=== PATIENT | male | born 1945 | race Caucasian/White ===

== ENCOUNTER → 2016-05-22 | Outpatient (CLI) | payer BC ==
[~2016-05-22] MED LIST: ACET-1256 PO; ALFU10TA30 PO; ASCA500 PO; ASPEC325 PO; AVASTIN IV; CHOL100010 PO; CHOL20009 PO; COEN10CA4 PO; GLUCTAB7 PO; JOINT CARE PO; MELO15TA4 PO; MORP15TA19 PO; MULT-506 PO; OMEG10007 PO; OXYC-57 PO; PREG150C PO; TAMS0.4C38 PO; XLD/500 PO; probiotic PO
== END | disposition home or self-care (01) ==
LOC: C.LAB 17:39
PROVIDERS: ATTEND Urology
DX: N40.1 Benign prostatic hyperplasia with lower urinary tract symptoms (principal); C20 Malignant neoplasm of rectum; C18.9 Malignant neoplasm of colon, unspecified

== ENCOUNTER → 2016-06-11 | Day surgery (SDC) | payer BC ==
[2016-06-07 10:38] VITALS: BMI 32.0
[~2016-06-11] VITALS: Ht 180.3 cm; Wt 104.5 kg
[~2016-06-11] MED LIST changes: +ATROPINE SULFATE 0.1 MG/ML 5ML SYR IV PRN; -AVASTIN IV; -CHOL20009 PO; +EpHEDrine SULFATE INJ 50 MG/ML AMP IV PRN; +FENTANYL CITRATE INJ 50 MCG/1 ML 2 ML VIAL ONE; -JOINT CARE PO; +LIDOCAINE HCL 2% 2 ML VIAL (20MG/ML) ONE; +PROPOFOL IV EMULSION 10 MG/ML 20 ML VIAL IV ONE; +SODIUM CHLORIDE 0.9% 500ML 500 ML IV ONE; -XLD/500 PO; -probiotic PO
[2016-06-11 08:43] VITALS: Ht 180.3 cm; Wt 104.5 kg
--- NOTE | 2016-06-11 09:15 | Endo History and Physical ---
History & Physical Date of Service: Jun 11, 2016. Chief Complaint: COLON CANCER Referring Physician: DR QUAN COMBS History of Present Illness 70 yo CM who presents for colonoscopy via colostomy secondary to history of rectal cancer. Past Medical History Arthritis, Cancer, Liver Disease Past Surgical History Hx Cardiac Surgery: No Hx Internal Defibrillator: No Hx Pacemaker: No Hx Abdominal Surgery: No Hx of Implantable Prosthesis: No Hx Post-Op Nausea and Vomiting: No Hx Cancer Surgery: Yes (COLON RESECTION WITH COLOSTOMY) Hx Thoracic Surgery: No Hx Orthopedic: Yes (LT KNEE SURGERY WITH HARDWARE) Hx Urinary Tract Surgery: No Family History None Social History Smoking Status: Former Smoker Hx Substance Use: No Hx Alcohol Use: Yes (OCCASIONAL) Allergies Coded Allergies: No Known Allergies (Verified , 06/11/16) Current Medications Reported Home Medications Medications Dose Route/Sig Max Daily Dose Days Date Category Vitamin D (Cholecalciferol) 1,000 Unit Tab 1 Tab PO QAM 06/07/16 Reported Flomax (Tamsulosin Hcl) 0.4 Mg Cap 0.4 Mg PO HS 06/07/16 Reported Mobic (Meloxicam) 15 Mg Tab 15 Mg PO Q2D 06/07/16 Reported Glucosamine Chondroitin (Grcdsjzwngo-Pfjxkswbmpv-Zxg C-) 1 Tab Tab 1 Oz PO HS 06/07/16 Reported [place]-3 (Fish Oil) 1 Ea Cap 2,000 Mg PO HS 12/27/14 Reported Coq-10 (Coenzyme Q10 (Ubidecarenone)) 10 Mg Cap 20 Mg PO HS 07/21/14 Reported Multivitamin (Multivitamins) Tab 1 Tab PO HS 07/05/14 Reported Vitamin C (Ascorbic Acid) 500 Mg Tab 1,000 Mg PO HS 07/05/14 Reported Vital Signs Weight (Kilograms): 104.55 Height (Feet): 5 Height (Inches): 11 Date Time Temp Pulse Resp B/P Pulse Ox O2 Delivery O2 Flow Rate FiO2 06/11/16 08:46 36.4 68 18 139/84 95 Room Air Physical Exam General Appearance: WD/WN, no apparent distress Respiratory/Chest: Auscultation: breath sounds normal Cardiovascular: Heart Auscultation: RRR Abdomen: Bowel Sounds: normal Inspection & Palpation: soft, non-distended, no tenderness, guarding & rebound Assessment and Plan Assessment: 70 yo CM who presents for colonoscopy via colostomy secondary to history of rectal cancer. Plan: Proceed with colonoscopy via colostomy.
--- NOTE | 2016-06-11 09:44 | Anesthesiology Progress Note ---
Anesthesia Post Op Note Date & Time Jun 11, 2016 at 09:43 Vital Signs Pain Intensity: 0 Vital Signs Past 12 Hours Date Time Temp Pulse Resp B/P Pulse Ox O2 Delivery O2 Flow Rate FiO2 06/11/16 08:46 36.4 68 18 139/84 95 Room Air Notes Mental Status: alert / awake / arousable, participated in evaluation Pt Amnestic to Procedure: Yes Nausea / Vomiting: adequately controlled Pain: adequately controlled Airway Patency, RR, SpO2: stable & adequate BP & HR: stable & adequate Hydration State: stable & adequate Anesthetic Complications: no major complications apparent
--- NOTE | 2016-06-11 09:46 | Discharge Instructions ---
Endoscopy Patient Instructions Date / Procedure(s) Performed Jun 11, 2016. Colonoscopy Allergy Information Coded Allergies: No Known Allergies (Verified , 06/11/16) Discharge Date / Findings Jun 11, 2016. Diverticulosis Medication Instructions OK to resume all medications today as prescribed. Reported Home Medications Medications Dose Route/Sig Max Daily Dose Days Date Category Vitamin D (Cholecalciferol) 1,000 Unit Tab 1 Tab PO QAM 06/07/16 Reported Flomax (Tamsulosin Hcl) 0.4 Mg Cap 0.4 Mg PO HS 06/07/16 Reported Mobic (Meloxicam) 15 Mg Tab 15 Mg PO Q2D 06/07/16 Reported Glucosamine Chondroitin (Waaxxvisrhd-Ejejlsrehsz-Pxr C-) 1 Tab Tab 1 Oz PO HS 06/07/16 Reported [place]-3 (Fish Oil) 1 Ea Cap 2,000 Mg PO HS 12/27/14 Reported Coq-10 (Coenzyme Q10 (Ubidecarenone)) 10 Mg Cap 20 Mg PO HS 07/21/14 Reported Multivitamin (Multivitamins) Tab 1 Tab PO HS 07/05/14 Reported Vitamin C (Ascorbic Acid) 500 Mg Tab 1,000 Mg PO HS 07/05/14 Reported Provider Instructions Activity Restrictions - No exercising or heavy lifting for 24 hours. - Do not drink alcohol the day of the procedure. - Do not drive a car or operate machinery until the day after the procedure. - Do not make any important decisions or sign important papers in 24 hours after the procedure. Following Day: - Return to full activity which may include returning to work/school. Diet Start your diet with liquids and light foods (jello, soup, juice, toast). Then eat your usual diet if not nauseated. Treatment For Common After Affects For mild abdominal pain, bloating, or excessive gas: - Rest - Eat lightly - Lie on right side Follow-Up Information Follow-up with DR QUAN COMBS as scheduled Anesthesia Information What You Should Know You have had a procedure that required some medicine to reduce anxiety and discomfort. This treatment is called moderate sedation. After receiving the treatment, you may be sleepy, but you will be able to breathe on your own. The effects of the treatment may last for several hours. Follow these instructions along with Activity/Diet recommendations noted above: * Do NOT do anything where dizziness or clumsiness would be dangerous. * Rest quietly at home today, then you can be up and about tomorrow. * Have a responsible person stay with you the rest of today. * You may have had an I.V. today. If so, you may take the dressing off later today. Recommendations Call your doctor if: * Trouble breathing * Continuous vomiting for more than 24 hours * Temperature above 101 degrees * Severe abdominal pain or bloating * Pain not relieved by pain medicine ordered * There is increased drainage or redness from any incision * A large amount of rectal bleeding greater than 2-3 tablespoons. (If you had a polyp/s removed or have hemorrhoids, a small amount of blood - from the rectum is to be expected.) * You have any unanswered questions or concerns. IN THE EVENT OF A SERIOUS EMERGENCY, GO TO THE NEAREST EMERGENCY ROOM Your discharge instructions were prepared by provider Nathan Lin. Patient Instructions Signature Page Kristofer Ash Patient (or Guardian) Signature/Date: I have read and understand the instructions given to me by my caregivers. Caregiver/RN/Doctor Signature/Date: The above-named patient and/or guardian has received patient instructions on this date. + Original Patient Signature Page (only) stays with chart. Please make copy for patient.
--- NOTE | 2016-06-11 09:54 | GI REPORT ---
Procedure Date: 06/11/2016 9:17 AM Procedure: Colonoscopy Indications: High risk colon cancer surveillance: Personal history of colon cancer Medicines: Monitored Anesthesia Care Complications: No immediate complications. Estimated Blood Loss: Estimated blood loss: none. Procedure: Pre-Anesthesia Assessment: - Prior to the procedure, a History and Physical was performed, and patient medications and allergies were reviewed. The patient's tolerance of previous anesthesia was also reviewed. The risks and benefits of the procedure and the sedation options and risks were discussed with the patient. All questions were answered, and informed consent was obtained. Prior Anticoagulants: The patient has taken no previous anticoagulant or antiplatelet agents. ASA Grade Assessment: III - A patient with severe systemic disease. After reviewing the risks and benefits, the patient was deemed in satisfactory condition to undergo the procedure. After I obtained informed consent, the scope was passed under direct vision. Throughout the procedure, the patient's blood pressure, pulse, and oxygen saturations were monitored continuously. The Scope was introduced through the sigmoid colostomy and advanced to the cecum, identified by appendiceal orifice and ileocecal valve. The colonoscopy was performed without difficulty. The patient tolerated the procedure well. The quality of the bowel preparation was good. The ileocecal valve, appendiceal orifice, and rectum were photographed. Findings: Multiple small-mouthed diverticula were found in the sigmoid colon. Impression: - Diverticulosis in the sigmoid colon. - No specimens collected. Recommendation: - Resume previous diet. - Continue present medications. - Repeat colonoscopy in 3 years for surveillance. - Return to primary care physician as previously scheduled. Nathan Lin DO 06/11/2016 9:53:04 AM This report has been signed electronically. Note Initiated On: 06/11/2016 9:17 AM
[2016-06-11 10:04] VITALS: BP 141/86; PULSE 71; O2SAT 96
== END | disposition home or self-care (01) ==
LOC: C.GI 08:30
PROVIDERS: ATTEND Internal Medicine
DX: Z12.11 Encounter for screening for malignant neoplasm of colon (principal); Z85.038 Personal history of other malignant neoplasm of large intestine; K57.30 Diverticulosis of large intestine without perforation or abscess without bleeding; Z85.048 Personal history of other malignant neoplasm of rectum, rectosigmoid junction, and anus; Z98.890 Other specified postprocedural states; Z87.891 Personal history of nicotine dependence; E66.9 Obesity, unspecified

== ENCOUNTER 2016-07-31 10:31 | Inpatient (IN) | payer BC, OTHER ==
[2016-07-10 08:46] VITALS: BMI 34.0
--- NOTE | 2016-07-10 09:17 | PAT Medication Instructions ---
Service Date Jul 10, 2016. Current Home Medication List Acetaminophen (Tylenol), 1,500 MG PO BID Alfuzosin Hcl (Uroxatral), 10 MG PO QPM Ascorbic Acid (Vitamin C), 1,500 MG PO QPM Cholecalciferol (Vitamin D), 3,000 UNITS PO QAM Coenzyme Q10 (Ubidecarenone) (Coq-10), 20 MG PO QPM Fish Oil ([place]-3), 2,000 MG PO HS Jbtttgmecdv-Nagehybmnzq-Rcq C- (Glucosamine Chondroitin), 1 OZ PO HS Meloxicam (Mobic), 15 MG PO Q2D PRN for Pain Multivitamin (Multivitamin), 1 TAB PO HS Medication Instructions For Your Scheduled Surgery Meloxicam (Mobic), 15 MG PO Q2D PRN for Pain (per surgeon instructions) - Hold the following medications 2 weeks prior to surgery: Wtawmufbjev-Gwcyfxxdxqf-Quu C- (Glucosamine Chondroitin), 1 OZ PO HS Coenzyme Q10 (Ubidecarenone) (Coq-10), 20 MG PO QPM Fish Oil ([place]-3), 2,000 MG PO HS - Hold the following medications the morning of surgery: Ascorbic Acid (Vitamin C), 1,500 MG PO QPM Cholecalciferol (Vitamin D), 3,000 UNITS PO QAM - Take the following medications the morning of surgery with a sip of water: Acetaminophen (Tylenol), 1,500 MG PO BID - Take the following medications as scheduled the night before surgery: Multivitamin (Multivitamin), 1 TAB PO HS Acetaminophen (Tylenol), 1,500 MG PO BID Alfuzosin Hcl (Uroxatral), 10 MG PO QPM If you have any questions please call us at [phone] or [phone] or [phone]
--- NOTE | 2016-07-10 10:00 | DIAGNOSTIC IMAGING REPORT ---
CHEST PREADMISSION(PA/LAT) CLINICAL HISTORY: PAT COMPARISON STUDY: No previous studies for comparison. FINDINGS: The bones soft tissues and hemidiaphragms are normal. The cardiomediastinal silhouette is normal. The lungs are clear. The pulmonary vasculature is normal. IMPRESSION: Negative chest. Electronically signed by: Javan Lozada M.D. 07/10/2016 9:59 AM Dictated Date/Time: 07/10/2016 9:59 AM
[2016-07-10 10:32] LABS: BASO % 0.8 %; BASO ABS # 0.03 K/uL (0-0.2); COMPLETE YES; EOS % 5.2 %; HEMATOCRIT 42.7 % (42-52); IG% 0.3 %; LYMPH ABS # 0.88 K/uL (1.2-3.4); MEAN CELL VOLUME 94.7 fL (80-100); MEAN CORPUSCULAR HEMOGLOBIN 32.6 pg (25-34); MEAN CORPUSCULAR HGB CONC 34.4 g/dl (32-36); MONO % 18.9 %; NEUT % 50.8 %; PLATELET COUNT 153 K/uL (130-400); RED BLOOD COUNT 4.51 M/uL (4.7-6.1); WHITE BLOOD COUNT 3.66 K/uL (4.8-10.8)
[2016-07-10 10:59] LABS: BUN/CREATININE RATIO 21.4 (10-20); CALCIUM 9.2 mg/dl (8.5-10.1); CREATININE 0.82 mg/dl (0.60-1.40); POTASSIUM 4.7 mmol/L (3.5-5.1)
[2016-07-10 11:00] LABS: C-REACTIVE PROTEIN 0.54 mg/dl (0-0.29)
[2016-07-17 14:19] LABS: PROTHROMBIN TIME (PATIENT) 10.4 SECONDS (9.0-12.0)
--- NOTE | 2016-07-28 21:17 | HISTORY & PHYSICAL EXAMINATION ---
DATE OF ADMISSION: 07/31/2016 CHIEF COMPLAINT: Left knee pain. HISTORY OF PRESENT ILLNESS: The patient is a 70-year-old gentleman, who presents for surgical treatment of his left knee pain. He has got a long history of left knee pain and discomfort. He does have history of a fracture treated by Dr. Cabral in the 70s. He has been treated extensively for his arthritis by Dr. Vora in the past. Injections have helped him for about a month. He has become more debilitated by his pain and would like to have his knee replaced. PAST MEDICAL HISTORY: 1. Colon cancer, status post resection without recurrence. 2. Hiatal hernia. 3. Obesity with a BMI of 34. 4. Osteoarthritis. PAST SURGICAL HISTORY: Include: 1. Resection/rectal resection. 2. Left knee surgery in the 70s for a fracture. ALLERGIES: None. CURRENT MEDICATIONS: None. SOCIAL HISTORY: A 70-year-old male. He is . He is from [place]. He is retired. FAMILY HISTORY: Significant for colon cancer. REVIEW OF SYSTEMS: Significant for colon cancer. He has got a colostomy. He denies any chest pain or shortness of breath. No history of DVT or PE. PHYSICAL EXAMINATION: GENERAL: Reveals a healthy pleasant elderly male. He looks in pretty good health. HEENT: Benign. NECK: Supple. No lymphadenopathy. LUNGS: Clear to auscultation. HEART: Regular rate and rhythm. ABDOMEN: Soft, nontender and nondistended. EXTREMITIES: Grossly neurovascularly intact except as follows: Examination of the left knee and leg reveals the patient walks with a slight bit of a limp. He has got valgus alignment to his knee. His valgus alignment is made worse with weightbearing. He has got a well-healed lateral incision which was done in the 70s. Range of motion is 5-120. No instability. X-rays of the left knee were reviewed. It shows advanced left knee lateral compartment DJD. He has got complete loss of his lateral joint space. He has got some type of transverse wire devised to the proximal tibia. He has got osteophytes in all 3 compartments. 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 He failed conservative treatment and would like to have his knee replaced. PLAN: We are going to take him to the operating room and do a left total knee replacement and will, also, likely have to remove some of his hardware. The risks and benefits of this procedure were explained to the patient including but not limited to DVT, PE, , infection, neurological injury, vascular injury, bleeding problem, pain, limited range of motion, stiffness, failure to relieve his symptoms, incomplete relief of symptoms, need for further surgery in the future, fracture, leg length inequality, nerve palsy, persistent pain, etc. The patient understands and desires to proceed. Informed consent was obtained. The patient had a preoperative workup. Chest x-ray was normal. EKG showed some sinus bradycardia and incomplete right bundle branch block. Labs are all pretty normal. He is planning to be discharged to home with some home health for 2 weeks followed by outpatient therapy. I will see him back 2 weeks postop. LUZMARIA
[~2016-07-31] VITALS: Ht 177.8 cm; Wt 107.3 kg
[2016-07-31] VITALS (7 sets, daily range): BP systolic 127–145; BP diastolic 59–79; PULSE 56–63; TEMP 36.2–36.8; O2SAT 97–99; Ht 177.8 cm; Wt 107.3 kg
[~2016-07-31 10:31] MED LIST changes: +ACETAMINOPHEN 500 MG TAB PO SCH; -ASPEC325 PO; -ATROPINE SULFATE 0.1 MG/ML 5ML SYR IV PRN; +BUPIVACAINE 0.5 % 5 MG/1 ML PF 10ML VIAL ONE; +BUPIVACAINE LIPOSOME 266 MG, BUPIVACAINE/EPINEPHRINE INJ 50 ML, SODIUM CHLORIDE 0.9% PF... INFIL SCH; +CEFAZOLIN 2000 MG/60 ML D5W 60 ML IV SCH; -EpHEDrine SULFATE INJ 50 MG/ML AMP IV PRN; +FAMOTIDINE 20 MG TAB PO SCH; -FENTANYL CITRATE INJ 50 MCG/1 ML 2 ML VIAL ONE; +GABAPENTIN 300 MG CAP PO SCH; +LACTATED RINGER'S 1000ML 1,000 ML IV SCH; +LACTATED RINGER'S 1000ML 500 ML IV ONE; +LACTATED RINGER'S 1000ML IV SCH; -LIDOCAINE HCL 2% 2 ML VIAL (20MG/ML) ONE; +METOCLOPRAMIDE HCL 10 MG TAB PO SCH; -MORP15TA19 PO; -OXYC-57 PO; -PROPOFOL IV EMULSION 10 MG/ML 20 ML VIAL IV ONE; +SCOPOLAMINE 1.5 MG TDSY TD SCH; -SODIUM CHLORIDE 0.9% 500ML 500 ML IV ONE; -TAMS0.4C38 PO; +TRANEXAMIC ACID INJ 1,000 MG in SODIUM CHLORIDE 0.9% 100ML 100 ML IV SCH
--- NOTE | 2016-07-31 11:16 | History & Physical Bridge Note ---
H&P Re-Evaluation Bridge Note: I have examined the patient, reviewed the History & Physical and in the interval since the performance of the History & Physical I have noted the following changes of clinical significance: No changes noted
[2016-07-31] MEDS ORDERED: EpHEDrine SULFATE INJ 50 MG/ML AMP IV PRN (12:00)
[2016-07-31] MEDS ORDERED: ATROPINE SULFATE 0.1 MG/ML 5ML SYR IV PRN (12:00)
[2016-07-31] MEDS ORDERED: FENTANYL CITRATE INJ 50 MCG/1 ML 2 ML VIAL IV PRN (12:00)
[2016-07-31] MEDS ORDERED: ONDANSETRON INJ 2 MG/ML 2 ML VIAL IV PRN ×2 (12:00→16:15)
[2016-07-31] MEDS ORDERED: MIDAZOLAM HCL 1 MG/ML 2ML VIAL ONE (12:09)
[2016-07-31] MEDS ORDERED: BUPIVACAINE LIPOSOME 1/3% 266 MG/20 ML VIAL INFIL ONE (13:00)
[2016-07-31] MEDS ORDERED: SODIUM CHLORIDE 0.9% PF 50 ML VIAL ONE (13:00)
[2016-07-31] MEDS ORDERED: BUPIVACAINE/EPINEPHRINE 0.25% 1:200,000 30 ML VIAL ONE (13:00)
[2016-07-31] MEDS ORDERED: BACITRACIN 50000 UNIT VIAL ONE (13:00)
[2016-07-31] MEDS ORDERED: VANCOMYCIN HCL 1000MG/20ML VIAL ONE (14:27)
[2016-07-31] MEDS ORDERED: LIDOCAINE HCL 2% 2 ML VIAL (20MG/ML) ONE (14:42)
[2016-07-31] MEDS ORDERED: PROPOFOL IV EMULSION 10 MG/ML 20 ML VIAL IV ONE ×3 (14:42→15:28)
[2016-07-31] MEDS ORDERED: CEFAZOLIN SOD 1 GM VIAL ONE (15:51)
[2016-07-31] MEDS: CHECK SCOPOLAMINE PATCH PLACEMENT SCH ×2 (16:00→23:32)
--- NOTE | 2016-07-31 16:14 | [facility] Post Operative Brief Note ---
Immediate Operative Summary Operative Date Jul 31, 2016. 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
[2016-07-31] MEDS ORDERED: METOCLOPRAMIDE HCL INJ 5 MG/ML 2 ML VIAL IV PRN (16:15)
[2016-07-31] MEDS ORDERED: BISACODYL 10 MG SUPP PR PRN (16:15)
[2016-07-31] MEDS ORDERED: TAMSULOSIN HCL 0.4 MG CAP PO PRN (16:15)
[2016-07-31] MEDS ORDERED: SILVER SULFADIAZINE 1% CR 50 GM JAR EXT PRN (16:15)
[2016-07-31] MEDS ORDERED: ZOLPIDEM TARTRATE 5 MG TAB PO PRN (16:15)
[2016-07-31] MEDS ORDERED: DiphenhydrAMINE HCL 50 MG/ML VIAL IV PRN (16:15)
[2016-07-31] MEDS ORDERED: OXYCODONE HCL IR 5 MG TAB (IMMEDIATE RELEASE) PO PRN (16:15)
[2016-07-31] MEDS ORDERED: MAGNESIUM HYDROXIDE SUSP 30 ML UDC PO PRN (16:15)
[2016-07-31] MEDS ORDERED: ALUMINUM/MAGNESIUM/SIMETH (MAALOX MAX) 30 ML UDC PO PRN (16:15)
--- NOTE | 2016-07-31 16:59 | Anesthesiology Progress Note ---
Anesthesia Post Op Note Date & Time Jul 31, 2016 at 16:59 Vital Signs Pain Intensity: 0 Vital Signs Past 12 Hours Date Time Temp Pulse Resp B/P Pulse Ox O2 Delivery O2 Flow Rate FiO2 07/31/16 16:50 62 20 127/74 99 Nasal Cannula 2 07/31/16 16:40 58 20 122/73 98 Nasal Cannula 2 07/31/16 16:30 61 18 115/76 96 Nasal Cannula 2 07/31/16 16:22 36.6 73 18 126/64 94 Room Air 07/31/16 11:00 36.8 62 18 137/59 97 Room Air Notes Mental Status: alert / awake / arousable, participated in evaluation Pt Amnestic to Procedure: Yes Nausea / Vomiting: adequately controlled Pain: adequately controlled Airway Patency, RR, SpO2: stable & adequate BP & HR: stable & adequate Hydration State: stable & adequate Neuraxial Anesthesia: was administered, sensory block is resolving Anesthetic Complications: no major complications apparent
--- NOTE | 2016-07-31 17:32 | DIAGNOSTIC IMAGING REPORT ---
LEFT KNEE 2 VIEWS History: Left total knee arthroplasty. Degenerative arthritis. Postop. FINDINGS: The patient is status post a left total knee arthroplasty. The hardware is intact. No fracture or dislocation. Skin shelli and surgical drains are in place. IMPRESSION: Left total knee arthroplasty. No evidence for hardware complication. Electronically signed by: Alexander Radford M.D. 07/31/2016 5:31 PM Dictated Date/Time: 07/31/2016 5:30 PM
[2016-07-31] MEDS: D5W AND 1/2NSS + 20MEQ KCL 1,000 ML IV SCH (19:21)
[2016-07-31] MEDS: KETOROLAC TROMETHAMINE 15 MG/ML VIAL IV. SCH (19:21)
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
[2016-07-31] MEDS: PREGABALIN 150 MG CAP PO SCH (20:41)
[2016-07-31] MEDS: TAPENTADOL ER 50 MG TABCR PO SCH (20:41)
[2016-07-31] MEDS: MoRPHine SULFATE 2 MG/ML CARP IV PRN (20:41)
[2016-07-31] MEDS: ALFUZosin TAB 10 MG TAB PO SCH (20:42)
[2016-07-31] MEDS: ASCORBIC ACID 500 MG TAB PO SCH (20:43)
[2016-07-31] MEDS: ASPIRIN 325 MG ECTAB PO SCH (20:43)
[2016-07-31] MEDS: DOCUSATE SODIUM 100 MG CAP PO SCH (20:44)
[2016-07-31] MEDS: MULTIVITAMIN TAB PO SCH (20:44)
[2016-07-31] MEDS ORDERED: TRANEXAMIC ACID INJ 1,000 MG in SODIUM CHLORIDE 0.9% 100ML 100 ML IV SCH (21:00)
[2016-07-31] MEDS: ACETAMINOPHEN 500 MG TAB PO SCH (21:53)
[2016-07-31] MEDS: CEFAZOLIN IV 2,000 MG in DEXTROSE 5% 50ML 50 ML IV SCH (23:32)
[2016-07-31] MEDS: OXYCODONE HCL IR 5 MG TAB (IMMEDIATE RELEASE) PO PRN (23:40)
[2016-08-01] VITALS (7 sets, daily range): BP systolic 107–124; BP diastolic 61–80; PULSE 60–75; TEMP 36.9–37.3; O2SAT 93–96
[2016-08-01] MEDS: MoRPHine SULFATE 2 MG/ML CARP IV PRN ×3 (00:19→15:21)
[2016-08-01] MEDS: KETOROLAC TROMETHAMINE 15 MG/ML VIAL IV. SCH ×4 (02:21→20:23)
[2016-08-01] MEDS: D5W AND 1/2NSS + 20MEQ KCL 1,000 ML IV SCH ×2 (02:22→10:44)
[2016-08-01] MEDS: ACETAMINOPHEN 500 MG TAB PO SCH ×3 (05:40→21:32)
[2016-08-01 06:38] LABS: MEAN CELL VOLUME 94.4 fL (80-100); MEAN CORPUSCULAR HEMOGLOBIN 32.5 pg (25-34); MEAN CORPUSCULAR HGB CONC 34.4 g/dl (32-36); MEAN PLATELET VOLUME 8.4 fL (7.4-10.4); PLATELET COUNT 143 K/uL (130-400); WHITE BLOOD COUNT 5.37 K/uL (4.8-10.8)
[2016-08-01 07:11] LABS: BUN/CREATININE RATIO 21.6 (10-20); CALCIUM 7.8 mg/dl (8.5-10.1); CREATININE 0.86 mg/dl (0.60-1.40); POTASSIUM 4.4 mmol/L (3.5-5.1)
[2016-08-01] MEDS: CHECK SCOPOLAMINE PATCH PLACEMENT SCH ×2 (07:23→15:22)
[2016-08-01] MEDS: CEFAZOLIN IV 2,000 MG in DEXTROSE 5% 50ML 50 ML IV SCH (07:24)
[2016-08-01] MEDS: OXYCODONE HCL IR 5 MG TAB (IMMEDIATE RELEASE) PO PRN ×3 (07:35→21:33)
[2016-08-01] MEDS: DOCUSATE SODIUM 100 MG CAP PO SCH ×2 (08:48→21:31)
[2016-08-01] MEDS: FERROUS GLUCONATE 324 MG TAB PO SCH ×3 (08:48→18:03)
[2016-08-01] MEDS: CHOLECALCIFEROL 400 INTER.UNIT TAB PO SCH (08:49)
[2016-08-01] MEDS: ASPIRIN 325 MG ECTAB PO SCH ×2 (08:49→21:32)
[2016-08-01] MEDS: PANTOprazole SOD 40 MG TAB PO SCH (08:49)
[2016-08-01] MEDS: TAPENTADOL ER 50 MG TABCR PO SCH ×2 (08:49→21:32)
[2016-08-01] MEDS: PREGABALIN 150 MG CAP PO SCH ×3 (08:52→21:32)
[2016-08-01] MEDS ORDERED: MULTIVITAMIN TAB PO SCH (09:00)
--- NOTE | 2016-08-01 13:46 | Anesthesiology Progress Note ---
Anesthesia Post Op Note Date & Time Aug 01, 2016 at 13:46 Vital Signs Vital Signs Past 12 Hours Date Time Temp Pulse Resp B/P Pulse Ox O2 Delivery O2 Flow Rate FiO2 08/01/16 11:51 37.0 60 20 124/80 95 Room Air 08/01/16 11:22 66 94 08/01/16 08:45 94 Room Air 08/01/16 08:32 Room Air 08/01/16 07:56 37.2 64 16 120/78 94 Room Air 08/01/16 03:16 36.9 61 16 113/65 95 Room Air Notes Mental Status: alert / awake / arousable, participated in evaluation Pt Amnestic to Procedure: Yes Nausea / Vomiting: adequately controlled Pain: adequately controlled Airway Patency, RR, SpO2: stable & adequate BP & HR: stable & adequate Hydration State: stable & adequate Neuraxial Anesthesia: sensory block resolved Anesthetic Complications: no major complications apparent
[2016-08-01] MEDS ORDERED: OXYC-57 PO (16:13)
[2016-08-01] MEDS ORDERED: ASPEC325 PO (16:13)
[2016-08-01] MEDS ORDERED: MORP15TA19 PO (16:13)
--- NOTE | 2016-08-01 16:15 | Discharge Instructions ---
Discharge Instructions Date of Service Aug 01, 2016. Admission Reason for Admission: Left Knee Degenerative Joint Disease, Knee Effusio Discharge Discharge Diagnosis / Problem: Left Knee Replacement Discharge Goals Goal(s): Decrease discomfort, Improve function, Increase independence, Improve disease control, Therapeutic intervention Activity Recommendations Activity Limitations: per Instructions/Follow-up section Weightbearing Status: Left weightbearing . Instructions / Follow-Up Instructions / Follow-Up ACTIVITY RECOMMENDATIONS: Physical Therapy: * You will go to physical therapy three times each week for four to six weeks after your surgery in order to regain your knee range of motion and to retrain your knee to work properly. * It is just as important to make sure you are getting your knee perfectly straight as it is to regain your knee bend. * Taking a pain pill an hour before therapy can help you have a more productive and comfortable therapy session. Home Exercise: * You were shown a series of exercises (heel props, heel slides, etc.) in the hospital. Do these exercises three to four times each day including the exercises you were shown in physical therapy. Walking: * Get up and walk several times each day. For the first four weeks, try not to stand or walk for more than one hour at a time. If you do stand or walk for more than one hour, you will not hurt anything, but your knee and leg will likely swell. * As you feel comfortable, you may change from the walker or crutches to a cane and then to independent walking. MEDICATIONS: New Medicine: * You will likely be taking one or more of these medications: 1. MS Contin - A long-acting pain medication. Take 1 tablet twice a day for the first ten days to decrease your baseline level of pain. 2. Percocet - A quick and shorter-acting pain medication. Take one to two tablets every four to six hours to lessen your pain. 3. Aspirin - Thins your blood to lessen the chance of forming a blood clot. * The most common side effects of pain medicine and iron are nausea and constipation. If nausea or constipation is too much of a problem or if you have any questions about your new medicines or doses, call [facility] at [phone]. We will try to help you manage these issues. VERY IMPORTANT TO READ AND REVIEW" Pain: * The immediate post-operative period after knee replacement surgery is often quite painful. * You are given a prescription for pain medicine. You should take it, as directed, when you need it, especially before physical therapy and before going to bed. Pain that interferes with sleep is very common and can last several months. * You will likely need pain medicine for the first four to six weeks. It will not stop all of the pain. The pain will lessen and as you feel better, you may change to milder pain medicine such as Tylenol. * The most common side effects of pain medicine are nausea and constipation, so don't take more than you need. SPECIAL CARE INSTRUCTIONS: TEDs/Elastic Stockings: * The white elastic stockings help limit swelling and prevent blood clots from forming in your legs. The more you wear them, the more they work. * Wear them for six weeks after knee replacement surgery and four weeks after partial knee replacement. Prevention of Infection: * Take antibiotics one hour before any dental cleaning, dental work, urological procedure, gastrointestinal procedure or any invasive surgery in order to prevent your new joint from getting infected. * You may get the antibiotics from the doctor performing the procedure or you may call our office at before and we will call in a prescription to the pharmacy of your choice. Things to Watch For: * Drainage from the incision site that occurs more than one week after your surgery. * Severely increased knee/leg pain or swelling. * Increased redness at the incision site. * Fever above 102 degrees Fahrenheit. * Unusual chest pain or shortness of breath. * Unusual pain or burning with urination. Call [facility] at with any of the above problems or if you have any questions about your medicines or recovery. FOLLOW UP VISIT: Make an appointment to see your doctor for approximately two weeks after surgery for a progress check and staple removal by calling the office at . Current Hospital Diet Patient's current hospital diet: Regular Diet Discharge Diet Recommended Diet: Regular Diet Procedures Procedures Performed: left total knee arthroplasty with hardware removal Pending Studies Studies pending at discharge: no Medical Emergencies . Who to Call and When: Medical Emergencies: If at any time you feel your situation is an emergency, please call 911 immediately. . Non-Emergent Contact Non-Emergency issues call your: Surgeon . "Provider Documentation" section prepared by Clyde Sheridan. VTE Core Measure Inpt VTE Proph given/why not?: Other Anticoagulation, T.E.D. Stockings, SCD's
--- NOTE | 2016-08-01 18:40 | PROGRESS NOTE ---
DATE: 08/01/2016 SUBJECTIVE: 70-year-old gentleman postop day 1 from a left total knee replacement, hardware removal. He is doing pretty well. Pretty painful last night, but doing better today. Very extensive surgery due to the scarring. Denies any chest pain or shortness of breath. OBJECTIVE: VITAL SIGNS: Temperature 37.3. Vital signs stable. PHYSICAL EXAMINATION: GENERAL: Reveals a healthy pleasant elderly male. He is sitting up in bed and talking his . He looks comfortable. LUNGS: Clear to auscultation. HEART: Regular rate and rhythm. ABDOMEN: Soft, nontender, nondistended. EXTREMITIES: Grossly neurovascularly intact except as follows: Examination of the left lower extremity reveals the leg to be well aligned. Dressing is intact. It has been reenforced. He can do a straight leg raise. He can dorsiflex and plantarflex his foot appropriately. He is neurologically intact. LABORATORY DATA: Hemoglobin 11.7, hematocrit 34.0. Electrolytes are stable. ASSESSMENT: 70-year-old gentleman postop day #1 from left knee hardware removal and complex total knee arthroplasty, doing well. His pain is controlled. He is neurologically intact. PLAN: 1. DVT prophylaxis including thigh-high TEDs, SCDs, and aspirin twice a day. 2. PT/OT. Weightbearing as tolerated. Left total knee protocol. 3. Pain control, doing pretty well with current pain regimen. 4. Disposition: He is planning discharge to home with some home health once adequately recovered.
[2016-08-01] MEDS: ALFUZosin TAB 10 MG TAB PO SCH (21:31)
[2016-08-01] MEDS: MULTIVITAMIN TAB PO SCH (21:31)
[2016-08-01] MEDS: ASCORBIC ACID 500 MG TAB PO SCH (21:32)
[2016-08-02] MEDS: CHECK SCOPOLAMINE PATCH PLACEMENT SCH (00:07)
[2016-08-02] MEDS: KETOROLAC TROMETHAMINE 15 MG/ML VIAL IV. SCH ×2 (01:57→08:10)
[2016-08-02] MEDS: ACETAMINOPHEN 500 MG TAB PO SCH (05:37)
[2016-08-02 07:12] VITALS: BP 125/77; PULSE 68; TEMP 37; O2SAT 95
[2016-08-02] MEDS: OXYCODONE HCL IR 5 MG TAB (IMMEDIATE RELEASE) PO PRN (08:13)
[2016-08-02] MEDS: CHOLECALCIFEROL 400 INTER.UNIT TAB PO SCH (08:33)
[2016-08-02] MEDS: PANTOprazole SOD 40 MG TAB PO SCH (08:34)
[2016-08-02] MEDS: DOCUSATE SODIUM 100 MG CAP PO SCH (08:34)
[2016-08-02] MEDS: FERROUS GLUCONATE 324 MG TAB PO SCH (08:34)
[2016-08-02] MEDS: ASPIRIN 325 MG ECTAB PO SCH (08:34)
[2016-08-02] MEDS: PREGABALIN 150 MG CAP PO SCH (08:37)
[2016-08-02] MEDS: TAPENTADOL ER 50 MG TABCR PO SCH (08:37)
[2016-08-02 10:42] VITALS: BP 125/77; PULSE 68; TEMP 37; O2SAT 95
--- NOTE | 2016-08-02 11:21 | PROGRESS NOTE ---
DATE: 08/02/2016 SUBJECTIVE: A 70-year-old gentleman postop day #2 from a left knee hardware removal and total knee arthroplasty. He is doing quite well. Pain is getting better daily. Denies any chest pain or shortness of breath. Mostly just quad discomfort. OBJECTIVE: VITAL SIGNS: Temperature 37.0. Vital signs stable. GENERAL: Healthy, pleasant, middle-aged male. He is sitting up in bed, looks pretty comfortable this morning. LUNGS: Clear to auscultation. HEART: Has a regular rate and rhythm. ABDOMEN: Soft, nontender, nondistended. EXTREMITIES: Grossly neurovascularly intact except as follows: Examination of the left lower extremity reveals the incision to be clean, dry and intact. There is no significant drainage. I carefully inspected his wound and the edges are well approximated. There is good blood supply and is well approximated. He can do a straight leg raise. His calf is soft and supple. He is neurologically intact. ASSESSMENT: A 70-year-old gentleman postop day #2 from a left knee replacement, doing well. Very extensive surgery for knee replacement and his knee looks excellent. PLAN: 1. DVT prophylaxis including thigh-high TEDs, SCDs, and aspirin twice a day. 2. PT/OT. Weightbearing as tolerated. Left total knee protocol. 3. Pain control. Doing well with current pain regimen. 4. Disposition: Plan to discharge to home with some home health later today.
--- NOTE | 2016-08-13 18:09 | DISCHARGE SUMMARY ---
ADMITTING PHYSICIAN AND SURGEON: Dr. Sheridan. ADMITTING DIAGNOSIS: Left knee post-traumatic degenerative joint disease after the proximal tibia open reduction internal fixation. PROCEDURE PERFORMED: Hardware removal from the left tibia and total knee arthroplasty. SECONDARY DIAGNOSES: Includes colon cancer, hiatal hernia, obesity, and osteoarthritis. CONSULTS: None obtained. HOSPITAL COURSE: The patient was admitted on 07/31/2016 underwent hardware removal and total knee arthroplasty, tolerated the procedure well. There were no complications. He was transferred to PACU postoperatively and later to the orthopedic floor for further care. He was given Ancef for antibiotic prophylaxis, KRISHNA stockings, SCDs and aspirin for DVT prophylaxis. Hemoglobin, hematocrit and vital signs were monitored during his hospital stay and remained stable. He developed some mild postoperative anemia, did not require any blood transfusions. There were no complications. By postoperative day #2, he was tolerating a general diet, pain was controlled with oral pain medicine. He was participating in physical therapy and had no signs or symptoms of deep vein thrombosis. On postop day #2, he was discharged home in good condition, set up with home health services. He was given printed discharge instructions including prescriptions for aspirin 325 mg b.i.d. and Percocet. Continue his home medications, continue physical therapy, weightbearing as tolerated, KRISHNA stockings. Follow up in 10-12 days or sooner if there are problems or concerns.
== END 2016-08-02 11:15 | disposition home health service (06) | DRG 470 ==
LOC: ENRESERVDT → ENRESERVTM → C.ACU 10:31 → C.3E 11:00
PROVIDERS: ADMIT Orthopaedic Surgery Sports Medicine; ATTEND Orthopaedic Surgery Sports Medicine
PROC: 0QPH04Z Removal of Internal Fixation Device from Left Tibia, Open Approach (ICD-10-PCS; principal; 2016-07-31 12:40)
PROC: 0SRD0J9 Replacement of Left Knee Joint with Synthetic Substitute, Cemented, Open Approach (ICD-10-PCS; principal; 2016-07-31 12:40)
DX: M12.562 Traumatic arthropathy, left knee (principal); Z85.038 Personal history of other malignant neoplasm of large intestine; E66.9 Obesity, unspecified; Z68.34 Body mass index [BMI] 34.0-34.9, adult

== ENCOUNTER → 2016-08-20 | Outpatient (CLI) | payer BC ==
[~2016-08-20] MED LIST changes: -ACET-1256 PO; -ACETAMINOPHEN 500 MG TAB PO SCH; +ALFU10TA2 PO; -ALFU10TA30 PO; +ASPEC325 PO; -BUPIVACAINE 0.5 % 5 MG/1 ML PF 10ML VIAL ONE; -BUPIVACAINE LIPOSOME 266 MG, BUPIVACAINE/EPINEPHRINE INJ 50 ML, SODIUM CHLORIDE 0.9% PF... INFIL SCH; -CEFAZOLIN 2000 MG/60 ML D5W 60 ML IV SCH; -FAMOTIDINE 20 MG TAB PO SCH; -GABAPENTIN 300 MG CAP PO SCH; -LACTATED RINGER'S 1000ML 1,000 ML IV SCH; -LACTATED RINGER'S 1000ML 500 ML IV ONE; -LACTATED RINGER'S 1000ML IV SCH; -METOCLOPRAMIDE HCL 10 MG TAB PO SCH; +OPTIRAY 320 IV PRN; +OXYC-57 PO; -SCOPOLAMINE 1.5 MG TDSY TD SCH; -TRANEXAMIC ACID INJ 1,000 MG in SODIUM CHLORIDE 0.9% 100ML 100 ML IV SCH
--- NOTE | 2016-08-20 16:33 | DIAGNOSTIC IMAGING REPORT ---
CT SCAN OF THE CHEST WITH IV CONTRAST CLINICAL HISTORY: Rectal carcinoma. COMPARISON STUDY: Chest CT scans dated 02/24/2016 and 07/16/2014. TECHNIQUE: Following the IV administration of 118 cc of Optiray 320, CT scan of the thorax was performed from the thoracic inlet to the upper abdomen. Images are reviewed in the axial, sagittal, and coronal planes. IV contrast was administered without complication. CT DOSE: 1430.63 mGy.cm FINDINGS: Thyroid: Imaged portions of the thyroid gland are normal in size and attenuation. Thoracic aorta: There is atherosclerotic calcification of the thoracic aorta, with is normal in caliber and demonstrates 4-vessel variant arch anatomy. No dissection is seen. A right internal jugular central venous infusion port is again noted. Pulmonary vasculature: The pulmonary trunk is normal in caliber. There are no filling defects identified in the central pulmonary vessels to indicate pulmonary embolus. Note that this examination was not protocoled for evaluation of the pulmonary arteries. Heart: The heart is enlarged and without pericardial effusion. Lungs and pleural spaces: There is a 3 mm focus of nodular pleural thickening in the left upper lobe along the major fissure seen on image #96. This is unchanged from 2015 and of doubtful significance. There is no airspace consolidation or pleural effusion. No concerning pulmonary lesion is identified. Foci of centrilobular groundglass opacities seen on 02/24/2016 have resolved and were likely on an inflammatory basis. The trachea and central airways are clear. Mediastinum: There is no mediastinal lymphadenopathy. Rosalia: Clear. Axillae: There is no axillary lymphadenopathy. Upper abdomen: The liver is enlarged and steatotic. A small hiatal hernia is identified. Partially visualized upper abdominal viscera is otherwise normal as imaged. See report of abdominal CT performed concurrently for detailed intra-abdominal findings. Skeletal structures: The skeletal structures are osteopenic. Arthritic change is noted in the thoracic spine and shoulders. No lytic or blastic bony lesions are seen. IMPRESSION: 1. There is no evidence of intrathoracic metastatic disease. 2. The lungs are clear. 3. Foci of centrilobular groundglass opacity seen on 02/24/2016 have resolved and were likely on an inflammatory basis. 4. Cardiomegaly. 5. Severe hepatic steatosis. 6. Additional changes as above. Electronically signed by: Rafael Almeida M.D. 08/20/2016 4:31 PM Dictated Date/Time: 08/20/2016 4:26 PM
--- NOTE | 2016-08-20 16:40 | DIAGNOSTIC IMAGING REPORT ---
ABDOMEN AND PELVIS CT WITH IV AND ORAL CONTRAST CT DOSE: HISTORY: Rectal cancer. Follow-up. TECHNIQUE: Multiaxial CT images of the abdomen and pelvis were performed following the use of intravenous and oral contrast. COMPARISON STUDY: Abdomen and pelvis CT 02/24/2016. FINDINGS: Stable 8 mm wedge shape nodular density within the base of the left lower lobe on image 10. This likely represents an area of scarring. No suspicious lytic or blastic osseous lesions. Hepatic steatosis with scattered areas of focal fatty sparing. No suspicious hepatic lesions. The gallbladder, spleen, adrenal glands, and pancreas are unremarkable. Stable 7 mm hypodense lesion within the left kidney. This is too small to characterize. No hydronephrosis. Normal right kidney. No retroperitoneal lymphadenopathy. The bladder is unremarkable. Stable fat-containing lesions within the upper thigh musculature consistent with lipomas. Partial fusion of the sacroiliac joints. No pelvic lymphadenopathy. Left lower quadrant colostomy with distal sigmoid/rectal resection is again noted. No recurrent mass is identified within the resection bed. Colonic diverticulosis. No bowel wall thickening or obstruction. Moderate stool within the colon. Normal appendix. IMPRESSION: No change from the prior study. No evidence for metastatic disease within the abdomen or pelvis. Electronically signed by: Alexander Radford M.D. 08/20/2016 4:38 PM Dictated Date/Time: 08/20/2016 4:27 PM
== END | disposition home or self-care (01) ==
LOC: C.CTS 14:40
PROVIDERS: ATTEND Nurse Practitioner
DX: C20 Malignant neoplasm of rectum (principal); I51.7 Cardiomegaly; K76.0 Fatty (change of) liver, not elsewhere classified; C18.9 Malignant neoplasm of colon, unspecified

== ENCOUNTER → 2016-12-05 | Outpatient (CLI) | payer BC ==
[~2016-12-05] MED LIST changes: -ALFU10TA2 PO; +ALFU10TA30 PO; -OPTIRAY 320 IV PRN; -OXYC-57 PO
--- NOTE | 2016-12-05 13:42 | DIAGNOSTIC IMAGING REPORT ---
PET/CT CLINICAL HISTORY: Rectal cancer. COMPARISON STUDY: PET/CT dated 07/25/2015. Abdominal CT dated 08/20/2016. TECHNIQUE: One hour following the IV administration of 11.32 mCi of F-18 FDG, PET/CT examination was performed from the orbital meatal line through the bony pelvis. Noncontrast CT is performed for the purposes of anatomic correlation and attenuation correction. Note that this does not reflect a diagnostic CT examination. Images were reviewed on a separate TV [employer] independent workstation. Fused images were obtained. Standard uptake values reported are maximum values within the region of interest expressed in gm/mL. FINDINGS: PET FINDINGS: Head and neck: There is expected physiologic activity within the visualized brain parenchyma at the skull base and the salivary glands. Thorax: Evaluation of the thorax demonstrates expected physiologic myocardial activity. Abdomen and pelvis: There is expected activity within the liver, spleen, kidneys, renal collecting system, and bladder. Low-level bowel activity is likely within physical limits. There is a 2.9 cm focus within the medial right lobe of the liver adjacent to the caudate on image #116. This shows focal and asymmetric FDG activity to the remainder of the liver. The stomach is a maximum SUV of 7.0. No additional hepatic lesions are suggested. Unenhanced CT images: There is moderate mucosal thickening in the right maxillary antrum. Mild mucosal thickening is seen in the left maxillary antrum. The mastoid air cells are clear as imaged. The salivary and thyroid glands are normal in appearance. A right internal jugular central venous infusion port is in place. No cervical lymphadenopathy is seen. There is atherosclerotic calcification of the thoracic aorta which is normal in caliber. The heart is enlarged and without pericardial effusion. The coronary arteries are densely calcified. A small hiatal hernia is identified. Emphysema is noted. There is no airspace consolidation or pleural effusion. No concerning pulmonary lesion is seen on these low-dose images. There is no mediastinal, hilar, or axillary lymphadenopathy. Gynecomastia is noted. The liver is enlarged and steatotic. Foci of geographic fatty sparing are noted. The unenhanced gallbladder, spleen, adrenal glands, kidneys, and pancreas are grossly unremarkable. The abdominal aorta is normal in caliber noting moderate atherosclerotic calcification. There are postoperative changes from rectosigmoid resection with left lower quadrant colostomy. Scattered colonic diverticula are are noted. There is no CT evidence of acute diverticulitis. Mild to moderate colonic fecal retention is observed. There is no bowel obstruction. A normal appendix is identified. There is no intraperitoneal free air or abdominal ascites. There is no abdominal, pelvic, or inguinal lymphadenopathy. A large lipoma is insensitive noted in the left 5 musculature. The bladder is normal as visualized. The prostate gland is diminutive. The skeletal structures are osteopenic. No lytic or blastic lesions are seen. Degenerative changes noted in the shoulders and throughout the spine. IMPRESSION: 1. There are postoperative changes from rectosigmoid resection with left lower quadrant colostomy. No bowel obstruction is seen. 2. Hepatomegaly and hepatic steatosis. 3. There is an indeterminant 2.9 cm lesion in the right lobe of the liver which is FDG avid and slightly hyperdense to the surrounding steatotic hepatic parenchyma. This is of indeterminate etiology, but represents a change from 07/25/2015. Although the appearance is somewhat atypical for a rectal carcinoma metastasis, this is to be excluded and follow-up with a contrast-enhanced MRI of the liver is recommended for further assessment. 4. No additional concerning/FDG avid lesions are identified. 5. Cardiomegaly and emphysema. 6. Additional changes as above. Electronically signed by: Rafael Almeida M.D. 12/05/2016 1:41 PM Dictated Date/Time: 12/05/2016 1:26 PM
== END | disposition home or self-care (01) ==
LOC: C.PET 10:36
PROVIDERS: ATTEND Internal Medicine Hematology & Oncology
DX: C20 Malignant neoplasm of rectum (principal); I51.7 Cardiomegaly

== ENCOUNTER → 2016-12-21 | Outpatient (CLI) | payer BC ==
[~2016-12-21] MED LIST changes: +GADOXETATE DISODIUM (NON-WT BASED PROCEDURE) IV PRN
--- NOTE | 2016-12-21 08:28 | DIAGNOSTIC IMAGING REPORT ---
MRI LIVER COMBO CLINICAL HISTORY: Hepatic mass TECHNIQUE: Imaging was performed prior to and following IV contrast injection. ((10 cc intravenous Eovist)) COMPARISON STUDY: CT scan dated 08/20/2016, PET/CT scan dated 12/05/2016, MRI dated 01/28/2015 FINDINGS: Imaging was performed in the axial and coronal planes. There is no evidence of pathologic adenopathy. No adrenal masses are visualized. No splenic masses are visualized. No solid renal masses are visualized. There is no ductal dilatation. No gallbladder lesions are visualized. There is no abdominal aortic dilatation. There is hepatic steatosis. There is a 32 mm mass within the central liver, abutting the IVC. This mass demonstrates increased signal on T2-weighted imaging. The mass is hypointense to liver on in phase imaging, and hyperintense to liver on out of phase imaging. The lesion is of increased signal on diffusion-weighted imaging. The lesion is difficult to visualize on dynamic contrast-enhanced sequences. On 20 minute delayed images, the lesion is of decreased signal compared to normal liver. Given the patient's clinical history, the findings are viewed as suspicious for a metastatic deposit IMPRESSION: 32 mm mass within the central liver abutting the IVC. The signal characteristics are indicative of a hepatic neoplasm. Given the clinical history, this is likely metastatic. Electronically signed by: Tate Tang M.D. 12/21/2016 8:27 AM Dictated Date/Time: 12/21/2016 8:03 AM
== END | disposition home or self-care (01) ==
LOC: C.MRI 06:29
PROVIDERS: ATTEND Internal Medicine Hematology & Oncology
DX: C20 Malignant neoplasm of rectum (principal); R16.0 Hepatomegaly, not elsewhere classified

== ENCOUNTER → 2017-06-03 | Outpatient (CLI) | payer BC ==
[~2017-06-03] MED LIST changes: +ALFU10TA2 PO; -ALFU10TA30 PO; -GADOXETATE DISODIUM (NON-WT BASED PROCEDURE) IV PRN
[2017-06-03 09:37] LABS: BASO % 0.9 %; BASO ABS # 0.03 K/uL (0-0.2); EOS ABS # 0.14 K/uL (0-0.5); HEMATOCRIT 42.8 % (42-52); HEMOGLOBIN 14.8 g/dL (14.0-18.0); IG# 0.01 K/uL (0.00-0.02); LYMPH % 15.6 %; LYMPH ABS # 0.54 K/uL (1.2-3.4); MEAN CELL VOLUME 96.4 fL (80-100); MEAN CORPUSCULAR HEMOGLOBIN 33.3 pg (25-34); MEAN CORPUSCULAR HGB CONC 34.6 g/dl (32-36); MEAN PLATELET VOLUME 8.9 fL (7.4-10.4); MONO % 12.7 %; MONO ABS # 0.44 K/uL (0.11-0.59); NEUT % 66.5 %; NEUT ABS # 2.31 K/uL (1.4-6.5); PLATELET COUNT 136 K/uL (130-400); RED CELL DISTRIBUTION WIDTH CV 12.7 % (11.5-14.5); RED CELL DISTRIBUTION WIDTH SD 44.2 fL (36.4-46.3); WHITE BLOOD COUNT 3.47 K/uL (4.8-10.8)
[2017-06-03 09:49] LABS: INR 0.9 (0.9-1.1)
[2017-06-03 09:58] LABS: ALBUMIN 3.8 gm/dl (3.4-5.0); ALT/SGPT 48 U/L (12-78); BLOOD UREA NITROGEN 14 mg/dl (7-18); CALCIUM 9.3 mg/dl (8.5-10.1); CARBON DIOXIDE 26 mmol/L (21-32); CREATININE 0.73 mg/dl (0.60-1.40); GLUCOSE 121 mg/dl (70-99); SODIUM 139 mmol/L (136-145)
[2017-06-03 10:00] LABS: ALKALINE PHOSPHATASE 93 U/L (45-117); AST/SGOT 30 U/L (15-37); TOTAL PROTEIN 7.4 gm/dl (6.4-8.2)
== END | disposition home or self-care (01) ==
LOC: C.LAB 15:31
PROVIDERS: ATTEND Surgery
DX: C78.7 Secondary malignant neoplasm of liver and intrahepatic bile duct (principal)

== ENCOUNTER → 2017-07-03 | Outpatient (CLI) | payer BC ==
[~2017-07-03] MED LIST changes: +MELO-84 PO; -MELO15TA4 PO
[2017-07-03 11:45] LABS: ALBUMIN 3.8 gm/dl (3.4-5.0); ALT/SGPT 55 U/L (12-78); BLOOD UREA NITROGEN 17 mg/dl (7-18); CALCIUM 9.1 mg/dl (8.5-10.1); CARBON DIOXIDE 29 mmol/L (21-32); CHOLESTEROL 196 mg/dl (0-200); CREATININE 0.94 mg/dl (0.60-1.40); GLUCOSE 103 mg/dl (70-99); POTASSIUM 4.1 mmol/L (3.5-5.1); SODIUM 137 mmol/L (136-145)
[2017-07-03 11:49] LABS: ALKALINE PHOSPHATASE 96 U/L (45-117); AST/SGOT 33 U/L (15-37); HEMOGLOBIN A1C 5.6 % (4.5-5.6); LDL CHOLESTEROL CALCULATED 137 mg/dl; TOTAL PROTEIN 7.6 gm/dl (6.4-8.2)
== END | disposition home or self-care (01) ==
LOC: C.LABBC 08:14
PROVIDERS: ATTEND Nurse Practitioner Adult Health
DX: Z12.5 Encounter for screening for malignant neoplasm of prostate (principal); E78.1 Pure hyperglyceridemia; E55.9 Vitamin D deficiency, unspecified; R73.01 Impaired fasting glucose

== ENCOUNTER → 2017-08-05 | Outpatient (CLI) | payer BC ==
[~2017-08-05] MED LIST changes: +OPTIRAY 320 IV PRN
--- NOTE | 2017-08-05 14:09 | DIAGNOSTIC IMAGING REPORT ---
CT SCAN OF THE CHEST WITH IV CONTRAST CLINICAL HISTORY: Rectal carcinoma. COMPARISON STUDY: Chest CT scans dated 08/20/2016 and 07/16/2014. TECHNIQUE: Following the IV administration of 115 cc of Optiray 320, CT scan of the thorax was performed from the thoracic inlet to the upper abdomen. Images are reviewed in the axial, sagittal, and coronal planes. IV contrast was administered without complication. CT DOSE: 568.21 mGy.cm FINDINGS: Thyroid: Imaged portions of the thyroid gland are normal in size and attenuation. Thoracic aorta: There is atherosclerotic calcification of the thoracic aorta, with is normal in caliber and demonstrates 4-vessel variant arch anatomy. No dissection is seen. A right internal jugular central venous infusion port is again noted. Pulmonary vasculature: The pulmonary trunk is normal in caliber. There are no filling defects identified in the central pulmonary vessels to indicate pulmonary embolus. Note that this examination was not protocoled for evaluation of the pulmonary arteries. Heart: The heart is enlarged and without pericardial effusion. The coronary arteries are densely calcified. Lungs and pleural spaces: There is a 4 mm focus of nodular pleural thickening in the left upper lobe along the major fissure seen on image #108. A 3 mm nodule in the left lower lobe as seen on image #208. These are unchanged from 2015 and of doubtful significance. A 3 mm left lower lobe nodule on image #160 is new from previous. No additional new nodule is identified. There is no airspace consolidation or pleural effusion. The trachea and central airways are clear. Mediastinum: There is no mediastinal lymphadenopathy. Rosalia: Clear. Axillae: There is no axillary lymphadenopathy. Upper abdomen: The liver is enlarged and steatotic. Fatty sparing is seen adjacent to gallbladder fossa. A surgical clip or coil is seen in the liver, new from previous. A small hiatal hernia is identified. See report of abdominal CT performed concurrently for detailed intra-abdominal findings. Skeletal structures: The skeletal structures are osteopenic. Arthritic change is noted in the thoracic spine and shoulders. No lytic or blastic bony lesions are seen. There are healed right-sided rib fractures. IMPRESSION: 1. There is no evidence of intrathoracic metastatic disease. 2. No airspace consolidation or pleural effusion is identified. 3. A 3 mm left lower lobe nodule is new from previous and likely on an inflammatory basis. Attention at follow-up is recommended. 4. Cardiomegaly. 5. Severe hepatic steatosis. 6. Additional changes as above. Electronically signed by: Rafael Almeida M.D. 08/05/2017 2:07 PM Dictated Date/Time: 08/05/2017 2:00 PM
== END | disposition home or self-care (01) ==
LOC: C.CTS 13:35
PROVIDERS: ATTEND Nurse Practitioner Family
DX: C20 Malignant neoplasm of rectum (principal); R91.1 Solitary pulmonary nodule; I51.7 Cardiomegaly; K76.0 Fatty (change of) liver, not elsewhere classified

== ENCOUNTER 2021-01-12 11:29 | Observation (INO) ==
[2021-01-12] MEDS ORDERED: SODIUM CHLORIDE 0.9% 500 ML IV SCH (12:15)
[2021-01-12] MEDS ORDERED: SODIUM CHLORIDE 0.9% 250 ML IV PRN (12:27)
--- NOTE | 2021-01-12 12:32 | Emergency Department Note ---
History of Present Illness General Chief complaint: GI Bleed Stated complaint: blood in colostomy bag Time Seen by Provider: 01/12/21 12:08 History of Present Illness Maximum Pain Intensity: 6 This is a 75-year-old male who presents to the ED with a chief complaint of a bleed from his colostomy. The patient states that he noticed it last night around midnight. He states that there was a moderate amount of blood in the stool. He was supposed to have a paracentesis today for his ascites related to his metastatic colon cancer, partial hepatectomy and increased abdominal size today. Blood work revealed that he was anemic. He was sent here for further evaluation after discussion with Dr. Lin. Patient has no additional complaints at this time. He states the bleeding seems to have decreased somewhat. Home Medications Medication Instructions Recorded Confirmed Type ascorbic acid (vitamin C) 1,000 mg 1,500 mg PO 1200 01/31/18 01/12/21 History tablet (Vitamin C) aspirin 81 mg tablet,delayed 81 mg PO QAM 01/31/18 01/12/21 History release cholecalciferol (vitamin D3) 50 3,000 unit PO 1200 01/31/18 01/12/21 History mcg (2,000 unit) tablet (Vitamin D3) coenzyme Q10 30 mg capsule (CoQ-10) 30 mg PO QPM 01/31/18 01/12/21 History omega 4-ehn-oxb-fish oil 1,000 mg 2,000 mg PO PM 01/31/18 01/12/21 History (120 mg-180 mg) capsule (Fish Oil) multivitamin (Daily Multi-Vitamin) 1 tab PO PM 10/17/18 01/12/21 History escitalopram oxalate 10 mg tablet 10 mg PO QAM 10/26/19 01/12/21 History (Lexapro) lactobacillus combination no.4 3 3,000 mmu cells PO QAM 10/26/19 01/12/21 History billion cell capsule (Probiotic) mupirocin 2 % topical ointment 1 appln TOP BID PRN gm 01/13/20 01/12/21 History ketoconazole 2 % topical cream 1 applic TOPICAL BID PRN g 04/14/20 01/12/21 History amlodipine 5 mg tablet 5 mg PO DAILY #90 tab 06/22/20 01/12/21 Rx oxycodone 5 mg tablet 5 mg PO Q6H PRN 12/21/20 01/04/21 History polyethylene glycol 3350 17 17 g PO DAILY PRN 12/21/20 01/12/21 History gram/dose oral powder (Miralax) Allergies Allergy/AdvReac Type Severity Reaction Status Date / Time No Known Drug Allergies Allergy Verified 01/12/21 10:14 Past Med/Surg History Medical History Chronic prostatitis Colostomy in place Depression Diverticulosis Enlarged prostate with lower urinary tract symptoms (LUTS) Essential hypertriglyceridemia Gallstone Inhibited sexual excitement Nasal septal deviation Osteoarthritis Rectal adenocarcinoma (07/05/14) "Rectal pain and bleeding Status post colonoscopy and biopsy 07/05/2014 revealing adenocarcinoma the rectum moderately differentiated Staging workup revealed liver and lung metastasis Systemic chemotherapy 3 cycles of FOLFOX with addition of Avastin on the third cycle Resolution of lung metastasis and excellent response of liver lesions Plan for neoadjuvant radiation and chemotherapy Radiation therapy was completed 03/28/2015 received 5180 cGy. Chemotherapy comprised of Xeloda Status post AP resection as well as resection of liver metastasis wedge resection segment 3 06/02/2015 Final stage ypT3 ypN0 ypM1a Will complete 6 months of adjuvant chemotherapy with Xeloda and Avastin" On 04/22/15 10:54 Kerline Schultz wrote "Rectal pain and bleeding Status post colonoscopy and biopsy 07/05/2014 revealing adenocarcinoma the rectum moderately differentiated Staging workup revealed liver and lung metastasis Systemic chemotherapy 3 cycles of FOLFOX with addition of Avastin on the third cycle Resolution of lung metastasis and excellent response of liver lesions Plan for neoadjuvant radiation and chemotherapy Radiation therapy was completed 03/28/2015 received 5180 cGy. Chemotherapy comprised of Xeloda Will undergo bowel resection as well as liver resection" On 04/04/15 12:41 Kerline Schultz wrote "Rectal pain and bleeding Status post colonoscopy and biopsy 07/05/2014 revealing adenocarcinoma the rectum moderately differentiated Staging workup revealed liver and lung metastasis Systemic chemotherapy Resolution of lung metastasis and excellent response of liver lesions Plan for neoadjuvant radiation and chemotherapy Radiation therapy was completed 03/28/2015 received 5180 cGy. Chemotherapy comprised of Xeloda Will undergo bowel resection as well as liver resection" Recurrent epistaxis Seborrheic dermatitis Vitamin D deficiency Surgical History H/O colonoscopy History of bowel resection History of colostomy History of surgery closed treatment of fracture of tibial shaft 1975- bolt/natalie placement History of total knee replacement LEFT History of vascular access device present to right chest Hx of cataract surgery RIGHT/ LEFT Family History Mother Hypertension Coronary heart disease Myocardial infarction Ischemic stroke Uncle Cancer Father Myocardial infarction Other No family history of adverse response to anesthesia No family history of bleeding disorder Denies family history of Ovarian cancer Prostate cancer Breast cancer Colorectal cancer Social History Smoking Status: Former smoker Second Hand Exposure: Yes ( KID); Hx Alcohol Use: Yes Alcohol type: beer Hx Substance Use: No Preferred Language: Welsh Communication Ability: Effective Visual Impairment: No Limitations Hearing Ability: Normal [employer] 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 Operator Required: No Beliefs That Will Affect Care: None marital status: Current Living Situation: Spouse current occupational status: retired Feels Safe at Home: Yes Seatbelt Use: always Sunscreen Use: Yes Assistive Devices: None Review of Systems A total of 10 systems reviewed and were otherwise negative Physical Exam Vital Signs Vital Signs - 24 hr 01/12/21 11:40 01/12/21 12:00 01/12/21 12:42 Temperature 36.5 C Temperature Source Oral Pulse Rate 65 60 Pulse Rhythm Regular Pulse Strength Normal Respiratory Rate 18 15 Respiratory Effort / Characteristics Non-Labored Spontaneous Respiratory Depth Normal Respiratory Pattern Regular Blood Pressure 122/87 127/73 Blood Pressure Mean 98 91 Blood Pressure Position Sitting Pulse Oximetry 100 100 97 Oxygen Delivery Method Room Air Room Air Sepsis Recent Fever Within 48 Hours No Sepsis New/Unexplained Change in Mental Status No Sepsis Action Taken by Nursing No Action Required 01/12/21 13:00 Temperature Temperature Source Pulse Rate 73 Pulse Rhythm Pulse Strength Respiratory Rate 21 Respiratory Effort / Characteristics Respiratory Depth Respiratory Pattern Blood Pressure 129/73 Blood Pressure Mean 91 Blood Pressure Position Pulse Oximetry 100 Oxygen Delivery Method Sepsis Recent Fever Within 48 Hours Sepsis New/Unexplained Change in Mental Status Sepsis Action Taken by Nursing CONSTITUTIONAL/VITAL SIGNS: Reviewed / noted above. GENERAL: Non-toxic in appearance. INTEGUMENTARY: Warm, dry, and [place]. HEAD: Normocephalic. EYES: without scleral icterus or trauma. ENT/OROPHARYNX: clear and moist. LYMPHADENOPATHY/NECK: Is supple without lymphadenopathy or meningismus. RESPIRATORY: Clear to auscultation bilaterally. No increased work of breathing. CARDIOVASCULAR: Regular rate and rhythm. GI/ABDOMEN: Soft and nontender. No organomegaly or pulsatile mass. Blood noted in the colostomy bag. EXTREMITIES: Warm and well perfused. BACK: No CVA tenderness. NEUROLOGICAL: Intact without focal deficits. PSYCHIATRIC: normal affect. MUSCULOSKELETAL: Normally developed with good muscle tone. TRIAGE NURSING DOCUMENTATION REVIEWED. Course Administered Medications Discontinued Medications Sodium Chloride (Nss) 500 mls @ 999 mls/hr IV .Q31M BECKIE Stop: 01/12/21 12:45 Last Infusion: 01/12/21 12:56 Dose: 0 mls/hr Documented by: [id number] Admin: 01/12/21 12:26 Dose: 999 mls/hr Documented by: [id number] Critical Care Time Critical Care Time: Yes I have personally spent 30 minutes of critical care time in the direct management of this patient. This includes bedside care, interpretation of diagnostic studies, and testing, discussion with consultants, patient, and family members, and other required patient management activities. This 30 minutes is in excess of all separately billable procedures. Medical Decision Making Differential Diagnosis Differential includes acute coronary syndrome, myocardial infarction, CVA, TIA, anemia, infection, pneumonia, UTI, pyelonephritis, poor nutrition, dehydration, electrolyte disturbance,hypoglycemia. Medical Records Attestation: I reviewed the patient's medical records. Home Medications Current Medication List: was personally reviewed by me Laboratory Data Attestation: I reviewed the patient's lab results. Result diagrams: 01/12/21 12:22 01/12/21 12:22 Lab Results 01/12/21 01/12/21 01/12/21 Range/Units 12:22 12:22 12:22 WBC 4.99 (4.8-10.8) K/uL RBC 2.55 L (4.7-6.1) M/uL Hgb 7.0 L (14.0-18.0) g/dL Hct 21.9 L (42-52) % MCV 85.9 (80-100) fL MCH 27.5 (25-34) pg MCHC 32.0 (32-36) g/dL RDW Std Deviation 46.3 (36.4-46.3) fL RDW Coeff of Sarah 14.9 H (11.5-14.5) % Plt Count 193 (130-400) K/uL MPV 8.4 (7.4-10.4) fL Immature Gran % (Auto) 0.2 % Neut % (Auto) 72.4 % Lymph % (Auto) 15.2 % Henry % (Auto) 10.2 % Eos % (Auto) 1.4 % Baso % (Auto) 0.6 % Neut # (Auto) 3.61 (1.4-6.5) K/uL Lymph # (Auto) 0.76 L (1.2-3.4) K/uL Henry # (Auto) 0.51 (0.11-0.59) K/uL Eos # (Auto) 0.07 (0-0.5) K/uL Baso # (Auto) 0.03 (0-0.2) K/uL Immature Gran # (Auto) 0.01 (0.00-0.02) K/uL Hypochromasia Present PT 12.6 H (9.0-12.0) Seconds INR 1.3 H (0.9-1.1) APTT 23.6 (21.0-31.0) Seconds PTT Ratio 0.9 Sodium (136-145) mmol/L Potassium (3.5-5.1) mmol/L Chloride (98-107) mmol/L Carbon Dioxide (21-32) mmol/L Anion Gap (3-11) BUN (7-18) mg/dl Creatinine (0.6-1.4) mg/dl Est Cr Clr Drug Dosing ml/min Est GFR ( Amer) ml/min Est GFR (Non-Af Amer) ml/min BUN/Creatinine Ratio (10-20) Glucose (70-99) mg/dl Calcium (8.5-10.1) mg/dl Total Bilirubin (0.2-1) mg/dl AST (15-37) U/L ALT (12-78) U/L Alkaline Phosphatase (45-117) U/L Total Protein (6.4-8.2) gm/dl Albumin (3.4-5.0) gm/dl Globulin (2.5-4.0) gm/dl Albumin/Globulin Ratio (0.9-2) Crossmatch See Detail 09/02/21 Range/Units 12:22 WBC (4.8-10.8) K/uL RBC (4.7-6.1) M/uL Hgb (14.0-18.0) g/dL Hct (42-52) % MCV (80-100) fL MCH (25-34) pg MCHC (32-36) g/dL RDW Std Deviation (36.4-46.3) fL RDW Coeff of Sarah (11.5-14.5) % Plt Count (130-400) K/uL MPV (7.4-10.4) fL Immature Gran % (Auto) % Neut % (Auto) % Lymph % (Auto) % Henry % (Auto) % Eos % (Auto) % Baso % (Auto) % Neut # (Auto) (1.4-6.5) K/uL Lymph # (Auto) (1.2-3.4) K/uL Henry # (Auto) (0.11-0.59) K/uL Eos # (Auto) (0-0.5) K/uL Baso # (Auto) (0-0.2) K/uL Immature Gran # (Auto) (0.00-0.02) K/uL Hypochromasia PT (9.0-12.0) Seconds INR (0.9-1.1) APTT (21.0-31.0) Seconds PTT Ratio Sodium 139 (136-145) mmol/L Potassium 3.9 (3.5-5.1) mmol/L Chloride 108 H (98-107) mmol/L Carbon Dioxide 28 (21-32) mmol/L Anion Gap 3.0 (3-11) BUN 18 (7-18) mg/dl Creatinine 0.73 (0.6-1.4) mg/dl Est Cr Clr Drug Dosing 99.1 ml/min Est GFR ( Amer) 105.9 ml/min Est GFR (Non-Af Amer) 91.4 ml/min BUN/Creatinine Ratio 25.4 H (10-20) Glucose 108 H (70-99) mg/dl Calcium 8.3 L (8.5-10.1) mg/dl Total Bilirubin 0.6 (0.2-1) mg/dl AST 30 (15-37) U/L ALT 16 (12-78) U/L Alkaline Phosphatase 108 (45-117) U/L Total Protein 6.3 L (6.4-8.2) gm/dl Albumin 2.4 L (3.4-5.0) gm/dl Globulin 3.9 (2.5-4.0) gm/dl Albumin/Globulin Ratio 0.6 L (0.9-2) Crossmatch Imaging Data Radiologist's Impression: Chest X-Ray 01/12/21 12:09 SINGLE VIEW CHEST CLINICAL HISTORY: Generalized weakness. FINDINGS: An AP, portable, upright chest radiograph is compared to study dated 01/14/2018 and correlated with chest CT dated 04/25/2020. The examination is degraded by portable technique and apical lordotic positioning. A right internal jugular central venous infusion port is in place. The heart is enlarged noting atherosclerotic calcification of the thoracic aorta. The pulmonary vasculature is noncongested. Emphysema and chronic interstitial thickening is similar to previous. Scarring/atelectasis is noted at the lung bases. No airspace consolidation or large pleural effusion is identified No pneumothorax is seen. The skeletal structures are osteopenic. The bony thorax is grossly intact. IMPRESSION: Cardiomegaly and emphysema with no acute cardiopulmonary abnormality. ACT 112: Negative or not required by law. Electronically signed by: Rafael Almeida M.D. 01/12/2021 12:55 PM ECG Data Attestation: I personally reviewed and interpreted this ECG as follows: MDM Narrative 75-year-old male presenting with GI bleeding from his colostomy. Details listed above. Hemoglobin this morning was 7.5. His vital signs are normal. The patient hemoglobin earlier today was 7.5. Is currently 7.0. Metabolic panel was unremarkable. Chest x-ray did not show acute process. EKG shows a normal sinus rhythm. The patient was told the results of the test. He will be admitted to the hospital for further evaluation and care. The patient was consented for blood. A unit of blood was administered in the ED. Impression & Plan GI bleed, Anemia Discharge Plan Visit Data Chief Complaint: GI Bleed Stated Complaint: blood in colostomy bag ED Provider: Gregg Bliss Discharge Problem: GI bleed, Anemia Patient Disposition: Being Evaluated by Hospitalist Forms Stand Alone Forms: [facility], Virtual Emergency Department, Important Visit Information Prescriptions Prescriptions: No Action amlodipine 5 mg tablet 5 mg PO DAILY Qty: 90 RF: 3 mupirocin 2 % ointment 1 appln TOP BID PRN (Reason: Dry Skin) RF: 0 multivitamin [Daily Multi-Vitamin] tablet 1 tab PO PM RF: 0 ketoconazole 2 % cream 1 applic topical BID PRN (Reason: Rash) RF: 0 aspirin 81 mg Tablet,Delayed Release (Dr/Ec) 81 mg PO QAM RF: 0 ascorbic acid (vitamin C) [Vitamin C] 1,000 mg Tablet 1,500 mg PO 1200 RF: 0 coenzyme Q10 [CoQ-10] 30 mg Capsule 30 mg PO QPM RF: 0 cholecalciferol (vitamin D3) [Vitamin D3] 2,000 unit Tablet 3,000 unit PO 1200 RF: 0 omega 3-efe-coj-fish oil [Fish Oil] 1,000 mg (120 mg-180 mg) Capsule 2,000 mg PO PM RF: 0 escitalopram oxalate [Lexapro] 10 mg tablet 10 mg PO QAM RF: 0 Probiotic 3 billion cell Capsule 3,000 mmu cells PO QAM RF: 0 polyethylene glycol 3350 [Miralax] 17 gram/dose Powder 17 g PO DAILY PRN (Reason: Constipation) RF: 0 oxycodone 5 mg Tablet 5 mg PO Q6H PRN (Reason: Pain) RF: 0 Referrals Referrals: Ian Mccartney DO [Primary Care Provider] -
[2021-01-12 12:34] LABS: Basophils # (auto) 0.03 K/uL (0-0.2); Basophils % (auto) 0.6 %; Eosinophils # (auto) 0.07 K/uL (0-0.5); Eosinophils % (auto) 1.4 %; Hematocrit (blood only) 21.9 % (42-52); Immature Granulocytes # (auto) 0.01 K/uL (0.00-0.02); Immature Granulocytes % (auto) 0.2 %; Lymphocytes # (auto) 0.76 K/uL (1.2-3.4); Lymphocytes % (auto) 15.2 %; Mean Corpuscular Hemoglobin 27.5 pg (25-34); Mean Corpuscular Volume 85.9 fL (80-100); Mean Platelet Volume 8.4 fL (7.4-10.4); Monocytes # (auto) 0.51 K/uL (0.11-0.59); Monocytes % (auto) 10.2 %; Neutrophils # (auto) 3.61 K/uL (1.4-6.5); Neutrophils % (auto) 72.4 %; Platelet Count 193 K/uL (130-400); RDW Coefficient of Variation 14.9 % (11.5-14.5); RDW Standard Deviation 46.3 fL (36.4-46.3); Red Blood Count 2.55 M/uL (4.7-6.1); White Blood Count 4.99 K/uL (4.8-10.8)
[2021-01-12 12:51] LABS: Hypochromasia Present; INR 1.3 (0.9-1.1); Partial Thromboplastin Ratio 0.9; Partial Thromboplastin Time 23.6 Seconds (21.0-31.0); Prothrombin Time 12.6 Seconds (9.0-12.0)
[2021-01-12 12:54] LABS: Albumin Level 2.4 gm/dl (3.4-5.0); BUN Creatinine Ratio 25.4 (10-20); Calcium 8.3 mg/dl (8.5-10.1); Creatinine Clr Calc Pharmacy 99.1 ml/min; Est GFR (African American) 105.9 ml/min; Est GFR (Non-African American) 91.4 ml/min; Potassium 3.9 mmol/L (3.5-5.1)
[2021-01-12 12:57] LABS: Albumin Globulin Ratio 0.6 (0.9-2); Bilirubin,Total 0.6 mg/dl (0.2-1); Globulin 3.9 gm/dl (2.5-4.0); Total Protein 6.3 gm/dl (6.4-8.2)
--- NOTE | 2021-01-12 12:57 | XRay Report ---
SINGLE VIEW CHEST CLINICAL HISTORY: Generalized weakness. FINDINGS: An AP, portable, upright chest radiograph is compared to study dated 01/14/2018 and correlate d with chest CT dated 04/25/2020. The examination is degraded by portable technique and apical lordot ic positioning. A right internal jugular central venous infusion port is in place. The heart is enlar ged noting atherosclerotic calcification of the thoracic aorta. The pulmonary vasculature is nonconge sted. Emphysema and chronic interstitial thickening is similar to previous. Scarring/atelectasis is n oted at the lung bases. No airspace consolidation or large pleural effusion is identified No pneumoth orax is seen. The skeletal structures are osteopenic. The bony thorax is grossly intact. IMPRESSION: Cardiomegaly and emphysema with no acute cardiopulmonary abnormality. ACT 112: Negative or not required by law. Electronically signed by: Rafael Almeida M.D. 01/12/2021 12:55 PM
--- NOTE | 2021-01-12 14:03 | History & Physical Report ---
Date of Service January 12, 2021 Assessment & Plan (1) GI bleed: Plan: Hemoglobin 7.0 from 11.0 December 08. Acute blood loss noticed in colostomy improving H&H Q6H s/p 1 unit packed RBCs in ER, repeat H&H following this. Transfuse Hgb <8 given ongoing active bleed. Vitamin K 5mg to reverse any vitamin deficient part of his elevated INR. IV pantoprazole bolus and drip NPO Consult GI (2) Anemia: Plan: As above (3) Rectal adenocarcinoma: Plan: Metastatic adenocarcinoma, progressing based on last GI note Follow up with oncology as outpatient (4) Ascites: Plan: ?secondary t tabitha cirrhosis vs. peritoneal metastatic disease. Will need US guided paracentesis once stable from GI bleed point of view (5) Liver cirrhosis: Plan: On not routine medication for this Will defer treatment to gastroenterology, no acute treatment required (6) Colostomy in place: Plan: Noted (7) Hypertension: Plan: Hold amlodipine due to current GI bleed (8) Depression: Plan: Continue Lexapro 10mg PO daily Plan: VTE Prophylaxis - SCDs Disposition - admit to med/tele for close monitoring Admission and Anticipated Discharge Date Admission Date: January 12, 2021 History of Present Illness Chief Complaint: GI bleed Primary Care Provider: DO Kristofer Sheth is a 75 year old male with metastatic colon cancer and liver cirrhosis who presents to the ER after labs prior to paracentesis today showed he was significantly anemic. He notes having dark red blood seen in his colostomy bag starting last night which is slowly improving today. He denies any chest pain, shortness of breath or dizziness. Of note he is not currently on chemotherapy for his metastatic cancer. Last treatment was liver resection on October 28 due to metastatic disease to the liver. He has had right upper quadrant pain since this procedure but no significant worsening recently. No heartburn or epigastric pain. He did require 2 units packed RBCs during the procedure but his hemoglobin was stable following this. Last hemoglobin 11.0 on December 08. He has required recurrent paracentesis since this procedure presumably due to liver cirrhosis +/- possible spread to peritoneum. He follows with [facility] oncology. Local car pilot is Dr Lin. In the ER his hemoglobin was noted to be to be 7.0. He is currently receiving 1 unit packed RBCs. INR 1.3. Plt 194. He was referred to medicine for admission and ongoing management of GI bleed. Allergies Allergy/AdvReac Type Severity Reaction Status Date / Time No Known Drug Allergies Allergy Verified 01/12/21 13:33 Home Medications Medication Instructions Recorded Confirmed Type ascorbic acid (vitamin C) 1,000 mg 1,500 mg PO 1200 01/31/18 01/12/21 History tablet (Vitamin C) aspirin 81 mg tablet,delayed 81 mg PO QAM 01/31/18 01/12/21 History release cholecalciferol (vitamin D3) 50 3,000 unit PO 1200 01/31/18 01/12/21 History mcg (2,000 unit) tablet (Vitamin D3) coenzyme Q10 30 mg capsule (CoQ-10) 30 mg PO QPM 01/31/18 01/12/21 History omega 8-vwq-obd-fish oil 1,000 mg 2,000 mg PO PM 01/31/18 01/12/21 History (120 mg-180 mg) capsule (Fish Oil) multivitamin (Daily Multi-Vitamin) 1 tab PO PM 10/17/18 01/12/21 History escitalopram oxalate 10 mg tablet 10 mg PO QAM 10/26/19 01/12/21 History (Lexapro) lactobacillus combination no.4 3 3,000 mmu cells PO QAM 10/26/19 01/12/21 Histor y billion cell capsule (Probiotic) mupirocin 2 % topical ointment 1 appln TOP BID PRN gm 01/13/20 01/12/21 History ketoconazole 2 % topical cream 1 applic TOPICAL BID PRN g 04/14/20 01/12/21 History oxycodone 5 mg tablet 5 mg PO Q6H PRN 12/21/20 01/12/21 History polyethylene glycol 3350 17 17 g PO DAILY PRN 12/21/20 01/12/21 History gram/dose oral powder (Miralax) acetaminophen 500 mg tablet 1,000 mg PO Q6H PRN 01/12/21 01/12/21 History (Tylenol Extra Strength) amlodipine 5 mg tablet 5 mg PO PM 01/12/21 01/12/21 History Past Med/Surg History Medical History (Updated 01/13/21 @ 06:25 by Lee Obrien MD) Chronic prostatitis Colostomy in place Depression Diverticulosis Enlarged prostate with lower urinary tract symptoms (LUTS) Essential hypertriglyceridemia Gallstone Inhibited sexual excitement Liver cirrhosis Nasal septal deviation Osteoarthritis Rectal adenocarcinoma (07/05/14) "Rectal pain and bleeding Status post colonoscopy and biopsy 07/05/2014 revealing adenocarcinoma the rectum moderately differentiated Staging workup revealed liver and lung metastasis Systemic chemotherapy 3 cycles of FOLFOX with addition of Avastin on the third cycle Resolution of lung metastasis and excellent response of liver lesions Plan for neoadjuvant radiation and chemotherapy Radiation therapy was completed 03/28/2015 received 5180 cGy. Chemotherapy comprised of Xeloda Status post AP resection as well as resection of liver metastasis wedge resection segment 3 06/02/2015 Final stage ypT3 ypN0 ypM1a Will complete 6 months of adjuvant chemotherapy with Xeloda and Avastin" On 04/22/15 10:54 Kerline Schultz wrote "Rectal pain and bleeding Status post colonoscopy and biopsy 07/05/2014 revealing adenocarcinoma the rectum moderately differentiated Staging workup revealed liver and lung metastasis Systemic chemotherapy 3 cycles of FOLFOX with addition of Avastin on the third cycle Resolution of lung metastasis and excellent response of liver lesions Plan for neoadjuvant radiation and chemotherapy Radiation therapy was completed 03/28/2015 received 5180 cGy. Chemotherapy comprised of Xeloda Will undergo bowel resection as well as liver resection" On 04/04/15 12:41 Kerline Schultz wrote "Rectal pain and bleeding Status post colonoscopy and biopsy 07/05/2014 revealing adenocarcinoma the rectum moderately differentiated Staging workup revealed liver and lung metastasis Systemic chemotherapy Resolution of lung metastasis and excellent response of liver lesions Plan for neoadjuvant radiation and chemotherapy Radiation therapy was completed 03/28/2015 received 5180 cGy. Chemotherapy comprised of Xeloda Will undergo bowel resection as well as liver resection" Recurrent epistaxis Seborrheic dermatitis Vitamin D deficiency Surgical History H/O colonoscopy History of bowel resection History of colostomy History of surgery closed treatment of fracture of tibial shaft 1975- bolt/natalie placement History of total knee replacement LEFT History of vascular access device present to right chest Hx of cataract surgery RIGHT/ LEFT Family History Mother Hypertension Coronary heart disease Myocardial infarction Ischemic stroke Uncle Cancer Father Myocardial infarction Other No family history of adverse response to anesthesia No family history of bleeding disorder Denies family history of Ovarian cancer Prostate cancer Breast cancer Colorectal cancer Social History Smoking Status: Former smoker Second Hand Exposure: No; Do You Dip or Chew Tobacco: No; Tobacco Cessation Education Requested by Patient: No Hx Alcohol Use: No Hx Substance Use: No Preferred Language: Maori Communication Ability: Effective Visual Impairment: No Limitations Hearing Ability: Normal Hog Pusher Required: No Beliefs That Will Affect Care: None marital status: Current Living Situation: Spouse current occupational status: retired Other Information That Helps Us Care for You: No Feels Safe at Home: Yes Safety Concerns: Feels Safe At This Time Seatbelt Use: always Sunscreen Use: Yes Assistive Devices: None Review of Systems Review of Systems: All systems reviewed & are unremarkable except as noted in HPI & below Physical Exam Constitutional: WD/WN, vitals as above Eyes: + anicteric sclerae; normal pupil size ENMT: external ear and nose normal, oropharynx normal Mouth: oral mucous membranes not dry Neck: trachea midline, no thyromegaly Respiratory: normal respiratory effort, lungs clear to auscultation Cardiovascular: RRR, no murmur, no edema Gastrointestinal (Abdomen): Inspection/Auscultation: + abdomen distended and normal bowel sounds; + abdomen abnormal to inspection (RUQ well healed surgical scar) Percussion/Palpation: + abdomen tender (RUQ only) and abdomen soft; no guarding and abdomen not rigid Musculoskeletal: no cyanosis or clubbing, extremities motor strength 5/5 Skin: no rashes, warm and dry Neurologic: moves all extremities and awake; no focal motor deficits and not confused Psychiatric: A+Ox3, euthymic affect Genitourinary: no CVA tenderness Results & Data Results & Data ([facility]) Vital Signs (Past 12 Hours) Vital Signs Temp Pulse Resp BP Pulse Ox 01/12/21 13:00 73 21 129/73 100 01/12/21 12:42 97 01/12/21 12:00 60 15 127/73 100 01/12/21 11:40 36.5 C 65 18 122/87 100 Diagnostic Findings SINGLE VIEW CHEST FINDINGS: An AP, portable, upright chest radiograph is compared to study dated 01/14/2018 and correlated with chest CT dated 04/25/2020. The examination is degraded by portable technique and apical lordotic positioning. A right internal jugular central venous infusion port is in place. The heart is enlarged noting atherosclerotic calcification of the thoracic aorta. The pulmonary vasculature is noncongested. Emphysema and chronic interstitial thickening is similar to previous. Scarring/atelectasis is noted at the lung bases. No airspace consolidation or large pleural effusion is identified No pneumothorax is seen. The skeletal structures are osteopenic. The bony thorax is grossly intact. IMPRESSION: Cardiomegaly and emphysema with no acute cardiopulmonary abnormality. Medications Administered ER Medications Given: NSS 500ml bolus 1 unit packed RBCs (currently infusing) ECG Indication: abdominal pain Rate (beats per minute): 60 Rhythm: normal sinus Findings: + other (T wave flattening in linden lateral leads) Comparison ECG Date: from (Jul 10, 2016) Change: the following changes noted (T wave flattening is new) Code Status & VTE Plan Code Status Full as discussed with the patient and his at bedside VTE Prophylaxis Plan VTE Prophylaxis will be ordered: Yes Reason for no VTE drug order: Contraindicated PG Care Time/CCT Total # of Minutes Spent Total Time Spent with Patient: Total time spent is greater than 50% in coordination of care (as documented) at patient's floor/unit and/or counseling patient: Coding Level of Care Code 57153 Initial Inpt Care Lvl 3 Diagnoses GI bleed K92.2 GI bleed type/associated pathology: unspecified gastrointestinal hemorrhage type Anemia D64.9 Anemia type: unspecified type Rectal adenocarcinoma C20 Hypertension I10 [address] Z93.3 Ascites R18.8 Depression F32.9 Liver cirrhosis K74.60 (1) GI bleed GI bleed type/associated pathology: unspecified gastrointestinal hemorrhage type Qualified Code(s): K92.2 - Gastrointestinal hemorrhage, unspecified (2) Anemia Anemia type: unspecified type Qualified Code(s): D64.9 - Anemia, unspecified
[2021-01-12] MEDS ORDERED: PANTOPRAZOLE BOLUS/DRIP 1 EA IV STA (14:09)
[2021-01-12] MEDS ORDERED: PHYTONADIONE 5 MG in SODIUM CHLORIDE 0.9% 50 ML IV ONE (14:15)
[2021-01-12] MEDS ORDERED: PANTOprazole 80 MG in DEXTROSE 5% 100 ML IV SCH (14:30)
[2021-01-12] MEDS ORDERED: HYDROmorphone INJ 0.5 MG/0.5 ML SYR IV STA (14:58)
[2021-01-12] MEDS: PANTOprazole 40 MG in DEXTROSE 5% 100 ML IV SCH ×2 (15:30→19:45)
[2021-01-12] MEDS ORDERED: ONDANSETRON INJ 2 MG/ML 2 ML VIAL IV PRN (17:01)
[2021-01-12] MEDS: LACTATED RINGER'S 1,000 ML IV SCH (17:50)
[2021-01-12 22:20] LABS: Hematocrit (blood only) 26.6 % (42-52); Hemoglobin 8.4 g/dL (14.0-18.0)
[2021-01-13] MEDS ORDERED: HEPARIN 100 UNIT/ML 5ML FLUSH FLUSH PRN (00:05)
[2021-01-13] MEDS: HYDROmorphone INJ 0.5 MG/0.5 ML SYR IV PRN ×2 (00:22→09:13)
[2021-01-13] MEDS: PANTOprazole 40 MG in DEXTROSE 5% 100 ML IV SCH ×3 (00:49→11:23)
[2021-01-13] MEDS: LACTATED RINGER'S 1,000 ML IV SCH ×2 (01:40→09:15)
[2021-01-13 03:37] LABS: Basophils # (auto) 0.05 K/uL (0-0.2); Basophils % (auto) 0.8 %; Eosinophils # (auto) 0.29 K/uL (0-0.5); Eosinophils % (auto) 4.9 %; Hematocrit (blood only) 24.3 % (42-52); Hemoglobin 7.7 g/dL (14.0-18.0); Immature Granulocytes # (auto) 0.01 K/uL (0.00-0.02); Immature Granulocytes % (auto) 0.2 %; Lymphocytes # (auto) 0.84 K/uL (1.2-3.4); Lymphocytes % (auto) 14.2 %; Mean Corpuscular Hemoglobin 27.7 pg (25-34); Mean Corpuscular Hgb Conc 31.7 g/dL (32-36); Mean Corpuscular Volume 87.4 fL (80-100); Mean Platelet Volume 8.2 fL (7.4-10.4); Monocytes # (auto) 0.66 K/uL (0.11-0.59); Monocytes % (auto) 11.2 %; Neutrophils # (auto) 4.06 K/uL (1.4-6.5); Neutrophils % (auto) 68.7 %; Platelet Count 194 K/uL (130-400); RDW Coefficient of Variation 14.7 % (11.5-14.5); RDW Standard Deviation 47.5 fL (36.4-46.3); Red Blood Count 2.78 M/uL (4.7-6.1); White Blood Count 5.91 K/uL (4.8-10.8)
[2021-01-13 03:46] LABS: INR 1.2 (0.9-1.1); Prothrombin Time 11.8 Seconds (9.0-12.0)
[2021-01-13 03:56] LABS: Albumin Level 2.2 gm/dl (3.4-5.0); BUN Creatinine Ratio 19.3 (10-20); Creatinine Clr Calc Pharmacy 87.2 ml/min; Est GFR (African American) 100.5 ml/min; Est GFR (Non-African American) 86.7 ml/min; Potassium 4.4 mmol/L (3.5-5.1)
[2021-01-13 03:58] LABS: Albumin Globulin Ratio 0.6 (0.9-2); Bilirubin,Total 0.7 mg/dl (0.2-1); Globulin 3.7 gm/dl (2.5-4.0); Total Protein 5.9 gm/dl (6.4-8.2)
[2021-01-13 04:12] LABS: Polychromasia 1+
--- NOTE | 2021-01-13 06:23 | Electrocardiogram Report ---
Test Reason : Blood Pressure : / mmHG Vent. Rate : 060 BPM Atrial Rate : 060 BPM P-R Int : 168 ms QRS Dur : 090 ms QT Int : 466 ms P-R-T Axes : 036 016 060 degrees QTc Int : 466 ms Poor data quality, interpretation may be adversely affected Normal sinus rhythm Nonspecific T wave abnormality Abnormal ECG When compared with ECG of 10-JUL-2016 09:31, Nonspecific T wave abnormality is now Present QT has lengthened Confirmed by Young Cote ([id number]) on 01/13/2021 6:22:29 AM Referred By: REFERRED SELF Confirmed By:Young Cote
[2021-01-13 06:36] LABS: Hematocrit (blood only) 26.5 % (42-52); Hemoglobin 8.3 g/dL (14.0-18.0)
[2021-01-13] MEDS: ESCITALOPRAM OXALATE 10 MG TAB PO SCH (09:13)
--- NOTE | 2021-01-13 09:50 | Gastrointestinal Consultation ---
Date of Consultation January 13, 2021 Assessment & Plan (1) Liver cirrhosis: (2) Metastatic colorectal cancer: (3) Colostomy in place: (4) GI bleed: Pt is a 75 y.o. male with a history of metastatic colon cancer and cirrhosis admitted after outpatient labs prior to diagnostic/therapeutic outpatient paracentesis noted anemia, with melena in ostomy. DDX: variceal bleed vs PUD vs AVM vs mass vs other. 1. NPO for now. 2. Continue PPI ggt at 8 mg/hr. 3. EGD today by Dr. Marsh. 4. Further recommendations pending results of testing. Thank you for allowing us to participate in the care of this patient. If you have any questions or concerns, please do not hesitate to contact us. Supervising Physician Co-Signing Physician Notes I personally evaluated the patient and agree with the findings as documented by JACKIE Campbell Exam: abd: soft, nt, nd History of Present Illness Reason for Consultation: Melena/GIB Requesting Physician: Dr. Obrien Attending Physician: Philip Cifuentes MD History of Present Illness Patient is a very pleasant 75 y.o. male with a complex past medical history including cirrhosis with associated splenomegaly as well as metastatic colon cancer s/p diverting colostomy as well as recent open ablation of a segment 8 hepatic lesion and segment 8 hepatic resection at [facility] Pres, status post TACE and radiation admitted after being referred to the ER after having undergone laboratory testing prior to therapeutic paracentesis for presumed malignant ascites (per [facility]) and was found to be profoundly anemic. He endorses having dark stool in his ostomy beginning one day prior to arrival. No n/v, hematemesis. +abdominal pain and bloating. No fevers or chills. He was transfused one unit of PRBCs due to hemoglobin of 7.0. He was noted to have a hgb of 11.0 at the end of November. H&H 8.3/26.5 this morning. +persistent melena although he states its lessening. Patient denies any recent upper endoscopic evaluation. He has been made NPO and started on a PPI ggt. Allergies Allergy/AdvReac Type Severity Reaction Status Date / Time No Known Drug Allergies Allergy Verified 01/12/21 13:33 Home Medications Medication Instructions Recorded Confirmed Type ascorbic acid (vitamin C) 1,000 mg 1,500 mg PO 1200 01/31/18 01/12/21 History tablet (Vitamin C) aspirin 81 mg tablet,delayed 81 mg PO QAM 01/31/18 01/12/21 History release cholecalciferol (vitamin D3) 50 3,000 unit PO 1200 01/31/18 01/12/21 History mcg (2,000 unit) tablet (Vitamin D3) coenzyme Q10 30 mg capsule (CoQ-10) 30 mg PO QPM 01/31/18 01/12/21 History omega 2-vhy-znn-fish oil 1,000 mg 2,000 mg PO PM 01/31/18 01/12/21 History (120 mg-180 mg) capsule (Fish Oil) multivitamin (Daily Multi-Vitamin) 1 tab PO PM 10/17/18 01/12/21 History escitalopram oxalate 10 mg tablet 10 mg PO QAM 10/26/19 01/12/21 History (Lexapro) lactobacillus combination no.4 3 3,000 mmu cells PO QAM 10/26/19 01/12/21 History billion cell capsule (Probiotic) mupirocin 2 % topical ointment 1 appln TOP BID PRN gm 01/13/20 01/12/21 History ketoconazole 2 % topical cream 1 applic TOPICAL BID PRN g 04/14/20 01/12/21 History oxycodone 5 mg tablet 5 mg PO Q6H PRN 12/21/20 01/12/21 History polyethylene glycol 3350 17 17 g PO DAILY PRN 12/21/20 01/12/21 History gram/dose oral powder (Miralax) acetaminophen 500 mg tablet 1,000 mg PO Q6H PRN 01/12/21 01/12/21 History (Tylenol Extra Strength) amlodipine 5 mg tablet 5 mg PO PM 01/12/21 01/12/21 History Patient History Medical History Chronic prostatitis Colostomy in place Depression Diverticulosis Enlarged prostate with lower urinary tract symptoms (LUTS) Essential hypertriglyceridemia Gallstone Inhibited sexual excitement Liver cirrhosis Nasal septal deviation Osteoarthritis Rectal adenocarcinoma (07/05/14) "Rectal pain and bleeding Status post colonoscopy and biopsy 07/05/2014 revealing adenocarcinoma the rectum moderately differentiated Staging workup revealed liver and lung metastasis Systemic chemotherapy 3 cycles of FOLFOX with addition of Avastin on the third cycle Resolution of lung metastasis and excellent response of liver lesions Plan for neoadjuvant radiation and chemotherapy Radiation therapy was completed 03/28/2015 received 5180 cGy. Chemotherapy comprised of Xeloda Status post AP resection as well as resection of liver metastasis wedge resection segment 3 06/02/2015 Final stage ypT3 ypN0 ypM1a Will complete 6 months of adjuvant chemotherapy with Xeloda and Avastin" On 04/22/15 10:54 Kerline Schultz wrote "Rectal pain and bleeding Status post colonoscopy and biopsy 07/05/2014 revealing adenocarcinoma the rectum moderately differentiated Staging workup revealed liver and lung metastasis Systemic chemotherapy 3 cycles of FOLFOX with addition of Avastin on the third cycle Resolution of lung metastasis and excellent response of liver lesions Plan for neoadjuvant radiation and chemotherapy Radiation therapy was completed 03/28/2015 received 5180 cGy. Chemotherapy comprised of Xeloda Will undergo bowel resection as well as liver resection" On 04/04/15 12:41 Kerline Schultz wrote "Rectal pain and bleeding Status post colonoscopy and biopsy 07/05/2014 revealing adenocarcinoma the rectum moderately differentiated Staging workup revealed liver and lung metastasis Systemic chemotherapy Resolution of lung metastasis and excellent response of liver lesions Plan for neoadjuvant radiation and chemotherapy Radiation therapy was completed 03/28/2015 received 5180 cGy. Chemotherapy comprised of Xeloda Will undergo bowel resection as well as liver resection" Recurrent epistaxis Seborrheic dermatitis Vitamin D deficiency Surgical History H/O colonoscopy History of bowel resection History of colostomy History of surgery closed treatment of fracture of tibial shaft 1975- bolt/natalie placement History of total knee replacement LEFT History of vascular access device present to right chest Hx of cataract surgery RIGHT/ LEFT Family History Mother Hypertension Coronary heart disease Myocardial infarction Ischemic stroke Uncle Cancer Father Myocardial infarction Other No family history of adverse response to anesthesia No family history of bleeding disorder Denies family history of Ovarian cancer Prostate cancer Breast cancer Colorectal cancer Social History Smoking Status: Former smoker Second Hand Exposure: No; Do You Dip or Chew Tobacco: No; Tobacco Cessation Education Requested by Patient: No Hx Alcohol Use: No Hx Substance Use: No Preferred Language: Uruguayan Communication Ability: Effective Visual Impairment: No Limitations Hearing Ability: Normal Cancer Genetics Assistant Required: No Beliefs That Will Affect Care: None marital status: Current Living Situation: Spouse current occupational status: retired Other Information That Helps Us Care for You: No Feels Safe at Home: Yes Safety Concerns: Feels Safe At This Time Seatbelt Use: always Sunscreen Use: Yes Assistive Devices: Glasses Review of Systems Constitutional: + fatigue Respiratory: no cough and no dyspnea Cardiovascular: no chest pain and no palpitations Gastrointestinal: as per Subjective / HPI Neurologic: no syncope and no confusion Physical Exam Constitutional: WD/WN, vitals as above Eyes: EOM intact bilaterally Neck: normal appearance Respiratory: normal respiratory effort, lungs clear to auscultation Cardiovascular: Rate/Rhythm: regular rate and regular rhythm Heart Sounds: no gallop and no murmur Gastrointestinal (Abdomen): Inspection/Auscultation: + abdomen distended, + abdominal surgical scar and + hyperactive bowel sounds Percussion/Palpation: abdomen soft; abdomen nontender tay stool noted in ostomy bag Musculoskeletal: Extremities: no cyanosis Skin: no rashes, warm and dry Neurologic: moves all extremities Psychiatric: A+Ox3, euthymic affect Results & Data ([facility]) Vital Signs (Past 12 Hours) Vital Signs Temp Pulse Pulse Pulse Resp BP Pulse Ox 01/13/21 07:37 36.1 C L 64 15 132/78 96 01/13/21 07:18 67 01/13/21 04:00 36.8 C 70 18 119/64 98 01/13/21 01:12 73 01/12/21 22:48 37.3 C 70 18 141/75 H 96 Laboratory Results Abnormal lab results 01/12/21 01/12/21 01/12/21 Range/Units 12:22 12:22 12:22 RBC 2.55 L (4.7-6.1) M/uL Hgb 7.0 L (14.0-18.0) g/dL Hct 21.9 L (42-52) % MCHC (32-36) g/dL RDW Std Deviation (36.4-46.3) fL RDW Coeff of Sarah 14.9 H (11.5-14.5) % Lymph # (Auto) 0.76 L (1.2-3.4) K/uL Letcher # (Auto) (0.11-0.59) K/uL PT 12.6 H (9.0-12.0) Seconds INR 1.3 H (0.9-1.1) Chloride (98-107) mmol/L Anion Gap (3-11) BUN/Creatinine Ratio (10-20) Glucose (70-99) mg/dl Calcium (8.5-10.1) mg/dl Total Protein (6.4-8.2) gm/dl Albumin (3.4-5.0) gm/dl Albumin/Globulin Ratio (0.9-2) Crossmatch See Detail 01/12/21 01/12/21 01/13/21 Range/Units 12:22 21:18 03:12 RBC 2.78 L (4.7-6.1) M/uL Hgb 8.4 L 7.7 L (14.0-18.0) g/dL Hct 26.6 L 24.3 L (42-52) % MCHC 31.7 L (32-36) g/dL RDW Std Deviation 47.5 H (36.4-46.3) fL RDW Coeff of Sarah 14.7 H (11.5-14.5) % Lymph # (Auto) 0.84 L (1.2-3.4) K/uL Letcher # (Auto) 0.66 H (0.11-0.59) K/uL PT (9.0-12.0) Seconds INR (0.9-1.1) Chloride 108 H (98-107) mmol/L Anion Gap (3-11) BUN/Creatinine Ratio 25.4 H (10-20) Glucose 108 H (70-99) mg/dl Calcium 8.3 L (8.5-10.1) mg/dl Total Protein 6.3 L (6.4-8.2) gm/dl Albumin 2.4 L (3.4-5.0) gm/dl Albumin/Globulin Ratio 0.6 L (0.9-2) Crossmatch 01/13/21 01/13/21 01/13/21 Range/Units 03:12 03:12 06:16 RBC (4.7-6.1) M/uL Hgb 8.3 L (14.0-18.0) g/dL Hct 26.5 L (42-52) % MCHC (32-36) g/dL RDW Std Deviation (36.4-46.3) fL RDW Coeff of Sarah (11.5-14.5) % Lymph # (Auto) (1.2-3.4) K/uL Letcher # (Auto) (0.11-0.59) K/uL PT (9.0-12.0) Seconds INR 1.2 H (0.9-1.1) Chloride 110 H (98-107) mmol/L Anion Gap 2.0 L (3-11) BUN/Creatinine Ratio (10-20) Glucose 100 H (70-99) mg/dl Calcium 8.0 L (8.5-10.1) mg/dl Total Protein 5.9 L (6.4-8.2) gm/dl Albumin 2.2 L (3.4-5.0) gm/dl Albumin/Globulin Ratio 0.6 L (0.9-2) Crossmatch PG Care Time/CCT Total # of Minutes Spent Total Time Spent with Patient: Total time spent is greater than 50% in coordination of care (as documented) at patient's floor/unit and/or counseling patient: Coding Level of Care Code 34481 Initial Inpt Care Lvl 3 Diagnoses Liver cirrhosis K74.60 Metastatic colorectal cancer C[address] Z93.3 GI bleed K92.2 GI bleed type/associated pathology: unspecified gastrointestinal hemorrhage type (1) GI bleed GI bleed type/associated pathology: unspecified gastrointestinal hemorrhage type Qualified Code(s): K92.2 - Gastrointestinal hemorrhage, unspecified
--- NOTE | 2021-01-13 11:03 | Anesthesiology Consultation ---
Date of Service January 13, 2021 Assessment & Plan (1) Encounter for pre-operative examination: Chart Review Chart Review: Acceptable Risk for Surgery and Patient NOT seen in Pre Admission Testing Consults Requested none History Surgery Operation Date: 01/13/21 16:30 Proposed Procedures p Esophagogastroduodenoscopy Dr. Maximo Marsh MD Height/Weight Height: 5 ft 9 in Weight: 90.3 kg Allergies Allergy/AdvReac Type Severity Reaction Status Date / Time No Known Drug Allergies Allergy Verified 01/12/21 13:33 Medications Home Medications Medication Instructions Recorded Confirmed Last Taken ascorbic acid (vitamin C) 1,000 mg 1,500 mg PO 1200 01/31/18 01/12/21 01/11/21 tablet (Vitamin C) aspirin 81 mg tablet,delayed 81 mg PO QAM 01/31/18 01/12/21 01/11/21 08:00 release cholecalciferol (vitamin D3) 50 3,000 unit PO 1200 01/31/18 01/12/21 01/11/21 mcg (2,000 unit) tablet (Vitamin D3) coenzyme Q10 30 mg capsule (CoQ-10) 30 mg PO QPM 01/31/18 01/12/21 01/11/21 omega 0-rcv-qgq-fish oil 1,000 mg 2,000 mg PO PM 01/31/18 01/12/21 01/11/21 (120 mg-180 mg) capsule (Fish Oil) multivitamin (Daily Multi-Vitamin) 1 tab PO PM 10/17/18 01/12/21 01/11/21 escitalopram oxalate 10 mg tablet 10 mg PO QAM 10/26/19 01/12/21 01/11/21 (Lexapro) lactobacillus combination no.4 3 3,000 mmu cells PO QAM 10/26/19 01/12/21 01/11/21 billion cell capsule (Probiotic) mupirocin 2 % topical ointment 1 appln TOP BID PRN gm 01/13/20 01/12/21 11/30/20 19:00 ketoconazole 2 % topical cream 1 applic TOPICAL BID PRN g 04/14/20 01/12/21 11/28/20 19:00 oxycodone 5 mg tablet 5 mg PO Q6H PRN 12/21/20 01/12/21 01/12/21 09:15 polyethylene glycol 3350 17 17 g PO DAILY PRN 12/21/20 01/12/21 Unknown gram/dose oral powder (Miralax) acetaminophen 500 mg tablet 1,000 mg PO Q6H PRN 01/12/21 01/12/21 01/11/21 22:00 (Tylenol Extra Strength) 1000 mg amlodipine 5 mg tablet 5 mg PO PM 01/12/21 01/12/21 01/11/21 Active Medications Generic Name Dose Route Start Last Admin Trade Name Hiteshq PRN Reason Stop Dose Admin Escitalopram Oxalate 10 mg 01/13/21 09:00 01/13/21 09:13 Escitalopram Oxalate 10 Mg Tab PO 02/12/21 08:59 10 mg QAM BECKIE Administration Hydromorphone HCl 0.5 mg 01/12/21 17:01 01/13/21 09:13 Hydromorphone Inj 0.5 Mg/0.5 Ml Syr IV 01/26/21 17:00 0.5 mg Q6H PRN Administration Pain Pantoprazole Sodium 40 mg/ 100 mls @ 20 mls/hr 01/12/21 14:30 01/13/21 10:53 Dextrose IV 02/11/21 14:29 Infused Q5H BECKIE Infusion 8 MG/HR Lactated Ringer's 1,000 mls @ 125 mls/hr 01/12/21 17:15 01/13/21 09:15 Lr IV 02/11/21 17:14 125 mls/hr .Q8H BECKIE Administration Past Medical History Medical History Chronic prostatitis Colostomy in place Depression Diverticulosis Enlarged prostate with lower urinary tract symptoms (LUTS) Essential hypertriglyceridemia Gallstone Inhibited sexual excitement Liver cirrhosis Nasal septal deviation Osteoarthritis Rectal adenocarcinoma (07/05/14) "Rectal pain and bleeding Status post colonoscopy and biopsy 07/05/2014 revealing adenocarcinoma the rectum moderately differentiated Staging workup revealed liver and lung metastasis Systemic chemotherapy 3 cycles of FOLFOX with addition of Avastin on the third cycle Resolution of lung metastasis and excellent response of liver lesions Plan for neoadjuvant radiation and chemotherapy Radiation therapy was completed 03/28/2015 received 5180 cGy. Chemotherapy comprised of Xeloda Status post AP resection as well as resection of liver metastasis wedge resection segment 3 06/02/2015 Final stage ypT3 ypN0 ypM1a Will complete 6 months of adjuvant chemotherapy with Xeloda and Avastin" On 04/22/15 10:54 Kerline Schultz wrote "Rectal pain and bleeding Status post colonoscopy and biopsy 07/05/2014 revealing adenocarcinoma the rectum moderately differentiated Staging workup revealed liver and lung metastasis Systemic chemotherapy 3 cycles of FOLFOX with addition of Avastin on the third cycle Resolution of lung metastasis and excellent response of liver lesions Plan for neoadjuvant radiation and chemotherapy Radiation therapy was completed 03/28/2015 received 5180 cGy. Chemotherapy comprised of Xeloda Will undergo bowel resection as well as liver resection" On 04/04/15 12:41 Kerline Schultz wrote "Rectal pain and bleeding Status post colonoscopy and biopsy 07/05/2014 revealing adenocarcinoma the rectum moderately differentiated Staging workup revealed liver and lung metastasis Systemic chemotherapy Resolution of lung metastasis and excellent response of liver lesions Plan for neoadjuvant radiation and chemotherapy Radiation therapy was completed 03/28/2015 received 5180 cGy. Chemotherapy comprised of Xeloda Will undergo bowel resection as well as liver resection" Recurrent epistaxis Seborrheic dermatitis Vitamin D deficiency Past Family History Family History Mother Hypertension Coronary heart disease Myocardial infarction Ischemic stroke Uncle Cancer Father Myocardial infarction Other No family history of adverse response to anesthesia No family history of bleeding disorder Denies family history of Ovarian cancer Prostate cancer Breast cancer Colorectal cancer Past Surgical History Surgical History H/O colonoscopy History of bowel resection History of colostomy History of surgery closed treatment of fracture of tibial shaft 1975- bolt/natalie placement History of total knee replacement LEFT History of vascular access device present to right chest Hx of cataract surgery RIGHT/ LEFT Social History Smoking Status: Former smoker tobacco type: cigarettes Do You Dip or Chew Tobacco: No Hx Alcohol Use: No Alcohol type: beer alcohol intake frequency: a few times a month Hx Substance Use: No substance use type: does not use Physical Exam Vital Signs Last Vital Signs Temp 36.1 C L 01/13/21 07:37 Pulse 64 01/13/21 07:37 Resp 15 01/13/21 07:37 BP 132/78 01/13/21 07:37 Pulse Ox 96 01/13/21 07:37 Testing Laboratory Results 01/13/21 06:16 01/13/21 03:12 PT 11.8 Seconds (9.0-12.0) 01/13/21 03:12 INR 1.2 (0.9-1.1) H 01/13/21 03:12 APTT 23.6 Seconds (21.0-31.0) 01/12/21 12:22 Blood Type A Positive 01/12/21 12:22 Antibody Screen NEGATIVE 01/12/21 12:22 Electrocardiogram Date: 01/12/21 Findings: + NSR @ (60) Nonspecific T wave abnormality Abnormal ECG When compared with ECG of 10-JUL-2016 09:31, Nonspecific T wave abnormality is now Present QT has lengthened Chest X-Ray Date: 01/12/21 Cardiomegaly and emphysema with no acute cardiopulmonary abnormality.
--- NOTE | 2021-01-13 12:35 | Palliative Care Consultation ---
Date of Consultation January 13, 2021 Assessment & Plan (1) Palliative care encounter: I talked with Mr. Ash about the role of palliative care for symptom management, support and planning goals of care based on the things that are important to him. 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 He lives with his and tells me that he has been independent with his ADLs at home. He feels that they are managing well and do not need additional support at home. He talked about the initial shock of finding out that he has cancer but now feels that he is dealing with his illness pretty well. He tells me that his would be his surrogate decision maker and that they have talked a little bit about this but he is confident that she would know what he would want for his care. He tells me that he generally doesn't like to think about "things like this until we need to". He feels that the most important thing to him is leading a productive life which to him means being able to get around and do things for himself. We talked about whether there would be limitations to his care and he told me that he would not ever want to be on a ventilator. He is currently a full code and we clarified that he would want CPR and defibrillation, if it would help, but would not want intubation. Code status changed to reflect this. I offered to call his to discuss this but he is concerned that hearing from palliative care would worry her. I offered to discuss this further in person as an outpatient which he declines at this time. He is agreeable to palliative care following during his stay. (2) Ascites: (3) Liver cirrhosis: (4) GI bleed: GI bleed type/associated pathology: unspecified gastrointestinal hemorrhage type Qualified Code(s): K92.2 - Gastrointestinal hemorrhage, unspecified (5) Metastatic colorectal cancer: History of Present Illness Reason for Consultation: goals of care Requesting Physician: Dr. Cifuentes Attending Physician: Philip Cifuentes MD History of Present Illness 75 yo gentleman diagnosed with colorectal cancer in 2014. He was found to have metastases to the liver and had RFA with resection at [facility] in October of this year. He also has cirrhosis with recurrent ascites. He reports that he generally has been getting paracentesis about every two weeks though his abdominal girth is increasing and he reports discomfort at this time and last procedure was done on 01/04 for 5.7 L. He was admitted with GI bleed noted in his ostomy. Hemoglobin was 7 but has been reasonably stable since transfusion and he reports no blood in ostomy over last 24 hours. He does have some discomfort from increased abdominal girth but denies abdominal pain, nausea or constipation. Allergies Allergy/AdvReac Type Severity Reaction Status Date / Time No Known Drug Allergies Allergy Verified 01/12/21 13:33 Home Medications Medication Instructions Recorded Confirmed Type ascorbic acid (vitamin C) 1,000 mg 1,500 mg PO 1200 01/31/18 01/12/21 History tablet (Vitamin C) aspirin 81 mg tablet,delayed 81 mg PO QAM 01/31/18 01/12/21 History release cholecalciferol (vitamin D3) 50 3,000 unit PO 1200 01/31/18 01/12/21 History mcg (2,000 unit) tablet (Vitamin D3) coenzyme Q10 30 mg capsule (CoQ-10) 30 mg PO QPM 01/31/18 01/12/21 History omega 1-vud-ipk-fish oil 1,000 mg 2,000 mg PO PM 01/31/18 01/12/21 History (120 mg-180 mg) capsule (Fish Oil) multivitamin (Daily Multi-Vitamin) 1 tab PO PM 10/17/18 01/12/21 History escitalopram oxalate 10 mg tablet 10 mg PO QAM 10/26/19 01/12/21 History (Lexapro) lactobacillus combination no.4 3 3,000 mmu cells PO QAM 10/26/19 01/12/21 History billion cell capsule (Probiotic) mupirocin 2 % topical ointment 1 appln TOP BID PRN gm 01/13/20 01/12/21 History ketoconazole 2 % topical cream 1 applic TOPICAL BID PRN g 04/14/20 01/12/21 History oxycodone 5 mg tablet 5 mg PO Q6H PRN 12/21/20 01/12/21 History polyethylene glycol 3350 17 17 g PO DAILY PRN 12/21/20 01/12/21 History gram/dose oral powder (Miralax) acetaminophen 500 mg tablet 1,000 mg PO Q6H PRN 01/12/21 01/12/21 History (Tylenol Extra Strength) amlodipine 5 mg tablet 5 mg PO PM 01/12/21 01/12/21 History Patient History Medical History Chronic prostatitis Colostomy in place Depression Diverticulosis Enlarged prostate with lower urinary tract symptoms (LUTS) Essential hypertriglyceridemia Gallstone Inhibited sexual excitement Liver cirrhosis Nasal septal deviation Osteoarthritis Rectal adenocarcinoma (07/05/14) "Rectal pain and bleeding Status post colonoscopy and biopsy 07/05/2014 revealing adenocarcinoma the rectum moderately differentiated Staging workup revealed liver and lung metastasis Systemic chemotherapy 3 cycles of FOLFOX with addition of Avastin on the third cycle Resolution of lung metastasis and excellent response of liver lesions Plan for neoadjuvant radiation and chemotherapy Radiation therapy was completed 03/28/2015 received 5180 cGy. Chemotherapy comprised of Xeloda Status post AP resection as well as resection of liver metastasis wedge resection segment 3 06/02/2015 Final stage ypT3 ypN0 ypM1a Will complete 6 months of adjuvant chemotherapy with Xeloda and Avastin" On 04/22/15 10:54 Kerline Schultz wrote "Rectal pain and bleeding Status post colonoscopy and biopsy 07/05/2014 revealing adenocarcinoma the rectum moderately differentiated Staging workup revealed liver and lung metastasis Systemic chemotherapy 3 cycles of FOLFOX with addition of Avastin on the third cycle Resolution of lung metastasis and excellent response of liver lesions Plan for neoadjuvant radiation and chemotherapy Radiation therapy was completed 03/28/2015 received 5180 cGy. Chemotherapy comprised of Xeloda Will undergo bowel resection as well as liver resection" On 04/04/15 12:41 Kerline Schultz wrote "Rectal pain and bleeding Status post colonoscopy and biopsy 07/05/2014 revealing adenocarcinoma the rectum moderately differentiated Staging workup revealed liver and lung metastasis Systemic chemotherapy Resolution of lung metastasis and excellent response of liver lesions Plan for neoadjuvant radiation and chemotherapy Radiation therapy was completed 03/28/2015 received 5180 cGy. Chemotherapy comprised of Xeloda Will undergo bowel resection as well as liver resection" Recurrent epistaxis Seborrheic dermatitis Vitamin D deficiency Surgical History H/O colonoscopy History of bowel resection History of colostomy History of surgery closed treatment of fracture of tibial shaft 1975- bolt/natalie placement History of total knee replacement LEFT History of vascular access device present to right chest Hx of cataract surgery RIGHT/ LEFT Family History Mother Hypertension Coronary heart disease Myocardial infarction Ischemic stroke Uncle Cancer Father Myocardial infarction Other No family history of adverse response to anesthesia No family history of bleeding disorder Denies family history of Ovarian cancer Prostate cancer Breast cancer Colorectal cancer Social History Smoking Status: Former smoker Second Hand Exposure: No; Do You Dip or Chew Tobacco: No; Tobacco Cessation Education Requested by Patient: No Hx Alcohol Use: No Hx Substance Use: No Preferred Language: Maori Communication Ability: Effective Visual Impairment: No Limitations Hearing Ability: Normal Polyethylene Combiner Required: No Beliefs That Will Affect Care: None marital status: Current Living Situation: Spouse current occupational status: retired Other Information That Helps Us Care for You: No Feels Safe at Home: Yes Safety Concerns: Feels Safe At This Time Seatbelt Use: always Sunscreen Use: Yes Assistive Devices: Glasses Review of Systems Review of Systems: [place] Symptom Assessment Scale Pain 1/3 Dyspnea 0/3 Anxiety 0/3 Fatigue 1/3 Nausea 0/3 Anorexia 1/3, appetite is good but intake decreased due to ascites Drowsiness 0/3 Palliative Performance Score 50% Physical Exam Constitutional: no acute distress Respiratory: normal respiratory effort; no labored breathing Gastrointestinal (Abdomen): Inspection/Auscultation: + abdomen distended Neurologic: moves all extremities and awake; not confused Results & Data ([facility]) Vital Signs (Past 12 Hours) Vital Signs Temp Pulse Pulse Pulse Resp BP Pulse Ox 01/13/21 11:36 97.3 F L 66 15 128/76 99 01/13/21 07:37 97.0 F L 64 15 132/78 96 01/13/21 07:18 67 01/13/21 04:00 98.2 F 70 18 119/64 98 01/13/21 01:12 73 PG Care Time/CCT Total # of Minutes Spent Total Time Spent: 60 Total Time Spent with Patient: Total time spent is greater than 50% in co ordination of care (as documented) at patient's floor/unit and/or counseling patient: goals of care, surrogate decision maker, code status. Coding Level of Care Code 23095 Initial Inpt Care Lvl 2 Diagnoses Palliative care encounter Z51.5 Ascites R18.8 Liver cirrhosis K74.60 GI bleed K92.2 GI bleed type/associated pathology: unspecified gastrointestinal hemorrhage type Metastatic colorectal cancer C19
[2021-01-13] MEDS ORDERED: LIDOCAINE 2% 2 ML VIAL/AMP(20MG/ML) INFIL ONE (12:59)
[2021-01-13] MEDS ORDERED: PROPOFOL IV EMULSION 10 MG/ML 20 ML VIAL IV ONE (12:59)
--- NOTE | 2021-01-13 13:43 | GI REPORT ---
Patient Name: Kristofer Ash Procedure Date: 01/13/2021 1:08 PM Date of : 1945 Admit Type: Inpatient Age: 75 Gender: Male Attending MD: Jacques Marsh MD Procedure: Upper GI endoscopy Providers: Jacques Marsh MD Referring MD: Referred Self Indications: Hematochezia Medicines: Monitored Anesthesia Care Complications: No immediate complications. Estimated blood loss: None. Estimated Blood Loss: Estimated blood loss: none. Procedure: Pre-Anesthesia Assessment: - Prior Anticoagulants: The patient has taken no previous anticoagulant or antiplatelet agents. - ASA Grade Assessment: III - A patient with severe systemic disease. After obtaining informed consent, the endoscope was passed under direct vision. Throughout the procedure, the patient's blood pressure, pulse, and oxygen saturations were monitored continuously. The Endoscope was introduced through the mouth, and advanced to the second part of duodenum. The upper GI endoscopy was accomplished without difficulty. The patient tolerated the procedure well. Findings: Large (> 5 mm) varices were found in the lower third of the esophagus. Two bands were successfully placed with complete eradication, resulting in deflation of varices. There was no bleeding at the end of the procedure. Mild portal hypertensive gastropathy was found in the stomach. The duodenal bulb and second portion of the duodenum were normal. Estimated blood loss: none. Impression: - Large (> 5 mm) esophageal varices. Completely eradicated. Banded. - Portal hypertensive gastropathy. - Normal duodenal bulb and second portion of the duodenum. - No specimens collected. Recommendation: - [facility]. - NPO strict for next 24 hours --No NG tube for next 24 hours --protonix 40 mg daily --complete 5 days of octreotide drip -trend H/H, transfuse prn -- supportive care Jacques Marsh MD 01/13/2021 1:42:46 PM This report has been signed electronically. Note Initiated On: 01/13/2021 1:08 PM Number of Addenda: 0 I attest to the content of the Intraoperative Record and orders documented therein, exceptions below {[id number]}
--- NOTE | 2021-01-13 14:30 | Anesthesiology Progress Note ---
Date of Service January 13, 2021 Anesthesia Post Procedure Vital Signs Vital Signs: Temp Pulse Pulse Pulse Resp BP BP 01/13/21 14:06 68 18 135/85 01/13/21 13:51 67 18 129/76 01/13/21 13:36 68 16 105/67 01/13/21 12:30 36.8 C 70 16 158/73 H 01/13/21 11:36 36.3 C L 66 15 128/76 01/13/21 07:37 36.1 C L 64 15 132/78 01/13/21 07:18 67 01/13/21 04:00 36.8 C 70 18 119/64 01/13/21 01:12 73 01/12/21 22:48 37.3 C 70 18 141/75 H 01/12/21 17:51 36.8 C 64 18 135/82 01/12/21 17:40 59 L 01/12/21 16:29 36.7 C 72 18 125/83 01/12/21 16:14 36.7 C 73 18 131/81 01/12/21 15:49 36.8 C 71 24 126/81 01/12/21 15:14 36.6 C 73 18 131/76 01/12/21 14:44 36.6 C 71 18 131/81 Pulse Ox 01/13/21 14:06 100 01/13/21 13:51 97 01/13/21 13:36 95 01/13/21 12:30 100 01/13/21 11:36 99 01/13/21 07:37 96 01/13/21 07:18 01/13/21 04:00 98 01/13/21 01:12 01/12/21 22:48 96 01/12/21 17:51 99 01/12/21 17:40 01/12/21 16:29 96 01/12/21 16:14 100 01/12/21 15:49 99 01/12/21 15:14 100 01/12/21 14:44 100 Pain Intensity Abdomen: Pain Intensity: 8 Transfer of Care Handoff Completed per policy Notes Mental Status: alert / awake / arousable and participated in evaluation Nausea / Vomiting: adequately controlled Pain: adequately controlled Airway Patency, RR, SpO2: stable & adequate BP & HR: stable & adequate Hydration State: stable & adequate Anesthetic Complications: no major complications apparent and Pt Satisfied with anesthetic care
[2021-01-13] MEDS ORDERED: HYDROmorphone INJ 0.5 MG/0.5 ML SYR IV PRN (14:47)
[2021-01-13] MEDS: ACETAMINOPHEN 500 MG TAB PO PRN (14:54)
[2021-01-13] MEDS: SODIUM CHLORIDE 0.9% 1000ML 1,000 ML IV SCH (14:55)
[2021-01-13] MEDS: oxyCODONE HCL IR 5 MG TAB (IMMEDIATE RELEASE) PO PRN ×2 (14:55→21:50)
[2021-01-13] MEDS: cefTRIAXone SODIUM 2,000 MG in DEXTROSE 5% 50 ML IV SCH (15:17)
[2021-01-13] MEDS: OCTREOTIDE ACETATE 500 MCG in 0.9 % SODIUM CHLORIDE 100 ML IV SCH (15:35)
--- NOTE | 2021-01-13 15:41 | Hospitalist Progress Note ---
Date of Service January 13, 2021 Assessment & Plan (1) GI bleed: Plan: Hemoglobin 7.0 from 11.0 December 08. Progressive Metastatic Colon CA causing GI bleed and acute blood loss anemia. - Received 1 unit PRBCs on 01/12 - Consulted GI -> EGD on 01/13 showed two large varices which were successfully banded. Per GI: * PPI PO BID * Octreotide gtt x 5 days * Ceftriaxone (or other abx) x 7 days for SBP ppx * NPO x 24 hours (can have lunch tomorrow) * Trend hgb (2) Anemia: Plan: As above (3) Rectal adenocarcinoma: Plan: Metastatic adenocarcinoma, progressing based on last GI note. - Follow up with oncology as outpatient - Palliative care following. Patient and seem pre-contemplative about his prognosis. (4) Ascites: Plan: Secondary to liver cirrhosis vs. peritoneal metastatic disease. - Will perform paracentesis tomorrow. (5) Liver cirrhosis: Plan: On not routine medication for this. - No acute treatment required; could consider Lasix/spironolactone to help re duce ascites fluid (6) Colostomy in place: Plan: Noted. Working without issue. (7) Hypertension: Plan: BP presently 145/80. - Hold amlodipine due to current GI bleed (8) Depression: Plan: - Continue Lexapro 10mg PO daily (9) DVT prophylaxis: Plan: SCDs - Holding heparin in setting of GI bleed Admission and Anticipated Discharge Date Admission Date: January 12, 2021 Results & Data Results & Data ([facility]) Vital Signs (Past 12 Hours) Vital Signs Temp Pulse Pulse Pulse Resp BP Pulse Ox 01/13/21 15:16 36.4 C L 81 16 145/80 H 94 01/13/21 14:06 68 18 135/85 100 01/13/21 13:51 67 18 129/76 97 01/13/21 13:36 68 16 105/67 95 01/13/21 12:30 36.8 C 70 16 158/73 H 100 01/13/21 11:36 36.3 C L 66 15 128/76 99 01/13/21 07:37 36.1 C L 64 15 132/78 96 01/13/21 07:18 67 01/13/21 04:00 36.8 C 70 18 119/64 98 PG Care Time/CCT Total # of Minutes Spent Total Time Spent with Patient: Total time spent is greater than 50% in coordination of care (as documented) at patient's floor/unit and/or counseling patient: Coding Level of Care Code 30758 Subseq Hosp Care Lvl 3 Diagnoses GI bleed K92.2 GI bleed type/associated pathology: unspecified gastrointestinal hemorrhage type Anemia D64.9 Anemia type: unspecified type Rectal adenocarcinoma C20 Ascites R18.8 Liver cirrhosis K74.[address] Z93.3 Hypertension I10 Depression F32.9 DVT prophylaxis Z29.9 (1) GI bleed GI bleed type/associated pathology: unspecified gastrointestinal hemorrhage type Qualified Code(s): K92.2 - Gastrointestinal hemorrhage, unspecified (2) Anemia Anemia type: unspecified type Qualified Code(s): D64.9 - Anemia, unspecified
[2021-01-13] MEDS: PANTOprazole 40 MG TAB PO SCH (21:50)
[2021-01-14] MEDS: OCTREOTIDE ACETATE 500 MCG in 0.9 % SODIUM CHLORIDE 100 ML IV SCH ×3 (01:47→20:12)
[2021-01-14] MEDS: SODIUM CHLORIDE 0.9% 1000ML 1,000 ML IV SCH (01:48)
[2021-01-14] MEDS: oxyCODONE HCL IR 5 MG TAB (IMMEDIATE RELEASE) PO PRN ×3 (01:55→22:12)
[2021-01-14] MEDS: PANTOprazole 40 MG TAB PO SCH ×2 (07:50→20:12)
[2021-01-14] MEDS: ESCITALOPRAM OXALATE 10 MG TAB PO SCH (07:50)
[2021-01-14] MEDS: ACETAMINOPHEN 500 MG TAB PO PRN ×2 (07:50→23:19)
[2021-01-14 08:06] LABS: Hematocrit (blood only) 26.4 % (42-52); Hemoglobin 8.3 g/dL (14.0-18.0); Mean Corpuscular Hemoglobin 27.9 pg (25-34); Mean Corpuscular Hgb Conc 31.4 g/dL (32-36); Mean Corpuscular Volume 88.6 fL (80-100); Mean Platelet Volume 8.3 fL (7.4-10.4); Platelet Count 225 K/uL (130-400); RDW Coefficient of Variation 15.2 % (11.5-14.5); RDW Standard Deviation 49.1 fL (36.4-46.3); Red Blood Count 2.98 M/uL (4.7-6.1); White Blood Count 5.87 K/uL (4.8-10.8)
[2021-01-14 08:18] LABS: INR 1.2 (0.9-1.1)
[2021-01-14 08:24] LABS: Albumin Level 2.4 gm/dl (3.4-5.0); BUN Creatinine Ratio 16.8 (10-20); Calcium 8.2 mg/dl (8.5-10.1); Creatinine Clr Calc Pharmacy 84.1 ml/min; Est GFR (African American) 98.5 ml/min; Magnesium 2.2 mg/dl (1.8-2.4); Potassium 3.8 mmol/L (3.5-5.1)
[2021-01-14 08:26] LABS: Albumin Globulin Ratio 0.6 (0.9-2); Bilirubin,Total 0.6 mg/dl (0.2-1); Globulin 3.9 gm/dl (2.5-4.0); Phosphorus 3.5 mg/dl (2.5-4.9); Total Protein 6.3 gm/dl (6.4-8.2)
[2021-01-14] MEDS ORDERED: BEER 1 CAN PO ONE (11:45)
[2021-01-14] MEDS: ALBUMIN 25% 12.5 GM/50 ML VIAL IV SCH ×3 (12:03→15:37)
--- NOTE | 2021-01-14 13:07 | Hospitalist Progress Note ---
Date of Service January 14, 2021 Assessment & Plan (1) GI bleed: Plan: Hemoglobin 7.0 from 11.0 December 08. Progressive Metastatic Colon CA causing GI bleed and acute blood loss anemia. - Received 1 unit PRBCs on 01/12 - Consulted GI -> EGD on 01/13 showed two large varices which were successfully banded. Per GI: * PPI PO BID * Octreotide gtt x 5 days originally recced (GI notes we can stop it early if he feels well. Will stop tomorrow AM.) * Ceftriaxone (or other abx) x 7 days for SBP ppx * Return to full liquid diet. Soft foods tonight if he is doing well. * Trend hgb (2) Anemia: Plan: As above (3) Rectal adenocarcinoma: Plan: Metastatic adenocarcinoma, progressing based on last GI note. - Follow up with oncology as outpatient - Palliative care following. Patient and seem pre-contemplative about his prognosis. (4) Ascites: Plan: Secondary to liver cirrhosis vs. peritoneal metastatic disease. - 6L paracentesis done by me on 01/14. Tolerated the procedure well. No complications. (5) Liver cirrhosis: Plan: On no routine medication for this. - No acute treatment required; could consider Lasix/spironolactone to help reduce ascites fluid (6) Colostomy in place: Plan: Noted. Working without issue. (7) Hypertension: Plan: BP presently 135/80. - Hold amlodipine due to current GI bleed (8) Depression: Plan: - Continue Lexapro 10mg PO daily (9) DVT prophylaxis: Plan: SCDs - Holding heparin in setting of GI bleed Admission and Anticipated Discharge Date Admission Date: January 12, 2021 Subjective Doing well today. No return of bright red blood in the ostomy bag. Reports no fevers/chills, chest pain, shortness of breath, abdominal pain, nausea, or vomiting. Physical Exam Constitutional: WD/WN, vitals as above Eyes: EOM intact bilaterally; no conjunctival abnormality ENMT: external ear and nose normal, oropharynx normal Neck: trachea midline, no thyromegaly normal visual inspection Respiratory: normal respiratory effort, lungs clear to auscultation no respiratory distress Cardiovascular: RRR, no murmur, no edema Gastrointestinal (Abdomen): Inspection/Auscultation: + abdomen distended, normal bowel sounds and + abdominal surgical scar (Liver) Ostomy present Musculoskeletal: no cyanosis or clubbing, extremities motor strength 5/5 Skin: no rashes, warm and dry Neurologic: moves all extremities and awake Psychiatric: Orientation: alert, oriented to person and cooperative Results & Data Results & Data ([facility]) Vital Signs (Past 12 Hours) Vital Signs Temp Pulse Pulse Pulse Resp BP Pulse Ox 01/14/21 11:55 36.9 C 74 18 137/73 99 01/14/21 11:26 66 01/14/21 08:20 37.0 C 74 18 132/77 96 01/14/21 04:21 37.0 C 85 18 122/74 94 PG Care Time/CCT Total # of Minutes Spent Total Time Spent with Patient: Total time spent is greater than 50% in coordination of care (as documented) at patient's floor/unit and/or counseling patient: Coding Level of Care Code 63962 Subseq Hosp Care Lvl 3 Diagnoses GI bleed K92.2 GI bleed type/associated pathology: unspecified gastrointestinal hemorrhage type Anemia D64.9 Anemia type: unspecified type Rectal adenocarcinoma C20 Ascites R18.8 Liver cirrhosis K74.[address] Z93.3 Hypertension I10 Depression F32.9 DVT prophylaxis Z29.9 (1) GI bleed GI bleed type/associated pathology: unspecified gastrointestinal hemorrhage type Qualified Code(s): K92.2 - Gastrointestinal hemorrhage, unspecified (2) Anemia Anemia type: unspecified type Qualified Code(s): D64.9 - Anemia, unspecified
--- NOTE | 2021-01-14 13:19 | Procedure Note ---
Procedure Note Date of Service January 14, 2021 Note Informed consent done with Clem Maher RN. Time out done in the presence of resident physicians with name and confirmed with patient. Site located with ultrasound. Ascites depth >2". Site marked and sterilized with chlorhexidine. Sterile gloves donned. Site draped with sterile drape. Site numbed with 1% lidocaine. Needle advanced using Z technique into the peritoneal space with medium yellow ascites fluid drawn back. Track numbed with the lidocaine. Needle and catheter advanced until peritoneal fluid returned, again medium yellow. Needle stabilized. Catheter advanced over needled until hubbed. Needled was checked and intact on removal. 6L of medium yellow ascites fluid successfully drained. No purulence or feculence noted. Minimal discomfort with some shifting, but no severe pain. Catheter was removed and determined to be intact at the tip. The area was re- cleaned with chlorhexidine and covered with sterile gauze and Tegaderm. The procedure was concluded without any complications. Coding CPT Codes Abdomen - Abdominal: 84259 Abdominal Paracentesis (diagnostic or therapeutic); W/O imaging ([id number]) [facility] – [place], [place] Procedure Codes (Charges) Abdomen Abdominal: 05407 Abdominal Paracentesis (diagnostic or therapeutic); W/O imaging
[2021-01-14] MEDS ORDERED: IRON SUCROSE 300 MG in SODIUM CHLORIDE 0.9% 250 ML IV SCH (14:00)
[2021-01-14] MEDS: cefTRIAXone SODIUM 2,000 MG in DEXTROSE 5% 50 ML IV SCH (15:45)
--- NOTE | 2021-01-14 17:07 | Gastroenterology Progress Note ---
Date of Service January 14, 2021 Assessment & Plan (1) Liver cirrhosis: (2) GI bleed: (3) Metastatic colorectal cancer: Plan: appears to be stable s/p EVL of varices. Recs: advance diet as tolerated trend H/H complete 7 days of abx for sepsis ppx for GI bleed in a cirrhotic patient ok to discontinue octreotide at this time protonix 40 mg BID follow up with [facility] as outpatient rest as per primary team Admission and Anticipated Discharge Date Admission Date: January 12, 2021 Subjective no events overnight, underwent banding of varices with EGD yesterday. hgb stable, no further bleeding from ostomy. feels well, tolerating full liquids. vss, labs reviewed. Review of Systems Constitutional: no fever and no chills Respiratory: no cough, no dyspnea and no dyspnea on exertion Cardiovascular: no chest pain and no dyspnea Gastrointestinal: as per Subjective / HPI Psychiatric: no depression and no anxiety Physical Exam Constitutional: WD/WN, vitals as above Respiratory: normal respiratory effort, lungs clear to auscultation Cardiovascular: RRR, no murmur, no edema Gastrointestinal (Abdomen): normal bowel sounds, soft, nontender, no hepatosplenomegaly Musculoskeletal: no lower extremity edema Psychiatric: A+Ox3, euthymic affect Results & Data Results & Data ([facility]) Vital Signs (Past 12 Hours) Vital Signs Temp Pulse Pulse Resp BP Pulse Ox 01/14/21 15:53 62 01/14/21 14:59 36.8 C 57 L 18 122/75 100 01/14/21 11:55 36.9 C 74 18 137/73 99 01/14/21 11:26 66 01/14/21 08:20 37.0 C 74 18 132/77 96 PG Care Time/CCT Total # of Minutes Spent Total Time Spent with Patient: Total time spent is greater than 50% in coordination of care (as documented) at patient's floor/unit and/or counseling patient: Coding Level of Care Code 44804 Subseq Hosp Care Lvl 3 Diagnoses Liver cirrhosis K74.60 GI bleed K92.2 GI bleed type/associated pathology: unspecified gastrointestinal hemorrhage type Metastatic colorectal cancer C19 (1) GI bleed GI bleed type/associated pathology: unspecified gastrointestinal hemorrhage type Qualified Code(s): K92.2 - Gastrointestinal hemorrhage, unspecified
[2021-01-15] MEDS: OCTREOTIDE ACETATE 500 MCG in 0.9 % SODIUM CHLORIDE 100 ML IV SCH (05:09)
[2021-01-15 06:22] LABS: Hemoglobin 7.4 g/dL (14.0-18.0); Mean Corpuscular Hemoglobin 27.2 pg (25-34); Mean Corpuscular Hgb Conc 30.8 g/dL (32-36); Mean Corpuscular Volume 88.2 fL (80-100); Mean Platelet Volume 8.2 fL (7.4-10.4); Platelet Count 181 K/uL (130-400); RDW Coefficient of Variation 15.3 % (11.5-14.5); RDW Standard Deviation 48.7 fL (36.4-46.3); Red Blood Count 2.72 M/uL (4.7-6.1); White Blood Count 4.16 K/uL (4.8-10.8)
[2021-01-15 06:56] LABS: Albumin Level 2.2 gm/dl (3.4-5.0); BUN Creatinine Ratio 15.2 (10-20); Calcium 7.7 mg/dl (8.5-10.1); Est GFR (African American) 101.5 ml/min; Est GFR (Non-African American) 87.6 ml/min; Magnesium 2.1 mg/dl (1.8-2.4); Potassium 3.6 mmol/L (3.5-5.1)
[2021-01-15 06:58] LABS: Albumin Globulin Ratio 0.7 (0.9-2); Bilirubin,Total 0.5 mg/dl (0.2-1); Globulin 3.2 gm/dl (2.5-4.0); Total Protein 5.4 gm/dl (6.4-8.2)
[2021-01-15] MEDS: ACETAMINOPHEN 500 MG TAB PO PRN (08:09)
[2021-01-15] MEDS: oxyCODONE HCL IR 5 MG TAB (IMMEDIATE RELEASE) PO PRN (08:09)
[2021-01-15] MEDS: ESCITALOPRAM OXALATE 10 MG TAB PO SCH (08:09)
[2021-01-15] MEDS: PANTOprazole 40 MG TAB PO SCH (08:09)
[2021-01-15] MEDS ORDERED: OPTIRAY 320 100ml IV ONE (11:26)
--- NOTE | 2021-01-15 11:44 | CT Scan Report ---
CT OF THE CHEST WITH IV CONTRAST CLINICAL HISTORY: Anemia, metastatic rectal carcinoma. COMPARISON STUDY: Chest CT April 25, 2020. Chest radiograph January 12, 2021. TECHNIQUE: Following IV administration of 94 mL of Optiray, helical axial images of the chest were o btained. Sagittal and coronal reconstructions were viewed as well as maximal intensity projections o n an independent 3-D workstation. Automated exposure control was utilized for the study. A dose low ering technique was utilized adhering to the principles of ALARA. CT DOSE: 1256.74 mGy.cm FINDINGS: Right internal jugular [id number] is in place. No enlarged axillary, mediastinal or hil ar lymph nodes are present. No pericardial effusion. No pneumothorax or pleural effusion is noted. Th ere is no consolidation to suggest pneumonia. Size and number of multiple solid pulmonary nodules has increased since CT of April 25, 2020. Index right lower lobe nodule is now cavitary. This nodule shown on image 199 of 291. This nodule measures 1.3 cm. It previously measured 0.6 cm. The abdomen an d pelvis will be reported separately. IMPRESSION: 1. Increase in size and number of multiple pulmonary nodules since chest CT of April 25, 2020. Thi s is consistent with progression of pulmonary metastases. 2. No thoracic lymphadenopathy. ACT 112: Negative or not required by law. Electronically signed by: Bob Vidal M.D. 01/15/2021 11:42 AM
--- NOTE | 2021-01-15 11:56 | CT Scan Report ---
CT OF THE ABDOMEN AND PELVIS WITH CONTRAST CLINICAL HISTORY: Anemia, metastatic rectal carcinoma. COMPARISON STUDY: CT of the abdomen and pelvis April 25, 2020. TECHNIQUE: Following IV administration of 94 mL of Optiray, axial images of the abdomen and pelvis we re obtained from the lung bases to the proximal femurs. Images were reviewed in the axial, sagittal, and coronal planes. IV contrast was administered without complication. Automated exposure control wa s utilized for the study. A dose lowering technique was utilized adhering to the principles of ALARA . Oral contrast was administered. FINDINGS: Please note that the chest CT will be reported separately. Multiple pulmonary nodules are b ambar depicted on that exam. No pneumatosis, free air or portal venous gas is present. Moderate ascit es is present. No retroperitoneal hemorrhage is noted. No intraperitoneal hemorrhage is identified on this examination. 5.5 cm hypodense right hepatic dome lesion has increased in size since CT of Decem 2019. This now measures 5.5 cm. It previously 2.7 cm. An ill-defined 3.8 cm caudate lobe lesi on has also increased in size. This narrows a right portal branch. There is associated mild intrahepa tic biliary ductal dilatation which was shown on prior exam. No new hepatic lesions are present. The spleen, adrenal glands and pancreas are unremarkable. A few suspected renal cysts are present. There is no hydronephrosis. A left lower quadrant ostomy is noted. There is no evidence for a bowel obstruc tion. Abdominal aorta is ectatic. No suspicious lesions are identified within the visualized skeletal structures. IMPRESSION: 1. Moderate ascites. No retroperitoneal or intraperitoneal hemorrhage identified. 2. Increase in size of 2 hepatic lesions, as described above. Increase in size and number of pulmonar y metastases. 3. No bowel obstruction. ACT 112: Negative or not required by law. Electronically signed by: Bob Vidal M.D. 01/15/2021 11:55 AM
[2021-01-15] MEDS ORDERED: IRON SUCROSE 400 MG in SODIUM CHLORIDE 0.9% 250 ML IV SCH (12:30)
[2021-01-15 13:24] LABS: Hematocrit (blood only) 27.2 % (42-52); Hemoglobin 8.3 g/dL (14.0-18.0)
[2021-01-15] MEDS: cefTRIAXone SODIUM 2,000 MG in DEXTROSE 5% 50 ML IV SCH (14:08)
--- NOTE | 2021-01-15 14:19 | Discharge Summary ---
Date of Service January 15, 2021 Admission HPI Per Admitting Provider Krisotfer Ash is a 75 year old male with metastatic colon cancer and liver cirrhosis who presents to the ER after labs prior to paracentesis today showed he was significantly anemic. He notes having dark red blood seen in his colostomy bag starting last night which is slowly improving today. He denies any chest pain, shortness of breath or dizziness. Of note he is not currently on chemotherapy for his metastatic cancer. Last treatment was liver resection on October 28 due to metastatic disease to the liver. He has had right upper quadrant pain since this procedure but no significant worsening recently. No heartburn or epigastric pain. He did require 2 units packed RBCs during the procedure but his hemoglobin was stable following this. Last hemoglobin 11.0 on December 08. He has required recurrent paracentesis since this procedure presumably due to liver cirrhosis +/- possible spread to peritoneum. He follows with [facility] oncology. Local piercing machine operator is Dr Lin. In the ER his hemoglobin was noted to be to be 7.0. He is currently receiving 1 unit packed RBCs. INR 1.3. Plt 194. He was referred to medicine for admission and ongoing management of GI bleed. Principal Diagnosis Likely variceal bleed Discharge Exam Constitutional WD/WN, vitals as above Eyes EOM intact bilaterally; no conjunctival abnormality ENMT external ear and nose normal, oropharynx normal Neck trachea midline, no thyromegaly normal visual inspection Respiratory normal respiratory effort, lungs clear to auscultation no respiratory distress Cardiovascular RRR, no murmur, no edema Gastrointestinal (Abdomen) Inspection/Auscultation: normal bowel sounds and + abdominal surgical scar (Liver) Musculoskeletal no cyanosis or clubbing, extremities motor strength 5/5 Skin no rashes, warm and dry Neurologic moves all extremities and awake Psychiatric Orientation: alert, oriented to person and cooperative Discharge Data Allergies Allergy/AdvReac Type Severity Reaction Status Date / Time No Known Drug Allergies Allergy Verified 01/12/21 13:33 Consultations 01/12/21 14:06 Consult Gastroenterology Routine 01/12/21 14:07 ED Decision to Admit Stat 01/13/21 10:31 Consult Palliative Care Routine Procedures Performed Operation Date: 01/13/21 16:30 Actual Procedures p EGD Banding of Varices - Jacques Marsh MD Ordered Studies 01/15/21 08:11 CT abd pelvis oral and IV con Urgent CT chest diagnostic w con Urgent Hospital Course (1) GI bleed: Hemoglobin 7.0 from 11.0 December 08. Progressive Metastatic Colon CA causing GI bleed and acute blood loss anemia. - Received 1 unit PRBCs on 01/12 - Consulted GI -> EGD on 01/13 showed two large varices which were successfully banded. Per GI: * PPI PO BID * Octreotide gtt x 5 days originally recced (GI notes we can stop it early if he feels well. Stopped 01/15 AM.) * Ceftriaxone (or other abx) x 7 days for SBP ppx -> Discharged with 3 additional days of Cipro. * Soft food diet x 3-4 days. * Trend hgb (on 01/15, concern for further bleed as hgb dropped; however, repeat in the afternoon was back up. I think it might have been diluted because all cell lines had dropped.) He felt clinically well and wanted to go home. * CT c/a/p on 01/15 showed progressive cancer, but no acute findings. He and his were aware because he had other scans at [facility] a few weeks ago. Will follow up with GI in 2-4 weeks. (2) Anemia: As above (3) Rectal adenocarcinoma: Metastatic adenocarcinoma, progressing based on last GI note. - Follow up with oncology as outpatient - Palliative care following. Will follow as outpatient to consider palliative Pleur-X catheter. (4) Ascites: Secondary to liver cirrhosis vs. peritoneal metastatic disease. - 6L paracentesis done by me on 01/14. Tolerated the procedure well. No complications. - Discharged on low-dose Lasix/spironolactone 10 mg / 25 mg. This is very low dose as patient's reports prior concern by oncology when on Lasix. - Plan for BMP in 1 week with PCP/oncology/GI. (5) Liver cirrhosis: On no routine medication for this. - No acute treatment required (6) Colostomy in place: Noted. Working without issue. (7) Hypertension: BP presently 135/80. 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 Marsh or another [facility] GI provider in 2-4 weeks.) Ayla Polk MD [Physician] - (Please see Dr. Ayla Polk to get referred for consideration of a Pleur-X catheter to drain ascites build-up.) Ian Mccartney, DO [Primary Care Provider] - Diet: Low Sodium (2gm) Addtl Attending Provider Instructions: Mr. Ash, You were admitted to the hospital with bleeding in the stomach. Dr. Marsh did an EGD and found two large, dilated blood vessels that were the likely source of bleeding. These are called varices and occur when you have extra pressure building up in the liver. This pressure is because of your cancer and is also what causes the fluid to build up in your stomach. Please take the pantoprazole twice per day for at least the next month. Please follow up with Dr. Marsh or one of his colleagues in the office in 2-4 weeks. Hold your aspirin until cleared by the GI team. Please have your GI doctor or [facility] oncology provider check your CBC (red blood cells, etc.) in about 1 week. While you were here, we also drained the fluid in your abdomen. This is called ascites. This time we drained 6 L and gave you some albumin. You tolerated this very well without any complications. On discharge, we would like you to start low-dose Lasix and spironolactone which will hopefully help slow the re-accumulation of fluid. It won't stop it en tirely, but will hopefully lengthen the amount of time between paracenteses. Your [facility] doctors can increase the doses of these medications if needed. We started on a very low dose. They should also check your electrolytes in about a week. Finally, we give a short course of antibiotics when someone has a GI bleed. We started it through the IV. For your oral dosing, the first dose will be on Saturday (Jan 16) before bedtime, then twice a day until gone. Pending Studies at Discharge: No Stand-Alone Forms: My [facility] Hired, Smoking Cessation Medications and DC Order Prescriptions: New pantoprazole 40 mg Tablet,Delayed Release (Dr/Ec) 40 mg PO BID Qty: 60 RF: 0 furosemide [Lasix] 20 mg tablet 10 mg PO DAILY Qty: 30 RF: 0 spironolactone 25 mg tablet 25 mg PO DAILY Qty: 60 RF: 0 ciprofloxacin HCl [Cipro] 500 mg tablet 500 mg PO BID Qty: 5 RF: 0 Continued mupirocin 2 % ointment 1 appln TOP BID PRN (Reason: Dry Skin) RF: 0 multivitamin [Daily Multi-Vitamin] tablet 1 tab PO PM RF: 0 ketoconazole 2 % cream 1 applic topical BID PRN (Reason: Rash) RF: 0 ascorbic acid (vitamin C) [Vitamin C] 1,000 mg Tablet 1,500 mg PO 1200 RF: 0 coenzyme Q10 [CoQ-10] 30 mg Capsule 30 mg PO QPM RF: 0 cholecalciferol (vitamin D3) [Vitamin D3] 2,000 unit Tablet 3,000 unit PO 1200 RF: 0 omega [id number]-fish oil [Fish Oil] 1,000 mg (120 mg-180 mg) Capsule 2,000 mg PO PM RF: 0 escitalopram oxalate [Lexapro] 10 mg tablet 10 mg PO QAM RF: 0 Probiotic 3 billion cell Capsule 3,000 mmu cells PO QAM RF: 0 polyethylene glycol 3350 [Miralax] 17 gram/dose Powder 17 g PO DAILY PRN (Reason: Constipation) RF: 0 oxycodone 5 mg Tablet 5 mg PO Q6H PRN (Reason: Pain) RF: 0 acetaminophen [Tylenol Extra Strength] 500 mg Tablet 1,000 mg PO Q6H PRN (Reason: Pain) RF: 0 amlodipine 5 mg tablet 5 mg PO PM RF: 0 Discontinued aspirin 81 mg Tablet,Delayed Release (Dr/Ec) 81 mg PO QAM RF: 0 Discharge Orders: Discharge Order (Routine); Ordered 01/15/21 Ordered By: Philip Cifuentes Admission Data Admit Date/Time: 01/12/21 14:51 Attending Provider: Philip Cifuentes Admit Provider: e[place]rien Primary Care Provider: Ian Mccartney Other Providers: Nathan Lin ; Philip Cifuentes ; Ayla Polk Other Interventions: Discharge Summary Assessment (RN) Last Done: 01/13/21 14:20 Coding Level of Care Code D/C DAY MANAGEMENT >30 MINS Diagnoses GI bleed K92.2 GI bleed type/associated pathology: unspecified gastrointestinal hemorrhage type Anemia D64.9 Anemia type: unspecified type Rectal adenocarcinoma C20 Ascites R18.8 Liver cirrhosis K74.[address] Z93.3 Hypertension I10 Depression F32.9 DVT prophylaxis Z29.9
--- NOTE | 2021-01-26 17:33 | Coding Query ---
CODING QUERY To promote full compliance with coding requirements relating to patient care, provider participation is requested in all cases of program advocate uncertainty. Please assist us with the question(s) below: Coding Question(s): The Discharge Summary documents in the Principal Diagnosis area, "Likely variceal bleed" and down under the Addtl Attending Provider Instructions it is documented, "You were admitted to the hospital with bleeding in the stomach. Dr. Marsh did an EGD and found two large, dilated blood vessels that were the likely source of bleeding. These are called varices and occur when you have extra pressure building up in the liver. This pressure is because of your cancer and is also what causes the fluid to build up in your stomach.". Please specify below, in your clinical opinion, the cancer that is most responsible for causing the pressure causing the varices and bleeding. ( x ) Recal Adenocarcinoma ( ) metastatic peritoneal cancer ( ) metastatic liver cancer ( ) Other Cancer: Please Specify Physician's Response(s): Thank you Allyson Neal Principal Diagnosis: "that condition established after study, to be chiefly responsible for occasioning the admission of the patient to the hospital for care." Co-Existing Principal Diagnosis: "when two or more diagnoses equally meet the criteria for principal diagnosis as determined by the circumstances of admission, diagnostic work up, and/or therapy provided, and the Alphabetic Index, Tabular List, or another coding guideline does not provide sequencing direction, any one of the diagnoses may be sequenced first." "When the physician has documented what appears to be a current diagnosis in the body of the record, but has not included the diagnosis in the final diagnostic statement, the physician should be asked whether the diagnosis should be added." (Source Coding Clinic 2 QTR90. p3-4) [facility]
== END 2021-01-15 16:06 | disposition home or self-care (01) | DRG 374 ==
LOC: ED 11:29 → 2N 14:51 → SUATTDRO 14:51 → INTOOBSV 14:51 → 2N 16:29

== ENCOUNTER 2021-08-11 09:34 | Inpatient (IN) ==
[2021-08-11] MEDS ORDERED: SODIUM CHLORIDE 0.9% 250 ML IV PRN (09:58)
[2021-08-11] MEDS ORDERED: OCTREOTIDE ACETATE 100 MCG in SYRINGE 9 ML IV STA (10:03)
[2021-08-11] MEDS ORDERED: PANTOprazole 80 MG in DEXTROSE 5% 100 ML IV STA (10:03)
[2021-08-11] MEDS ORDERED: STAT IV STA (10:03)
--- NOTE | 2021-08-11 10:11 | Emergency Department Note ---
Impression & Plan Esophageal varices with bleeding, Metastatic colorectal cancer, Anemia ED Provider Note Name: ZULY TINSLEY Age: 76 Sex: M Arrives Via: Walk-In Informant: Patient, ED Provider: John Neves MD Chief Complaint: blood in stool Impression: As per impressions above Medical Decision Makin-year-old gentleman with a history of colorectal cancer with metastasis to the liver causing cirrhosis and known esophageal varices with previous bleed. He arrives for evaluation of increasing blood in ostomy along with worsening anemia. He was actually supposed to have a blood transfusion for his chronic disease this morning though due to bleeding was sent to the ER for further evaluation. On evaluation is pale tired appearing and has moderate amount of blood in his ostomy bag. Given these findings empiric blood transfusion was ordered while awaiting labs and GI was consulted. Presumptive diagnosis is bleeding esophageal varices and thus treatment was based on this. He will be started on Protonix, octreotide, Rocephin, given 1 unit of blood IV now with second unit ready. GI will take him to the Endo lab this afternoon. He will be admitted to hospitalist. Multiple repeat evaluations of patient throughout the stay without any evidence of hypotension other than some soft pressures on his arrival but no tachycardia. Patient with no cardiac complaints nor difficulty breathing or strokelike symptoms. He had no recent trauma nor injuries and has no fever. At this time we will hold off on CT imaging of the abdomen/pelvis. Patient and were kept up-to-date on findings and plan and were agreeable to this. Prior Medical Record and Triage/Nursing Notes reviewed by Me Additional history obtained from anemia Differentials:Diverticulosis, AVM, coagulopathy, colitis, inflammatory bowel disease, malignancy, Marlene-Galicia tear, esophagitis, peptic ulcer disease, variceal bleed, gastritis, epistaxis, fissure, hemorrhoids, as well as other pathologies. Vital Signs: reviewed and remarkable for no significant abnormalities Interventions: Protonix IV, octreotide IV, 1 unit PRBC, Rocephin 1 g IV Labs:Reviewed and remarkable for no significant abnormalities Consults:Dr Maximo HAMILTON Gastro - Will take to endo. Dr Jairo HAMILTON Hospitalist will admit Plan: Disposition:Hospitalization. Condition: Good History of Present Illness:6-year-old gentleman arrives for evaluation of GI bleed. Patient with a history of metastatic rectal cancer to liver with surgery multiple surgeries including an ostomy and liver surgery previously. He also has had a Pleurx catheter in the left chest with drain into left upper abdomen. Patient notes he has been feeling well the last few days decided some abdominal cramping throughout the day yesterday. Last night his ostomy was changed without issue. This morning awoke to noting black/bloody stool in his ostomy. He was seen at the [facility] where he is to get a transfusion for chronic anemia wyatt angela due to the bleeding in the ostomy and how we collect he was sent to the ER. Patient notes he feels very weak and tired. He denies any abdominal trauma, injuries. Patient is on no blood thinners and takes no NSAIDs. He did have a variceal bleed 6 months ago requiring banding at this facility. Patient denies any nausea, vomiting, chest pain, shortness of breath, back pain, leg swelling, other bleeding/bruising, urinary symptoms or other symptoms. He states he has been eating well though has lost some weight over the last few weeks. Patient notes he took an OxyIR this morning for his abdominal pains. ROS: See above HPI for pertinent positives & negatives. A total of 10 systems reviewed and were otherwise negative. Past Medical History:See Below Past Surgical History:See Below Family History:See Below Social History:See Below Home Medications:See Below Allergies:nkda Vitals:Blood Pressure: 105/61, Pulse 68, RR 18, T 36.6C, O2 100% on RA Physical Exam: GENERAL: Patient is chronically unwell appearing and in mild distress. EYES: No scleral icterus, unremarkable pupils. pale conjunctiva ENT: Mucous membranes dry, no nasal congestion. NECK: No masses appreciated, nomeningismus, trachea is midline. RESPIRATORY: No dyspnea. Clear to auscultation and equal bilaterally. No wheeze, no rhonchi. CARDIOVASCULAR: Regular rate and rhythm.No murmurs, rubs, gallops appreciated. GASTROINTESTINAL: Ostomy left lower abdomen with black/bloody stool. large right abdominal scar well healed. Drain left upper abdomen covered with gauze. Abdomen soft, mild diffuse TTP. BACK: No midline tenderness, no CVA tenderness EXTREMITIES: Normal motion all extremities, no cyanosis, no edema. NEUROLOGIC: Alert and oriented, no acute motor or sensory deficits, no focal weakness, cranial nerves grossly intact. SKIN: No rash, no jaundice, no diaphoresis. PSYCH: Appropriate GCS: 15 ED Course: Times/Reassessments: Patient stable and appears better as blood is being transfused. He will be transferred to endoscopy suite is comfortable with this plan. Critical Care: I have personally spent 35 minutes of critical care time in the direct management of this patient. Acute Esophageal Varices bleed with blood loss anemia requiring transfusion and emergent endoscopy. This was a life/limb threatening event. This 35 minutes is in excess of all separately billable procedures. John Neves MD Past Med/Surg History Medical History Chronic pain due to malignant neoplastic disease Chronic prostatitis Colostomy in place Depression Diverticulosis Enlarged prostate with lower urinary tract symptoms (LUTS) Essential hypertriglyceridemia Gallstone History of esophageal varices x2 and banded Inhibited sexual excitement Liver cirrhosis Nasal septal deviation Osteoarthritis Rectal adenocarcinoma (07/05/14) "Rectal pain and bleeding Status post colonoscopy and biopsy 07/05/2014 revealing adenocarcinoma the rectum moderately differentiated Staging workup revealed liver and lung metastasis Systemic chemotherapy 3 cycles of FOLFOX with addition of Avastin on the third cycle Resolution of lung metastasis and excellent response of liver lesions Plan for neoadjuvant radiation and chemotherapy Radiation therapy was completed 03/28/2015 received 5180 cGy. Chemotherapy comprised of Xeloda Status post AP resection as well as resection of liver metastasis wedge resection segment 3 06/02/2015 Final stage ypT3 ypN0 ypM1a Will complete 6 months of adjuvant chemotherapy with Xeloda and Avastin" On 04/22/15 10:54 Kerline Schultz wrote "Rectal pain and bleeding Status post colonoscopy and biopsy 07/05/2014 revealing adenocarcinoma the rectum moderately differentiated Staging workup revealed liver and lung metastasis Systemic chemotherapy 3 cycles of FOLFOX with addition of Avastin on the third cycle Resolution of lung metastasis and excellent response of liver lesions Plan for neoadjuvant radiation and chemotherapy Radiation therapy was completed 03/28/2015 received 5180 cGy. Chemotherapy comprised of Xeloda Will undergo bowel resection as well as liver resection" On 04/04/15 12:41 Kerline Schultz wrote "Rectal pain and bleeding Status post colonoscopy and biopsy 07/05/2014 revealing adenocarcinoma the rectum moderately differentiated Staging workup revealed liver and lung metastasis Systemic chemotherapy Resolution of lung metastasis and excellent response of liver lesions Plan for neoadjuvant radiation and chemotherapy Radiation therapy was completed 03/28/2015 received 5180 cGy. Chemotherapy comprised of Xeloda Will undergo bowel resection as well as liver resection" Recurrent epistaxis Seborrheic dermatitis Vitamin D deficiency Surgical History H/O colonoscopy History of bowel resection History of colostomy History of surgery closed treatment of fracture of tibial shaft 1975- bolt/natalie placement History of total knee replacement LEFT History of vascular access device present to right chest Hx of cataract surgery RIGHT/ LEFT Hx of resection of liver Family History Mother Hypertension Coronary heart disease Myocardial infarction Ischemic stroke Uncle Cancer Father Myocardial infarction Other No family history of adverse response to anesthesia No family history of bleeding disorder Denies family history of Ovarian cancer Prostate cancer Breast cancer Colorectal cancer Social History Smoking Status: Former smoker Second Hand Exposure: No; Do You Dip or Chew Tobacco: No; Tobacco Cessation Education Requested by Patient: No Hx Alcohol Use: Yes Alcohol type: beer Hx Substance Use: No Preferred Language: Divehi Communication Ability: Effective Visual Impairment: No Limitations Hearing Ability: Normal Custom 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 Required: No Beliefs That Will Affect Care: None marital status: Current Living Situation: Spouse current occupational status: retired Other Information That Helps Us Care for You: No Feels Safe at Home: Yes Seatbelt Use: always Sunscreen Use: Yes Assistive Devices: None Allergies Allergies Allergy/AdvReac Type Severity Reaction Status Date / Time No Known Drug Allergies Allergy Verified 08/11/21 10:27 Home Meds Home Medications Medication Instructions Recorded Confirmed ascorbic acid (vitamin C) 1,000 mg 1,500 mg PO 1200 01/31/18 08/11/21 tablet (Vitamin C) cholecalciferol (vitamin D3) 50 3,000 unit PO 1200 01/31/18 08/11/21 mcg (2,000 unit) tablet (Vitamin D3) coenzyme Q10 30 mg capsule (CoQ-10) 30 mg PO HS 01/31/18 08/11/21 multivitamin (Daily Multi-Vitamin) 1 tab PO HS 10/17/18 08/11/21 escitalopram oxalate 10 mg tablet 10 mg PO QAM 10/26/19 08/11/21 (Lexapro) lactobacillus combination no.4 3 3,000 mmu cells PO QAM 10/26/19 08/11/21 billion cell capsule (Probiotic) polyethylene glycol 3350 17 17 g PO QAM 12/21/20 08/11/21 gram/dose oral powder (Miralax) furosemide 20 mg tablet (Lasix) 20 mg PO QAM 08/11/21 08/11/21 spironolactone 25 mg tablet 25 mg PO QAM 08/11/21 08/11/21 Previous Rx's Medication Instructions Recorded oxycodone 5 mg tablet 5 mg PO Q6H PRN #60 tab 06/27/21 Results & Data (ED) Vital Signs Vital Signs - 24 hr 08/11/21 09:37 08/11/21 11:00 Temperature 36.6 C Temperature Source Temporal Artery Scan Pulse Rate 68 Pulse Rate [Left] 65 Pulse Rhythm [Left] Regular Pulse Strength [Left] Normal Respiratory Rate 18 16 Respiratory Effort / Characteristics Non-Labored Spontaneous Respiratory Depth Normal Respiratory Pattern Regular Blood Pressure 105/61 Blood Pressure [Left Arm] 122/67 Blood Pressure Mean 75 Blood Pressure Mean [Left Arm] 85 Blood Pressure Position Sitting Blood Pressure Position [Left Arm] Lying Pulse Oximetry 100 97 Oxygen Delivery Method Room Air Room Air Sepsis Recent Fever Within 48 Hours No Sepsis New/Unexplained Change in Mental Status No Sepsis Action Taken by Nursing No Action Required Laboratory Data Result diagrams: 08/12/21 06:41 08/12/21 06:41 Lab Results 08/11/21 08/11/21 08/11/21 Range/Units 10:19 10:19 10:19 WBC 4.12 L (4.8-10.8) K/uL RBC 2.50 L (4.7-6.1) M/uL Hgb 7.3 L (14.0-18.0) g/dL Hct 22.8 L (42-52) % MCV 91.2 (80-100) fL MCH 29.2 (25-34) pg MCHC 32.0 (32-36) g/dL RDW Std Deviation 65.5 H (36.4-46.3) fL RDW Coeff of Sarah 20.2 H (11.5-14.5) % Plt Count 132 (130-400) K/uL MPV 9.1 (7.4-10.4) fL Neutrophils % (Manual) 77.5 % Lymphocytes % (Manual) 8.1 % Monocytes % (Manual) 11.7 % Eosinophils % (Manual) 2.7 % Neutrophils # (Manual) 3.19 (1.4-6.5) K/uL Total Absolute Neuts 3.19 (1.4-6.5) K/uL Lymphocytes # (Manual) 0.33 L (1.2-3.4) K/uL Total Abs Lymphocytes 0.33 L (1.2-3.4) K/uL Monocytes # (Manual) 0.48 (0.11-0.59) K/uL Eosinophils # (Manual) 0.11 (0-0.5) K/uL Dohle Bodies 2+ Polychromasia 1+ Anisocytosis Present PT 13.6 H (9.0-12.0) Seconds INR 1.3 H (0.9-1.1) APTT 29.5 (21.0-31.0) Seconds PTT Ratio 1.1 Sodium (136-145) mmol/L Potassium (3.5-5.1) mmol/L Chloride (98-107) mmol/L Carbon Dioxide (21-32) mmol/L Anion Gap (3-11) BUN (6-23) mg/dl Creatinine (0.6-1.4) mg/dl Est Cr Clr Drug Dosing ml/min Est GFR ( Amer) ml/min Est GFR (Non-Af Amer) ml/min BUN/Creatinine Ratio (10-20) Glucose (70-99(Fasting)) mg/dl Calcium (8.5-10.1) mg/dl Magnesium (1.7-2.4) mg/dl Total Bilirubin (0.2-1.0) mg/dl Direct Bilirubin (0-0.2) mg/dl AST (13-39) U/L ALT (7-52) U/L Alkaline Phosphatase (34-104) U/L Troponin I (0-0.04) ng/ml Total Protein (6.0-8.3) gm/dl Albumin (3.4-5.0) gm/dl Lipase (11-82) U/L Blood Type A Positive Antibody Screen NEGATIVE Crossmatch See Detail 08/11/21 Range/Units 10:19 WBC (4.8-10.8) K/uL RBC (4.7-6.1) M/uL Hgb (14.0-18.0) g/dL Hct (42-52) % MCV (80-100) fL MCH (25-34) pg MCHC (32-36) g/dL RDW Std Deviation (36.4-46.3) fL RDW Coeff of Sarah (11.5-14.5) % Plt Count (130-400) K/uL MPV (7.4-10.4) fL Neutrophils % (Manual) % Lymphocytes % (Manual) % Monocytes % (Manual) % Eosinophils % (Manual) % Neutrophils # (Manual) (1.4-6.5) K/uL Total Absolute Neuts (1.4-6.5) K/uL Lymphocytes # (Manual) (1.2-3.4) K/uL Total Abs Lymphocytes (1.2-3.4) K/uL Monocytes # (Manual) (0.11-0.59) K/uL Eosinophils # (Manual) (0-0.5) K/uL Dohle Bodies Polychromasia Anisocytosis PT (9.0-12.0) Seconds INR (0.9-1.1) APTT (21.0-31.0) Seconds PTT Ratio Sodium 135 L (136-145) mmol/L Potassium 4.1 (3.5-5.1) mmol/L Chloride 105 (98-107) mmol/L Carbon Dioxide 22 (21-32) mmol/L Anion Gap 8 (3-11) BUN 16 (6-23) mg/dl Creatinine 0.80 (0.6-1.4) mg/dl Est Cr Clr Drug Dosing 77.2 ml/min Est GFR ( Amer) 101.3 ml/min Est GFR (Non-Af Amer) 87.4 ml/min BUN/Creatinine Ratio 20.0 (10-20) Glucose 108 H (70-99(Fasting)) mg/dl Calcium 8.1 L (8.5-10.1) mg/dl Magnesium 1.8 (1.7-2.4) mg/dl Total Bilirubin 0.7 (0.2-1.0) mg/dl Direct Bilirubin 0.3 H (0-0.2) mg/dl AST 21 (13-39) U/L ALT 15 (7-52) U/L Alkaline Phosphatase 213 H (34-104) U/L Troponin I < 0.03 (0-0.04) ng/ml Total Protein 5.5 L (6.0-8.3) gm/dl Albumin 3.0 L (3.4-5.0) gm/dl Lipase 25 (11-82) U/L Blood Type Antibody Screen Crossmatch Administered Medications Octreotide Acetate 500 mcg/ (Dextrose) 105 mls @ 10.5 mls/hr IV .Q10H BECKIE Stop: 09/10/21 10:29 Last Admin: 08/12/21 05:30 Dose: 50 mcg/hr, 10.5 mls/hr Documented by: [id number] Infusion: 08/12/21 05:30 Dose: 0 mcg/hr, 0 mls/hr Documented by: [id number] Admin: 08/11/21 19:50 Dose: 50 mcg/hr, 10.5 mls/hr Documented by: [id number] Infusion: 08/11/21 19:50 Dose: 50 mcg/hr, 10.5 mls/hr Documented by: [id number] Admin: 08/11/21 11:04 Dose: 50 mcg/hr, 10.5 mls/hr Documented by: [id number] Ceftriaxone Sodium 1,000 mg/ (Dextrose) 50 mls @ 100 mls/hr IV DAILY@1500 BECKIE; Protocol Stop: 08/21/21 15:29 Last Infusion: 08/11/21 16:20 Dose: 0 mls/hr Documented by: [id number] Admin: 08/11/21 15:42 Dose: 100 mls/hr Documented by: [id number] Morphine Sulfate (Morphine Sulfate 2 Mg/Ml Carp) 2 mg IV Q3H PRN PRN Reason: Pain (1,2,3,4,5) & Pre PT Stop: 08/25/21 14:40 Last Admin: 08/12/21 07:47 Dose: 2 mg Documented by: [id number] Morphine Sulfate (Morphine Sulfate 4 Mg/Ml 1 Ml Carp\\Vial) 4 mg IV Q3H PRN PRN Reason: Pain (6,7,8,9,10) Stop: 08/25/21 14:40 Last Admin: 08/11/21 18:31 Dose: 4 mg Documented by: [id number] Discontinued Medications Pantoprazole Sodium 80 mg/ (Dextrose) 100 mls @ 400 mls/hr IV ONE STA Stop: 08/11/21 10:17 Last Infusion: 08/11/21 14:50 Dose: 0 mls/hr Documented by: [id number] Admin: 08/11/21 11:08 Dose: 400 mls/hr Documented by: [id number] Octreotide Acetate 100 mcg/ (Syringe) 10 mls @ 3 mls/min IV NOW STA Stop: 08/11/21 10:06 Last Admin: 08/11/21 11:04 Dose: 3 mls/min Documented by: [id number] Ceftriaxone Sodium (Rocephin) 1,000 mg in 50 mls @ 100 mls/hr IV NOW ONE Stop: 08/11/21 10:59 Last Admin: 08/11/21 14:49 Dose: Not Given Documented by: [id number] Miscellaneous (Stat Iv) 1 ea N/A NOW STA Stop: 08/11/21 10:04 Last Admin: 08/11/21 11:04 Dose: 1 ea Documented by: [id number] Discharge Plan Visit Data Chief Complaint: GI Bleed Stated Complaint: BLOOD IN STOOL ED Provider: John Neves Discharge Problem: Esophageal varices with bleeding, Metastatic colorectal cancer, Anemia Patient Disposition: Admitted As Inpatient Discharge Instructions Interventions: ED Discharge Assessment Last Done: 08/11/21 12:12 Discharge Problem: Esophageal varices with bleeding Qualifiers: Esophageal varices type: secondary Qualified Code(s): I85.11 - Secondary esophageal varices with bleeding Anemia Qualifiers: Anemia type: other cause Other causes of anemia: acute posthemorrhagic Qualified Code(s): D62 - Acute posthemorrhagic anemia
[2021-08-11] MEDS ORDERED: cefTRIAXone SODIUM 1,000 MG/50 ML BAG IV ONE (10:30)
[2021-08-11 10:37] LABS: Hematocrit (blood only) 22.8 % (42-52); Hemoglobin 7.3 g/dL (14.0-18.0); Mean Corpuscular Hemoglobin 29.2 pg (25-34); Mean Corpuscular Volume 91.2 fL (80-100); Mean Platelet Volume 9.1 fL (7.4-10.4); Platelet Count 132 K/uL (130-400); RDW Coefficient of Variation 20.2 % (11.5-14.5); RDW Standard Deviation 65.5 fL (36.4-46.3); White Blood Count 4.12 K/uL (4.8-10.8)
--- NOTE | 2021-08-11 10:43 | Gastrointestinal Consultation ---
Date of Consultation August 11, 2021 Assessment & Plan (1) GI bleed: -Keep NPO -EGD today -Continue IV Protonix drip -Continue IV Octreotide at present -Further recommendations pending results of testing -Continue to monitor H/H Supervising Physician Co-Signing Physician Notes I personally evaluated the patient and agree with the findings as documented by Pamela Alcocer, HO Exam: Constitutional: WD/WN, vitals as above General: EOM intact bilaterally Neck: normal visual inspection Respiratory: normal respiratory effort, lungs clear to auscultation Cardiovascular: RRR, no murmur, no edema Gastrointestinal: abdomenwith ostomy in place, nondistended, soft, nontender, no hepatosplenomegaly Musculoskeletal: no cyanosis, head normal to inspection Skin: no rashes, warm and dry Neurologic: moves all extremities Psychiatric: A and O x3, euthymic affect History of Present Illness Reason for Consultation: GI bleeding History of Present Illness Patient is a 76 yo male with metastatic rectal cancer to the liver and decompensated cirrhosis. He had had a colectomy with an ostomy in place at present and has had surgery to remove liver masses. He notes that he was in his usual state of health until 3 AM last night. He woke up experiencing abdominal pain and noted melena and bright red blood in his ostomy. He denies nausea, vomiting, hematemesis. He notes that he was scheduled for an outpatient blood transfusion today. Patient notes he feels very weak and tired. He denies any abdominal trauma, injuries. Patient is not on blood thinners and denies NSAID use. He did have a variceal bleed 6 months ago requiring banding at this facility. Patient denies any nausea, vomiting, chest pain, shortness of breath, back pain, leg swelling, other bleeding/bruising, urinary symptoms or other symptoms. He states he has been eating well though has lost some weight over the last few weeks. Last meal was 1 peanut butter cracker between 5:30-6 am this morning. Allergies Allergy/AdvReac Type Severity Reaction Status Date / Time No Known Drug Allergies Allergy Verified 08/11/21 10:27 Home Medications Medication Instructions Recorded Confirmed Type ascorbic acid (vitamin C) 1,000 mg 1,500 mg PO 1200 01/31/18 08/11/21 History tablet (Vitamin C) cholecalciferol (vitamin D3) 50 3,000 unit PO 1200 01/31/18 08/11/21 History mcg (2,000 unit) tablet (Vitamin D3) coenzyme Q10 30 mg capsule (CoQ-10) 30 mg PO HS 01/31/18 08/11/21 History multivitamin (Daily Multi-Vitamin) 1 tab PO HS 10/17/18 08/11/21 History escitalopram oxalate 10 mg tablet 10 mg PO QAM 10/26/19 08/11/21 History (Lexapro) lactobacillus combination no.4 3 3,000 mmu cells PO QAM 10/26/19 08/11/21 History billion cell capsule (Probiotic) polyethylene glycol 3350 17 17 g PO QAM 12/21/20 08/11/21 History gram/dose oral powder (Miralax) oxycodone 5 mg tablet 5 mg PO Q6H PRN #60 tab 06/27/21 08/11/21 Rx furosemide 20 mg tablet (Lasix) 20 mg PO QAM 08/11/21 08/11/21 History spironolactone 25 mg tablet 25 mg PO QAM 08/11/21 08/11/21 History Patient History Medical History Chronic pain due to malignant neoplastic disease Chronic prostatitis Colostomy in place Depression Diverticulosis Enlarged prostate with lower urinary tract symptoms (LUTS) Essential hypertriglyceridemia Gallstone History of esophageal varices Inhibited sexual excitement Liver cirrhosis Nasal septal deviation Osteoarthritis Rectal adenocarcinoma (07/05/14) Recurrent epistaxis Seborrheic dermatitis Vitamin D deficiency Surgical History H/O colonoscopy History of bowel resection History of colostomy History of surgery History of total knee replacement History of vascular access device Hx of cataract surgery Hx of resection of liver Family History Mother Hypertension Coronary heart disease Myocardial infarction Ischemic stroke Uncle Cancer Father Myocardial infarction Other No family history of adverse response to anesthesia No family history of bleeding disorder Denies family history of Ovarian cancer Prostate cancer Breast cancer Colorectal cancer Social History Smoking Status: Never smoker Second Hand Exposure: No; Hx Alcohol Use: No Hx Substance Use: No Preferred Language: Syriac Communication Ability: Effective Visual Impairment: No Limitations Hearing Ability: Normal Ring Striker Required: No Beliefs That Will Affect Care: None marital status: Current Living Situation: Spouse current occupational status: retired Feels Safe at Home: Yes Seatbelt Use: always Sunscreen Use: Yes Assistive Devices: None Review of Systems Constitutional: + fatigue Respiratory: no cough and no dyspnea Cardiovascular: no chest pain Gastrointestinal: + abdominal pain, + blood in stools and + melena Integumentary: no problem reported Neurologic: no problem reported Psychiatric: no problem reported Hematologic / Lymphatic: no unexplained weight loss Physical Exam Constitutional: well developed Respiratory: normal respiratory effort Cardiovascular: Rate/Rhythm: regular rate and regular rhythm Gastrointestinal (Abdomen): Inspection/Auscultation: abdomen normal to inspection Musculoskeletal: Head/Neck/Chest: normocephalic Psychiatric: Orientation: alert and oriented x 3 Results & Data ([facility]) Vital Signs (Past 12 Hours) Vital Signs Temp Pulse Resp BP Pulse Ox 08/11/21 09:37 36.6 C 68 18 105/61 100 PG Care Time/CCT Total # of Minutes Spent Total Time Spent with Patient: Total time spent is greater than 50% in coordination of care (as documented) at patient's floor/unit and/or counseling patient: Coding Level of Care Code 12074 Initial Inpt Care Lvl 3 Diagnoses GI bleed K92.2 GI bleed type/associated pathology: unspecified gastrointestinal hemorrhage type (1) GI bleed GI bleed type/associated pathology: unspecified gastrointestinal hemorrhage type Qualified Code(s): K92.2 - Gastrointestinal hemorrhage, unspecified
[2021-08-11 10:48] LABS: INR 1.3 (0.9-1.1); Partial Thromboplastin Ratio 1.1; Partial Thromboplastin Time 29.5 Seconds (21.0-31.0); Prothrombin Time 13.6 Seconds (9.0-12.0)
[2021-08-11 10:52] LABS: Alanine Aminotransferase 15 U/L (7-52); Alkaline Phosphatase 213 U/L (34-104); Anion Gap 8 (3-11); Aspartate Aminotransferase 21 U/L (13-39); Bilirubin Direct 0.3 mg/dl (0-0.2); Bilirubin,Total 0.7 mg/dl (0.2-1.0); Blood Urea Nitrogen 16 mg/dl (6-23); Calcium 8.1 mg/dl (8.5-10.1); Carbon Dioxide 22 mmol/L (21-32); Chloride 105 mmol/L (98-107); Creatinine Clr Calc Pharmacy 77.2 ml/min; Est GFR (African American) 101.3 ml/min; Est GFR (Non-African American) 87.4 ml/min; Glucose 108 mg/dl (70-99(Fasting)); Lipase 25 U/L (11-82); Magnesium 1.8 mg/dl (1.7-2.4); Potassium 4.1 mmol/L (3.5-5.1); Sodium 135 mmol/L (136-145); Total Protein 5.5 gm/dl (6.0-8.3)
[2021-08-11 10:54] LABS: Troponin I < 0.03 ng/ml (0-0.04)
[2021-08-11 11:01] LABS: ALC (manual) 0.33 K/uL (1.2-3.4); ANC (manual) 3.19 K/uL (1.4-6.5); Anisocytosis Present; Dohle Bodies 2+; Eosinophils # (manual) 0.11 K/uL (0-0.5); Eosinophils % (manual) 2.7 %; Lymphocytes # (manual) 0.33 K/uL (1.2-3.4); Lymphocytes % (manual) 8.1 %; Monocytes # (manual) 0.48 K/uL (0.11-0.59); Monocytes % (manual) 11.7 %; Neutrophils # (manual) 3.19 K/uL (1.4-6.5); Neutrophils % (manual) 77.5 %; Polychromasia 1+
[2021-08-11] MEDS: OCTREOTIDE ACETATE 500mcg / D5W 100mL @50mcg/hr IV SCH ×2 (11:04→19:50)
--- NOTE | 2021-08-11 11:24 | History & Physical Report ---
Date of Service August 11, 2021 Assessment & Plan (1) GI bleed: Plan: -Acute, suspect due to esophageal varices. Hgb 7.3.; Was 8.1 on 08/09. -History of esophageal variceal bleed in January 2020 with banding. -GI has been consulted, EGD today with successful banding Recommendation:- [facility] - NPO today. no NG tube for 24 hours. -clear liquid diet tomorrow morning if stable -octreotide drip for 5 days -protonix 40 mg IV BID -ceftriaxone 1 g daily for 7 days for SBP ppx -supportive care -if bleeding continues/anemia persists, consider bleeding scan to further evaluate -1 unit PRBCs to be transfused in ED, monitor H/H following this. (2) Esophageal varices: Plan: -History of esophageal variceal bleed in January 2020 with banding. -Plan as above. (3) Rectal adenocarcinoma: Plan: -With mets to liver, liver cirrhosis, esophageal varices. -Colectomy with ostomy in place. Pleurx drain placed. Right-sided port. -Chemo every 2 weeks, last treatment Wednesday 08/02. -Liver met resection with [facility] in October 2020. -Oxycodone 5 mg 6h at home for pain, will order IV morphine for pain control while inpatient on n.p.o. status. (4) Liver cirrhosis: Plan: -Pleurx drain in place. Drains every other day at home average output 1100 mL. -Lasix 20 mg daily spironolactone 25 mg daily (5) Anemia: Plan: -Hgb 7.3 today, does receive iron transfusions at [facility]. Was scheduled for one today. -Receiving 1 unit RBCs in ED as above. -Will follow H&H. (6) Hypertension: Plan: -Stable, normotensive. (7) Depression: Plan: -Continue lexapro 10mg daily. Plan: -Admit to PCU. -SCDs; defer chemoppx due to GI bleed. -Full code. History of Present Illness Chief Complaint: Hematochezia x1 day Primary Care Provider: Ian Mccartney, Patient is a 76-year-old male with past medical history of of metastatic rectal cancer, hypertension, and depression who presents today with blood in stool. Patient has ostomy in place, reports noticing around 3 AM bright red blood in it that had not been present earlier yesterday afternoon. He had been previously feeling well, has intermittent abdominal pain secondary to liver met resection in the summer w/ constipation, and did notice that was slightly worse over the past day, describes it as cramping sensation. Otherwise without complaints, no fever/chills, chest pain, palpitations, shortness of breath, nausea, vomiting, hematemesis, diarrhea. Has not noticed clots in ostomy. He is not on any NSAIDs or blood thinners. Was recently admitted to our facility the end of January 2021 for variceal bleed which required banding at that time. He has a Pleurx drain in place for ascites and a right-sided port. Receives chemo every 2 weeks, last treatment Saturday, 07/05. In ED, vital signs stable, within normal limits. Routine labs significant for WBC 4.12, Hgb 7.3, PT 31 6, INR 1.3. Patient started on octreotide, Protonix drip in ED. GI consulted, with plans for EGD later this afternoon. Hospitalist service was consulted for further valuation and admission. Allergies Allergy/AdvReac Type Severity Reaction Status Date / Time No Known Drug Allergies Allergy Verified 08/11/21 10:27 Home Medications Medication Instructions Recorded Confirmed Type ascorbic acid (vitamin C) 1,000 mg 1,500 mg PO 1200 01/31/18 08/11/21 History tablet (Vitamin C) cholecalciferol (vitamin D3) 50 3,000 unit PO 1200 01/31/18 08/11/21 History mcg (2,000 unit) tablet (Vitamin D3) coenzyme Q10 30 mg capsule (CoQ-10) 30 mg PO HS 01/31/18 08/11/21 History multivitamin (Daily Multi-Vitamin) 1 tab PO HS 10/17/18 08/11/21 History escitalopram oxalate 10 mg tablet 10 mg PO QAM 10/26/19 08/11/21 History (Lexapro) lactobacillus combination no.4 3 3,000 mmu cells PO QAM 10/26/19 08/11/21 History billion cell capsule (Probiotic) polyethylene glycol 3350 17 17 g PO QAM 12/21/20 08/11/21 History gram/dose oral powder (Miralax) oxycodone 5 mg tablet 5 mg PO Q6H PRN #60 tab 06/27/21 08/11/21 Rx furosemide 20 mg tablet (Lasix) 20 mg PO QAM 08/11/21 08/11/21 History spironolactone 25 mg tablet 25 mg PO QAM 08/11/21 08/11/21 History Past Med/Surg History Medical History Chronic pain due to malignant neoplastic disease Chronic prostatitis Colostomy in place Depression Diverticulosis Enlarged prostate with lower urinary tract symptoms (LUTS) Essential hypertriglyceridemia Gallstone History of esophageal varices x2 and banded Inhibited sexual excitement Liver cirrhosis Nasal septal deviation Osteoarthritis Rectal adenocarcinoma (07/05/14) "Rectal pain and bleeding Status post colonoscopy and biopsy 07/05/2014 revealing adenocarcinoma the rectum moderately differentiated Staging workup revealed liver and lung metastasis Systemic chemotherapy 3 cycles of FOLFOX with addition of Avastin on the third cycle Resolution of lung metastasis and excellent response of liver lesions Plan for neoadjuvant radiation and chemotherapy Radiation therapy was completed 03/28/2015 received 5180 cGy. Chemotherapy comprised of Xeloda Status post AP resection as well as resection of liver metastasis wedge resection segment 3 06/02/2015 Final stage ypT3 ypN0 ypM1a Will complete 6 months of adjuvant chemotherapy with Xeloda and Avastin" On 04/22/15 10:54 Kerline Schultz wrote "Rectal pain and bleeding Status post colonoscopy and biopsy 07/05/2014 revealing adenocarcinoma the rectum moderately differentiated Staging workup revealed liver and lung metastasis Systemic chemotherapy 3 cycles of FOLFOX with addition of Avastin on the third cycle Resolution of lung metastasis and excellent response of liver lesions Plan for neoadjuvant radiation and chemotherapy Radiation therapy was completed 03/28/2015 received 5180 cGy. Chemotherapy comprised of Xeloda Will undergo bowel resection as well as liver resection" On 04/04/15 12:41 Kerline Schultz wrote "Rectal pain and bleeding Status post colonoscopy and biopsy 07/05/2014 revealing adenocarcinoma the rectum moderately differentiated Staging workup revealed liver and lung metastasis Systemic chemotherapy Resolution of lung metastasis and excellent response of liver lesions Plan for neoadjuvant radiation and chemotherapy Radiation therapy was completed 03/28/2015 received 5180 cGy. Chemotherapy comprised of Xeloda Will undergo bowel resection as well as liver resection" Recurrent epistaxis Seborrheic dermatitis Vitamin D deficiency Surgical History H/O colonoscopy History of bowel resection History of colostomy History of surgery closed treatment of fracture of tibial shaft 1975- bolt/natalie placement History of total knee replacement LEFT History of vascular access device present to right chest Hx of cataract surgery RIGHT/ LEFT Hx of resection of liver Family History Mother Hypertension Coronary heart disease Myocardial infarction Ischemic stroke Uncle Cancer Father Myocardial infarction Other No family history of adverse response to anesthesia No family history of bleeding disorder Denies family history of Ovarian cancer Prostate cancer Breast cancer Colorectal cancer Social History Smoking Status: Never smoker Second Hand Exposure: No; Hx Alcohol Use: No Hx Substance Use: No Preferred Language: Indonesian Communication Ability: Effective Visual Impairment: No Limitations Hearing Ability: Normal Bookkeepers Supervisor Required: No Beliefs That Will Affect Care: None marital status: Current Living Situation: Spouse current occupational status: retired Feels Safe at Home: Yes Seatbelt Use: always Sunscreen Use: Yes Assistive Devices: None Review of Systems Review of Systems: Constitutional: No fever/chills, weakness, myalgias Eyes: No diplopia, no worsening or blurred vision ENT: normal hearing, no trouble swallowing Respiratory: No cough, sputum, dyspnea at rest or on exertion Cardiovascular: No chest pain, tightness or palpitations Abdomen: abdominal cramping with hematochezia x1 day; no nausea, vomiting, diarrhea or constipation Musculoskeletal: No joint pain, calf pain, swelling Neurologic: No weakness, numbness/tingling, or balance problems Psychiatric: No anxiety or depression Skin: No rash or itch Physical Exam Physical Exam: General: awake, alert, no apparent distress Head: Normocephalic, atraumatic ENT: PERRL, EOMI, no pharyngeal exudate, mucous membranes moist Chest: Clear to auscultation, on room air, no adventitious breath sounds Cardiac: Regular rate and rhythm, no murmur, no JVD, normal peripheral pulses, good capillary refill Abdominal: NABS x 4 quadrants, soft, nontender to palpation, no rebound, guarding or tenderness Extremities: Normal inspection, no peripheral edema or erythema, calfs nontender to palpation Psych: Normal mood and affect Neuro: AAO x 3, strength intact bilaterally and rated 5/5, no motor deficits, speech is clear, no peripheral sensory deficits Skin: R port in place without surrounding erythema or edema; ostomy in place with loose stool and visible red/marroon blood; pleurx drain in place with overlying gauze, no surrounding erythema or edema Results & Data Results & Data ([facility]) Vital Signs (Past 12 Hours) Vital Signs Temp Pulse Resp BP Pulse Ox 08/11/21 09:37 36.6 C 68 18 105/61 100 Laboratory Results Abnormal lab results 08/11/21 08/11/21 08/11/21 Range/Units 10:19 10:19 10:19 WBC 4.12 L (4.8-10.8) K/uL RBC 2.50 L (4.7-6.1) M/uL Hgb 7.3 L (14.0-18.0) g/dL Hct 22.8 L (42-52) % RDW Std Deviation 65.5 H (36.4-46.3) fL RDW Coeff of Sarah 20.2 H (11.5-14.5) % Lymphocytes # (Manual) 0.33 L (1.2-3.4) K/uL Total Abs Lymphocytes 0.33 L (1.2-3.4) K/uL PT 13.6 H (9.0-12.0) Seconds INR 1.3 H (0.9-1.1) Sodium (136-145) mmol/L Glucose (70-99(Fasting)) mg/dl Calcium (8.5-10.1) mg/dl Direct Bilirubin (0-0.2) mg/dl Alkaline Phosphatase (34-104) U/L Total Protein (6.0-8.3) gm/dl Albumin (3.4-5.0) gm/dl Crossmatch See Detail 08/11/21 Range/Units 10:19 WBC (4.8-10.8) K/uL RBC (4.7-6.1) M/uL Hgb (14.0-18.0) g/dL Hct (42-52) % RDW Std Deviation (36.4-46.3) fL RDW Coeff of Sarah (11.5-14.5) % Lymphocytes # (Manual) (1.2-3.4) K/uL Total Abs Lymphocytes (1.2-3.4) K/uL PT (9.0-12.0) Seconds INR (0.9-1.1) Sodium 135 L (136-145) mmol/L Glucose 108 H (70-99(Fasting)) mg/dl Calcium 8.1 L (8.5-10.1) mg/dl Direct Bilirubin 0.3 H (0-0.2) mg/dl Alkaline Phosphatase 213 H (34-104) U/L Total Protein 5.5 L (6.0-8.3) gm/dl Albumin 3.0 L (3.4-5.0) gm/dl Crossmatch Code Status & VTE Plan Code Status Full Code. Supervising Physician Co-Signing Physician Notes Patient was seen and examined independently I discussed the case with Blanche TEAGUE I reviewed pertinent past medical social family history and also the plan of care and agree with the plan of care. 76-year-old patient with history of metastatic colon cancer with colostomy and Pleurx draining abdominal ascites who is a known history of cirrhosis secondary to his malignancy and known esophageal varices who presents with acute blood loss anemia from bleeding esophageal varices. Patient presented to the outpatient heme-onc center for blood transfusion on was found to have dark fluid in his colostomy bag along with upper abdominal pain. Referred to the emergency department where he is hemodynamically stable but hemoglobin confirmed to be 7.3 and melena in his colostomy bag consistent with a GI bleed. Patient evaluated by gastroenterology and is hopeful to have esophageal banding done but his procedure is delayed due to having a small amount of food this morning. Patient feels improved after receiving octreotide Protonix Rocephin and blood in the emergency department. Examination finds him to be pale and in no significant distress his cardiac exam is regular with a murmur systolically at the right upper sternal border his lungs are clear his abdomen has a Pleurx in his left abdomen a colostomy in the left lower abdomen attempted to feel for hepatomegaly honestly did not have great success. Patient has his Pleurx drained every other day last being drained on August 09 Admitted to our facility treating for esophageal variceal bleed gastroenterology intervention and supportive care with transfusion of blood products. Patient is a full code by his own decree Any exceptions will be noted below PG Care Time/CCT Total # of Minutes Spent Total Time Spent with Patient: Total time spent is greater than 50% in coordination of care (as documented) at patient's floor/unit and/or counseling patient: Coding Level of Care Code 54233 Initial Inpt Care Lvl 3 Diagnoses Esophageal varices I85.00 Rectal adenocarcinoma C20 Liver cirrhosis K74.60 Anemia D64.9 Anemia type: unspecified type Hypertension I10 Depression F32.9 GI bleed K92.2 GI bleed type/associated pathology: unspecified gastrointestinal hemorrhage type (1) GI bleed GI bleed type/associated pathology: unspecified gastrointestinal hemorrhage type Qualified Code(s): K92.2 - Gastrointestinal hemorrhage, unspecified (2) Anemia Anemia type: unspecified type Qualified Code(s): D64.9 - Anemia, unspecified
--- NOTE | 2021-08-11 12:35 | Anesthesiology Consultation ---
Date of Service August 11, 2021 Assessment & Plan (1) Encounter for pre-operative examination: Chart Review Chart Review: Acceptable Risk for Surgery and Patient NOT seen in Pre Admission Testing Consults Requested none History Surgery Operation Date: 08/11/21 17:00 Proposed Procedures p Esophagogastroduodenoscopy Dr. Maximo Marsh MD Height/Weight Height: 5 ft 8 in Weight: 82 kg Allergies Allergy/AdvReac Type Severity Reaction Status Date / Time No Known Drug Allergies Allergy Verified 08/11/21 10:27 Medications Home Medications Medication Instructions Recorded Confirmed Last Taken ascorbic acid (vitamin C) 1,000 mg 1,500 mg PO 1200 01/31/18 08/11/21 08/10/21 tablet (Vitamin C) cholecalciferol (vitamin D3) 50 3,000 unit PO 1200 01/31/18 08/11/21 08/10/21 mcg (2,000 unit) tablet (Vitamin D3) coenzyme Q10 30 mg capsule (CoQ-10) 30 mg PO 01/31/18 08/11/21 08/10/21 multivitamin (Daily Multi-Vitamin) 1 tab PO 10/17/18 08/11/21 08/10/21 escitalopram oxalate 10 mg tablet 10 mg PO [facility] 10/26/19 08/11/21 08/11/21 (Lexapro) lactobacillus combination no.4 3 3,000 mmu cells PO QA 10/26/19 08/11/21 08/11/21 billion cell capsule (Probiotic) polyethylene glycol 3350 17 17 g PO QA 12/21/20 08/11/21 08/11/21 gram/dose oral powder (Miralax) oxycodone 5 mg tablet 5 mg PO Q6H PRN #60 tab 06/27/21 08/11/21 08/11/21 08:00 5 mg furosemide 20 mg tablet (Lasix) 20 mg PO QA 08/11/21 08/11/21 08/11/21 spironolactone 25 mg tablet 25 mg PO QA 08/11/21 08/11/21 08/11/21 Active Medications Generic Name Dose Route Start Last Admin Trade Name Freq PRN Reason Stop Dose Admin Octreotide Acetate 500 mcg/ 105 mls @ 10.5 mls/hr 08/11/21 10:30 08/11/21 11:04 Dextrose IV 09/10/21 10:29 50 mcg/hr .Q10H BECKIE 10.5 mls/hr Administration 50 MCG/HR NPO Date Last Intake of Fluids: 08/11/21 Time Last Intake of Fluids: 08:00 Last Intake of Fluids Comment: water Date Last Intake of Solids: 08/10/21 Time Last Intake of Solids: 21:00 Past Medical History Medical History Chronic pain due to malignant neoplastic disease Chronic prostatitis Colostomy in place Depression Diverticulosis Enlarged prostate with lower urinary tract symptoms (LUTS) Essential hypertriglyceridemia Gallstone History of esophageal varices x2 and banded Inhibited sexual excitement Liver cirrhosis Nasal septal deviation Osteoarthritis Rectal adenocarcinoma (07/05/14) "Rectal pain and bleeding Status post colonoscopy and biopsy 07/05/2014 revealing adenocarcinoma the rectum moderately differentiated Staging workup revealed liver and lung metastasis Systemic chemotherapy 3 cycles of FOLFOX with addition of Avastin on the third cycle Resolution of lung metastasis and excellent response of liver lesions Plan for neoadjuvant radiation and chemotherapy Radiation therapy was completed 03/28/2015 received 5180 cGy. Chemotherapy comprised of Xeloda Status post AP resection as well as resection of liver metastasis wedge resection segment 3 06/02/2015 Final stage ypT3 ypN0 ypM1a Will complete 6 months of adjuvant chemotherapy with Xeloda and Avastin" On 04/22/15 10:54 Kerline Schultz wrote "Rectal pain and bleeding Status post colonoscopy and biopsy 07/05/2014 revealing adenocarcinoma the rectum moderately differentiated Staging workup revealed liver and lung metastasis Systemic chemotherapy 3 cycles of FOLFOX with addition of Avastin on the third cycle Resolution of lung metastasis and excellent response of liver lesions Plan for neoadjuvant radiation and chemotherapy Radiation therapy was completed 03/28/2015 received 5180 cGy. Chemotherapy comprised of Xeloda Will undergo bowel resection as well as liver resection" On 04/04/15 12:41 Kerline Schultz wrote "Rectal pain and bleeding Status post colonoscopy and biopsy 07/05/2014 revealing adenocarcinoma the rectum moderately differentiated Staging workup revealed liver and lung metastasis Systemic chemotherapy Resolution of lung metastasis and excellent response of liver lesions Plan for neoadjuvant radiation and chemotherapy Radiation therapy was completed 03/28/2015 received 5180 cGy. Chemotherapy comprised of Xeloda Will undergo bowel resection as well as liver resection" Recurrent epistaxis Seborrheic dermatitis Vitamin D deficiency Past Family History Family History Mother Hypertension Coronary heart disease Myocardial infarction Ischemic stroke Uncle Cancer Father Myocardial infarction Other No family history of adverse response to anesthesia No family history of bleeding disorder Denies family history of Ovarian cancer Prostate cancer Breast cancer Colorectal cancer Past Surgical History Surgical History H/O colonoscopy History of bowel resection History of colostomy History of surgery closed treatment of fracture of tibial shaft 1974- bolt/natalie placement History of total knee replacement LEFT History of vascular access device present to right chest Hx of cataract surgery RIGHT/ LEFT Hx of resection of liver Social History Smoking Status: Never smoker tobacco type: cigarettes Hx Alcohol Use: No Alcohol type: beer alcohol intake frequency: a few times a month Hx Substance Use: No substance use type: does not use Physical Exam Vital Signs Last Vital Signs Temp 98.6 F 08/11/21 12:24 Pulse 64 08/11/21 12:24 Resp 16 08/11/21 12:24 BP 104/59 L 08/11/21 12:24 Pulse Ox 99 08/11/21 12:24 Testing Laboratory Results 08/11/21 10:19 08/11/21 10:19 PT 13.6 Seconds (9.0-12.0) H 08/11/21 10:19 INR 1.3 (0.9-1.1) H 08/11/21 10:19 APTT 29.5 Seconds (21.0-31.0) 08/11/21 10:19 Blood Type A Positive 08/11/21 10:19 Antibody Screen NEGATIVE 08/11/21 10:19
--- NOTE | 2021-08-11 13:36 | GI REPORT ---
Patient Name: Kristofer Ash Procedure Date: 08/11/2021 12:54 PM Date of : 1945 Admit Type: Emergency Department Age: 76 Gender: Male Attending MD: Jacques Marsh MD Procedure: Upper GI endoscopy Providers: Jacques Marsh MD Referring MD: Referred Self Indications: Hematochezia Medicines: Monitored Anesthesia Care Complications: No immediate complications. Estimated blood loss: None. Estimated Blood Loss: Estimated blood loss: none. Procedure: Pre-Anesthesia Assessment: - Prior Anticoagulants: The patient has taken no previous anticoagulant or antiplatelet agents. - ASA Grade Assessment: III - A patient with severe systemic disease. After obtaining informed consent, the endoscope was passed under direct vision. Throughout the procedure, the patient's blood pressure, pulse, and oxygen saturations were monitored continuously. The Endoscope was introduced through the mouth, and advanced to the second part of duodenum. The upper GI endoscopy was accomplished without difficulty. The patient tolerated the procedure well. Findings: Large (> 5 mm) varices were found in the distal esophagus. Two bands were successfully placed with complete eradication, resulting in deflation of varices. There was no bleeding at the end of the procedure. Severe portal hypertensive gastropathy was found in the stomach. The duodenal bulb and second portion of the duodenum were normal. Impression: - Large (> 5 mm) esophageal varices. Completely eradicated. Banded. - Portal hypertensive gastropathy. - Normal duodenal bulb and second portion of the duodenum. - No specimens collected. Recommendation: - [facility] - NPO today. no NG tube for 24 hours. -clear liquid diet tomorrow morning if stable -octreotide drip for 5 days -protonix 40 mg IV BID -ceftriaxone 1 g daily for 7 days for SBP ppx -supportive care -if bleeding continues/anemia persists, consider bleeding scan to further evaluate Jacques Marsh MD 08/11/2021 1:35:44 PM This report has been signed electronically. Note Initiated On: 08/11/2021 12:54 PM Number of Addenda: 0 I attest to the content of the Intraoperative Record and orders documented therein, exceptions below {[id number]}
--- NOTE | 2021-08-11 14:02 | Anesthesiology Progress Note ---
Date of Service August 11, 2021 Anesthesia Post Procedure Vital Signs Vital Signs: Temp Pulse Pulse Resp BP BP Pulse Ox 08/11/21 13:40 75 75 16 97/53 L 97/53 L 100 08/11/21 12:24 98.6 F 64 16 104/59 L 99 08/11/21 12:07 98.2 F 66 16 101/56 L 99 08/11/21 11:50 99.1 F 66 18 96/51 L 98 08/11/21 11:00 65 16 122/67 97 08/11/21 09:37 97.9 F 68 18 105/61 100 Transfer of Care Handoff Completed per policy Notes Mental Status: alert / awake / arousable and participated in evaluation Patient Amnestic to Procedure: Yes Nausea / Vomiting: adequately controlled Pain: adequately controlled Airway Patency, RR, SpO2: stable & adequate BP & HR: stable & adequate Hydration State: stable & adequate Anesthetic Complications: no major complications apparent and Pt Satisfied with anesthetic care
[2021-08-11] MEDS ORDERED: MoRPHine SULFATE 2 MG/ML CARP IV PRN (14:41)
[2021-08-11] MEDS ORDERED: ONDANSETRON INJ 2 MG/ML 2 ML VIAL IV PRN (14:41)
[2021-08-11] MEDS ORDERED: CHOLECALCIFEROL 1,000 UNITS 25 MCG TAB PO SCH (15:30)
[2021-08-11] MEDS ORDERED: ASCORBIC ACID 500 MG TAB PO SCH (15:30)
[2021-08-11] MEDS: cefTRIAXone SODIUM 1,000 MG in DEXTROSE 5% 50 ML IV SCH (15:42)
[2021-08-11 16:27] LABS: Hematocrit (blood only) 31.8 % (42-52); Hemoglobin 9.7 g/dL (14.0-18.0)
[2021-08-11] MEDS: MoRPHine SULFATE 4 MG/ML 1 ML CARP\\VIAL IV PRN (18:31)
[2021-08-12 01:12] LABS: Appearance Urine Clear (Clear); Bilirubin Urine Negative (Negative); Blood Urine Negative (Negative); Color Urine Dark Yellow; Glucose Urine UA Negative (Negative); Ketones Urine Trace (Negative); Leukocyte Esterase Urine Negative (Negative); Nitrite Urine Negative (Negative); Protein Urine Negative (Negative); Urobilinogen Urine Negative (Negative)
[2021-08-12] MEDS: OCTREOTIDE ACETATE 500mcg / D5W 100mL @50mcg/hr IV SCH ×2 (05:30→15:39)
[2021-08-12 07:00] LABS: Hematocrit (blood only) 26.4 % (42-52); Hemoglobin 8.4 g/dL (14.0-18.0); Mean Corpuscular Hemoglobin 29.3 pg (25-34); Mean Corpuscular Hgb Conc 31.8 g/dL (32-36); Mean Platelet Volume 8.9 fL (7.4-10.4); Nucleated RBC # (auto) 0.03 K/uL (0-0); Nucleated RBC % (auto) 0.6 %; Platelet Count 145 K/uL (130-400); RDW Coefficient of Variation 20.2 % (11.5-14.5); RDW Standard Deviation 65.5 fL (36.4-46.3); Red Blood Count 2.87 M/uL (4.7-6.1); White Blood Count 5.43 K/uL (4.8-10.8)
[2021-08-12 07:08] LABS: INR 1.3 (0.9-1.1); Prothrombin Time 13.8 Seconds (9.0-12.0)
[2021-08-12 07:21] LABS: Albumin Globulin Ratio 1.3 (0.9-2); BUN Creatinine Ratio 18.2 (10-20); Bilirubin,Total 0.8 mg/dl (0.2-1.0); Calcium 8.2 mg/dl (8.5-10.1); Creatinine Clr Calc Pharmacy 77.2 ml/min; Est GFR (African American) 97.4 ml/min; Globulin 2.4 gm/dl (2.5-4.0); Potassium 4.5 mmol/L (3.5-5.1); Total Protein 5.4 gm/dl (6.0-8.3)
[2021-08-12 08:20] LABS: ALC (manual) 0.38 K/uL (1.2-3.4); ANC (manual) 3.96 K/uL (1.4-6.5); Basophils # (manual) 0.05 K/uL (0-0.2); Basophils % (manual) 0.9 %; Dohle Bodies 2+; Eosinophils # (manual) 0.05 K/uL (0-0.5); Eosinophils % (manual) 0.9 %; Lymphocytes # (manual) 0.38 K/uL (1.2-3.4); Metamyelocytes # (manual) 0.05 K/uL (0-0); Metamyelocytes % (manual) 0.9 %; Monocytes # (manual) 0.94 K/uL (0.11-0.59); Monocytes % (manual) 17.4 %; Neutrophils # (manual) 3.96 K/uL (1.4-6.5); Neutrophils % (manual) 72.9 %; Polychromasia 1+; Toxic Granulation 1+
--- NOTE | 2021-08-12 08:59 | Progress Note ---
Date of Service August 12, 2021 Assessment & Plan (1) Esophageal varices with bleeding: Plan: Patient now status post upper endoscopy with esophageal band ligation for suspected variceal bleeding. He seems to be recovering well today. Would recommend continued conservative management. -clear liquid diet today, may have full liquids on August 13 then a low sodium diet on August 14 -octreotide drip for 5 days -protonix 40 mg IV BID -ceftriaxone 1 g daily for 7 days for SBP ppx -Avoid use of nonsteroidals and anticoagulants if possible -Coverage to resume with the patient's normal gastroneurology provider on Saturday -Call with any questions or concerns Esophageal varices type: secondary Qualified Code(s): I85.11 - Secondary esophageal varices with bleeding Admission and Anticipated Discharge Date Admission Date: August 11, 2021 Subjective The patient underwent upper endoscopy with esophageal band ligation with Dr. Marsh yesterday. He notes that he has no chest pain or abdominal pain today. He reports that he does continue to pass some dark stool but denies having any hematochezia or hematemesis Review of Systems Constitutional: no fever and no sweats Respiratory: no cough, no dyspnea and no hemoptysis Cardiovascular: no chest pain and no dyspnea at rest Physical Exam Constitutional: well nourished and + thin; no acute distress Neck: normal visual inspection Respiratory: Auscultation: no crackles, no rales and no wheezes Cardiovascular: Heart Sounds: + murmur Gastrointestinal (Abdomen): Percussion/Palpation: abdomen soft; abdomen nontender, no guarding and abdomen not rigid Results & Data ([facility]) Vital Signs (Past 12 Hours) Vital Signs Temp Pulse Pulse Resp BP Pulse Ox 08/12/21 07:55 37 C 66 14 131/63 98 08/12/21 04:25 36.7 C 74 18 107/55 L 97 08/12/21 01:12 67 08/11/21 23:46 36.5 C 73 16 112/54 L 97 Laboratory Results Laboratory Results - last 24 hr 08/11/21 08/11/21 08/11/21 10:19 10:19 10:19 WBC 4.12 L RBC 2.50 L Hgb 7.3 L Hct 22.8 L MCV 91.2 MCH 29.2 MCHC 32.0 RDW Std Deviation 65.5 H RDW Coeff of Sarah 20.2 H Plt Count 132 MPV 9.1 Absolute Nucleated RBC Nucleated RBC % (auto) Neutrophils % (Manual) 77.5 Lymphocytes % (Manual) 8.1 Monocytes % (Manual) 11.7 Eosinophils % (Manual) 2.7 Basophils % (Manual) Metamyelocytes % (Man) Neutrophils # (Manual) 3.19 Total Absolute Neuts 3.19 Lymphocytes # (Manual) 0.33 L Total Abs Lymphocytes 0.33 L Monocytes # (Manual) 0.48 Eosinophils # (Manual) 0.11 Basophils # (Manual) Metamyelocytes # (Man) Toxic Granulation Dohle Bodies 2+ Polychromasia 1+ Anisocytosis Present PT 13.6 H INR 1.3 H APTT 29.5 PTT Ratio 1.1 Sodium Potassium Chloride Carbon Dioxide Anion Gap BUN Creatinine Est Cr Clr Drug Dosing Est GFR ( Amer) Est GFR (Non-Af Amer) BUN/Creatinine Ratio Glucose Calcium Magnesium Total Bilirubin Direct Bilirubin AST ALT Alkaline Phosphatase Troponin I Total Protein Albumin Globulin Albumin/Globulin Ratio Lipase Urine Color Urine Appearance Urine pH Ur Specific [place] Urine Protein Urine Glucose (UA) Urine Ketones Urine Blood Urine Nitrite Urine Bilirubin Urine Urobilinogen Ur Leukocyte Esterase SARS-CoV-2, RNA, NAAT Blood Type A Positive Antibody Screen NEGATIVE Crossmatch See Detail 08/11/21 08/11/21 08/11/21 10:19 12:20 15:59 WBC RBC Hgb 9.7 L Hct 31.8 L MCV MCH MCHC RDW Std Deviation RDW Coeff of Sarah Plt Count MPV Absolute Nucleated RBC Nucleated RBC % (auto) Neutrophils % (Manual) Lymphocytes % (Manual) Monocytes % (Manual) Eosinophils % (Manual) Basophils % (Manual) Metamyelocytes % (Man) Neutrophils # (Manual) Total Absolute Neuts Lymphocytes # (Manual) Total Abs Lymphocytes Monocytes # (Manual) Eosinophils # (Manual) Basophils # (Manual) Metamyelocytes # (Man) Toxic Granulation Dohle Bodies Polychromasia Anisocytosis PT INR APTT PTT Ratio Sodium 135 L Potassium 4.1 Chloride 105 Carbon Dioxide 22 Anion Gap 8 BUN 16 Creatinine 0.80 Est Cr Clr Drug Dosing 77.2 Est GFR ( Amer) 101.3 Est GFR (Non-Af Amer) 87.4 BUN/Creatinine Ratio 20.0 Glucose 108 H Calcium 8.1 L Magnesium 1.8 Total Bilirubin 0.7 Direct Bilirubin 0.3 H AST 21 ALT 15 Alkaline Phosphatase 213 H Troponin I < 0.03 Total Protein 5.5 L Albumin 3.0 L Globulin Albumin/Globulin Ratio Lipase 25 Urine Color Urine Appearance Urine pH Ur Specific [place] Urine Protein Urine Glucose (UA) Urine Ketones Urine Blood Urine Nitrite Urine Bilirubin Urine Urobilinogen Ur Leukocyte Esterase SARS-CoV-2, RNA, NAAT NEGATIVE Blood Type Antibody Screen Crossmatch 08/12/21 08/12/21 08/12/21 01:08 06:41 06:41 WBC 5.43 RBC 2.87 L Hgb 8.4 L Hct 26.4 L MCV 92.0 MCH 29.3 MCHC 31.8 L RDW Std Deviation 65.5 H RDW Coeff of Sarah 20.2 H Plt Count 145 MPV 8.9 Absolute Nucleated RBC 0.03 H Nucleated RBC % (auto) 0.6 Neutrophils % (Manual) 72.9 Lymphocytes % (Manual) 7.0 Monocytes % (Manual) 17.4 Eosinophils % (Manual) 0.9 Basophils % (Manual) 0.9 Metamyelocytes % (Man) 0.9 Neutrophils # (Manual) 3.96 Total Absolute Neuts 3.96 Lymphocytes # (Manual) 0.38 L Total Abs Lymphocytes 0.38 L Monocytes # (Manual) 0.94 H Eosinophils # (Manual) 0.05 Basophils # (Manual) 0.05 Metamyelocytes # (Man) 0.05 H Toxic Granulation 1+ Dohle Bodies 2+ Polychromasia 1+ Anisocytosis PT 13.8 H INR 1.3 H APTT PTT Ratio Sodium Potassium Chloride Carbon Dioxide Anion Gap BUN Creatinine Est Cr Clr Drug Dosing Est GFR ( Amer) Est GFR (Non-Af Amer) BUN/Creatinine Ratio Glucose Calcium Magnesium Total Bilirubin Direct Bilirubin AST ALT Alkaline Phosphatase Troponin I Total Protein Albumin Globulin Albumin/Globulin Ratio Lipase Urine Color Dark Yellow Urine Appearance Clear Urine pH 5.0 Ur Specific [place] 1.020 Urine Protein Negative Urine Glucose (UA) Negative Urine Ketones Trace H Urine Blood Negative Urine Nitrite Negative Urine Bilirubin Negative Urine Urobilinogen Negative Ur Leukocyte Esterase Negative SARS-CoV-2, RNA, NAAT Blood Type Antibody Screen Crossmatch 08/12/21 06:41 WBC RBC Hgb Hct MCV MCH MCHC RDW Std Deviation RDW Coeff of Sarah Plt Count MPV Absolute Nucleated RBC Nucleated RBC % (auto) Neutrophils % (Manual) Lymphocytes % (Manual) Monocytes % (Manual) Eosinophils % (Manual) Basophils % (Manual) Metamyelocytes % (Man) Neutrophils # (Manual) Total Absolute Neuts Lymphocytes # (Manual) Total Abs Lymphocytes Monocytes # (Manual) Eosinophils # (Manual) Basophils # (Manual) Metamyelocytes # (Man) Toxic Granulation Dohle Bodies Polychromasia Anisocytosis PT INR APTT PTT Ratio Sodium 135 L Potassium 4.5 Chloride 104 Carbon Dioxide 22 Anion Gap 9 BUN 16 Creatinine 0.88 Est Cr Clr Drug Dosing 77.2 Est GFR ( Amer) 97.4 Est GFR (Non-Af Amer) 84.0 BUN/Creatinine Ratio 18.2 Glucose 122 H Calcium 8.2 L Magnesium Total Bilirubin 0.8 Direct Bilirubin AST 20 ALT 15 Alkaline Phosphatase 192 H Troponin I Total Protein 5.4 L Albumin 3.0 L Globulin 2.4 L Albumin/Globulin Ratio 1.3 Lipase Urine Color Urine Appearance Urine pH Ur Specific [place] Urine Protein Urine Glucose (UA) Urine Ketones Urine Blood Urine Nitrite Urine Bilirubin Urine Urobilinogen Ur Leukocyte Esterase SARS-CoV-2, RNA, NAAT Blood Type Antibody Screen Crossmatch
[2021-08-12] MEDS: ESCITALOPRAM OXALATE 10 MG TAB PO SCH (09:34)
[2021-08-12] MEDS: SPIRONOLACTONE 25 MG TAB PO SCH (09:35)
[2021-08-12] MEDS: POLYETHYLENE (MIRALAX) 17 GM PACK PO SCH (09:35)
[2021-08-12 12:07] LABS: Hematocrit (blood only) 25.4 % (42-52); Hemoglobin 8.1 g/dL (14.0-18.0)
--- NOTE | 2021-08-12 12:16 | Hospitalist Progress Note ---
Date of Service August 12, 2021 Assessment & Plan (1) GI bleed: Plan: -Acute, suspect due to esophageal varices. Hgb 7.3.; Was 8.1 on 08/09. -History of esophageal variceal bleed in January 2020 with banding. -Appreciate GI management, EGD 08/11 with successful banding Start clear liquids today -octreotide drip for 5 days -protonix 40 mg IV BID -ceftriaxone 1 g daily for 7 days for SBP ppx -if bleeding continues/anemia persists, consider bleeding scan to further gerri luate -s/p 1 unit PRBCs 08/11, H/H stable following this however will continue to measure q6h today. (2) Esophageal varices: Plan: -History of esophageal variceal bleed in January 2020 with banding. -Plan as above. (3) Rectal adenocarcinoma: Plan: -With mets to liver, liver cirrhosis, esophageal varices. -Colectomy with ostomy in place. Pleurx drain placed. Right-sided port. -Chemo every 2 weeks, last treatment Wednesday 08/02. -Liver met resection with [facility] in October 2020. -Oxycodone 5 mg 6h at home for pain, will order IV morphine for pain control while inpatient on n.p.o. status. (4) Liver cirrhosis: Plan: -Pleurx drain in place. Drains every other day at home average output 1100 mL. -Lasix 20 mg daily (start tomorrow) and spironolactone 25 mg daily (5) Anemia: Plan: -Hgb 7.3 on admission, usually has iron transfusions at [facility]. Was scheduled for one on day of admission. -s.p 1 unit packed RBCs. -Will follow H&H. (6) Hypertension: Plan: -Stable, normotensive. Continue spironolactone and lasix (lasix to restart tomorrow if BP stable today) (7) Depression: Plan: -Continue lexapro 10mg daily. Plan: -Admit to PCU. -SCDs; chemical prophylaxis contraindicated in setting of GI bleed -Full code. Admission and Anticipated Discharge Date Admission Date: August 11, 2021 Subjective Patient reports still having small amount of blood from ostomy. Otherwise no abdominal pain, nausea or vomiting. Desperate to have something to eat. Review of Systems Review of Systems: All systems reviewed & are unremarkable except as noted in Subjective Physical Exam Constitutional: WD/WN, vitals as above Respiratory: normal respiratory effort, lungs clear to auscultation Cardiovascular: RRR, no murmur, no edema Gastrointestinal (Abdomen): Inspection/Auscultation: normal bowel sounds Percussion/Palpation: abdomen soft; abdomen nontender, no guarding and abdomen not rigid Skin: no rashes, warm and dry Psychiatric: A+Ox3, euthymic affect Results & Data Results & Data ([facility]) Vital Signs (Past 12 Hours) Vital Signs Temp Pulse Pulse Resp BP Pulse Ox 08/12/21 11:15 37.1 C 80 18 143/61 H 98 08/12/21 08:00 64 08/12/21 07:55 37 C 66 14 131/63 98 08/12/21 04:25 36.7 C 74 18 107/55 L 97 08/12/21 01:12 67 PG Care Time/CCT Total # of Minutes Spent Total Time Spent with Patient: Total time spent is greater than 50% in coordination of care (as documented) at patient's floor/unit and/or counseling patient: Coding Level of Care Code 22788 Subseq Hosp Care Lvl 2 Diagnoses GI bleed K92.2 GI bleed type/associated pathology: unspecified gastrointestinal hemorrhage type Esophageal varices I85.00 Rectal adenocarcinoma C20 Liver cirrhosis K74.60 Anemia D64.9 Anemia type: unspecified type Hypertension I10 Depression F32.9 (1) GI bleed GI bleed type/associated pathology: unspecified gastrointestinal hemorrhage type Qualified Code(s): K92.2 - Gastrointestinal hemorrhage, unspecified (2) Anemia Anemia type: unspecified type Qualified Code(s): D64.9 - Anemia, unspecified
[2021-08-12] MEDS: ASCORBIC ACID 500 MG TAB PO SCH (13:15)
[2021-08-12] MEDS: CHOLECALCIFEROL 1,000 UNITS 25 MCG TAB PO SCH (13:15)
[2021-08-12] MEDS: MoRPHine SULFATE 4 MG/ML 1 ML CARP\\VIAL IV PRN ×2 (13:17→18:27)
[2021-08-12] MEDS: cefTRIAXone SODIUM 1,000 MG in DEXTROSE 5% 50 ML IV SCH (15:41)
[2021-08-12 18:26] LABS: Hematocrit (blood only) 25.1 % (42-52)
[2021-08-12] MEDS: PANTOprazole 40 MG in SYRINGE 0 ML IV SCH (22:55)
[2021-08-13] MEDS: OCTREOTIDE ACETATE 500mcg / D5W 100mL @50mcg/hr IV SCH ×3 (00:42→21:34)
[2021-08-13 06:16] LABS: Hematocrit (blood only) 24.6 % (42-52); Hemoglobin 7.7 g/dL (14.0-18.0); Mean Corpuscular Hemoglobin 28.9 pg (25-34); Mean Corpuscular Hgb Conc 31.3 g/dL (32-36); Mean Corpuscular Volume 92.5 fL (80-100); Mean Platelet Volume 9.2 fL (7.4-10.4); Nucleated RBC # (auto) 0.02 K/uL (0-0); Nucleated RBC % (auto) 0.2 %; Platelet Count 146 K/uL (130-400); RDW Coefficient of Variation 20.1 % (11.5-14.5); RDW Standard Deviation 65.8 fL (36.4-46.3); Red Blood Count 2.66 M/uL (4.7-6.1); White Blood Count 8.35 K/uL (4.8-10.8)
[2021-08-13 06:35] LABS: BUN Creatinine Ratio 16.8 (10-20); Calcium 7.8 mg/dl (8.5-10.1); Creatinine Clr Calc Pharmacy 61.1 ml/min; Est GFR (African American) 83.9 ml/min; Est GFR (Non-African American) 72.4 ml/min; Potassium 4.7 mmol/L (3.5-5.1)
[2021-08-13 06:40] LABS: ALC (manual) 0.36 K/uL (1.2-3.4); ANC (manual) 6.97 K/uL (1.4-6.5); Anisocytosis Present; Lymphocytes # (manual) 0.36 K/uL (1.2-3.4); Lymphocytes % (manual) 4.3 %; Metamyelocytes # (manual) 0.08 K/uL (0-0); Metamyelocytes % (manual) 0.9 %; Monocytes % (manual) 9.6 %; Myelocytes # (manual) 0.14 K/uL (0-0); Myelocytes % (manual) 1.7 %; Neutrophils # (manual) 6.97 K/uL (1.4-6.5); Neutrophils % (manual) 83.5 %; Polychromasia 1+
--- NOTE | 2021-08-13 09:05 | Gastroenterology Progress Note ---
Date of Service August 13, 2021 Assessment & Plan (1) Esophageal varices with bleeding: Plan: Patient with a history of upper gastrointestinal intestinal bleeding from esophageal varices. He seems to be doing fairly well with the recent endoscopic management and continued medical management. Would recommend no specific changes for today of aside from advancing to a soft mechanical diet. Recommendations Protonix twice daily Octreotide Broad-spectrum antibiotic coverage Soft mechanical diet Please call with any questions or concerns Coverage with the [facility] gastroenterology group to begin tomorrow again Admission and Anticipated Discharge Date Admission Date: August 11, 2021 Subjective The patient had an upper endoscopy performed on Saturday with Dr. Marsh. He reports having some dark stool still but no recurrent hematemesis. Review of Systems Constitutional: no sweats and no malaise Eyes: no diplopia Respiratory: no change in sputum and no hemoptysis Cardiovascular: no chest pain with activity and no dyspnea at rest Physical Exam Constitutional: WD/WN, vitals as above Eyes: PERRL, conjunctivae normal, anicteric sclerae Neck: trachea midline, no thyromegaly Respiratory: Auscultation: no crackles and no wheezes Cardiovascular: Heart Sounds: + murmur Gastrointestinal (Abdomen): Inspection/Auscultation: abdomen not distended Percussion/Palpation: abdomen soft; abdomen nontender, no guarding and abdomen not rigid Skin: + pallor Neurologic: no asterixis Results & Data ([facility]) Vital Signs (Past 12 Hours) Vital Signs Temp Pulse Pulse Resp BP Pulse Ox 08/13/21 07:24 37.0 C 67 17 95/55 L 96 08/13/21 07:05 65 08/13/21 03:36 36.9 C 70 18 112/59 L 96 08/12/21 23:08 37.0 C 72 14 134/61 97 Laboratory Results Laboratory Results - last 24 hr 08/12/21 08/12/21 08/13/21 11:48 18:12 05:49 WBC 8.35 RBC 2.66 L Hgb 8.1 L 8.0 L 7.7 L Hct 25.4 L 25.1 L 24.6 L MCV 92.5 MCH 28.9 MCHC 31.3 L RDW Std Deviation 65.8 H RDW Coeff of Sarah 20.1 H Plt Count 146 MPV 9.2 Absolute Nucleated RBC 0.02 H Nucleated RBC % (auto) 0.2 Neutrophils % (Manual) 83.5 Lymphocytes % (Manual) 4.3 Monocytes % (Manual) 9.6 Metamyelocytes % (Man) 0.9 Myelocytes % (Man) 1.7 Neutrophils # (Manual) 6.97 H Total Absolute Neuts 6.97 H Lymphocytes # (Manual) 0.36 L Total Abs Lymphocytes 0.36 L Monocytes # (Manual) 0.80 H Metamyelocytes # (Man) 0.08 H Myelocytes # (Manual) 0.14 H Polychromasia 1+ Anisocytosis Present Sodium Potassium Chloride Carbon Dioxide Anion Gap BUN Creatinine Est Cr Clr Drug Dosing Est GFR ( Amer) Est GFR (Non-Af Amer) BUN/Creatinine Ratio Glucose Calcium 08/13/21 05:49 WBC RBC Hgb Hct MCV MCH MCHC RDW Std Deviation RDW Coeff of Sarah Plt Count MPV Absolute Nucleated RBC Nucleated RBC % (auto) Neutrophils % (Manual) Lymphocytes % (Manual) Monocytes % (Manual) Metamyelocytes % (Man) Myelocytes % (Man) Neutrophils # (Manual) Total Absolute Neuts Lymphocytes # (Manual) Total Abs Lymphocytes Monocytes # (Manual) Metamyelocytes # (Man) Myelocytes # (Manual) Polychromasia Anisocytosis Sodium 135 L Potassium 4.7 Chloride 104 Carbon Dioxide 24 Anion Gap 7 BUN 17 Creatinine 1.01 Est Cr Clr Drug Dosing 61.1 Est GFR ( Amer) 83.9 Est GFR (Non-Af Amer) 72.4 BUN/Creatinine Ratio 16.8 Glucose 111 H Calcium 7.8 L (1) Esophageal varices with bleeding Esophageal varices type: secondary Qualified Code(s): I85.11 - Secondary esophageal varices with bleeding
[2021-08-13] MEDS: ESCITALOPRAM OXALATE 10 MG TAB PO SCH (09:30)
[2021-08-13] MEDS: FUROSEMIDE 20 MG TAB PO SCH (09:30)
[2021-08-13] MEDS: POLYETHYLENE (MIRALAX) 17 GM PACK PO SCH (09:30)
[2021-08-13] MEDS: PANTOprazole 40 MG in SYRINGE 0 ML IV SCH ×2 (09:30→21:34)
[2021-08-13] MEDS: SPIRONOLACTONE 25 MG TAB PO SCH (09:31)
[2021-08-13] MEDS: MoRPHine SULFATE 4 MG/ML 1 ML CARP\\VIAL IV PRN (09:33)
--- NOTE | 2021-08-13 12:29 | Hospitalist Progress Note ---
Date of Service August 13, 2021 Assessment & Plan (1) GI bleed: Plan: Acute, suspect due to esophageal varices. Hgb 7.3.; Was 8.1 on 08/09. -History of esophageal variceal bleed in January 2020 with banding. - Appreciate GI management, EGD 08/11 with successful banding Start clear liquids today. - Octreotide drip for 5 days - Protonix 40 mg IV BID - Ceftriaxone 1 g daily for 7 days for SBP ppx -s/p 1 unit PRBCs 08/11, H/H stable following this (2) Esophageal varices: Plan: -History of esophageal variceal bleed in January 2020 with banding. -Plan as above. (3) Rectal adenocarcinoma: Plan: -With mets to liver, liver cirrhosis, esophageal varices. -Colectomy with ostomy in place. Pleurx drain placed. Right-sided port. -Chemo every 2 weeks, last treatment Wednesday 08/02. -Liver met resection with [facility] in October 2020. - Oxycodone 5 mg 6h at home for pain (4) Liver cirrhosis: Plan: -Pleurx drain in place. Drains every other day at home average output 1100 mL. -Lasix 20 mg daily and spironolactone 25 mg daily (5) Anemia: Plan: -Hgb 7.3 on admission, usually has iron transfusions at [facility]. Was scheduled for one on day of admission. - S/p 1 unit packed RBCs. -Will follow H&H. (6) Hypertension: Plan: Stable, normotensive. - Continue spironolactone and Lasix (7) Depression: Plan: - Continue lexapro 10mg daily. Admission and Anticipated Discharge Date Admission Date: August 11, 2021 Subjective Doing well today. No major issues. Denies hematochezia. Not lightheaded. Reports no fevers/chills, chest pain, shortness of breath, nausea, or vomiting. Does have some mild bloating sensation. Last Pleur-X drain was on per the patient. Physical Exam Constitutional: WD/WN, vitals as above Eyes: EOM intact bilaterally; no conjunctival abnormality ENMT: external ear and nose normal, oropharynx normal Neck: trachea midline, no thyromegaly normal visual inspection Respiratory: normal respiratory effort, lungs clear to auscultation no respiratory distress Cardiovascular: RRR, no murmur, no edema Gastrointestinal (Abdomen): Inspection/Auscultation: + abdominal surgical drain present (Pleur-X with bandage over it.); abdomen not distended Musculoskeletal: no cyanosis or clubbing, extremities motor strength 5/5 Skin: no rashes, warm and dry Neurologic: moves all extremities and awake Psychiatric: Orientation: alert, oriented to person and cooperative Results & Data Results & Data ([facility]) Vital Signs (Past 12 Hours) Vital Signs Temp Pulse Pulse Resp BP Pulse Ox 08/13/21 11:13 37.2 C 61 18 121/53 L 100 08/13/21 07:24 37.0 C 67 17 95/55 L 96 08/13/21 07:05 65 08/13/21 03:36 36.9 C 70 18 112/59 L 96 PG Care Time/CCT Total # of Minutes Spent Total Time Spent with Patient: Total time spent is greater than 50% in coordination of care (as documented) at patient's floor/unit and/or counseling patient: Coding Level of Care Code 86739 Subseq Hosp Care Lvl 2 Diagnoses GI bleed K92.2 GI bleed type/associated pathology: unspecified gastrointestinal hemorrhage type Esophageal varices I85.00 Rectal adenocarcinoma C20 Liver cirrhosis K74.60 Anemia D64.9 Anemia type: unspecified type Hypertension I10 Depression F32.9 (1) GI bleed GI bleed type/associated pathology: unspecified gastrointestinal hemorrhage type Qualified Code(s): K92.2 - Gastrointestinal hemorrhage, unspecified (2) Anemia Anemia type: unspecified type Qualified Code(s): D64.9 - Anemia, unspecified
[2021-08-13] MEDS: CHOLECALCIFEROL 1,000 UNITS 25 MCG TAB PO SCH (13:06)
[2021-08-13] MEDS: ASCORBIC ACID 500 MG TAB PO SCH (13:06)
[2021-08-13] MEDS: cefTRIAXone SODIUM 1,000 MG in DEXTROSE 5% 50 ML IV SCH (15:40)
[2021-08-13] MEDS: oxyCODONE HCL IR 5 MG TAB (IMMEDIATE RELEASE) PO PRN (17:30)
[2021-08-13] MEDS: MULTIVITAMIN TAB PO SCH (21:35)
[2021-08-14] MEDS: oxyCODONE HCL IR 5 MG TAB (IMMEDIATE RELEASE) PO PRN ×3 (02:38→15:54)
[2021-08-14] MEDS: ACETAMINOPHEN 325 MG TAB PO PRN ×2 (06:39→14:14)
[2021-08-14 06:50] LABS: Hematocrit (blood only) 24.2 % (42-52); Hemoglobin 7.7 g/dL (14.0-18.0); Mean Corpuscular Hemoglobin 29.1 pg (25-34); Mean Corpuscular Hgb Conc 31.8 g/dL (32-36); Mean Corpuscular Volume 91.3 fL (80-100); Mean Platelet Volume 9.4 fL (7.4-10.4); Platelet Count 150 K/uL (130-400); RDW Coefficient of Variation 19.9 % (11.5-14.5); Red Blood Count 2.65 M/uL (4.7-6.1); White Blood Count 10.88 K/uL (4.8-10.8)
[2021-08-14 07:11] LABS: BUN Creatinine Ratio 16.5 (10-20); Calcium 7.4 mg/dl (8.5-10.1); Creatinine Clr Calc Pharmacy 56.7 ml/min; Est GFR (African American) 76.5 ml/min; Potassium 3.9 mmol/L (3.5-5.1)
[2021-08-14 07:40] LABS: Anisocytosis Present; Basophils # (auto) 0.03 K/uL (0-0.2); Basophils % (auto) 0.3 %; Eosinophils # (auto) 0.07 K/uL (0-0.5); Eosinophils % (auto) 0.6 %; Immature Granulocytes # (auto) 0.33 K/uL (0.00-0.02); Lymphocytes # (auto) 0.94 K/uL (1.2-3.4); Lymphocytes % (auto) 8.6 %; Monocytes # (auto) 1.25 K/uL (0.11-0.59); Monocytes % (auto) 11.5 %; Neutrophils # (auto) 8.26 K/uL (1.4-6.5); Polychromasia 1+; Tear Drop Cells 1+
[2021-08-14] MEDS: OCTREOTIDE ACETATE 500mcg / D5W 100mL @50mcg/hr IV SCH ×2 (08:12→17:14)
[2021-08-14] MEDS: FUROSEMIDE 20 MG TAB PO SCH (09:15)
[2021-08-14] MEDS: SPIRONOLACTONE 25 MG TAB PO SCH (09:16)
[2021-08-14] MEDS: PANTOprazole 40 MG in SYRINGE 0 ML IV SCH ×2 (09:16→21:16)
[2021-08-14] MEDS: ESCITALOPRAM OXALATE 10 MG TAB PO SCH (09:16)
[2021-08-14] MEDS: POLYETHYLENE (MIRALAX) 17 GM PACK PO SCH (09:16)
--- NOTE | 2021-08-14 09:37 | Gastroenterology Progress Note ---
Date of Service August 14, 2021 Assessment & Plan (1) Esophageal varices with bleeding: Plan: -Pantoprazole 40 mg BID. -Continue Octreotide to total 5 days. -Continue IV Ceftriaxone for now. Would complete 7 days of antibiotics. -Continue to monitor H/H. Admission and Anticipated Discharge Date Admission Date: August 11, 2021 Supervising Physician Co-Signing Physician Notes Agree with HO Castaneda as above Abd: Soft, NT, ND, +BS Continue current therapy and supportive care Discussed case with Dr. Cifuentes of Hospitalist service who was at patient's bedside. Subjective Patient is a 76 yo male with esophageal varices with bleeding. He underwent an EGD on 08/11/21. He denies further melena in the past several days. He denies hematemesis. H/H presently 7.7/24.2. He is currently on IV Ceftriaxone, Protonix, & Octreotide. Review of Systems Constitutional: no fever and no chills Respiratory: no cough and no dyspnea Cardiovascular: no chest pain Gastrointestinal: no abdominal pain, no hematemesis, no diarrhea/loose stools, no blood in stools and no melena Physical Exam Constitutional: well developed Respiratory: normal respiratory effort Cardiovascular: Rate/Rhythm: regular rate Gastrointestinal (Abdomen): Inspection/Auscultation: abdomen normal to inspection and normal bowel sounds Percussion/Palpation: abdomen soft; abdomen nontender Results & Data Results & Data ([facility]) Vital Signs (Past 12 Hours) Vital Signs Temp Pulse Pulse Resp BP Pulse Ox 08/14/21 07:34 36.6 C 58 L 18 108/55 L 98 08/14/21 07:13 57 L 08/14/21 04:14 36.9 C 69 20 108/58 L 99 08/14/21 00:00 63 08/13/21 23:56 37.4 C 70 16 119/44 L 99 PG Care Time/CCT Total # of Minutes Spent Total Time Spent with Patient: Total time spent is greater than 50% in coordination of care (as documented) at patient's floor/unit and/or counseling patient: Coding Level of Care Code 35401 Subseq Hosp Care Lvl 3 Diagnoses Esophageal varices with bleeding I85.11 Esophageal varices type: secondary (1) Esophageal varices with bleeding Esophageal varices type: secondary Qualified Code(s): I85.11 - Secondary esophageal varices with bleeding
[2021-08-14] MEDS ORDERED: SODIUM CHLORIDE 0.9% 250 ML IV PRN (11:20)
[2021-08-14] MEDS: ASCORBIC ACID 500 MG TAB PO SCH (12:10)
[2021-08-14] MEDS: CHOLECALCIFEROL 1,000 UNITS 25 MCG TAB PO SCH (12:10)
--- NOTE | 2021-08-14 13:26 | Hospitalist Progress Note ---
Date of Service August 14, 2021 Assessment & Plan (1) GI bleed: Plan: Acute, suspect due to esophageal varices. Hgb 7.3.; Was 8.1 on 08/09. -History of esophageal variceal bleed in January 2020 with banding. - Appreciate GI management, EGD 08/11 with successful banding - Octreotide drip for 5 days - Protonix 40 mg IV BID - Ceftriaxone 1 g daily for 7 days for SBP ppx -> GI did approve of switching to oral abx for the last 2 days when ready for discharge. - S/p 1 unit PRBCs 08/11, H/H stable following this, but still below 8 mg/dL. With patient's approval, did order 1 additional unit to attempt to push hgb > 8. (2) Esophageal varices: Plan: History of esophageal variceal bleed in January 2020 with banding. - Plan as above. (3) Rectal adenocarcinoma: Plan: -With mets to liver, liver cirrhosis, esophageal varices. -Colectomy with ostomy in place. Pleurx drain placed. Right-sided port. -Chemo every 2 weeks, last treatment Wednesday 08/02. -Liver met resection with [facility] in October 2020. - Oxycodone 5 mg 6h at home for pain (4) Liver cirrhosis: Plan: Pleurx drain in place. Drains every other day at home average output 1100 mL. Drained on 08/13 with 800 mL output. - Lasix 20 mg daily and spironolactone 25 mg daily (5) Anemia: Plan: -Hgb 7.3 on admission, usually has iron transfusions at [facility]. Was scheduled for one on day of admission. - S/p 2 unit packed RBCs. - Will follow H&H -> Stable over last few days. (6) Hypertension: Plan: Stable, normotensive. - Continue spironolactone and Lasix (7) Depression: Plan: - Continue lexapro 10mg daily. (8) DVT prophylaxis: Plan: SCDs - Holding heparin given recent GI bleed Admission and Anticipated Discharge Date Admission Date: August 11, 2021 Subjective Doing well today. Brown stool. Still a little "tight" in the abdomen, but feeling better than yesterday after drainage. Reports no fevers/chills, chest pain, shortness of breath, abdominal pain, nausea, or vomiting. Physical Exam Constitutional: WD/WN, vitals as above Eyes: EOM intact bilaterally; no conjunctival abnormality ENMT: external ear and nose normal, oropharynx normal Neck: trachea midline, no thyromegaly normal visual inspection Respiratory: normal respiratory effort, lungs clear to auscultation no respiratory distress Cardiovascular: RRR, no murmur, no edema Gastrointestinal (Abdomen): Inspection/Auscultation: + abdominal surgical drain present (Pleur-X with bandage over it.); abdomen not distended Musculoskeletal: no cyanosis or clubbing, extremities motor strength 5/5 Skin: no rashes, warm and dry Neurologic: moves all extremities and awake Psychiatric: Orientation: alert, oriented to person and cooperative Results & Data Results & Data ([facility]) Vital Signs (Past 12 Hours) Vital Signs Temp Pulse Pulse Resp BP Pulse Ox 08/14/21 10:59 36.5 C 56 L 18 98/54 L 100 08/14/21 07:34 36.6 C 58 L 18 108/55 L 98 08/14/21 07:13 57 L 08/14/21 04:14 36.9 C 69 20 108/58 L 99 PG Care Time/CCT Total # of Minutes Spent Total Time Spent with Patient: Total time spent is greater than 50% in coordination of care (as documented) at patient's floor/unit and/or counseling patient: Coding Level of Care Code 32252 Subseq Hosp Care Lvl 3 Diagnoses GI bleed K92.2 GI bleed type/associated pathology: unspecified gastrointestinal hemorrhage type Esophageal varices I85.00 Rectal adenocarcinoma C20 Liver cirrhosis K74.60 Anemia D64.9 Anemia type: unspecified type Hypertension I10 Depression F32.9 DVT prophylaxis Z29.9 (1) GI bleed GI bleed type/associated pathology: unspecified gastrointestinal hemorrhage type Qualified Code(s): K92.2 - Gastrointestinal hemorrhage, unspecified (2) Anemia Anemia type: unspecified type Qualified Code(s): D64.9 - Anemia, unspecified
[2021-08-14] MEDS: cefTRIAXone SODIUM 1,000 MG in DEXTROSE 5% 50 ML IV SCH (14:12)
[2021-08-14] MEDS ORDERED: BEER 1 CAN PO STA (18:35)
[2021-08-14] MEDS: MULTIVITAMIN TAB PO SCH (21:16)
[2021-08-14 22:39] LABS: Hematocrit (blood only) 24.8 % (42-52); Hemoglobin 8.1 g/dL (14.0-18.0); Mean Corpuscular Volume 88.9 fL (80-100); Mean Platelet Volume 8.4 fL (7.4-10.4); Nucleated RBC # (auto) 0.03 K/uL (0-0); Nucleated RBC % (auto) 0.2 %; Platelet Count 131 K/uL (130-400); RDW Coefficient of Variation 19.2 % (11.5-14.5); RDW Standard Deviation 60.7 fL (36.4-46.3); Red Blood Count 2.79 M/uL (4.7-6.1); White Blood Count 14.15 K/uL (4.8-10.8)
[2021-08-14 22:43] LABS: Mean Corpuscular Hgb Conc 32.7 g/dL (32-36)
[2021-08-14 23:26] LABS: ALC (manual) 0.88 K/uL (1.2-3.4); ANC (manual) 11.39 K/uL (1.4-6.5); Anisocytosis Present; Basophils # (manual) 0.13 K/uL (0-0.2); Basophils % (manual) 0.9 %; Dohle Bodies 1+; Eosinophils # (manual) 0.13 K/uL (0-0.5); Eosinophils % (manual) 0.9 %; Lymphocytes # (manual) 0.88 K/uL (1.2-3.4); Lymphocytes % (manual) 6.2 %; Monocytes # (manual) 1.63 K/uL (0.11-0.59); Monocytes % (manual) 11.5 %; Neutrophils # (manual) 11.39 K/uL (1.4-6.5); Neutrophils % (manual) 80.5 %; Ovalocytes 1+; Polychromasia 1+; Tear Drop Cells 1+; Toxic Granulation Occasional
[2021-08-15] MEDS: OCTREOTIDE ACETATE 500mcg / D5W 100mL @50mcg/hr IV SCH ×3 (02:53→23:32)
[2021-08-15] MEDS ORDERED: CALCIUM CARBONATE 500 MG CHEWABLE TAB PO PRN (08:08)
[2021-08-15 08:19] LABS: Hematocrit (blood only) 24.9 % (42-52); Hemoglobin 8.2 g/dL (14.0-18.0); Mean Corpuscular Hemoglobin 29.6 pg (25-34); Mean Corpuscular Hgb Conc 32.9 g/dL (32-36); Mean Corpuscular Volume 89.9 fL (80-100); Mean Platelet Volume 9.5 fL (7.4-10.4); Nucleated RBC # (auto) 0.03 K/uL (0-0); Nucleated RBC % (auto) 0.3 %; Platelet Count 147 K/uL (130-400); RDW Coefficient of Variation 20.1 % (11.5-14.5); RDW Standard Deviation 62.8 fL (36.4-46.3); Red Blood Count 2.77 M/uL (4.7-6.1)
[2021-08-15] MEDS: oxyCODONE HCL IR 5 MG TAB (IMMEDIATE RELEASE) PO PRN ×3 (08:19→21:39)
[2021-08-15 08:43] LABS: Albumin Globulin Ratio 1.3 (0.9-2); Albumin Level 2.7 gm/dl (3.4-5.0); BUN Creatinine Ratio 17.8 (10-20); Bilirubin,Total 0.5 mg/dl (0.2-1.0); Calcium 7.2 mg/dl (8.5-10.1); Creatinine Clr Calc Pharmacy 61.1 ml/min; Est GFR (African American) 83.9 ml/min; Est GFR (Non-African American) 72.4 ml/min; Globulin 2.1 gm/dl (2.5-4.0); Magnesium 1.7 mg/dl (1.7-2.4); Potassium 3.7 mmol/L (3.5-5.1); Total Protein 4.8 gm/dl (6.0-8.3)
[2021-08-15 09:09] LABS: Anisocytosis Present; Basophils # (auto) 0.03 K/uL (0-0.2); Basophils % (auto) 0.3 %; Eosinophils % (auto) 0.9 %; Immature Granulocytes # (auto) 0.34 K/uL (0.00-0.02); Lymphocytes # (auto) 0.88 K/uL (1.2-3.4); Lymphocytes % (auto) 7.9 %; Monocytes # (auto) 1.07 K/uL (0.11-0.59); Monocytes % (auto) 9.6 %; Neutrophils # (auto) 8.78 K/uL (1.4-6.5); Neutrophils % (auto) 78.3 %; Toxic Granulation 2+
--- NOTE | 2021-08-15 09:50 | Gastroenterology Progress Note ---
Date of Service August 15, 2021 Assessment & Plan (1) Esophageal varices with bleeding: Plan: -Continue IV Octreotide & IV Protonix gtt -Obtain CT angio today -Continue to monitor H/H -Further recommendations pending CTA Admission and Anticipated Discharge Date Admission Date: August 11, 2021 Supervising Physician Co-Signing Physician Notes Agree with HO Castaneda as above Gen: A+O x3, obese, cooperative, NAD Chest: CTA B/L CVS: RRR no m/r/g Abd: Soft, Tender RLQ, ND, +BS Ext: -c/c/e H/H stable, hemodynamically stable Due to bleeding, recommend CTA of Abd/pelvis now Continue Octreotide gtt and Protonix therapy Further recommendations to follow the above noted testing. Subjective Patient is a 76 yo male with GI bleeding/esophageal varices. He continues on Octreotide and IV Protonix. He notes overnight he had 2 episodes of bright red blood per rectum. H/H is stable at 8.2/24.9. No new complaints otherwise. Review of Systems Constitutional: no fever and no chills Respiratory: no cough and no dyspnea Cardiovascular: no chest pain Gastrointestinal: + abdominal pain and + blood in stools; no nausea and no vomiting Physical Exam Constitutional: well developed Respiratory: normal respiratory effort Cardiovascular: Rate/Rhythm: regular rate Gastrointestinal (Abdomen): Inspection/Auscultation: abdomen normal to inspection Percussion/Palpation: abdomen soft Psychiatric: Orientation: alert and oriented x 3 Results & Data Results & Data ([facility]) Vital Signs (Past 12 Hours) Vital Signs Temp Pulse Pulse Resp BP Pulse Ox 08/15/21 08:41 36.7 C 60 16 105/64 100 08/15/21 03:09 36.6 C 65 16 117/64 97 08/15/21 00:00 54 L 08/14/21 23:41 36.4 C L 63 14 114/58 L 96 PG Care Time/CCT Total # of Minutes Spent Total Time Spent with Patient: Total time spent is greater than 50% in coordination of care (as documented) at patient's floor/unit and/or counseling patient: Coding Level of Care Code 57720 Subseq Hosp Care Lvl 3 Diagnoses Esophageal varices with bleeding I85.11 Esophageal varices type: secondary (1) Esophageal varices with bleeding Esophageal varices type: secondary Qualified Code(s): I85.11 - Secondary esophageal varices with bleeding
[2021-08-15] MEDS: ESCITALOPRAM OXALATE 10 MG TAB PO SCH (10:02)
[2021-08-15] MEDS: PANTOprazole 40 MG in SYRINGE 0 ML IV SCH ×2 (10:02→20:39)
[2021-08-15] MEDS: FUROSEMIDE 20 MG TAB PO SCH (10:02)
[2021-08-15] MEDS: POLYETHYLENE (MIRALAX) 17 GM PACK PO SCH (10:02)
[2021-08-15] MEDS: SPIRONOLACTONE 25 MG TAB PO SCH (10:03)
[2021-08-15] MEDS: ACETAMINOPHEN 325 MG TAB PO PRN (10:07)
[2021-08-15] MEDS ORDERED: OPTIRAY 320 125ml IV ONE (11:18)
--- NOTE | 2021-08-15 12:05 | CT Scan Report ---
CT angio abd pelvis wo/w con CLINICAL HISTORY: Abdominal pain; GI bleeding. Metastatic colorectal carcinoma. COMPARISON STUDY: CT of the abdomen and pelvis June 14, 2021. TECHNIQUE: Unenhanced and arterial phase imaging of the abdomen and pelvis was performed. Intravenous injection of 120 cc of Optiray 320 IV was uneventful. Sagittal and coronal reconstructions were view ed as well as maximal intensity projections on an independent 3-D workstation. Automated exposure con trol was utilized for the study. A dose lowering technique was utilized adhering to the principles o f ALARA. FINDINGS: Multiple nodules within the lower lungs are noted. The largest is a 1.2 cm right lower lobe nodule which is cavitary. This nodule is similar in size to CT of June 14, 2021. A few additional nodules have slightly decreased in size. A right cardiophrenic angle lymph node measuring 1.5 cm has slightly decreased in size since prior exam. Multiple hepatic metastases are suboptimally assessed o n this arterial phase exam. Index right hepatic dome lesion measures approximately 6.6 cm. No pneumat osis, free air or portal venous gas is present. Peritoneal catheter is in place. A moderate amount of ascites is noted. There are postoperative findings consistent with distal colorectal resection with left lower quadrant ostomy. There is mild diffuse colonic wall thickening. A few prominent loops of s mall bowel are noted without convincing evidence for a bowel obstruction. There is also mild wall thi ckening of several small bowel loops. There is mild wall thickening of the distal esophagus. Arterial phase images of the spleen, adrenal glands and kidneys are unremarkable with exception of a left ttayana al cyst. There is no hydronephrosis. There is no biliary ductal dilatation status post cholecystectom y. No suspicious lesions within the visualized skeletal structures. There is no lymphadenopathy. A pa rastomal hernia containing ascites is again noted. Infrarenal abdominal aorta is ectatic, measuring 2 .9 cm. There is moderate atherosclerotic plaque. Major vessels are patent. No active GI bleed is iden tified by CT. There is no retroperitoneal hematoma. IMPRESSION: 1. Moderate ascites. No retroperitoneal hematoma. No active GI bleed on this arterial phase exam. 2. Hepatic metastases, suboptimally assessed on this arterial phase exam. Multiple pulmonary metastas es, several of which have slightly decreased in size since prior exam. Slight decrease in size of a r ight cardiophrenic angle lymph node. 3. Status post rectal resection with left lower quadrant colostomy. Mild diffuse colonic wall thicken ing, a nonspecific finding. Multiple prominent small bowel loops which may reflect an ileus. A partia l small bowel obstruction is considered less likely. 4. Circumferential wall thickening of the distal esophagus. ACT 112: Negative or not required by law. Electronically signed by: Bob Vidal M.D. 08/15/2021 12:03 PM
--- NOTE | 2021-08-15 12:18 | Hospitalist Progress Note ---
Date of Service August 15, 2021 Assessment & Plan (1) GI bleed: Plan: Acute, suspect due to esophageal varices. Hgb 7.3; was 8.1 on 08/09. History of esophageal variceal bleed in January 2020 with banding. - Appreciate GI management, EGD 08/11 with successful banding - Octreotide drip for 5 days - Protonix 40 mg IV BID - Ceftriaxone 1 g daily for 7 days for SBP ppx -> GI did approve of switching to oral abx for the last 2 days when ready for discharge. - S/p 1 unit PRBCs 08/11 & 1 unit PRBCs on 08/14. Hemoglobin up to 8.1 afterward. Now with further BRBPR. Remains on octreotide and PPI IV BID. (2) Liver cirrhosis: Plan: Pleurx drain in place. Drains every other day at home average output 1100 mL. Drained on 08/13 with 800 mL output. - Lasix 20 mg daily and spironolactone 25 mg daily -> With rising leukocytosis and ongoing abdominal pain, will get blood and peritoneal cultures. Full peritoneal fluid analysis. Is on ceftriaxone for SBP ppx, but still with high concern. (3) Esophageal varices: Plan: History of esophageal variceal bleed in January 2020 with banding. - Plan as above. (4) Rectal adenocarcinoma: Plan: -With mets to liver, liver cirrhosis, esophageal varices. -Colectomy with ostomy in place. Pleurx drain placed. Right-sided port. -Chemo every 2 weeks, last treatment Wednesday 08/02. -Liver met resection with [facility] in October 2020. - Oxycodone 5 mg 6h at home for pain (5) Anemia: Plan: -Hgb 7.3 on admission, usually has iron transfusions at [facility]. Was scheduled for one on day of admission. - S/p 2 unit packed RBCs. - Will follow H&H (6) Hypertension: Plan: Stable, normotensive. - Continue spironolactone and Lasix (7) Depression: Plan: - Continue lexapro 10mg daily. (8) DVT prophylaxis: Plan: SCDs - Holding heparin given recent GI bleed Admission and Anticipated Discharge Date Admission Date: August 11, 2021 Subjective Two bright red bowel movements overnight. Notes it was brown (as has been for the last few days), then clear, then bloody. Two episodes overnight, then another this morning. Abdomen remains somewhat painful. Reports no fevers/chills, chest pain, shortness of breath, nausea, or vomiting. Physical Exam Constitutional: WD/WN, vitals as above Eyes: EOM intact bilaterally; no conjunctival abnormality ENMT: external ear and nose normal, oropharynx normal Neck: trachea midline, no thyromegaly normal visual inspection Respiratory: normal respiratory effort, lungs clear to auscultation no respiratory distress Cardiovascular: RRR, no murmur, no edema Gastrointestinal (Abdomen): Inspection/Auscultation: + abdominal surgical drain present (Pleur-X with bandage over it.); abdomen not distended Musculoskeletal: no cyanosis or clubbing, extremities motor strength 5/5 Skin: no rashes, warm and dry Neurologic: moves all extremities and awake Psychiatric: Orientation: alert, oriented to person and cooperative Results & Data Results & Data ([facility]) Vital Signs (Past 12 Hours) Vital Signs Temp Pulse Pulse Resp BP Pulse Ox 08/15/21 08:41 36.7 C 60 16 105/64 100 08/15/21 08:00 60 08/15/21 03:09 36.6 C 65 16 117/64 97 PG Care Time/CCT Total # of Minutes Spent Total Time Spent with Patient: Total time spent is greater than 50% in coordination of care (as documented) at patient's floor/unit and/or counseling patient: Coding Level of Care Code 33685 Subseq Hosp Care Lvl 3 Diagnoses GI bleed K92.2 GI bleed type/associated pathology: unspecified gastrointestinal hemorrhage type Esophageal varices I85.00 Rectal adenocarcinoma C20 Liver cirrhosis K74.60 Anemia D64.9 Anemia type: unspecified type Hypertension I10 Depression F32.9 DVT prophylaxis Z29.9 (1) GI bleed GI bleed type/associated pathology: unspecified gastrointestinal hemorrhage type Qualified Code(s): K92.2 - Gastrointestinal hemorrhage, unspecified (2) Anemia Anemia type: unspecified type Qualified Code(s): D64.9 - Anemia, unspecified
[2021-08-15] MEDS: ASCORBIC ACID 500 MG TAB PO SCH (13:23)
[2021-08-15] MEDS: CHOLECALCIFEROL 1,000 UNITS 25 MCG TAB PO SCH (13:23)
[2021-08-15] MEDS: cefTRIAXone SODIUM 1,000 MG in DEXTROSE 5% 50 ML IV SCH (15:26)
[2021-08-15 18:31] LABS: Albumin Peritoneal Fluid < 1.5 gm/dl; Glucose Peritoneal Fluid 148 mg/dl; LDH Peritoneal Fluid 58 U/L; Total Protein Peritoneal Fluid < 3.0 gm/dl
[2021-08-15 18:53] LABS: Hematocrit (blood only) 27.9 % (42-52); Hemoglobin 8.9 g/dL (14.0-18.0)
[2021-08-15 18:54] LABS: Appearance Peritoneal Fluid CLEAR; Color Peritoneal Fluid YELLOW; Eosinophils, Fluid 0 %; Lymphocytes, Fluid 33 %; Mono,Macrophage,Mesothelial 65 %; Neutrophils, Fluid 2 %; RBC Peritoneal Fluid (A) < 3000 /uL; WBC Peritoneal Fluid (A) 101 /ul (0-300)
[2021-08-15] MEDS: MULTIVITAMIN TAB PO SCH (20:38)
[2021-08-16 06:14] LABS: Hematocrit (blood only) 25.4 % (42-52); Hemoglobin 8.2 g/dL (14.0-18.0); Mean Corpuscular Hemoglobin 28.9 pg (25-34); Mean Corpuscular Hgb Conc 32.3 g/dL (32-36); Mean Corpuscular Volume 89.4 fL (80-100); Mean Platelet Volume 8.7 fL (7.4-10.4); Platelet Count 127 K/uL (130-400); RDW Coefficient of Variation 19.4 % (11.5-14.5); RDW Standard Deviation 60.7 fL (36.4-46.3); Red Blood Count 2.84 M/uL (4.7-6.1)
[2021-08-16 06:34] LABS: Anisocytosis Present; Basophils # (auto) 0.03 K/uL (0-0.2); Basophils % (auto) 0.2 %; Dohle Bodies 1+; Eosinophils # (auto) 0.12 K/uL (0-0.5); Eosinophils % (auto) 0.9 %; Immature Granulocytes # (auto) 0.26 K/uL (0.00-0.02); Lymphocytes # (auto) 0.94 K/uL (1.2-3.4); Lymphocytes % (auto) 7.2 %; Monocytes # (auto) 1.34 K/uL (0.11-0.59); Monocytes % (auto) 10.2 %; Neutrophils # (auto) 10.41 K/uL (1.4-6.5); Neutrophils % (auto) 79.5 %; Polychromasia 1+
[2021-08-16 06:35] LABS: Albumin Globulin Ratio 1.2 (0.9-2); Albumin Level 2.6 gm/dl (3.4-5.0); BUN Creatinine Ratio 15.5 (10-20); Bilirubin,Total 0.4 mg/dl (0.2-1.0); Calcium 7.1 mg/dl (8.5-10.1); Creatinine Clr Calc Pharmacy 63.7 ml/min; Est GFR (African American) 88.1 ml/min; Est GFR (Non-African American) 76.1 ml/min; Globulin 2.1 gm/dl (2.5-4.0); Magnesium 1.7 mg/dl (1.7-2.4); Potassium 4.1 mmol/L (3.5-5.1); Total Protein 4.7 gm/dl (6.0-8.3)
[2021-08-16] MEDS: oxyCODONE HCL IR 5 MG TAB (IMMEDIATE RELEASE) PO PRN ×3 (07:51→22:11)
[2021-08-16] MEDS: OCTREOTIDE ACETATE 500mcg / D5W 100mL @50mcg/hr IV SCH (09:15)
[2021-08-16] MEDS: ESCITALOPRAM OXALATE 10 MG TAB PO SCH (09:16)
[2021-08-16] MEDS: PANTOprazole 40 MG in SYRINGE 0 ML IV SCH ×2 (09:16→20:16)
[2021-08-16] MEDS: FUROSEMIDE 20 MG TAB PO SCH (09:16)
[2021-08-16] MEDS: SPIRONOLACTONE 25 MG TAB PO SCH (09:17)
[2021-08-16] MEDS: POLYETHYLENE (MIRALAX) 17 GM PACK PO SCH (09:17)
--- NOTE | 2021-08-16 10:39 | Hospitalist Progress Note ---
Date of Service August 16, 2021 Assessment & Plan (1) GI bleed: Plan: Acute, suspect due to esophageal varices. Hgb 7.3; was 8.1 on 08/09. History of esophageal variceal bleed in January 2020 with banding. - Appreciate GI management, EGD 08/11 with successful banding - Octreotide drip for 5 days - Finished on 08/16 - Protonix 40 mg IV BID - Ceftriaxone 1 g daily for 7 days for SBP ppx -> GI did approve of switching to oral abx for the last day when ready for discharge. - S/p 1 unit PRBCs 08/11 & 1 unit PRBCs on 08/14. Hemoglobin up to 8.1 afterward. Further BRBPR on 08/15, but none today. Thought to be possibly post-operative irritation per GI. Finished octreotide on 08/16. -> Monitor x 1 more day. If remains stable, can likely discharge tomorrow. (2) Liver cirrhosis: Plan: Pleurx drain in place. Drains every other day at home average output 1100 mL. Drained on 08/13 with 800 mL output. - Lasix 20 mg daily and spironolactone 25 mg daily - With rising leukocytosis and ongoing abdominal pain, will get blood and peritoneal cultures. -- Peritoneal fluid without sign of SBP. Continue ceftriaxone as above. (3) Esophageal varices: Plan: History of esophageal variceal bleed in January 2020 with banding. - Plan as above. (4) Rectal adenocarcinoma: Plan: -With mets to liver, liver cirrhosis, esophageal varices. -Colectomy with ostomy in place. Pleurx drain placed. Right-sided port. -Chemo every 2 weeks, last treatment Wednesday 08/02. -Liver met resection with [facility] in October 2020. - Oxycodone 5 mg 6h at home for pain (5) Anemia: Plan: -Hgb 7.3 on admission, usually has iron transfusions at [facility]. Was scheduled for one on day of admission. - S/p 2 unit packed RBCs. - Will follow H&H -> Stable today with hgb > 8. (6) Hypertension: Plan: Stable, normotensive. - Continue spironolactone and Lasix (7) Depression: Plan: - Continue lexapro 10mg daily. (8) DVT prophylaxis: Plan: SCDs - Holding heparin given recent GI bleed Admission and Anticipated Discharge Date Admission Date: August 11, 2021 Subjective Doing well. No further bloody BMs since yesterday. Abdominal pain is stable, but no worse. Reports no fevers/chills, chest pain, shortness of breath, nausea, or vomiting. Physical Exam Constitutional: WD/WN, vitals as above Eyes: EOM intact bilaterally; no conjunctival abnormality ENMT: external ear and nose normal, oropharynx normal Neck: trachea midline, no thyromegaly normal visual inspection Respiratory: normal respiratory effort, lungs clear to auscultation no respiratory distress Cardiovascular: RRR, no murmur, no edema Gastrointestinal (Abdomen): Inspection/Auscultation: + abdominal surgical drain present (Pleur-X with bandage over it.); abdomen not distended Musculoskeletal: no cyanosis or clubbing, extremities motor strength 5/5 Skin: no rashes, warm and dry Neurologic: moves all extremities and awake Psychiatric: Orientation: alert, oriented to person and cooperative Results & Data Results & Data ([facility]) Vital Signs (Past 12 Hours) Vital Signs Temp Pulse Pulse Resp BP Pulse Ox 08/16/21 07:38 65 08/16/21 03:34 36.9 C 65 14 123/59 L 98 08/16/21 00:00 74 PG Care Time/CCT Total # of Minutes Spent Total Time Spent with Patient: Total time spent is greater than 50% in coordination of care (as documented) at patient's floor/unit and/or counseling patient: Coding Level of Care Code 73676 Subseq Hosp Care Lvl 2 Diagnoses GI bleed K92.2 GI bleed type/associated pathology: unspecified gastrointestinal hemorrhage type Liver cirrhosis K74.60 Esophageal varices I85.00 Rectal adenocarcinoma C20 Anemia D64.9 Anemia type: unspecified type Hypertension I10 Depression F32.9 DVT prophylaxis Z29.9 (1) GI bleed GI bleed type/associated pathology: unspecified gastrointestinal hemorrhage type Qualified Code(s): K92.2 - Gastrointestinal hemorrhage, unspecified (2) Anemia Anemia type: unspecified type Qualified Code(s): D64.9 - Anemia, unspecified
[2021-08-16] MEDS: CHOLECALCIFEROL 1,000 UNITS 25 MCG TAB PO SCH (12:25)
[2021-08-16] MEDS: ASCORBIC ACID 500 MG TAB PO SCH (12:25)
[2021-08-16] MEDS: cefTRIAXone SODIUM 1,000 MG in DEXTROSE 5% 50 ML IV SCH (15:45)
[2021-08-16] MEDS: HEPARIN 100 UNIT/ML 5ML FLUSH FLUSH PRN ×2 (16:30→22:08)
[2021-08-16] MEDS: ALBUMIN 25% 100 mL 25 GM/100 ML VIAL IV SCH (20:03)
[2021-08-16] MEDS: MULTIVITAMIN TAB PO SCH (20:17)
[2021-08-17] MEDS: ALBUMIN 25% 100 mL 25 GM/100 ML VIAL IV SCH (02:29)
[2021-08-17] MEDS: HEPARIN 100 UNIT/ML 5ML FLUSH FLUSH PRN (04:25)
[2021-08-17 06:21] LABS: Hemoglobin 7.3 g/dL (14.0-18.0); Mean Corpuscular Hemoglobin 29.4 pg (25-34); Mean Corpuscular Hgb Conc 33.2 g/dL (32-36); Mean Corpuscular Volume 88.7 fL (80-100); Mean Platelet Volume 9.2 fL (7.4-10.4); Platelet Count 132 K/uL (130-400); RDW Coefficient of Variation 19.3 % (11.5-14.5); Red Blood Count 2.48 M/uL (4.7-6.1); White Blood Count 8.79 K/uL (4.8-10.8)
[2021-08-17 06:40] LABS: Albumin Globulin Ratio 1.4 (0.9-2); BUN Creatinine Ratio 16.3 (10-20); Bilirubin,Total 0.4 mg/dl (0.2-1.0); Calcium 7.2 mg/dl (8.5-10.1); Creatinine Clr Calc Pharmacy 67.1 ml/min; Est GFR (Non-African American) 81.1 ml/min; Globulin 2.1 gm/dl (2.5-4.0); Potassium 3.8 mmol/L (3.5-5.1); Total Protein 5.1 gm/dl (6.0-8.3)
[2021-08-17] MEDS ORDERED: SODIUM CHLORIDE 0.9% 250 ML IV PRN (07:24)
[2021-08-17] MEDS: SPIRONOLACTONE 25 MG TAB PO SCH (08:20)
[2021-08-17] MEDS: FUROSEMIDE 20 MG TAB PO SCH (08:21)
[2021-08-17] MEDS: POLYETHYLENE (MIRALAX) 17 GM PACK PO SCH (08:21)
[2021-08-17] MEDS: PANTOprazole 40 MG in SYRINGE 0 ML IV SCH (08:21)
[2021-08-17] MEDS: ESCITALOPRAM OXALATE 10 MG TAB PO SCH (08:21)
[2021-08-17] MEDS: CHOLECALCIFEROL 1,000 UNITS 25 MCG TAB PO SCH (11:05)
[2021-08-17] MEDS: ASCORBIC ACID 500 MG TAB PO SCH (11:05)
--- NOTE | 2021-08-17 14:33 | Discharge Summary ---
Date of Service August 17, 2021 Admission HPI Per Admitting Provider Patient is a 76-year-old male with past medical history of of metastatic rectal cancer, hypertension, and depression who presents today with blood in stool. Patient has ostomy in place, reports noticing around 3 AM bright red blood in it that had not been present earlier yesterday afternoon. He had been previously feeling well, has intermittent abdominal pain secondary to liver met resection in the summer w/ constipation, and did notice that was slightly worse over the past day, describes it as cramping sensation. Otherwise without complaints, no fever/chills, chest pain, palpitations, shortness of breath, nausea, vomiting, hematemesis, diarrhea. Has not noticed clots in ostomy. He is not on any NSAIDs or blood thinners. Was recently admitted to our facility the end of January 2021 for variceal bleed which required banding at that time. He has a Pleurx drain in place for ascites and a right-sided port. Receives chemo every 2 weeks, last treatment Saturday, 07/05. In ED, vital signs stable, within normal limits. Routine labs significant for WBC 4.12, Hgb 7.3, PT 31 6, INR 1.3. Patient started on octreotide, Protonix drip in ED. GI consulted, with plans for EGD later this afternoon. Hospitalist service was consulted for further valuation and admission. Principal Diagnosis Variceal bleed Discharge Exam Constitutional WD/WN, vitals as above Eyes EOM intact bilaterally; no conjunctival abnormality ENMT external ear and nose normal, oropharynx normal Neck trachea midline, no thyromegaly normal visual inspection Respiratory normal respiratory effort, lungs clear to auscultation no respiratory distress Cardiovascular RRR, no murmur, no edema Gastrointestinal (Abdomen) Inspection/Auscultation: + abdominal surgical drain present (Pleur-X with bandage over it.); abdomen not distended Musculoskeletal no cyanosis or clubbing, extremities motor strength 5/5 Skin no rashes, warm and dry Neurologic moves all extremities and awake Psychiatric Orientation: alert, oriented to person and cooperative Discharge Data Allergies Allergy/AdvReac Type Severity Reaction Status Date / Time No Known Drug Allergies Allergy Verified 08/11/21 10:27 Consultations 08/11/21 10:56 ED Decision to Admit Stat Procedures Performed Operation Date: 08/11/21 17:00 Actual Procedures p EGD Banding of Varices - Jacques Marsh MD Ordered Studies 08/15/21 09:45 CT angio abd pelvis wo/w con Routine Hospital Course (1) GI bleed: Acute, due to esophageal varices. Hgb 7.3; was 8.1 on 08/09. History of esophageal variceal bleed in January 2020 with banding. Portal hypertensive gastropathy causing bleeding esophageal varices. - Appreciate GI management, EGD 08/11 with successful banding - Octreotide drip for 5 days - Finished on 08/16 - Protonix 40 mg IV BID to PO BID forever. - Ceftriaxone 1 g daily for 7 days for SBP ppx -> GI did approve of switching to Omnicef for final 2 days. There was some concern for SBP, but peritoneal culture grew no bacteria. - S/p 1 unit PRBCs 08/11, 08/14, and 08/17. Further BRBPR on 08/15, but none on 08/16 or 08/17. Hemoglobin did fall on 08/17, but no signs of bleeding, hemodynamics were stable, and patient felt well. Thought to be poor bone marrow response. (2) Liver cirrhosis: Pleurx drain in place. Drains every other day at home average output 1100 mL. Drained on 08/13 with 800 mL output. - Lasix 20 mg daily and spironolactone 25 mg daily - With rising leukocytosis and ongoing abdominal pain, will get blood and peritoneal cultures. -- Peritoneal fluid without sign of SBP. Culture negative at time of discharge. (3) Esophageal varices: History of esophageal variceal bleed in January 2020 with banding. - Plan as above. (4) Rectal adenocarcinoma: -With mets to liver, liver cirrhosis, esophageal varices. -Colectomy with ostomy in place. Pleurx drain placed. Right-sided port. -Chemo every 2 weeks, last treatment Wednesday 08/02. -Liver met resection with [facility] in October 2020. - Oxycodone 5 mg 6h at home for pain (5) Anemia: -Hgb 7.3 on admission, usually has iron transfusions at [facility]. Was scheduled for one on day of admission. - S/p 3 units packed RBCs. - Will follow H&H -> Last transfusion was on 08/17. Plan to f/u with oncologist next week. (6) Hypertension: Stable, normotensive. - Continue spironolactone and Lasix (7) Depression: - Continue lexapro 10mg daily. (8) DVT prophylaxis: SCDs - Holding heparin given recent GI bleed Total Time Total Time Spent Total Time Spent (In Minutes): 35 Discharge Plan Discharge Items Patient Disposition: Home - Home Health Services Reason For Visit: ESOPHAGEAL VARICEAL BLEED Discharge Diagnosis: Esophageal varice bleed Activity: Resume your previous activity Non-emergency contact: Primary Care Provider, Hub Associate and Oncologist Call non-emergency contact if: your symptoms worsen, your pain is worsening and your temperature is above 101 Follow-up/Referrals: Ian Mccartney DO [Primary Care Provider] - 08/23/21 3:00 pm Diet: Heart Healthy Addtl Attending Provider Instructions: Mr. Ash, You were admitted to the hospital with a variceal bleed. This is the same kind of bleed as last January. We were able to band the varices and stop the bleeding. You had some small bleeding that may have been some irritation from the prior surgery site, but overall, you did well, and we do not have concerns that you are still bleeding. We ended up giving you 3 units of blood while you were here, as well as your albumin. Please take the antibiotics until they are gone (just 2 days). The first dose is tonight before bedtime. Please take the acid blocking medication (pantoprazole) twice a day indefinitely to help prevent further GI bleeding. Please follow-up with Dr. Romo for your further cancer therapies. Please return to the hospital with any further bleeding from your ostomy site or any other concerning symptoms. Pending Studies at Discharge: No Stand-Alone Forms: My [facility] [employer], Opioid Pain Management, Smoking Cessation Medications and DC Order Prescriptions: New cefdinir 300 mg capsule 300 mg PO BID Qty: 5 RF: 0 pantoprazole 40 mg tablet,delayed release (DR/EC) 40 mg PO BID Qty: 60 RF: 1 Continued multivitamin [Daily Multi-Vitamin] tablet 1 tab PO HS RF: 0 ascorbic acid (vitamin C) [Vitamin C] 1,000 mg Tablet 1,500 mg PO 1200 RF: 0 coenzyme Q10 [CoQ-10] 30 mg Capsule 30 mg PO HS RF: 0 cholecalciferol (vitamin D3) [Vitamin D3] 2,000 unit Tablet 3,000 unit PO 1200 RF: 0 escitalopram oxalate [Lexapro] 10 mg tablet 10 mg PO QAM RF: 0 Probiotic 3 billion cell Capsule 3,000 mmu cells PO QAM RF: 0 polyethylene glycol 3350 [Miralax] 17 gram/dose Powder 17 g PO QAM RF: 0 spironolactone 25 mg tablet 25 mg PO QAM RF: 0 furosemide [Lasix] 20 mg tablet 20 mg PO QAM RF: 0 oxycodone 5 mg tablet 5 mg PO Q6H PRN (Reason: Pain) Qty: 30 RF: 0 Discharge Orders: Discharge Order (Routine); Ordered 08/17/21 Ordered By: Philip Phillips/Other Patient Handouts: Cefdinir Oral Capsule 300 mg Admission Data Admit Date/Time: 08/11/21 11:14 Attending Provider: Philip Cifuentes Admit Provider: Tony Gill Primary Care Provider: Ian Mccartney Other Providers: [facility],Home Healthcare ; Philip Cifuentes ; Tony Gill Other Interventions: Discharge Summary Assessment (RN) Last Done: 08/17/21 13:39 Coding Level of Care Code D/C DAY MANAGEMENT >30 MINS Diagnoses GI bleed K92.2 GI bleed type/associated pathology: unspecified gastrointestinal hemorrhage type Liver cirrhosis K74.60 Esophageal varices I85.00 Rectal adenocarcinoma C20 Anemia D64.9 Anemia type: unspecified type Hypertension I10 Depression F32.9 DVT prophylaxis Z29.9
== END 2021-08-17 15:04 | disposition home health service (06) | DRG 441 ==
LOC: ED 09:34 → 2E 11:14 → SUATTDRO 11:14 → 2E 12:12 → 3W 08-16 11:16
DX: C20 Malignant neoplasm of rectum; N40.0 Benign prostatic hyperplasia without lower urinary tract symptoms; K76.6 Portal hypertension; I85.11 Secondary esophageal varices with bleeding; Z98.42 Cataract extraction status, left eye; C78.7 Secondary malignant neoplasm of liver and intrahepatic bile duct; D62 Acute posthemorrhagic anemia; K31.89 Other diseases of stomach and duodenum; R18.8 Other ascites; Z98.41 Cataract extraction status, right eye; Z95.9 Presence of cardiac and vascular implant and graft, unspecified; C19 Malignant neoplasm of rectosigmoid junction; E78.1 Pure hyperglyceridemia; M19.90 Unspecified osteoarthritis, unspecified site; Z93.3 Colostomy status; K74.60 Unspecified cirrhosis of liver; F32.A Depression, unspecified; Z96.652 Presence of left artificial knee joint

== ENCOUNTER 2021-09-21 10:36 | Inpatient (IN) ==
[2021-09-21] MEDS ORDERED: SODIUM CHLORIDE 0.9% 1000ML 1,000 ML IV STA (10:49)
[2021-09-21] MEDS ORDERED: SODIUM CHLORIDE 0.9% 250 ML IV PRN ×2 (10:58→21:03)
[2021-09-21] MEDS ORDERED: PANTOPRAZOLE BOLUS/DRIP 1 EA IV STA (11:01)
[2021-09-21] MEDS ORDERED: OCTREOTIDE ACETATE 50 MCG in SYRINGE 9.5 ML IV STA (11:01)
[2021-09-21] MEDS ORDERED: PANTOprazole 80 MG in DEXTROSE 5% 100 ML IV ONE (11:01)
[2021-09-21] MEDS ORDERED: STAT IV STA (11:01)
--- NOTE | 2021-09-21 11:01 | Emergency Department Note ---
Impression & Plan GIB (gastrointestinal bleeding) ADMIT ED Provider Note HPI: Patient is a 76-year-old gentleman with history of metastatic colon cancer, status post ostomy placement, currently on chemotherapy, presents the emergency department with a chief complaint of GI bleeding. Patient has had some weakness and increased bloody output through his ostomy since yesterday. He does have a history of esophageal varices. On arrival to the ED the patient complains of some abdominal discomfort, he is noted to have blood-tinged output through his ostomy bag. He is noted to be hypotensive in the 80s systolic but is alert, he is saturating well on room air and does not in any acute distress on my initial evaluation. ROS: -GI: GI bleed *10 point review systems was conducted and is otherwise negative unless stated above *Outpatient medications and allergy history reviewed PE: General: Alert, NAD HEENT: Normocephalic, atraumatic Eyes: Extraocular eye movement is intact, no scleral erythema Pulmonary: Clear to auscultation bilaterally, no wheezing Cardio: Regular rate and rhythm GI: Abdomen is soft, mild tenderness to palpation, hemorrhagic output noted in ostomy bag : No suprapubic tenderness MSK: No evidence of trauma or malformation of the extremities, no edema Skin: No evidence of rash Neuro: Alert, no focal deficits Psychiatric: Cooperative night monitor: - An order was placed for continuous cardiac monitoring - Patient was noted to be in sinus rhythm with rate of 70 EKG: Rate: 65 Rhythm: Normal sinus rhythm Intervals: QTC 505, otherwise within normal limits ST changes: No ST elevation Time: 1114 Medical Decision Making: Patient presented to the emergency department with some abdominal discomfort and bloody output through his ostomy bag. On arrival he is hypotensive in the 80s systolic but otherwise alert and saturating well on room air. IV was established, IV fluid bolus ordered, lab work was obtained. Lab work shows a hemoglobin of 7.7 which does appear to be an acute change from several weeks ago and his hemoglobin was 9.5. Lactate also elevated at 4.0, suspect this is secondary to blood loss, patient was IV fluid resuscitated and ordered packed red blood cells. He is not noted to be on any anticoagulation. Protonix bolus and drip was ordered as well as octreotide bolus. I discussed the patient's presentation at this time with on-call gastroenterology, Dr. Marsh, who is familiar with the patient, states that the variceal banding procedure done on 08/11 did not show much hemorrhage to suggest that this would be potentially the source. Dr. Marsh is concerned about possible intestinal mass versus bleeding diverticulitis and therefore suggesting at this time we obtain a tagged red blood cell scan for further assessment. I did contact nuclear medicine and this is possible to have this performed today but not until about 6 PM. Patient was ordered 2 units packed red blood cells with 2 on hold, transfusion was initiated, following IV fluid resuscitation with blood now actively being transfused the patient's blood pressure improved to 104/58. He is alert and otherwise appears well, his abdominal pain is improved with IV morphine. Dr. Marsh did evaluate the patient at the bedside. At this time given that scan will not be performed until 6 AM patient will be admitted to the hospitalist service for further management, GI consultation, and to continue blood transfusion. I discussed this with the patient and his at the bedside and they are in agreement. Case was discussed with the on-call hospitalist, Dr. Lowe, and patient was admitted in stable condition for further care Critical care time: 45 minutes -Stabilization of upper GI bleed with hemoglobin of 7.7 with active bleeding re quiring packed red blood cell transfusion for hypotension, time spent at the bedside, interpretation of diagnostic studies, discussion with subspecialty services/gastroenterology, arrangement of admission Diagnosis: 1. GI bleeding, upper, acute 2. History of ostomy 3. History of metastatic cancer 4. Anemia, acute on chronic 5. Lactic acidosis Disposition: ADMIT Consultations: Gastroenterology/Dr. 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 Chemotherapy comprised of Xeloda Status post AP resection as well as resection of liver metastasis wedge resection segment 3 06/02/2015 Final stage ypT3 ypN0 ypM1a Will complete 6 months of adjuvant chemotherapy with Xeloda and Avastin" On 04/22/15 10:54 Kerline Schultz wrote "Rectal pain and bleeding Status post colonoscopy and biopsy 07/05/2014 revealing adenocarcinoma the rectum moderately differentiated Staging workup revealed liver and lung metastasis Systemic chemotherapy 3 cycles of FOLFOX with addition of Avastin on the third cycle Resolution of lung metastasis and excellent response of liver lesions Plan for neoadjuvant radiation and chemotherapy Radiation therapy was completed 03/28/2015 received 5180 cGy. Chemotherapy comprised of Xeloda Will undergo bowel resection as well as liver resection" On 04/04/15 12:41 Kerline Schultz wrote "Rectal pain and bleeding Status post colonoscopy and biopsy 07/05/2014 revealing adenocarcinoma the rectum moderately differentiated Staging workup revealed liver and lung metastasis Systemic chemotherapy Resolution of lung metastasis and excellent response of liver lesions Plan for neoadjuvant radiation and chemotherapy Radiation therapy was completed 03/28/2015 received 5180 cGy. Chemotherapy comprised of Xeloda Will undergo bowel resection as well as liver resection" Recurrent epistaxis Seborrheic dermatitis Vitamin D deficiency Surgical History H/O colonoscopy History of bowel resection History of colostomy History of surgery closed treatment of fracture of tibial shaft 1975- bolt/natalie placement History of total knee replacement LEFT History of vascular access device present to right chest Hx of cataract surgery RIGHT/ LEFT Hx of resection of liver Family History Mother Hypertension Coronary heart disease Myocardial infarction Ischemic stroke Uncle Cancer Father Myocardial infarction Other No family history of adverse response to anesthesia No family history of bleeding disorder Denies family history of Ovarian cancer Prostate cancer Breast cancer Colorectal cancer Social History Smoking Status: Former smoker Tobacco Type: Cigarettes Second Hand Exposure: No; Hx Alcohol Use: Yes Alcohol type: beer Hx Substance Use: No Preferred Language: B[place] Communication Ability: Effective Visual Impairment: No Limitations Hearing Ability: Normal Advertising Assistant Required: No Beliefs That Will Affect Care: None marital status: Current Living Situation: Spouse current occupational status: retired How many Children do You have: 2 Feels Safe at Home: Yes Seatbelt Use: always Sunscreen Use: Yes Assistive Devices: None Allergies Allergies Allergy/AdvReac Type Severity Reaction Status Date / Time No Known Drug Allergies Allergy Verified 09/21/21 13:42 Home Meds Home Medications Medication Instructions Recorded Confirmed coenzyme Q10 30 mg capsule (CoQ-10) 30 mg PO HS 01/31/18 09/21/21 multivitamin (Daily Multi-Vitamin) 1 tab PO HS 10/17/18 09/21/21 escitalopram oxalate 10 mg tablet 10 mg PO QAM 10/26/19 09/21/21 (Lexapro) lactobacillus combination no.4 3 3,000 mmu cells PO QAM 10/26/19 09/21/21 billion cell capsule (Probiotic) polyethylene glycol 3350 17 17 g PO QAM 12/21/20 09/21/21 gram/dose oral powder (Miralax) furosemide 20 mg tablet (Lasix) 20 mg PO QAM 08/11/21 09/21/21 spironolactone 25 mg tablet 25 mg PO QAM 08/11/21 09/21/21 ascorbic acid (vitamin C) 1,000 mg 1,000 mg PO QDL tab 08/23/21 09/21/21 tablet (Vitamin C) cholecalciferol (vitamin D3) 50 3,000 unit PO QDL tab 08/23/21 09/21/21 mcg (2,000 unit) tablet (Vitamin D3) sennosides 8.6 mg-docusate sodium 1 tab-cap PO BID 09/21/21 09/21/21 50 mg tablet (Senokot-S) Previous Rx's Medication Instructions Recorded oxycodone 5 mg tablet 5 mg PO Q6H PRN #30 tab 08/17/21 pantoprazole 40 mg tablet,delayed 40 mg PO BID #60 tab 08/17/21 release Results & Data (ED) Vital Signs Vital Signs - 24 hr 09/21/21 10:40 09/21/21 11:00 09/21/21 11:15 Temperature 36.4 C L Temperature Source Temporal Artery Scan Pulse Rate 78 70 74 Pulse Rate from SpO2 Sensor 70 Respiratory Rate 14 18 16 Blood Pressure 86/55 L 88/48 L Blood Pressure Mean 65 61 Blood Pressure Position Pulse Oximetry 100 100 Oxygen Delivery Method Room Air Sepsis Recent Fever Within 48 Hours No Sepsis New/Unexplained Change in Mental Status No Sepsis Action Taken by Nursing No Action Required 09/21/21 11:16 09/21/21 11:30 09/21/21 11:45 Temperature Temperature Source Pulse Rate 67 63 56 L Pulse Rate from SpO2 Sensor 63 61 Respiratory Rate 12 13 20 Blood Pressure 91/57 L 94/58 L 91/42 L Blood Pressure Mean 68 70 58 Blood Pressure Position Pulse Oximetry 100 100 Oxygen Delivery Method Sepsis Recent Fever Within 48 Hours Sepsis New/Unexplained Change in Mental Status Sepsis Action Taken by Nursing 09/21/21 12:00 09/21/21 12:15 09/21/21 12:34 Temperature Temperature Source Pulse Rate 64 68 70 Pulse Rate from SpO2 Sensor 69 71 Respiratory Rate 12 13 18 Blood Pressure 102/56 L 103/59 L 86/53 L Blood Pressure Mean 71 73 64 Blood Pressure Position Pulse Oximetry 100 100 Oxygen Delivery Method Sepsis Recent Fever Within 48 Hours Sepsis New/Unexplained Change in Mental Status Sepsis Action Taken by Nursing 09/21/21 12:45 09/21/21 12:53 09/21/21 13:00 Temperature 36.3 C L Temperature Source Oral Pulse Rate 73 73 69 Pulse Rate from SpO2 Sensor 73 74 70 Respiratory Rate 18 15 15 Blood Pressure 81/51 L 95/57 L Blood Pressure Mean 61 69 Blood Pressure Position Semi-fowlers Pulse Oximetry 100 100 100 Oxygen Delivery Method Sepsis Recent Fever Within 48 Hours Sepsis New/Unexplained Change in Mental Status Sepsis Action Taken by Nursing 09/21/21 13:01 09/21/21 13:05 09/21/21 13:11 Temperature 36.2 C L Temperature Source Oral Pulse Rate 71 72 72 Pulse Rate from SpO2 Sensor 73 72 Respiratory Rate 15 12 16 Blood Pressure 94/55 L 102/58 L 93/51 L Blood Pressure Mean 68 72 65 Blood Pressure Position Lying Pulse Oximetry 100 100 Oxygen Delivery Method Sepsis Recent Fever Within 48 Hours Sepsis New/Unexplained Change in Mental Status Sepsis Action Taken by Nursing 09/21/21 13:15 09/21/21 13:20 09/21/21 13:25 Temperature Temperature Source Pulse Rate 70 75 73 Pulse Rate from SpO2 Sensor 69 75 73 Respiratory Rate 12 16 14 Blood Pressure 88/54 L 89/53 L 97/56 L Blood Pressure Mean 65 65 69 Blood Pressure Position Pulse Oximetry 100 100 100 Oxygen Delivery Method Sepsis Recent Fever Within 48 Hours Sepsis New/Unexplained Change in Mental Status Sepsis Action Taken by Nursing 09/21/21 13:26 09/21/21 13:30 09/21/21 13:35 Temperature 36.4 C L Temperature Source Oral Pulse Rate 71 70 75 Pulse Rate from SpO2 Sensor 70 80 Respiratory Rate 14 14 12 Blood Pressure 97/56 L 101/57 L 95/58 L Blood Pressure Mean 69 71 70 Blood Pressure Position Semi-fowlers Pulse Oximetry 97 100 100 Oxygen Delivery Method Sepsis Recent Fever Within 48 Hours Sepsis New/Unexplained Change in Mental Status Sepsis Action Taken by Nursing 09/21/21 13:40 09/21/21 13:45 09/21/21 13:50 Temperature Temperature Source Pulse Rate 72 71 76 Pulse Rate from SpO2 Sensor 72 70 76 Respiratory Rate 11 L 15 14 Blood Pressure 90/57 L 102/61 110/61 Blood Pressure Mean 68 74 77 Blood Pressure Position Pulse Oximetry 100 100 100 Oxygen Delivery Method Sepsis Recent Fever Within 48 Hours Sepsis New/Unexplained Change in Mental Status Sepsis Action Taken by Nursing 09/21/21 13:55 09/21/21 13:56 09/21/21 14:00 Temperature 36.9 C Temperature Source Oral Pulse Rate 77 72 75 Pulse Rate from SpO2 Sensor 78 74 Respiratory Rate 17 14 19 Blood Pressure 99/63 L 99/63 L 102/59 L Blood Pressure Mean 75 75 73 Blood Pressure Position Pulse Oximetry 100 100 100 Oxygen Delivery Method Sepsis Recent Fever Within 48 Hours Sepsis New/Unexplained Change in Mental Status Sepsis Action Taken by Nursing 09/21/21 14:05 09/21/21 14:10 09/21/21 14:15 Temperature Temperature Source Pulse Rate 69 68 74 Pulse Rate from SpO2 Sensor 69 67 73 Respiratory Rate 14 17 15 Blood Pressure 109/59 L 105/59 L 108/61 Blood Pressure Mean 75 74 76 Blood Pressure Position Pulse Oximetry 100 100 100 Oxygen Delivery Method Sepsis Recent Fever Within 48 Hours Sepsis New/Unexplained Change in Mental Status Sepsis Action Taken by Nursing 09/21/21 14:20 09/21/21 14:25 Temperature Temperature Source Pulse Rate 69 70 Pulse Rate from SpO2 Sensor 69 70 Respiratory Rate 17 15 Blood Pressure 109/69 104/58 L Blood Pressure Mean 82 73 Blood Pressure Position Pulse Oximetry 100 100 Oxygen Delivery Method Sepsis Recent Fever Within 48 Hours Sepsis New/Unexplained Change in Mental Status Sepsis Action Taken by Nursing Laboratory Data Result diagrams: 09/21/21 10:54 09/21/21 10:54 Lab Results 09/21/21 09/21/21 09/21/21 Range/Units 10:54 10:54 10:54 WBC 9.49 (4.8-10.8) K/uL RBC 2.79 L (4.7-6.1) M/uL Hgb 7.7 L (14.0-18.0) g/dL Hct 24.7 L (42-52) % MCV 88.5 (80-100) fL MCH 27.6 (25-34) pg MCHC 31.2 L (32-36) g/dL RDW Std Deviation 60.7 H (36.4-46.3) fL RDW Coeff of Sarah 19.1 H (11.5-14.5) % Plt Count 104 L (130-400) K/uL MPV 10.2 (7.4-10.4) fL Neutrophils % (Manual) 70.2 % Lymphocytes % (Manual) 14.0 % Monocytes % (Manual) 10.5 % Eosinophils % (Manual) 1.8 % Basophils % (Manual) 3.5 % Neutrophils # (Manual) 6.66 H (1.4-6.5) K/uL Total Absolute Neuts 6.66 H (1.4-6.5) K/uL Lymphocytes # (Manual) 1.33 (1.2-3.4) K/uL Total Abs Lymphocytes 1.33 (1.2-3.4) K/uL Monocytes # (Manual) 1.00 H (0.11-0.59) K/uL Eosinophils # (Manual) 0.17 (0-0.5) K/uL Basophils # (Manual) 0.33 H (0-0.2) K/uL Dohle Bodies 1+ Polychromasia 1+ Anisocytosis Present Sodium 134 L (136-145) mmol/L Potassium 3.6 (3.5-5.1) mmol/L Chloride 105 (98-107) mmol/L Carbon Dioxide 19 L (21-32) mmol/L Anion Gap 10 (3-11) BUN 18 (6-23) mg/dl Creatinine 0.93 (0.6-1.4) mg/dl Est Cr Clr Drug Dosing Not Reportable Est GFR ( Amer) 92.7 ml/min Est GFR (Non-Af Amer) 80.0 ml/min BUN/Creatinine Ratio 19.4 (10-20) Glucose 134 H (70-99(Fasting)) mg/dl Lactate 4.0 H* (0.4-2.0) mmol/L Calcium 8.5 (8.5-10.1) mg/dl Total Bilirubin 1.9 H (0.2-1.0) mg/dl AST 32 (13-39) U/L ALT 25 (7-52) U/L Alkaline Phosphatase 310 H (34-104) U/L Total Protein 5.8 L (6.0-8.3) gm/dl Albumin 3.0 L (3.4-5.0) gm/dl Globulin 2.8 (2.5-4.0) gm/dl Albumin/Globulin Ratio 1.1 (0.9-2) Lipase 23 (11-82) U/L SARS-CoV-2, RNA, NAAT (NEGATIVE) Blood Type Antibody Screen Crossmatch 09/21/21 09/21/21 Range/Units 10:54 12:43 WBC (4.8-10.8) K/uL RBC (4.7-6.1) M/uL Hgb (14.0-18.0) g/dL Hct (42-52) % MCV (80-100) fL MCH (25-34) pg MCHC (32-36) g/dL RDW Std Deviation (36.4-46.3) fL RDW Coeff of Sarah (11.5-14.5) % Plt Count (130-400) K/uL MPV (7.4-10.4) fL Neutrophils % (Manual) % Lymphocytes % (Manual) % Monocytes % (Manual) % Eosinophils % (Manual) % Basophils % (Manual) % Neutrophils # (Manual) (1.4-6.5) K/uL Total Absolute Neuts (1.4-6.5) K/uL Lymphocytes # (Manual) (1.2-3.4) K/uL Total Abs Lymphocytes (1.2-3.4) K/uL Monocytes # (Manual) (0.11-0.59) K/uL Eosinophils # (Manual) (0-0.5) K/uL Basophils # (Manual) (0-0.2) K/uL Dohle Bodies Polychromasia Anisocytosis Sodium (136-145) mmol/L Potassium (3.5-5.1) mmol/L Chloride (98-107) mmol/L Carbon Dioxide (21-32) mmol/L Anion Gap (3-11) BUN (6-23) mg/dl Creatinine (0.6-1.4) mg/dl Est Cr Clr Drug Dosing Est GFR ( Amer) ml/min Est GFR (Non-Af Amer) ml/min BUN/Creatinine Ratio (10-20) Glucose (70-99(Fasting)) mg/dl Lactate (0.4-2.0) mmol/L Calcium (8.5-10.1) mg/dl Total Bilirubin (0.2-1.0) mg/dl AST (13-39) U/L ALT (7-52) U/L Alkaline Phosphatase (34-104) U/L Total Protein (6.0-8.3) gm/dl Albumin (3.4-5.0) gm/dl Globulin (2.5-4.0) gm/dl Albumin/Globulin Ratio (0.9-2) Lipase (11-82) U/L SARS-CoV-2, RNA, NAAT NEGATIVE (NEGATIVE) Blood Type A Positive Antibody Screen NEGATIVE Crossmatch See Detail Administered Medications Pantoprazole Sodium 40 mg/ (Dextrose) 100 mls @ 20 mls/hr IV Q5H [id number] Stop: 10/21/21 11:29 Last Admin: 09/21/21 12:26 Dose: 8 mg/hr, 20 mls/hr Documented by: [id number] Discontinued Medications Sodium Chloride (Nss 1000ml) 1,000 mls @ 999 mls/hr IV .Q1H1M STA Stop: 09/21/21 11:49 Last Infusion: 09/21/21 13:30 Dose: 0 mls/hr Documented by: [id number] Admin: 09/21/21 11:02 Dose: 999 mls/hr Documented by: [id number] Pantoprazole Sodium (Protonix Bolus/Drip) 0 mls @ 1 mls/hr IV ONE STA Stop: 09/21/21 11:02 Last Admin: 09/21/21 12:27 Dose: 1 mls/hr Documented by: [id number] Pantoprazole Sodium 80 mg/ (Dextrose) 120 mls @ 400 mls/hr IV NOW ONE Stop: 09/21/21 11:18 Last Infusion: 09/21/21 13:30 Dose: 0 mls/hr Documented by: [id number] Admin: 09/21/21 11:53 Dose: 400 mls/hr Documented by: [id number] Octreotide Acetate 50 mcg/ (Syringe) 10 mls @ 3 mls/min IV ONE STA Stop: 09/21/21 11:04 Last Admin: 09/21/21 11:47 Dose: 3 mls/min Documented by: [id number] Miscellaneous (Stat Iv) 1 ea N/A NOW STA Stop: 09/21/21 11:02 Last Admin: 09/21/21 12:26 Dose: 1 ea Documented by: [id number] Morphine Sulfate (Morphine Sulfate 4 Mg/Ml 1 Ml Carp\\Vial) 4 mg IV NOW STA Stop: 09/21/21 11:54 Last Admin: 09/21/21 12:01 Dose: 4 mg Documented by: [id number] Morphine Sulfate (Morphine Sulfate 4 Mg/Ml 1 Ml Carp\\Vial) 4 mg IV NOW STA Stop: 09/21/21 12:59 Last Admin: 09/21/21 13:14 Dose: 4 mg Documented by: [id number] Ondansetron HCl (Ondansetron Inj 2 Mg/Ml 2 Ml Vial) 4 mg IV NOW STA Stop: 09/21/21 11:54 Last Admin: 09/21/21 12:00 Dose: 4 mg Documented by: [id number] Discharge Plan Visit Data Chief Complaint: Rectal Bleed Stated Complaint: RECTAL BLEED ED Provider: Javan Adorno Discharge Problem: GIB (gastrointestinal bleeding) Forms Stand Alone Forms: Replaced By [facility] Prescriptions Prescriptions: No Action multivitamin [Daily Multi-Vitamin] tablet 1 tab PO HS RF: 0 coenzyme Q10 [CoQ-10] 30 mg Capsule 30 mg PO HS RF: 0 ascorbic acid (vitamin C) [Vitamin C] 1,000 mg tablet 1,000 mg PO QDL RF: 0 cholecalciferol (vitamin D3) [Vitamin D3] 50 mcg (2,000 unit) tablet 3,000 unit PO QDL RF: 0 escitalopram oxalate [Lexapro] 10 mg tablet 10 mg PO QAM RF: 0 Probiotic 3 billion cell Capsule 3,000 mmu cells PO QAM RF: 0 polyethylene glycol 3350 [Miralax] 17 gram/dose Powder 17 g PO QAM RF: 0 spironolactone 25 mg tablet 25 mg PO QAM RF: 0 furosemide [Lasix] 20 mg tablet 20 mg PO QAM RF: 0 oxycodone 5 mg tablet 5 mg PO Q6H PRN (Reason: Pain) Qty: 30 RF: 0 pantoprazole 40 mg tablet,delayed release (DR/EC) 40 mg PO BID Qty: 60 RF: 1 sennosides-docusate sodium [Senokot-S] 8.6-50 mg Tablet 1 tab-cap PO BID RF: 0 Referrals Referrals: Ian Mccartney DO [Primary Care Provider] - Discharge Problem: GIB (gastrointestinal bleeding) Qualifiers: GI bleed type/associated pathology: unspecified gastrointestinal hemorrhage type Qualified Code(s): K92.2 - Gastrointestinal hemorrhage, unspecified
[2021-09-21 11:16] LABS: Hematocrit (blood only) 24.7 % (42-52); Hemoglobin 7.7 g/dL (14.0-18.0); Mean Corpuscular Hemoglobin 27.6 pg (25-34); Mean Corpuscular Hgb Conc 31.2 g/dL (32-36); Mean Corpuscular Volume 88.5 fL (80-100); Mean Platelet Volume 10.2 fL (7.4-10.4); Platelet Count 104 K/uL (130-400); RDW Coefficient of Variation 19.1 % (11.5-14.5); RDW Standard Deviation 60.7 fL (36.4-46.3); Red Blood Count 2.79 M/uL (4.7-6.1); White Blood Count 9.49 K/uL (4.8-10.8)
[2021-09-21 11:36] LABS: Alanine Aminotransferase 25 U/L (7-52); Albumin Globulin Ratio 1.1 (0.9-2); Alkaline Phosphatase 310 U/L (34-104); Anion Gap 10 (3-11); Aspartate Aminotransferase 32 U/L (13-39); BUN Creatinine Ratio 19.4 (10-20); Bilirubin,Total 1.9 mg/dl (0.2-1.0); Blood Urea Nitrogen 18 mg/dl (6-23); Calcium 8.5 mg/dl (8.5-10.1); Carbon Dioxide 19 mmol/L (21-32); Chloride 105 mmol/L (98-107); Est GFR (African American) 92.7 ml/min; Globulin 2.8 gm/dl (2.5-4.0); Glucose 134 mg/dl (70-99(Fasting)); Lipase 23 U/L (11-82); Potassium 3.6 mmol/L (3.5-5.1); Sodium 134 mmol/L (136-145); Total Protein 5.8 gm/dl (6.0-8.3)
[2021-09-21 11:38] LABS: ALC (manual) 1.33 K/uL (1.2-3.4); ANC (manual) 6.66 K/uL (1.4-6.5); Anisocytosis Present; Basophils # (manual) 0.33 K/uL (0-0.2); Basophils % (manual) 3.5 %; Dohle Bodies 1+; Eosinophils # (manual) 0.17 K/uL (0-0.5); Eosinophils % (manual) 1.8 %; Lymphocytes # (manual) 1.33 K/uL (1.2-3.4); Monocytes % (manual) 10.5 %; Neutrophils # (manual) 6.66 K/uL (1.4-6.5); Neutrophils % (manual) 70.2 %; Polychromasia 1+
[2021-09-21] MEDS ORDERED: ONDANSETRON INJ 2 MG/ML 2 ML VIAL IV STA (11:53)
[2021-09-21] MEDS ORDERED: MoRPHine SULFATE 4 MG/ML 1 ML CARP\\VIAL IV STA ×3 (11:53→18:17)
[2021-09-21] MEDS: PANTOprazole 40 MG in DEXTROSE 5% 100 ML IV SCH ×3 (12:26→21:56)
--- NOTE | 2021-09-21 14:55 | Gastrointestinal Consultation ---
Date of Consultation September 21, 2021 Assessment & Plan (1) Elevated bilirubin: (2) Dilated cbd, acquired: (3) Abdominal pain: (4) Metastatic colorectal cancer: (5) GI bleed: acute GI bleeding through his ostomy: suspect diverticular bleeding vs. possible intestinal metastasis causing his bleeding. abd pains, elevated bilirubin: chronic, needs MRCP to work this up further recs: --obtain bleeding scan now to further evaluate, if positive would transfer to tertiary care center with IR capability for angiography and embolization (patient and family prefer [facility] as he gets his cancer care there). --do not suspect his esophageal varices are source of his bleeding, has been banded twice most recently 08/2021 --supportive care, IVFs --if bleeding scan is negative and patient does end up staying here, then would obtain MRCP while inpatient if possible to further evaluate his chronic abd pains and elevated bilirubin Thank you for allowing me to participate in the care of this patient History of Present Illness History of Present Illness 76 yo male with history of metastatic colon cancer, status post ostomy placement, cirrhosis with esophageal varices s/p EVL x 2 here for GI bleeding. He has been fatigued this week and notes this morning having blood per his ostomy, no vomiting. EGD 08/2021 with nonbleeding large esophageal varices that were banded and PHG. colonoscopy in 2019 with diverticulosis. He is being worked up for his chronic abdominal pain and elevated bilirubin as an outpatient, was supposed to get an MRCP not scheduled until 10/03. came in hypotensive, currently improved vitals and getting PRBC transfusion. labs reviewed, Allergies Allergy/AdvReac Type Severity Reaction Status Date / Time No Known Drug Allergies Allergy Verified 09/21/21 13:42 Home Medications Medication Instructions Recorded Confirmed Type coenzyme Q10 30 mg capsule (CoQ-10) 30 mg PO HS 01/31/18 09/21/21 History multivitamin (Daily Multi-Vitamin) 1 tab PO HS 10/17/18 09/21/21 History escitalopram oxalate 10 mg tablet 10 mg PO QAM 10/26/19 09/21/21 History (Lexapro) lactobacillus combination no.4 3 3,000 mmu cells PO QAM 10/26/19 09/21/21 History billion cell capsule (Probiotic) polyethylene glycol 3350 17 17 g PO QAM 12/21/20 09/21/21 History gram/dose oral powder (Miralax) furosemide 20 mg tablet (Lasix) 20 mg PO QAM 08/11/21 09/21/21 History spironolactone 25 mg tablet 25 mg PO QAM 08/11/21 09/21/21 History oxycodone 5 mg tablet 5 mg PO Q6H PRN #30 tab 08/17/21 09/21/21 Rx pantoprazole 40 mg tablet,delayed 40 mg PO BID #60 tab 08/17/21 09/21/21 Rx release ascorbic acid (vitamin C) 1,000 mg 1,000 mg PO QDL tab 08/23/21 09/21/21 History tablet (Vitamin C) cholecalciferol (vitamin D3) 50 3,000 unit PO QDL tab 08/23/21 09/21/21 History mcg (2,000 unit) tablet (Vitamin D3) sennosides 8.6 mg-docusate sodium 1 tab-cap PO BID 09/21/21 09/21/21 History 50 mg tablet (Senokot-S) Patient History Medical History Chronic pain due to malignant neoplastic disease Chronic prostatitis Colostomy in place Depression Diverticulosis Enlarged prostate with lower urinary tract symptoms (LUTS) Essential hypertriglyceridemia Gallstone History of esophageal varices x2 and banded Inhibited sexual excitement Liver cirrhosis Nasal septal deviation Osteoarthritis Rectal adenocarcinoma (07/05/14) "Rectal pain and bleeding Status post colonoscopy and biopsy 07/05/2014 revealing adenocarcinoma the rectum moderately differentiated Staging workup revealed liver and lung metastasis Systemic chemotherapy 3 cycles of FOLFOX with addition of Avastin on the third cycle Resolution of lung metastasis and excellent response of liver lesions Plan for neoadjuvant radiation and chemotherapy Radiation therapy was completed 03/28/2015 received 5180 cGy. Chemotherapy comprised of Xeloda Status post AP resection as well as resection of liver metastasis wedge resection segment 3 06/02/2015 Final stage ypT3 ypN0 ypM1a Will complete 6 months of adjuvant chemotherapy with Xeloda and Avastin" On 04/22/15 10:54 Kerline Schultz wrote "Rectal pain and bleeding Status post colonoscopy and biopsy 07/05/2014 revealing adenocarcinoma the rectum moderately differentiated Staging workup revealed liver and lung metastasis Systemic chemotherapy 3 cycles of FOLFOX with addition of Avastin on the third cycle Resolution of lung metastasis and excellent response of liver lesions Plan for neoadjuvant radiation and chemotherapy Radiation therapy was completed 03/28/2015 received 5180 cGy. Chemotherapy comprised of Xeloda Will undergo bowel resection as well as liver resection" On 04/04/15 12:41 Kerline Schultz wrote "Rectal pain and bleeding Status post colonoscopy and biopsy 07/05/2014 revealing adenocarcinoma the rectum moderately differentiated Staging workup revealed liver and lung metastasis Systemic chemotherapy Resolution of lung metastasis and excellent response of liver lesions Plan for neoadjuvant radiation and chemotherapy Radiation therapy was completed 03/28/2015 received 5180 cGy. Chemotherapy comprised of Xeloda Will undergo bowel resection as well as liver resection" Recurrent epistaxis Seborrheic dermatitis Vitamin D deficiency Surgical History H/O colonoscopy History of bowel resection History of colostomy History of surgery closed treatment of fracture of tibial shaft 1975- bolt/natalie placement History of total knee replacement LEFT History of vascular access device present to right chest Hx of cataract surgery RIGHT/ LEFT Hx of resection of liver Family History Mother Hypertension Coronary heart disease Myocardial infarction Ischemic stroke Uncle Cancer Father Myocardial infarction Other No family history of adverse response to anesthesia No family history of bleeding disorder Denies family history of Ovarian cancer Prostate cancer Breast cancer Colorectal cancer Social History Smoking Status: Former smoker Tobacco Type: Cigarettes Second Hand Exposure: No; Hx Alcohol Use: Yes Alcohol type: beer Hx Substance Use: No Preferred Language: Bahraini Communication Ability: Effective Visual Impairment: No Limitations Hearing Ability: Normal Blog Writer Required: No Beliefs That Will Affect Care: None marital status: Current Living Situation: Spouse current occupational status: retired How many Children do You have: 2 Feels Safe at Home: Yes Seatbelt Use: always Sunscreen Use: Yes Assistive Devices: None Review of Systems Constitutional: no fever, no chills and no weight loss Eyes: as per Subjective / HPI Ear, Nose, Mouth, Throat: as per Subjective / HPI Respiratory: no dyspnea and no dyspnea on exertion Cardiovascular: no chest pain and no palpitations Gastrointestinal: as per Subjective / HPI Musculoskeletal: no joint pain and no swelling Integumentary: no rash and no lesions Neurologic: no numbness and no paresthesia Psychiatric: no depression and no anxiety Endocrine: no fatigue Hematologic / Lymphatic: no easy bleeding and no easy bruising Physical Exam Constitutional: WD/WN, vitals as above Eyes: EOM intact bilaterally Neck: normal visual inspection Respiratory: normal respiratory effort, lungs clear to auscultation Cardiovascular: RRR, no murmur, no edema Gastrointestinal (Abdomen): Inspection/Auscultation: abdomen normal to inspection (ostomy in place); abdomen not distended Percussion/Palpation: + abdomen tender (diffuse mild mid and right abdomen) and abdomen soft; no hepatosplenomegaly Musculoskeletal: Extremities: no cyanosis Gait: normal gait Skin: no rashes, warm and dry Neurologic: moves all extremities Psychiatric: A+Ox3, euthymic affect Results & Data ([facility]) Vital Signs (Past 12 Hours) Vital Signs Temp Pulse Resp BP Pulse Ox 09/21/21 14:25 70 15 104/58 L 100 09/21/21 14:20 69 17 109/69 100 09/21/21 14:15 74 15 108/61 100 09/21/21 14:10 68 17 105/59 L 100 09/21/21 14:05 69 14 109/59 L 100 09/21/21 14:00 75 19 102/59 L 100 09/21/21 13:56 36.9 C 72 14 99/63 L 100 09/21/21 13:55 77 17 99/63 L 100 09/21/21 13:50 76 14 110/61 100 09/21/21 13:45 71 15 102/61 100 09/21/21 13:40 72 11 L 90/57 L 100 09/21/21 13:35 75 12 95/58 L 100 09/21/21 13:30 70 14 101/57 L 100 09/21/21 13:26 36.4 C L 71 14 97/56 L 97 09/21/21 13:25 73 14 97/56 L 100 09/21/21 13:20 75 16 89/53 L 100 09/21/21 13:15 70 12 88/54 L 100 09/21/21 13:11 36.2 C L 72 16 93/51 L 100 09/21/21 13:05 72 12 102/58 L 100 09/21/21 13:01 71 15 94/55 L 09/21/21 13:00 69 15 100 09/21/21 12:53 36.3 C L 73 15 95/57 L 100 09/21/21 12:45 73 18 81/51 L 100 09/21/21 12:34 70 18 86/53 L 100 09/21/21 12:15 68 13 103/59 L 100 09/21/21 12:00 64 12 102/56 L 09/21/21 11:45 56 L 20 91/42 L 100 09/21/21 11:30 63 13 94/58 L 100 09/21/21 11:16 67 12 91/57 L 09/21/21 11:15 74 16 09/21/21 11:00 70 18 88/48 L 100 09/21/21 10:40 36.4 C L 78 14 86/55 L 100 PG Care Time/CCT Total # of Minutes Spent Total Time Spent with Patient: Total time spent is greater than 50% in coordination of care (as documented) at patient's floor/unit and/or counseling patient: Coding Level of Care Code 18019 Initial Inpt Care Lvl 3 Diagnoses Elevated bilirubin R17 Dilated cbd, acquired K83.8 Abdominal pain R10.9 Metastatic colorectal cancer C19 GI bleed K92.2 GI bleed type/associated pathology: unspecified gastrointestinal hemorrhage type (1) GI bleed GI bleed type/associated pathology: unspecified gastrointestinal hemorrhage type Qualified Code(s): K92.2 - Gastrointestinal hemorrhage, unspecified
--- NOTE | 2021-09-21 15:53 | History & Physical Report ---
Date of Service September 21, 2021 Assessment & Plan (1) GIB (gastrointestinal bleeding): Plan: - Acute GI bleeding through his ostomy: suspect diverticular bleeding vs. possible intestinal metastasis causing his bleeding. - GI consulted, appreciate their recommendations: --obtain bleeding scan now to further evaluate, if positive would transfer to tertiary care center with IR capability for angiography and embolization (patient and family prefer [facility] as he gets his cancer care there). --do not suspect his esophageal varices are source of his bleeding, has been banded twice most recently 08/2021 --supportive care, IVFs --if bleeding scan is negative and patient does end up staying here, then would obtain MRCP while inpatient if possible to further evaluate his chronic abd pains and elevated bilirubin - Hgb 7.7, 2 units pRBCS ordered to transfuse in ED with two more on standby. - Trend H/H. - Octreotide, Protonix drip. (2) Abdominal pain: Plan: - Diffuse, since last evening 09/20 in setting of GI bleed. - Supportive care with IV anti emetics, pain medications prn. (3) Anemia: Plan: - Hgb 7.7, trend and transfuse as above. (4) Metastatic colorectal cancer: Plan: - With mets to liver, liver cirrhosis, esophageal varices. - Colectomy with ostomy in place. Pleurx drain placed. Right-sided port. - Chemo every 2 weeks, last treatment Wednesday 09/13. - Liver met resection with [facility] in October 2020. - Oxycodone 5 mg 6h at home for pain, will order IV morphine for pain control while inpatient on n.p.o. status. (5) Esophageal varices: Plan: - Banded in August, currently do not suspect source of GI bleed. Octreotide started prophylactically in ED, continue. (6) Bilateral lower extremity edema: Plan: - Hold lasix for now. (7) Depression: Plan: -Continue lexapro 10mg daily when tolerating po intake. Plan: - Admit to PCU. - SCDs, no chemoppx due to GI bleed. - DNR/DNI. History of Present Illness Chief Complaint: bright red blood in ostomy x 1 day Primary Care Provider: Ian Mccartney DO Patient is a 76-year-old male with past medical history of of metastatic colorectal cancer to liver and depression who presents today with blood in ostomy. Last evening around 9 PM, patient had diffuse abdominal pain, worst in RUQ and epigastric region without radiation to his back. This morning, patient noticed large amount of bright red blood in ostomy with minimal amount of stool. He emptied the bag which was full of blood x2 before presenting to the ED for further evaluation. He reports some shortness of breath and general fatigue over the past 2 days, but denies fever/chills, weakness, chest pain, palpitations, nausea, vomiting, hematemesis. Had an EGD in August 2021 which revealed nonbleeding, large esophageal varices, banded here at that time and received RBCs. He is being worked up for his c hronic abdominal pain and elevated bilirubin as outpatient, was scheduled to have an MRCP later this month. He receives chemotherapy every other week, last treatment 09/13. Patient presented hypotensive with SBP 80-90s, however with IVF and pRBCS improved to 100s. Does have low baseline BP. Vitals otherwise wnl and stable. Labs significant for Hgb 7.7, PLT 104, Na 134, lactate 4.0, repeat ordered. t bili 1.9, alk phos 310. GI consulted by ED provider, who recommend tagged RBC study. Type and cross done in ED, 2 units pRBCs ordered, with one completed in ED and second started. Hospitalist service consulted for further evaluation and admission. Allergies Allergy/AdvReac Type Severity Reaction Status Date / Time No Known Drug Allergies Allergy Verified 09/21/21 13:42 Home Medications Medication Instructions Recorded Confirmed Type coenzyme Q10 30 mg capsule (CoQ-10) 30 mg PO HS 01/31/18 09/21/21 History multivitamin (Daily Multi-Vitamin) 1 tab PO HS 10/17/18 09/21/21 History escitalopram oxalate 10 mg tablet 10 mg PO QAM 10/26/19 09/21/21 History (Lexapro) lactobacillus combination no.4 3 3,000 mmu cells PO QAM 10/26/19 09/21/21 History billion cell capsule (Probiotic) polyethylene glycol 3350 17 17 g PO QAM 12/21/20 09/21/21 History gram/dose oral powder (Miralax) furosemide 20 mg tablet (Lasix) 20 mg PO QAM 08/11/21 09/21/21 History spironolactone 25 mg tablet 25 mg PO QAM 08/11/21 09/21/21 History oxycodone 5 mg tablet 5 mg PO Q6H PRN #30 tab 08/17/21 09/21/21 Rx pantoprazole 40 mg tablet,delayed 40 mg PO BID #60 tab 08/17/21 09/21/21 Rx release ascorbic acid (vitamin C) 1,000 mg 1,000 mg PO QDL tab 08/23/21 09/21/21 History tablet (Vitamin C) cholecalciferol (vitamin D3) 50 3,000 unit PO QDL tab 08/23/21 09/21/21 History mcg (2,000 unit) tablet (Vitamin D3) sennosides 8.6 mg-docusate sodium 1 tab-cap PO BID 09/21/21 09/21/21 History 50 mg tablet (Senokot-S) Past Med/Surg History Medical History Chronic pain due to malignant neoplastic disease Chronic prostatitis Colostomy in place Depression Diverticulosis Enlarged prostate with lower urinary tract symptoms (LUTS) Essential hypertriglyceridemia Gallstone History of esophageal varices x2 and banded Inhibited sexual excitement Liver cirrhosis Nasal septal deviation Osteoarthritis Rectal adenocarcinoma (07/05/14) "Rectal pain and bleeding Status post colonoscopy and biopsy 07/05/2014 revealing adenocarcinoma the rectum moderately differentiated Staging workup revealed liver and lung metastasis Systemic chemotherapy 3 cycles of FOLFOX with addition of Avastin on the third cycle Resolution of lung metastasis and excellent response of liver lesions Plan for neoadjuvant radiation and chemotherapy Radiation therapy was completed 03/28/2015 received 5180 cGy. Chemotherapy comprised of Xeloda Status post AP resection as well as resection of liver metastasis wedge resection segment 3 06/02/2015 Final stage ypT3 ypN0 ypM1a Will complete 6 months of adjuvant chemotherapy with Xeloda and Avastin" On 04/22/15 10:54 Kerline Schultz wrote "Rectal pain and bleeding Status post colonoscopy and biopsy 07/05/2014 revealing adenocarcinoma the rectum moderately differentiated Staging workup revealed liver and lung metastasis Systemic chemotherapy 3 cycles of FOLFOX with addition of Avastin on the third cycle Resolution of lung metastasis and excellent response of liver lesions Plan for neoadjuvant radiation and chemotherapy Radiation therapy was completed 03/28/2015 received 5180 cGy. Chemotherapy comprised of Xeloda Will undergo bowel resection as well as liver resection" On 04/04/15 12:41 Kerline Schultz wrote "Rectal pain and bleeding Status post colonoscopy and biopsy 07/05/2014 revealing adenocarcinoma the rectum moderately differentiated Staging workup revealed liver and lung metastasis Systemic chemotherapy Resolution of lung metastasis and excellent response of liver lesions Plan for neoadjuvant radiation and chemotherapy Radiation therapy was completed 03/28/2015 received 5180 cGy. Chemotherapy comprised of Xeloda Will undergo bowel resection as well as liver resection" Recurrent epistaxis Seborrheic dermatitis Vitamin D deficiency Surgical History H/O colonoscopy History of bowel resection History of colostomy History of surgery closed treatment of fracture of tibial shaft 1975- bolt/natalie placement History of total knee replacement LEFT History of vascular access device present to right chest Hx of cataract surgery RIGHT/ LEFT Hx of resection of liver Family History Mother Hypertension Coronary heart disease Myocardial infarction Ischemic stroke Uncle Cancer Father Myocardial infarction Other No family history of adverse response to anesthesia No family history of bleeding disorder Denies family history of Ovarian cancer Prostate cancer Breast cancer Colorectal cancer Social History Smoking Status: Former smoker Tobacco Type: Cigarettes Second Hand Exposure: No; Hx Alcohol Use: Yes Alcohol type: beer Hx Substance Use: No Preferred Language: American Communication Ability: Effective Visual Impairment: No Limitations Hearing Ability: Normal Supervisor Cold Rolling Required: No Beliefs That Will Affect Care: None marital status: Current Living Situation: Spouse current occupational status: retired How many Children do You have: 2 Feels Safe at Home: Yes Seatbelt Use: always Sunscreen Use: Yes Assistive Devices: None Review of Systems Review of Systems: Constitutional: general fatigue, weak x 1 day; No fever/chills, weakness, fatigue, myalgias, anorexia, night sweats Eyes: No diplopia, no worsening or blurred vision ENT: normal hearing, no trouble swallowing Respiratory: some new SOB with exertion x 2 days; No cough, sputum, dyspnea at rest Cardiovascular: No chest pain, tightness or palpitations Abdomen: diffuse abdominal pain since last evening with large amounts of bright red blood in ostomy since last evening; no nausea, vomiting, diarrhea or constipation : Denies dysuria, hematuria, increased urgency/frequency, urinary retention Musculoskeletal: No joint pain, calf pain, swelling Neurologic: No weakness, numbness/tingling, or balance problems Psychiatric: No anxiety or depression Skin: No rash or itch Physical Exam Physical Exam: General: awake, alert, no apparent distress, on RA Head: Normocephalic, atraumatic ENT: PERRL, EOMI, no pharyngeal exudate, mucous membranes moist Chest: Clear to auscultation, on room air, no adventitious breath sounds Cardiac: Regular rate and rhythm, no murmur, no JVD, normal peripheral pulses, good capillary refill Abdominal: ostomy in place with some red blood seen mixed with minimal stool, no evidence of surrounding infection; NABS x 4 quadrants, soft, nontender to palpation, no rebound, guarding or tenderness Extremities: Normal inspection, no peripheral edema or erythema, calfs nontender to palpation Psych: Normal mood and affect Neuro: AAO x 3, strength intact bilaterally and rated 5/5, no motor deficits, speech is clear, no peripheral sensory deficits Skin: no rash or erythema Results & Data Results & Data ([facility]) Vital Signs (Past 12 Hours) Vital Signs Temp Pulse Resp BP Pulse Ox 09/21/21 14:25 70 15 104/58 L 100 09/21/21 14:20 69 17 109/69 100 09/21/21 14:15 74 15 108/61 100 09/21/21 14:10 68 17 105/59 L 100 09/21/21 14:05 69 14 109/59 L 100 09/21/21 14:00 75 19 102/59 L 100 09/21/21 13:56 36.9 C 72 14 99/63 L 100 09/21/21 13:55 77 17 99/63 L 100 09/21/21 13:50 76 14 110/61 100 09/21/21 13:45 71 15 102/61 100 09/21/21 13:40 72 11 L 90/57 L 100 09/21/21 13:35 75 12 95/58 L 100 09/21/21 13:30 70 14 101/57 L 100 09/21/21 13:26 36.4 C L 71 14 97/56 L 97 09/21/21 13:25 73 14 97/56 L 100 09/21/21 13:20 75 16 89/53 L 100 09/21/21 13:15 70 12 88/54 L 100 09/21/21 13:11 36.2 C L 72 16 93/51 L 100 09/21/21 13:05 72 12 102/58 L 100 09/21/21 13:01 71 15 94/55 L 09/21/21 13:00 69 15 100 09/21/21 12:53 36.3 C L 73 15 95/57 L 09/21/21 12:45 73 18 81/51 L 100 09/21/21 12:34 70 18 86/53 L 100 09/21/21 12:15 68 13 103/59 L 100 09/21/21 12:00 64 12 102/56 L 09/21/21 11:45 56 L 20 91/42 L 100 09/21/21 11:30 63 13 94/58 L 100 09/21/21 11:16 67 12 91/57 L 09/21/21 11:15 74 16 09/21/21 11:00 70 18 88/48 L 100 09/21/21 10:40 36.4 C L 78 14 86/55 L 100 Laboratory Results Abnormal lab results 09/21/21 09/21/21 09/21/21 Range/Units 10:54 10:54 10:54 RBC 2.79 L (4.7-6.1) M/uL Hgb 7.7 L (14.0-18.0) g/dL Hct 24.7 L (42-52) % MCHC 31.2 L (32-36) g/dL RDW Std Deviation 60.7 H (36.4-46.3) fL RDW Coeff of Asrah 19.1 H (11.5-14.5) % Plt Count 104 L (130-400) K/uL Neutrophils # (Manual) 6.66 H (1.4-6.5) K/uL Total Absolute Neuts 6.66 H (1.4-6.5) K/uL Monocytes # (Manual) 1.00 H (0.11-0.59) K/uL Basophils # (Manual) 0.33 H (0-0.2) K/uL Sodium 134 L (136-145) mmol/L Carbon Dioxide 19 L (21-32) mmol/L Glucose 134 H (70-99(Fasting)) mg/dl Lactate 4.0 H* (0.4-2.0) mmol/L Total Bilirubin 1.9 H (0.2-1.0) mg/dl Alkaline Phosphatase 310 H (34-104) U/L Total Protein 5.8 L (6.0-8.3) gm/dl Albumin 3.0 L (3.4-5.0) gm/dl Crossmatch 09/21/21 Range/Units 10:54 RBC (4.7-6.1) M/uL Hgb (14.0-18.0) g/dL Hct (42-52) % MCHC (32-36) g/dL RDW Std Deviation (36.4-46.3) fL RDW Coeff of Sarah (11.5-14.5) % Plt Count (130-400) K/uL Neutrophils # (Manual) (1.4-6.5) K/uL Total Absolute Neuts (1.4-6.5) K/uL Monocytes # (Manual) (0.11-0.59) K/uL Basophils # (Manual) (0-0.2) K/uL Sodium (136-145) mmol/L Carbon Dioxide (21-32) mmol/L Glucose (70-99(Fasting)) mg/dl Lactate (0.4-2.0) mmol/L Total Bilirubin (0.2-1.0) mg/dl Alkaline Phosphatase (34-104) U/L Total Protein (6.0-8.3) gm/dl Albumin (3.4-5.0) gm/dl Crossmatch See Detail ECG Additional Comments: Normal sinus rhythm Low voltage QRS Prolonged QT Abnormal ECG When compared with ECG of 12-JAN-2021 11:34, Nonspecific T wave abnormality no longer evident in Anterior leads. Code Status & VTE Plan Code Status DNR/DNI. Supervising Physician Co-Signing Physician Notes Reviewed documentation, discussed with ER physician and ALEXIS. Agree with her note above. Patient is here with blood coming from his ostomy. Recent history of esophageal varices status post banding. Plan to check RBC-Scan, should be in process now. Further consultation with GI. 2 units packed red blood cells ordered for anemia and hypotension. PG Care Time/CCT Total # of Minutes Spent Total Time Spent with Patient: Total time spent is greater than 50% in coordination of care (as documented) at patient's floor/unit and/or counseling patient: Coding Level of Care Code 50476 Initial Inpt Care Lvl 3 Diagnoses GIB (gastrointestinal bleeding) K92.2 GI bleed type/associated pathology: unspecified gastrointestinal hemorrhage type Abdominal pain R10.9 Anemia D62 Anemia type: other cause Other causes of anemia: acute posthemorrhagic Metastatic colorectal cancer C19 Esophageal varices I85.00 Bilateral lower extremity edema R60.0 Depression F32.9 (1) GIB (gastrointestinal bleeding) GI bleed type/associated pathology: unspecified gastrointestinal hemorrhage type Qualified Code(s): K92.2 - Gastrointestinal hemorrhage, unspecified (2) Anemia Anemia type: other cause Other causes of anemia: acute posthemorrhagic Qualified Code(s): D62 - Acute posthemorrhagic anemia
--- NOTE | 2021-09-21 20:36 | Nuclear Medicine Report ---
NM GI bleeding CLINICAL HISTORY: Upper GIB TECHNIQUE: Following the intravenous injection of 22.5 mCi of Tc-99m tagged autologous RBCs, planar i mages of the abdomen were obtained over the course of one hour. COMPARISON: None available at the time of this dictation. FINDINGS: Expected radiopharmaceutical uptake is seen in the liver, spleen and blood pool. No significant pool of radiopharmaceutical activity is identified over the region of the bowel to sug gest GI blood loss. However, if patient re-bleeds within 24 hours, additional follow-up imaging may b e obtained with the current radiopharmaceutical activity. IMPRESSION: No evidence of acute gastrointestinal bleeding. ACT 112: Negative or not required by law. Electronically signed by: Hussein Mancuso M.D. 09/21/2021 8:35 PM
[2021-09-21] MEDS ORDERED: ONDANSETRON INJ 2 MG/ML 2 ML VIAL IV PRN (21:03)
[2021-09-21 23:00] LABS: Hematocrit (blood only) 27.9 % (42-52); Hemoglobin 9.2 g/dL (14.0-18.0)
[2021-09-22 01:29] LABS: Appearance Urine Cloudy (Clear); Bacteria Urine Automated Negative (Negative); Bilirubin Urine Negative (Negative); Blood Urine Negative (Negative); Color Urine Dark Yellow; Glucose Urine UA Negative (Negative); Ketones Urine Trace (Negative); Leukocyte Esterase Urine Negative (Negative); Nitrite Urine Positive (Negative); Protein Urine Trace (Negative); Specific Gravity Urine 1.028 (1.000-1.030); Urobilinogen Urine Negative (Negative); pH Urine 5.5 (4.5-7.5)
[2021-09-22 01:55] LABS: RBC Urine Automated 0-4 /hpf (0-4)
[2021-09-22 01:56] LABS: Calcium Oxalate Crystals Urine Present (None Prsent); Cast Urine Automated >30 /lpf (0-5); Mucus Urine Present (None Prsent)
[2021-09-22] MEDS: PANTOprazole 40 MG in DEXTROSE 5% 100 ML IV SCH ×4 (02:56→17:41)
[2021-09-22 03:55] LABS: Hematocrit (blood only) 25.9 % (42-52); Hemoglobin 8.5 g/dL (14.0-18.0); Mean Corpuscular Hemoglobin 28.5 pg (25-34); Mean Corpuscular Hgb Conc 32.8 g/dL (32-36); Mean Corpuscular Volume 86.9 fL (80-100); RDW Coefficient of Variation 17.9 % (11.5-14.5); RDW Standard Deviation 53.5 fL (36.4-46.3); Red Blood Count 2.98 M/uL (4.7-6.1); White Blood Count 8.21 K/uL (4.8-10.8)
[2021-09-22 04:12] LABS: Mean Platelet Volume 10.5 fL (7.4-10.4); Platelet Count 97 K/uL (130-400)
[2021-09-22 04:18] LABS: ALC (manual) 0.79 K/uL (1.2-3.4); ANC (manual) 6.26 K/uL (1.4-6.5); Basophils # (manual) 0.07 K/uL (0-0.2); Basophils % (manual) 0.9 %; Dohle Bodies 1+; Eosinophils # (manual) 0.15 K/uL (0-0.5); Eosinophils % (manual) 1.8 %; Lymphocytes # (manual) 0.79 K/uL (1.2-3.4); Lymphocytes % (manual) 9.6 %; Monocytes # (manual) 0.94 K/uL (0.11-0.59); Monocytes % (manual) 11.4 %; Neutrophils # (manual) 6.26 K/uL (1.4-6.5); Neutrophils % (manual) 76.3 %; Platelet Estimate Decreased (Normal); Polychromasia 1+; Tear Drop Cells 1+
[2021-09-22 04:30] LABS: Bilirubin,Total 3.5 mg/dl (0.2-1.0)
[2021-09-22 04:31] LABS: Albumin Globulin Ratio 1.2 (0.9-2); Albumin Level 2.8 gm/dl (3.4-5.0); Calcium 8.2 mg/dl (8.5-10.1); Est GFR (African American) 90.4 ml/min; Globulin 2.3 gm/dl (2.5-4.0); Potassium 4.1 mmol/L (3.5-5.1); Total Protein 5.1 gm/dl (6.0-8.3)
[2021-09-22] MEDS: MoRPHine SULFATE 2 MG/ML CARP IV PRN ×2 (07:37→11:59)
[2021-09-22 09:40] LABS: Hematocrit (blood only) 25.2 % (42-52); Hemoglobin 8.3 g/dL (14.0-18.0)
--- NOTE | 2021-09-22 09:59 | Gastroenterology Progress Note ---
Date of Service September 22, 2021 Assessment & Plan (1) Anemia: Plan: -Continue to monitor H/H -No signs of active GI bleeding on NM GI bleed scan -Continue Protonix 40 mg BID (2) Elevated bilirubin: Plan: -Obtain MRCP -Follow LFTs Admission and Anticipated Discharge Date Admission Date: September 21, 2021 Subjective Patient is a 76 yo male with anemia and elevated bilirubin. Patient underwent a GI bleed scan yesterday that was unremarkable for acute GI bleeding. H/H presently 8.3/25.2. He continues to have some bloody output from his ostomy. His bilirubin today was 3.5. He denies new physical complaints. Review of Systems 2 Constitutional: no fever and no chills Respiratory: no cough Cardiovascular: no chest pain Gastrointestinal: + blood in stools; no abdominal pain Physical Exam Constitutional: well developed Respiratory: normal respiratory effort Cardiovascular: Rate/Rhythm: regular rate Gastrointestinal (Abdomen): Inspection/Auscultation: normal bowel sounds Percussion/Palpation: abdomen soft; abdomen nontender ostomy in place Results & Data Results & Data ([facility]) Vital Signs (Past 12 Hours) Vital Signs Temp Pulse Pulse Resp BP Pulse Ox 09/22/21 09:27 72 09/22/21 07:36 36.6 C 64 18 115/66 94 09/22/21 02:30 36.7 C 86 18 119/70 99 09/21/21 23:32 36.5 C 85 18 113/70 100 09/21/21 22:18 63 PG Care Time/CCT Total # of Minutes Spent Total Time Spent with Patient: Total time spent is greater than 50% in coordination of care (as documented) at patient's floor/unit and/or counseling patient: Coding Level of Care Code 82040 Subseq Hosp Care Lvl 3 Diagnoses Anemia D62 Anemia type: other cause Other causes of anemia: acute posthemorrhagic Elevated bilirubin R17 (1) Anemia Anemia type: other cause Other causes of anemia: acute posthemorrhagic Qualified Code(s): D62 - Acute posthemorrhagic anemia
--- NOTE | 2021-09-22 14:51 | Magnetic Resonance Report ---
MRCP CLINICAL HISTORY: Elevated bilirubin; metastatic colorectal carcinoma. TECHNIQUE: Utilizing a 1.5 Samara magnet and dedicated coil, multiplanar, multiecho imaging of the [facility] abdomen was performed utilizing heavily T2 weighted pulsing sequences without IV contrast. COMPARISON STUDY: CTA of the abdomen and pelvis August 15, 2021. Abdominal ultrasound September 08, 2021. FINDINGS: Moderate ascites is noted. Peritoneal catheter is partially imaged. Varices are better depi cted on prior CT. The spleen is mildly enlarged. The liver is cirrhotic. The gallbladder is surgicall y absent. Note is made of moderate left and mild right intrahepatic biliary ductal dilatation. This h as increased from earlier imaging studies. There is abrupt cut off of the left hepatic lobe ducts on axial image 9 of . This is due to the underlying hepatic mass, suboptimally assessed on this unenha nced exam. This mass measures approximately 6 cm. This lesion is similar to CT of August 15, 2021. This lesion abuts the IVC, as before. The common bile duct is mildly dilated, measuring 8 mm in caliber. No common bile duct calculi identified. There is no pancreatic ductal dilatation. Caliber of visualiz ed small and large bowel are normal. An enlarged cardiophrenic angle lymph node has no significant re tention CT of August 15, 2021. Several nodules within the lower lungs are noted. These are suboptimally assessed by MRI. IMPRESSION: 1. Moderate left lobe and mild right lobe intrahepatic biliary ductal dilatation with abrupt narrowin g of the left hepatic lobe ducts by the previously described central hepatic mass. This biliary ducta l dilatation has progressed since prior exams. 2. No common bile duct identified. 3. Cirrhosis. Moderate ascites and mild splenomegaly. Varices better depicted on prior contrast enhan lloyd CT. ACT 112: Negative or not required by law. Electronically signed by: Bob Vidal M.D. 09/22/2021 2:50 PM
--- NOTE | 2021-09-22 18:07 | Electrocardiogram Report ---
Test Reason : Blood Pressure : / mmHG Vent. Rate : 065 BPM Atrial Rate : 065 BPM P-R Int : 160 ms QRS Dur : 086 ms QT Int : 476 ms P-R-T Axes : 066 041 064 degrees QTc Int : 495 ms Normal sinus rhythm Low voltage QRS Prolonged QT Abnormal ECG When compared with ECG of 12-JAN-2021 11:34, Nonspecific T wave abnormality no longer evident in Anterior leads Confirmed by Young Cote ([id number]) on 09/22/2021 6:07:01 PM Referred By: REFERRED SELF Confirmed By:Young Cote
[2021-09-22 18:16] LABS: Hematocrit (blood only) 24.4 % (42-52); Hemoglobin 8.1 g/dL (14.0-18.0); Mean Corpuscular Hemoglobin 29.2 pg (25-34); Mean Corpuscular Hgb Conc 33.2 g/dL (32-36); Mean Corpuscular Volume 88.1 fL (80-100); Mean Platelet Volume 10.4 fL (7.4-10.4); Platelet Count 109 K/uL (130-400); RDW Coefficient of Variation 19.1 % (11.5-14.5); RDW Standard Deviation 55.3 fL (36.4-46.3); Red Blood Count 2.77 M/uL (4.7-6.1); White Blood Count 9.54 K/uL (4.8-10.8)
--- NOTE | 2021-09-22 19:18 | Hospitalist Progress Note ---
Date of Service September 22, 2021 Assessment & Plan (1) GIB (gastrointestinal bleeding): Plan: - Acute GI bleeding through his ostomy: suspect diverticular bleeding vs. possible intestinal metastasis causing his bleeding. - GI consulted, appreciate their recommendations: --NM bleeding scan without evidence of acute GI bleed - Hgb 7.7 -> 9.2 s/p 2 units packed RBCs. Hgb 9.2 -> 8.5 today. Will repeat Hgb 6pm tonight. Transfuse if Hgb < 8 - Switch pantoprazole IV drip to 40mg IV BID per GI recommendations. Advance to clear liquids (2) Abdominal pain: Plan: - Diffuse, since09/20 in setting of GI bleed. MRCP per GI recommendations but suspect related to bleed. Improved today therefore will defer repeat CT. - Supportive care with IV anti emetics, pain medications prn. (3) Anemia: Plan: As above (4) Metastatic colorectal cancer: Plan: - With mets to liver, liver cirrhosis, esophageal varices. - Colectomy with ostomy in place. Pleurx drain placed. Right-sided port. - Chemo every 2 weeks, last treatment Wednesday 09/13. - Liver met resection with [facility] in October 2020. - Oxycodone 5 mg 6h at home for pain, will order IV morphine for pain control while inpatient on n.p.o. status. (5) Esophageal varices: Plan: - Banded in August, currently do not suspect source of GI bleed. Octreotide started prophylactically in ED, now discontinued (6) Bilateral lower extremity edema: Plan: - Hold lasix for now. (7) Depression: Plan: -Continue lexapro 10mg daily when tolerating po intake. Plan: - stable for downgrade to med/tele. - SCDs, no chemoppx due to GI bleed. - DNR/DNI. Admission and Anticipated Discharge Date Admission Date: September 21, 2021 Subjective Patient reports feeling hungry as kept NPO since admission. Abdominal pain improved. Stoma bag has not been emptied since admission therefore suspect bleeding has decreased. Hemoglobin appears stable s/p 2 units packed RBCs. No chest pain, shortness of breath or dizziness. Review of Systems Review of Systems: All systems reviewed & are unremarkable except as noted in Subjective Physical Exam Constitutional: well developed; + not well nourished and no acute distress Respiratory: normal respiratory effort, lungs clear to auscultation Cardiovascular: Rate/Rhythm: regular rate and regular rhythm Heart Sounds: no murmur Extremities: normal capillary refill and + pedal edema; no calf tenderness Gastrointestinal (Abdomen): Inspection/Auscultation: normal bowel sounds Percussion/Palpation: abdomen soft; abdomen nontender Skin: no rashes, warm and dry Neurologic: moves all extremities and awake; not confused Psychiatric: A+Ox3, euthymic affect Results & Data Results & Data ([facility]) Vital Signs (Past 12 Hours) Vital Signs Temp Pulse Pulse Resp BP Pulse Ox 09/22/21 14:54 36.4 C L 66 20 114/65 100 09/22/21 11:32 36.7 C 79 15 115/69 99 09/22/21 09:27 72 09/22/21 07:36 36.6 C 64 18 115/66 94 PG Care Time/CCT Total # of Minutes Spent Total Time Spent with Patient: Total time spent is greater than 50% in coordination of care (as documented) at patient's floor/unit and/or counseling patient: Coding Level of Care Code 81319 Subseq Hosp Care Lvl 2 Diagnoses GIB (gastrointestinal bleeding) K92.2 GI bleed type/associated pathology: unspecified gastrointestinal hemorrhage type Abdominal pain R10.9 Anemia D62 Anemia type: other cause Other causes of anemia: acute posthemorrhagic Metastatic colorectal cancer C19 Esophageal varices I85.00 Bilateral lower extremity edema R60.0 Depression F32.9 (1) GIB (gastrointestinal bleeding) GI bleed type/associated pathology: unspecified gastrointestinal hemorrhage type Qualified Code(s): K92.2 - Gastrointestinal hemorrhage, unspecified (2) Anemia Anemia type: other cause Other causes of anemia: acute posthemorrhagic Qualified Code(s): D62 - Acute posthemorrhagic anemia
[2021-09-22] MEDS: MoRPHine SULFATE 4 MG/ML 1 ML CARP\\VIAL IV PRN (19:47)
[2021-09-22] MEDS: PANTOprazole 40 MG in SYRINGE 0 ML IV SCH (23:01)
[2021-09-23] MEDS: MoRPHine SULFATE 4 MG/ML 1 ML CARP\\VIAL IV PRN ×3 (03:18→21:58)
[2021-09-23 07:57] LABS: Albumin Globulin Ratio 1.2 (0.9-2); Albumin Level 2.6 gm/dl (3.4-5.0); BUN Creatinine Ratio 21.6 (10-20); Bilirubin,Total 2.1 mg/dl (0.2-1.0); Calcium 8.2 mg/dl (8.5-10.1); Creatinine Clr Calc Pharmacy 55.6 ml/min; Est GFR (African American) 74.9 ml/min; Est GFR (Non-African American) 64.6 ml/min; Globulin 2.2 gm/dl (2.5-4.0); Total Protein 4.8 gm/dl (6.0-8.3)
[2021-09-23 08:07] LABS: Mean Corpuscular Hgb Conc 32.6 g/dL (32-36); Mean Platelet Volume 10.6 fL (7.4-10.4); Nucleated RBC # (auto) 0.04 K/uL (0-0); Nucleated RBC % (auto) 0.2 %; Platelet Count 141 K/uL (130-400)
[2021-09-23 08:26] LABS: Hematocrit (blood only) 21.8 % (42-52); Hemoglobin 7.1 g/dL (14.0-18.0); Mean Corpuscular Hemoglobin 29.1 pg (25-34); Mean Corpuscular Volume 89.3 fL (80-100); RDW Coefficient of Variation 20.1 % (11.5-14.5); RDW Standard Deviation 56.3 fL (36.4-46.3); Red Blood Count 2.44 M/uL (4.7-6.1); White Blood Count 17.63 K/uL (4.8-10.8)
[2021-09-23] MEDS: PANTOprazole 40 MG in SYRINGE 0 ML IV SCH ×2 (08:38→19:56)
[2021-09-23 08:39] LABS: ALC (manual) 0.62 K/uL (1.2-3.4); ANC (manual) 15.46 K/uL (1.4-6.5); Anisocytosis Present; Dohle Bodies 1+; Echinocytes 1+; Lymphocytes # (manual) 0.62 K/uL (1.2-3.4); Lymphocytes % (manual) 3.5 %; Macrocytosis Present; Monocytes # (manual) 1.23 K/uL (0.11-0.59); Myelocytes # (manual) 0.32 K/uL (0-0); Myelocytes % (manual) 1.8 %; Neutrophils # (manual) 15.46 K/uL (1.4-6.5); Neutrophils % (manual) 87.7 %; Polychromasia 1+; Toxic Granulation 1+
[2021-09-23] MEDS ORDERED: SODIUM CHLORIDE 0.9% 250 ML IV PRN (09:49)
[2021-09-23] MEDS ORDERED: ACETAMINOPHEN 500 MG TAB PO PRN (10:22)
--- NOTE | 2021-09-23 12:06 | Hospitalist Progress Note ---
Date of Service September 23, 2021 Assessment & Plan (1) GIB (gastrointestinal bleeding): Plan: - Acute GI bleeding through his ostomy: suspect diverticular bleeding vs. possible intestinal metastasis causing his bleeding. - GI consulted, appreciate their recommendations: --NM bleeding scan on 09/21 without evidence of acute GI bleed. - Hgb 7.7 -> 9.2 s/p 2 units packed RBCs on 09/21. - Switch pantoprazole IV drip to 40mg IV BID per GI recommendations. -> Hgb back down to 7.1 today. Ordered 2 units PRBCs. Will reach out to [facility] [place] re: IR. (2) Abdominal pain: Plan: - Diffuse, since 09/20 in setting of GI bleed. MRCP on 09/22 showed hepatic mass pushing on biliary ducts. - Will likely need to consider ERCP. - Supportive care with IV anti emetics, pain medications prn. (3) Anemia: Plan: Acute blood loss anemia. - As above (4) Metastatic colorectal cancer: Plan: With mets to liver, liver cirrhosis, esophageal varices. Colectomy with ostomy in place.Pleur-X drain placed. - Chemo every 2 weeks, last treatment Wednesday 09/13. - Liver met resection with [facility] in October 2020. - Oxycodone 5 mg 6h at home for pain, will order IV morphine for pain control (5) Esophageal varices: Plan: Banded in August, currently do not suspect source of GI bleed. Octreotide started prophylactically in ED, now discontinued. (6) Bilateral lower extremity edema: Plan: Due to increased portal pressure & ascites. - Hold Lasix for now; restart as able. (7) Depression: Plan: - Continue lexapro 10mg daily when tolerating po intake. Plan: SCDs, no chemoppx due to GI bleed. - DNR/DNI. Admission and Anticipated Discharge Date Admission Date: September 21, 2021 Subjective With more blood in stoma bag overnight/this morning. Reports light red ~4 oz in ostomy bag. None at present. Abdominal pain is worse today. Reports no fevers/chills, chest pain, shortness of breath, nausea, or vomiting. Physical Exam Constitutional: WD/WN, vitals as above Eyes: EOM intact bilaterally; no conjunctival abnormality ENMT: external ear and nose normal, oropharynx normal Neck: trachea midline, no thyromegaly normal visual inspection Respiratory: normal respiratory effort, lungs clear to auscultation no respiratory distress Cardiovascular: RRR, no murmur, no edema Gastrointestinal (Abdomen): Inspection/Auscultation: + abdomen abnormal to inspection (Ostomy in LLQ, Pleur-X bandaging as well) and abdomen not distended Percussion/Palpation: + abdomen tender (Diffuse) and abdomen soft; no guarding and abdomen not rigid Musculoskeletal: no cyanosis or clubbing, extremities motor strength 5/5 Skin: no rashes, warm and dry Neurologic: moves all extremities and awake Psychiatric: Orientation: alert, oriented to person and cooperative Results & Data Results & Data ([facility]) Vital Signs (Past 12 Hours) Vital Signs Temp Pulse Pulse Resp BP BP Pulse Ox 09/23/21 11:38 36.5 C 85 16 106/55 L 100 09/23/21 10:32 36.5 C 87 16 111/68 98 09/23/21 08:15 88 09/23/21 06:41 36.5 C 90 20 107/67 99 09/23/21 04:15 36.3 C L 102 H 20 89/53 L 97 09/23/21 01:19 80 PG Care Time/CCT Total # of Minutes Spent Total Time Spent with Patient: Total time spent is greater than 50% in coordination of care (as documented) at patient's floor/unit and/or counseling patient: Coding Level of Care Code 63278 Subseq Hosp Care Lvl 3 Diagnoses GIB (gastrointestinal bleeding) K92.2 GI bleed type/associated pathology: unspecified gastrointestinal hemorrhage type Abdominal pain R10.9 Anemia D62 Anemia type: other cause Other causes of anemia: acute posthemorrhagic Metastatic colorectal cancer C19 Esophageal varices I85.00 Bilateral lower extremity edema R60.0 Depression F32.9 (1) GIB (gastrointestinal bleeding) GI bleed type/associated pathology: unspecified gastrointestinal hemorrhage type Qualified Code(s): K92.2 - Gastrointestinal hemorrhage, unspecified (2) Anemia Anemia type: other cause Other causes of anemia: acute posthemorrhagic Qualified Code(s): D62 - Acute posthemorrhagic anemia
--- NOTE | 2021-09-23 12:50 | Gastroenterology Progress Note ---
Date of Service September 23, 2021 Assessment & Plan (1) Metastatic colorectal cancer: (2) GI bleed: (3) Diverticulosis: Plan: suspect his GI bleeding is from a diverticular bleed vs bleeding vessel deep in the small intestine. Varices were just banded last admission and has not had any hematemesis and is tolerating clear liquids at this time. his metastatic cancer has progressed/worsened biliary dilation on MRCP recs: --would recommend transfer to [facility] (gets his cancer care there as well) for IR intervention angiography with embolization --may benefit from palliative biliary stent via ERCP in the future after bleeding has resolved --supportive care, IVFs, transfuse prbc prn Admission and Anticipated Discharge Date Admission Date: September 21, 2021 Subjective continues to have blood in the ostomy bag overnight, worsening anemia this morning requiring transfusions. MRCP shows progression of his metastatic cancer, likely cause of his pain and elevated LFTs. labs reviewed. Review of Systems Constitutional: no fever and no chills Respiratory: no cough, no dyspnea and no dyspnea on exertion Cardiovascular: no chest pain and no dyspnea Gastrointestinal: as per Subjective / HPI Psychiatric: no depression and no anxiety Physical Exam Constitutional: WD/WN, vitals as above Respiratory: normal respiratory effort, lungs clear to auscultation Cardiovascular: RRR, no murmur, no edema Gastrointestinal (Abdomen): normal bowel sounds, soft, nontender, no hepatosplenomegaly Musculoskeletal: no lower extremity edema Psychiatric: A+Ox3, euthymic affect Results & Data Results & Data ([facility]) Vital Signs (Past 12 Hours) Vital Signs Temp Pulse Pulse Resp BP BP Pulse Ox 09/23/21 12:33 36.6 C 90 16 116/68 100 09/23/21 11:38 36.5 C 85 16 106/55 L 100 09/23/21 10:32 36.5 C 87 16 111/68 98 09/23/21 08:15 88 09/23/21 06:41 36.5 C 90 20 107/67 99 09/23/21 04:15 36.3 C L 102 H 20 89/53 L 97 09/23/21 01:19 80 PG Care Time/CCT Total # of Minutes Spent Total Time Spent with Patient: Total time spent is greater than 50% in coordination of care (as documented) at patient's floor/unit and/or counseling patient: Coding Level of Care Code 44532 Subseq Hosp Care Lvl 3 Diagnoses Metastatic colorectal cancer C19 GI bleed K92.2 GI bleed type/associated pathology: unspecified gastrointestinal hemorrhage type Diverticulosis K57.90 (1) GI bleed GI bleed type/associated pathology: unspecified gastrointestinal hemorrhage type Qualified Code(s): K92.2 - Gastrointestinal hemorrhage, unspecified
[2021-09-23 19:36] LABS: INR 1.5 (0.9-1.1); Partial Thromboplastin Time 26.4 Seconds (21.0-31.0); Prothrombin Time 16.1 Seconds (9.0-12.0)
[2021-09-24 05:53] LABS: Hematocrit (blood only) 27.2 % (42-52); Hemoglobin 9.1 g/dL (14.0-18.0); Mean Corpuscular Hemoglobin 29.9 pg (25-34); Mean Corpuscular Hgb Conc 33.5 g/dL (32-36); Mean Corpuscular Volume 89.5 fL (80-100); Mean Platelet Volume 9.4 fL (7.4-10.4); Nucleated RBC # (auto) 0.08 K/uL (0-0); Nucleated RBC % (auto) 0.4 %; Platelet Count 130 K/uL (130-400); RDW Coefficient of Variation 19.5 % (11.5-14.5); RDW Standard Deviation 53.2 fL (36.4-46.3); Red Blood Count 3.04 M/uL (4.7-6.1); White Blood Count 20.77 K/uL (4.8-10.8)
[2021-09-24 06:16] LABS: Albumin Globulin Ratio 1.2 (0.9-2); Albumin Level 2.7 gm/dl (3.4-5.0); BUN Creatinine Ratio 21.6 (10-20); Bilirubin,Total 2.6 mg/dl (0.2-1.0); Calcium 8.2 mg/dl (8.5-10.1); Creatinine Clr Calc Pharmacy 49.4 ml/min; Est GFR (African American) 64.9 ml/min; Globulin 2.3 gm/dl (2.5-4.0); Magnesium 1.7 mg/dl (1.7-2.4); Potassium 3.6 mmol/L (3.5-5.1)
[2021-09-24] MEDS: PANTOprazole 40 MG in SYRINGE 0 ML IV SCH ×2 (08:25→20:52)
[2021-09-24] MEDS: HEPARIN 100 UNIT/ML 5ML FLUSH FLUSH PRN (08:29)
--- NOTE | 2021-09-24 12:26 | Hospitalist Progress Note ---
Date of Service September 24, 2021 Assessment & Plan (1) GIB (gastrointestinal bleeding): Plan: - Acute GI bleeding through his ostomy: suspect diverticular bleeding vs. possible intestinal metastasis causing his bleeding. - GI consulted, appreciate their recommendations: --NM bleeding scan on 09/21 without evidence of acute GI bleed. - Hgb 7.7 -> 9.2 s/p 2 units packed RBCs on 09/21. - Switch pantoprazole IV drip to 40mg IV BID per GI recommendations. -> Hgb back down to 7.1 on 09/23. S/p 2 additional units of PRBCs on 09/23. Hgb now 9.1. - Accepted to [facility] on 09/23 for possible IR intervention; awaiting bed. (2) Abdominal pain: Plan: - Diffuse, since 09/20 in setting of GI bleed. MRCP on 09/22 showed hepatic mass pushing on biliary ducts. - Will likely need to consider ERCP. - Supportive care with IV anti emetics, pain medications prn. (3) Anemia: Plan: Acute blood loss anemia. - As above (4) Metastatic colorectal cancer: Plan: With mets to liver, liver cirrhosis, esophageal varices. Colectomy with ostomy in place.Pleur-X drain placed. - Chemo every 2 weeks, last treatment Wednesday 09/13. - Liver met resection with [facility] in October 2020. - Oxycodone 5 mg 6h at home for pain, will order IV morphine for pain control (5) Esophageal varices: Plan: Banded in August, currently do not suspect source of GI bleed. Octreotide started prophylactically in ED, now discontinued. (6) Bilateral lower extremity edema: Plan: Due to increased portal pressure & ascites. - Hold Lasix for now; restart as able. (7) Depression: Plan: - Continue lexapro 10mg daily when tolerating po intake. Plan: SCDs, no chemoppx due to GI bleed. - DNR/DNI. Admission and Anticipated Discharge Date Admission Date: September 21, 2021 Subjective No major issues. Feels well. More energy than yesterday. Still with ongoing abdominal pain. Reports no fevers/chills, chest pain, shortness of breath, nausea, or vomiting. Physical Exam Constitutional: WD/WN, vitals as above Eyes: EOM intact bilaterally; no conjunctival abnormality ENMT: external ear and nose normal, oropharynx normal Neck: trachea midline, no thyromegaly normal visual inspection Respiratory: normal respiratory effort, lungs clear to auscultation no respiratory distress Cardiovascular: RRR, no murmur, no edema Gastrointestinal (Abdomen): Inspection/Auscultation: + abdomen abnormal to inspection (Ostomy in LLQ, Pleur-X bandaging as well) and abdomen not distended Percussion/Palpation: + abdomen tender (Diffuse) and abdomen soft; no guarding and abdomen not rigid Musculoskeletal: no cyanosis or clubbing, extremities motor strength 5/5 Skin: no rashes, warm and dry Neurologic: moves all extremities and awake Psychiatric: Orientation: alert, oriented to person and cooperative Results & Data Results & Data ([facility]) Vital Signs (Past 12 Hours) Vital Signs Temp Pulse Pulse Pulse Resp BP Pulse Ox 09/24/21 11:00 36.3 C L 71 12 114/63 100 09/24/21 07:38 79 09/24/21 07:15 36.4 C L 78 12 108/70 100 09/24/21 06:41 36.4 C L 80 20 127/70 99 09/24/21 03:13 37.0 C 83 20 108/66 98 09/24/21 00:26 77 PG Care Time/CCT Total # of Minutes Spent Total Time Spent with Patient: Total time spent is greater than 50% in coordination of care (as documented) at patient's floor/unit and/or counseling patient: Coding Level of Care Code 04557 Subseq Hosp Care Lvl 2 Diagnoses GIB (gastrointestinal bleeding) K92.2 GI bleed type/associated pathology: unspecified gastrointestinal he morrhage type Abdominal pain R10.9 Anemia D62 Anemia type: other cause Other causes of anemia: acute posthemorrhagic Metastatic colorectal cancer C19 Esophageal varices I85.00 Bilateral lower extremity edema R60.0 Depression F32.9 (1) GIB (gastrointestinal bleeding) GI bleed type/associated pathology: unspecified gastrointestinal hemorrhage type Qualified Code(s): K92.2 - Gastrointestinal hemorrhage, unspecified (2) Anemia Anemia type: other cause Other causes of anemia: acute posthemorrhagic Qualified Code(s): D62 - Acute posthemorrhagic anemia
[2021-09-24] MEDS: MoRPHine SULFATE 4 MG/ML 1 ML CARP\\VIAL IV PRN (19:25)
[2021-09-25 06:16] LABS: Hematocrit (blood only) 24.5 % (42-52); Hemoglobin 8.7 g/dL (14.0-18.0); Mean Corpuscular Hemoglobin 32.2 pg (25-34); Mean Corpuscular Hgb Conc 35.5 g/dL (32-36); Mean Corpuscular Volume 90.7 fL (80-100); Mean Platelet Volume 8.6 fL (7.4-10.4); Nucleated RBC # (auto) 0.06 K/uL (0-0); Nucleated RBC % (auto) 0.4 %; Platelet Count 106 K/uL (130-400); RDW Coefficient of Variation 20.6 % (11.5-14.5); RDW Standard Deviation 57.6 fL (36.4-46.3); White Blood Count 14.94 K/uL (4.8-10.8)
[2021-09-25 06:44] LABS: Albumin Globulin Ratio 1.2 (0.9-2); Albumin Level 2.5 gm/dl (3.4-5.0); BUN Creatinine Ratio 21.9 (10-20); Calcium 7.7 mg/dl (8.5-10.1); Creatinine Clr Calc Pharmacy 54.2 ml/min; Est GFR (African American) 72.5 ml/min; Est GFR (Non-African American) 62.6 ml/min; Globulin 2.1 gm/dl (2.5-4.0); Magnesium 1.7 mg/dl (1.7-2.4); Potassium 3.6 mmol/L (3.5-5.1); Total Protein 4.6 gm/dl (6.0-8.3)
[2021-09-25] MEDS: MoRPHine SULFATE 4 MG/ML 1 ML CARP\\VIAL IV PRN (08:20)
[2021-09-25] MEDS: HEPARIN 100 UNIT/ML 5ML FLUSH FLUSH PRN ×2 (08:20→13:52)
[2021-09-25] MEDS: PANTOprazole 40 MG in SYRINGE 0 ML IV SCH (08:20)
[2021-09-25] MEDS ORDERED: IRON SUCROSE 200 MG in 0.9 % SODIUM CHLORIDE 100 ML IV ONE (11:30)
[2021-09-25] MEDS ORDERED: ALBUMIN 5% 250 ML IV ONE (11:30)
[2021-09-25] MEDS ORDERED: ALBUMIN 25% 100 mL 25 GM/100 ML VIAL IV ONE (12:00)
--- NOTE | 2021-09-25 13:30 | Discharge Summary ---
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 Last evening around 9 PM, patient had diffuse abdominal pain, worst in RUQ and epigastric region without radiation to his back. This morning, patient noticed large amount of bright red blood in ostomy with minimal amount of stool. He emptied the bag which was full of blood x2 before presenting to the ED for further evaluation. He reports some shortness of breath and general fatigue over the past 2 days, but denies fever/chills, weakness, chest pain, palpitations, nausea, vomiting, hematemesis. Had an EGD in August 2021 which revealed nonbleeding, large esophageal varices, banded here at that time and received RBCs. He is being worked up for his chronic abdominal pain and elevated bilirubin as outpatient, was scheduled to have an MRCP later this month. He receives chemotherapy every other week, last treatment 09/13. Patient presented hypotensive with SBP 80-90s, however with IVF and pRBCS improved to 100s. Does have low baseline BP. Vitals otherwise wnl and stable. Labs significant for Hgb 7.7, PLT 104, Na 134, lactate 4.0, repeat ordered. t bili 1.9, alk phos 310. GI consulted by ED provider, who recommend tagged RBC study. Type and cross done in ED, 2 units pRBCs ordered, with one completed in ED and second started. Hospitalist service consulted for further evaluation and admission. Principal Diagnosis Likely lower GI bleed Discharge Exam Constitutional WD/WN, vitals as above Eyes EOM intact bilaterally; no conjunctival abnormality ENMT external ear and nose normal, oropharynx normal Neck trachea midline, no thyromegaly normal visual inspection Respiratory normal respiratory effort, lungs clear to auscultation no respiratory distress Cardiovascular RRR, no murmur, no edema Gastrointestinal (Abdomen) Inspection/Auscultation: + abdomen abnormal to inspection (Ostomy in LLQ, Pleur- X bandaging as well) and abdomen not distended Percussion/Palpation: + abdomen tender (Diffuse) and abdomen soft; no guarding and abdomen not rigid Musculoskeletal no cyanosis or clubbing, extremities motor strength 5/5 Skin no rashes, warm and dry Neurologic moves all extremities and awake Psychiatric Orientation: alert, oriented to person and cooperative Discharge Data Allergies Allergy/AdvReac Type Severity Reaction Status Date / Time No Known Drug Allergies Allergy Verified 09/21/21 13:42 Consultations 09/21/21 14:53 ED Decision to Admit Stat 09/21/21 21:03 Consult Gastroenterology Routine 09/23/21 15:19 Burn CD for patient Routine Ordered Studies 09/22/21 09:50 MR MRCP Routine Hospital Course (1) GIB (gastrointestinal bleeding): - Acute GI bleeding through his ostomy: suspect diverticular bleeding vs. possible intestinal metastasis causing his bleeding. - GI consulted, appreciate their recommendations: --NM bleeding scan on 09/21 without evidence of acute GI bleed. - Hgb 7.7 -> 9.2 s/p 2 units packed RBCs on 09/21. - Switch pantoprazole IV drip to 40mg IV BID per GI recommendations. -> Hgb back down to 7.1 on 09/23. S/p 2 additional units of PRBCs on 09/23. Hgb now 9.1. - Accepted to [facility] on 09/23 for possible IR intervention; however, the patient had no further bleeding. [facility] offered him a bed at [place] in [place] on 09/23, but he declined as it was too far away from home. No bed became available for 48 hours. The bleeding had stopped, and the patient's hgb was stable, and he elected to go home. I did encourage him to seek help at [facility] if he should rebleed as they have IR and we do not have that ability here. However, safety is the top priority, so he should go to the closest place in case of large bleeding. (2) Abdominal pain: - Diffuse, since 09/20 in setting of GI bleed. MRCP on 09/22 showed hepatic mass pushing on biliary ducts. - Will likely need to consider ERCP. -> Offered to have him seen in the hospital, though overall, LFTs are largely stable. He deferred as he wanted to be discharged today. Will need to follow-up with [facility] as [facility] is not in network. Encouraged him to reach out to his [facility] oncologist for referral. - Supportive care with IV anti emetics, pain medications prn. (3) Anemia: Acute blood loss anemia. - As above (4) Metastatic colorectal cancer: With mets to liver, liver cirrhosis, esophageal varices. Colectomy with ostomy in place.Pleur-X drain placed. - Chemo every 2 weeks, last treatment Wednesday 09/13. - Liver met resection with [facility] in October 2020. - Oxycodone 5 mg 6h at home for pain, will order IV morphine for pain control (5) Esophageal varices: Banded in August, currently do not suspect source of GI bleed. Octreotide started prophylactically in ED, now discontinued. (6) Bilateral lower extremity edema: Due to increased portal pressure & ascites. - Restart Lasix. (7) Depression: - Continue lexapro 10mg daily when tolerating po intake. SCDs, no chemoppx due to GI bleed. - DNR/DNI. Total Time Total Time Spent Total Time Spent (In Minutes): 45 Discharge Plan Discharge Items Patient Disposition: Home - Home Health Services Reason For Visit: LGI BLEED Discharge Diagnosis: Undetermined GI bleed - Possible AVM or diverticular bleed Activity: Resume your previous activity Non-emergency contact: Primary Care Provider and [facility] Call non-emergency contact if: your symptoms worsen Follow-up/Referrals: Jacques Marsh MD [Physician] - 10/20/21 11:40 am (A message was sent to Dr. Marsh's office to call you if they have a cancellation or can see you sooner than your scheduled appointment.) Ian Mccartney DO [Primary Care Provider] - 10/05/21 11:15 am Diet: Clear liquid Addtl Attending Provider Instructions: Mr. Ash, You were admitted with a suspected lower GI bleed. You have had several EGDs with prior varices banded and with portal gastropathy. However, this seemed like a lower GI bleed with fresh, red blood in the ostomy bag. GI was consulted, but felt that he could benefit from IR. However, the bleeding stopped prior to your transfer, so we are sending you home. You will need to follow up with GI as soon as you can to see if you could benefit from a procedure to open the biliary system that is getting compressed from your tumor. Usually, we send people to the [facility] GI team, but they are "out of network" for you, so it would not be covered by insurance. Please contact your [facility] oncologist for a referral to [facility] for this. As we discussed, if you have recurrent bleeding, you should go to the hospital. It is important that you stay safe, but if you can safely do so, you may want to go to [facility] as they will be able to appropriately handle a GI bleed in the lower part of your GI tract whereas our team can't do that at [facility]. However, if it is a matter of life or , you should go to the nearest facility or call . Pending Studies at Discharge: No Stand-Alone Forms: [facility], Smoking Cessation Medications and DC Order Prescriptions: Continued multivitamin [Daily Multi-Vitamin] tablet 1 tab PO HS RF: 0 coenzyme Q10 [CoQ-10] 30 mg Capsule 30 mg PO HS RF: 0 ascorbic acid (vitamin C) [Vitamin C] 1,000 mg tablet 1,000 mg PO QDL RF: 0 cholecalciferol (vitamin D3) [Vitamin D3] 50 mcg (2,000 unit) tablet 3,000 unit PO QDL RF: 0 escitalopram oxalate [Lexapro] 10 mg tablet 10 mg PO QAM RF: 0 Probiotic 3 billion cell Capsule 3,000 mmu cells PO QAM RF: 0 polyethylene glycol 3350 [Miralax] 17 gram/dose Powder 17 g PO QAM RF: 0 spironolactone 25 mg tablet 25 mg PO QAM RF: 0 furosemide [Lasix] 20 mg tablet 20 mg PO QAM RF: 0 oxycodone 5 mg tablet 5 mg PO Q6H PRN (Reason: Pain) Qty: 30 RF: 0 pantoprazole 40 mg tablet,delayed release (DR/EC) 40 mg PO BID Qty: 60 RF: 1 sennosides-docusate sodium [Senokot-S] 8.6-50 mg Tablet 1 tab-cap PO BID RF: 0 Discharge Orders: Discharge Order (Routine); Ordered 09/25/21 Ordered By: Philip Cifuentes Admission Data Admit Date/Time: 09/21/21 16:18 Attending Provider: Philip Cifuentes Admit Provider: Prince Lowe Primary Care Provider: Ian Mccartney Other Providers: [facility],Home Healthcare ; Jacques Marsh ; Philip Cifuentes Other Interventions: Discharge Summary Assessment (RN) Last Done: 09/25/21 13:16 Coding Level of Care Code D/C DAY MANAGEMENT >30 MINS Diagnoses GIB (gastrointestinal bleeding) K92.2 GI bleed type/associated pathology: unspecified gastrointestinal hemorrhage type Abdominal pain R10.9 Anemia D62 Anemia type: other cause Other causes of anemia: acute posthemorrhagic Metastatic colorectal cancer C19 Esophageal varices I85.00 Bilateral lower extremity edema R60.0 Depression F32.9
== END 2021-09-25 14:52 | disposition home health service (06) | DRG 378 ==
LOC: ED 10:36 → 2S 16:18 → SUATTDRO 16:18 → 2S 19:00 → 2N 09-22 13:34
DX: Z66 Do not resuscitate; C19 Malignant neoplasm of rectosigmoid junction; Z93.3 Colostomy status; Z98.41 Cataract extraction status, right eye; C78.7 Secondary malignant neoplasm of liver and intrahepatic bile duct; D62 Acute posthemorrhagic anemia; F32.A Depression, unspecified; K55.21 Angiodysplasia of colon with hemorrhage; E87.2 Acidosis; Z98.42 Cataract extraction status, left eye; Z87.891 Personal history of nicotine dependence; M19.90 Unspecified osteoarthritis, unspecified site; K57.31 Diverticulosis of large intestine without perforation or abscess with bleeding; C78.5 Secondary malignant neoplasm of large intestine and rectum; I85.00 Esophageal varices without bleeding; E78.1 Pure hyperglyceridemia; Z95.9 Presence of cardiac and vascular implant and graft, unspecified; K74.60 Unspecified cirrhosis of liver; Z96.652 Presence of left artificial knee joint; Z90.89 Acquired absence of other organs

== ENCOUNTER 2021-10-24 05:57 | Inpatient (IN) ==
[2021-10-24 07:01] LABS: Basophils # (auto) 0.02 K/uL (0-0.2); Basophils % (auto) 0.4 %; Eosinophils # (auto) 0.06 K/uL (0-0.5); Eosinophils % (auto) 1.1 %; Hematocrit (blood only) 27.6 % (42-52); Hemoglobin 9.7 g/dL (14.0-18.0); Immature Granulocytes # (auto) 0.01 K/uL (0.00-0.02); Immature Granulocytes % (auto) 0.2 %; Lymphocytes # (auto) 0.57 K/uL (1.2-3.4); Lymphocytes % (auto) 10.9 %; Mean Corpuscular Hemoglobin 32.8 pg (25-34); Mean Corpuscular Hgb Conc 35.1 g/dL (32-36); Mean Corpuscular Volume 93.2 fL (80-100); Mean Platelet Volume 9.2 fL (7.4-10.4); Monocytes # (auto) 0.71 K/uL (0.11-0.59); Monocytes % (auto) 13.5 %; Neutrophils # (auto) 3.87 K/uL (1.4-6.5); Neutrophils % (auto) 73.9 %; Platelet Count 183 K/uL (130-400); RDW Coefficient of Variation 20.9 % (11.5-14.5); RDW Standard Deviation 71.2 fL (36.4-46.3); Red Blood Count 2.96 M/uL (4.7-6.1); White Blood Count 5.24 K/uL (4.8-10.8)
[2021-10-24 07:14] LABS: INR 1.5 (0.9-1.1); Partial Thromboplastin Time 28.1 Seconds (21.0-31.0)
--- NOTE | 2021-10-24 07:17 | Emergency Department Note ---
History of Present Illness General Chief complaint: Altered Mental Status Stated complaint: FATIGUE,DISORIENTED/CONFUSED Time Seen by Provider: 10/24/21 06:35 History of Present Illness 76-year-old male presents the ED with a chief complaint of increased confusion and restlessness. The patient's provides most of the history. She states that he has been more restless than usual and sometimes uncooperative. He has had a new cough recently. He is not following commands at all times as he normally does. The patient has a history of liver cirrhosis and ascites. He also has a history of colon cancer with liver mets. The patient denies having any pain. Denies any shortness of breath. Patient otherwise poor historian. Home Medications Medication Instructions Recorded Confirmed Type coenzyme Q10 30 mg capsule (CoQ-10) 30 mg PO HS 01/31/18 10/20/21 History multivitamin (Daily Multi-Vitamin) 1 tab PO HS 10/17/18 10/20/21 History escitalopram oxalate 10 mg tablet 10 mg PO QAM 10/26/19 10/20/21 History (Lexapro) lactobacillus combination no.4 3 3,000 mmu cells PO QAM 10/26/19 10/20/21 History billion cell capsule (Probiotic) polyethylene glycol 3350 17 17 g PO QAM 12/21/20 10/20/21 History gram/dose oral powder (Miralax) furosemide 20 mg tablet (Lasix) 20 mg PO QAM 08/11/21 10/20/21 History spironolactone 25 mg tablet 25 mg PO QAM 08/11/21 10/20/21 History ascorbic acid (vitamin C) 1,000 mg 1,000 mg PO QDL tab 08/23/21 10/20/21 History tablet (Vitamin C) cholecalciferol (vitamin D3) 50 3,000 unit PO QDL tab 08/23/21 10/20/21 History mcg (2,000 unit) tablet (Vitamin D3) sennosides 8.6 mg-docusate sodium 1 tab-cap PO BID 09/21/21 10/20/21 History 50 mg tablet (Senokot-S) oxycodone 5 mg tablet 5 mg PO Q6H PRN #30 tab 09/28/21 10/20/21 Rx pantoprazole 40 mg tablet,delayed 40 mg PO DAILY #30 tab 10/10/21 10/20/21 Rx release Allergies Allergy/AdvReac Type Severity Reaction Status Date / Time No Known Drug Allergies Allergy Verified 10/11/21 07:09 Past Med/Surg History Medical History Chronic pain due to malignant neoplastic disease Chronic prostatitis Colostomy in place Depression Diverticulosis Enlarged prostate with lower urinary tract symptoms (LUTS) Essential hypertriglyceridemia Gallstone History of esophageal varices x2 and banded Inhibited sexual excitement Liver cirrhosis Nasal septal deviation Osteoarthritis Rectal adenocarcinoma (07/05/14) "Rectal pain and bleeding Status post colonoscopy and biopsy 07/05/2014 revealing adenocarcinoma the rectum moderately differentiated Staging workup revealed liver and lung metastasis Systemic chemotherapy 3 cycles of FOLFOX with addition of Avastin on the third cycle Resolution of lung metastasis and excellent response of liver lesions Plan for neoadjuvant radiation and chemotherapy Radiation therapy was completed 03/28/2015 received 5180 cGy. Chemotherapy comprised of Xeloda Status post AP resection as well as resection of liver metastasis wedge resection segment 3 06/02/2015 Final stage ypT3 ypN0 ypM1a Will complete 6 months of adjuvant chemotherapy with Xeloda and Avastin" On 04/22/15 10:54 Kerline Schultz wrote "Rectal pain and bleeding Status post colonoscopy and biopsy 07/05/2014 revealing adenocarcinoma the rectum moderately differentiated Staging workup revealed liver and lung metastasis Systemic chemotherapy 3 cycles of FOLFOX with addition of Avastin on the third cycle Resolution of lung metastasis and excellent response of liver lesions Plan for neoadjuvant radiation and chemotherapy Radiation therapy was completed 03/28/2015 received 5180 cGy. Chemotherapy comprised of Xeloda Will undergo bowel resection as well as liver resection" On 04/04/15 12:41 Kerline Schultz wrote "Rectal pain and bleeding Status post colonoscopy and biopsy 07/05/2014 revealing adenocarcinoma the rectum moderately differentiated Staging workup revealed liver and lung metastasis Systemic chemotherapy Resolution of lung metastasis and excellent response of liver lesions Plan for neoadjuvant radiation and chemotherapy Radiation therapy was completed 03/28/2015 received 5180 cGy. Chemotherapy comprised of Xeloda Will undergo bowel resection as well as liver resection" Recurrent epistaxis Seborrheic dermatitis Vitamin D deficiency Surgical History H/O colonoscopy History of bowel resection History of colostomy History of surgery closed treatment of fracture of tibial shaft 1974- bolt/natalie placement History of total knee replacement LEFT History of vascular access device present to right chest Hx of cataract surgery RIGHT/ LEFT Hx of resection of liver Family History Mother Hypertension Coronary heart disease Myocardial infarction Ischemic stroke Uncle Cancer Father Myocardial infarction Other No family history of adverse response to anesthesia No family history of bleeding disorder Denies family history of Ovarian cancer Prostate cancer Breast cancer Colorectal cancer Social History Smoking Status: Former smoker Tobacco Type: Cigarettes Second Hand Exposure: No; Hx Alcohol Use: Yes Alcohol type: hard liquor Hx Substance Use: No Preferred Language: Danish Communication Ability: Effective Visual Impairment: No Limitations Hearing Ability: Normal [employer] Estate Account Executive Required: No Beliefs That Will Affect Care: None marital status: Current Living Situation: Spouse current occupational status: retired How many Children do You have: 2 Feels Safe at Home: Yes Seatbelt Use: always Sunscreen Use: Yes Assistive Devices: None Review of Systems A total of 10 systems reviewed and were otherwise negative Physical Exam Vital Signs Vital Signs - 24 hr 10/24/21 06:01 10/24/21 07:14 Temperature 36.8 C Temperature Source Temporal Artery Scan Pulse Rate 80 Pulse Rate [Apical] 75 Respiratory Rate 17 16 Respiratory Effort / Characteristics Non-Labored Spontaneous Respiratory Depth Normal Blood Pressure 121/64 Blood Pressure [Left Arm] 125/77 Blood Pressure Mean 83 Blood Pressure Mean [Left Arm] 93 Blood Pressure Position Sitting Pulse Oximetry 100 95 Oxygen Delivery Method Room Air Sepsis Recent Fever Within 48 Hours No Sepsis New/Unexplained Change in Mental Status No Sepsis Action Taken by Nursing No Action Required CONSTITUTIONAL/VITAL SIGNS: Reviewed / noted above. GENERAL: Non-toxic in appearance. Restless. INTEGUMENTARY: Warm, dry, and [place]. Jaundiced. HEAD: Normocephalic. EYES: with scleral icterus ENT/OROPHARYNX: clear and moist. LYMPHADENOPATHY/NECK: Is supple without lymphadenopathy or meningismus. RESPIRATORY: Clear to auscultation bilaterally. No increased work of breathing. CARDIOVASCULAR: Regular rate and rhythm. GI/ABDOMEN: Soft and nontender. No organomegaly or pulsatile mass. Slightly distended. EXTREMITIES: Warm and well perfused. BACK: No CVA tenderness. NEUROLOGICAL: No focal motor deficits. Does answer basic questions approp riately. PSYCHIATRIC: normal affect. MUSCULOSKELETAL: Normally developed with good muscle tone. TRIAGE NURSING DOCUMENTATION REVIEWED. Medical Decision Making Differential Diagnosis Differential includes acute coronary syndrome, myocardial infarction, CVA, TIA, anemia, infection, pneumonia, UTI, pyelonephritis, poor nutrition, dehydration, electrolyte disturbance,hypoglycemia. Medical Records Attestation: I reviewed the patient's medical records. Home Medications Current Medication List: was personally reviewed by me Laboratory Data Attestation: I reviewed the patient's lab results. Result diagrams: 10/24/21 06:40 10/24/21 06:40 Lab Results 10/24/21 10/24/21 10/24/21 Range/Units 06:40 06:40 06:40 WBC 5.24 (4.8-10.8) K/uL RBC 2.96 L (4.7-6.1) M/uL Hgb 9.7 L (14.0-18.0) g/dL Hct 27.6 L (42-52) % MCV 93.2 (80-100) fL MCH 32.8 (25-34) pg MCHC 35.1 (32-36) g/dL RDW Std Deviation 71.2 H (36.4-46.3) fL RDW Coeff of Sarah 20.9 H (11.5-14.5) % Plt Count 183 (130-400) K/uL MPV 9.2 (7.4-10.4) fL Immature Gran % (Auto) 0.2 % Neut % (Auto) 73.9 % Lymph % (Auto) 10.9 % Parmer % (Auto) 13.5 % Eos % (Auto) 1.1 % Baso % (Auto) 0.4 % Neut # (Auto) 3.87 (1.4-6.5) K/uL Lymph # (Auto) 0.57 L (1.2-3.4) K/uL Parmer # (Auto) 0.71 H (0.11-0.59) K/uL Eos # (Auto) 0.06 (0-0.5) K/uL Baso # (Auto) 0.02 (0-0.2) K/uL Immature Gran # (Auto) 0.01 (0.00-0.02) K/uL Anisocytosis Present Target Cells 1+ PT 16.0 H (9.0-12.0) Seconds INR 1.5 H (0.9-1.1) APTT 28.1 (21.0-31.0) Seconds PTT Ratio 1.0 Sodium 132 L (136-145) mmol/L Potassium 4.0 (3.5-5.1) mmol/L Chloride 103 (98-107) mmol/L Carbon Dioxide 19 L (21-32) mmol/L Anion Gap 10 (3-11) BUN 22 (6-23) mg/dl Creatinine 1.02 (0.6-1.4) mg/dl Est Cr Clr Drug Dosing Not Reportable Est GFR ( Amer) 82.9 ml/min Est GFR (Non-Af Amer) 71.6 ml/min BUN/Creatinine Ratio 21.6 H (10-20) Glucose 100 H (70-99(Fasting)) mg/dl Calcium 8.1 L (8.5-10.1) mg/dl Magnesium 1.9 (1.7-2.4) mg/dl Total Bilirubin 9.8 H (0.2-1.0) mg/dl AST 55 H (13-39) U/L ALT 28 (7-52) U/L Alkaline Phosphatase 387 H (34-104) U/L Ammonia (18-72) umol/L Troponin I High Sens 8.8 (0-20) pg/ml Total Protein 6.0 (6.0-8.3) gm/dl Albumin 2.8 L (3.4-5.0) gm/dl Globulin 3.2 (2.5-4.0) gm/dl Albumin/Globulin Ratio 0.9 (0.9-2) TSH (0.300-4.500) uIu/ml Ethyl Alcohol mg/dL (<10.0) mg/dl SARS-CoV-2, RNA, NAAT (NEGATIVE) 10/24/21 10/24/21 10/24/21 Range/Units 06:40 06:40 07:53 WBC (4.8-10.8) K/uL RBC (4.7-6.1) M/uL Hgb (14.0-18.0) g/dL Hct (42-52) % MCV (80-100) fL MCH (25-34) pg MCHC (32-36) g/dL RDW Std Deviation (36.4-46.3) fL RDW Coeff of Sarah (11.5-14.5) % Plt Count (130-400) K/uL MPV (7.4-10.4) fL Immature Gran % (Auto) % Neut % (Auto) % Lymph % (Auto) % Parmer % (Auto) % Eos % (Auto) % Baso % (Auto) % Neut # (Auto) (1.4-6.5) K/uL Lymph # (Auto) (1.2-3.4) K/uL Parmer # (Auto) (0.11-0.59) K/uL Eos # (Auto) (0-0.5) K/uL Baso # (Auto) (0-0.2) K/uL Immature Gran # (Auto) (0.00-0.02) K/uL Anisocytosis Target Cells PT (9.0-12.0) Seconds INR (0.9-1.1) APTT (21.0-31.0) Seconds PTT Ratio Sodium (136-145) mmol/L Potassium (3.5-5.1) mmol/L Chloride (98-107) mmol/L Carbon Dioxide (21-32) mmol/L Anion Gap (3-11) BUN (6-23) mg/dl Creatinine (0.6-1.4) mg/dl Est Cr Clr Drug Dosing Est GFR ( Amer) ml/min Est GFR (Non-Af Amer) ml/min BUN/Creatinine Ratio (10-20) Glucose (70-99(Fasting)) mg/dl Calcium (8.5-10.1) mg/dl Magnesium (1.7-2.4) mg/dl Total Bilirubin (0.2-1.0) mg/dl AST (13-39) U/L ALT (7-52) U/L Alkaline Phosphatase (34-104) U/L Ammonia 120.0 H (18-72) umol/L Troponin I High Sens (0-20) pg/ml Total Protein (6.0-8.3) gm/dl Albumin (3.4-5.0) gm/dl Globulin (2.5-4.0) gm/dl Albumin/Globulin Ratio (0.9-2) TSH 8.002 H (0.300-4.500) uIu/ml Ethyl Alcohol mg/dL < 10.0 (<10.0) mg/dl SARS-CoV-2, RNA, NAAT (NEGATIVE) 10/24/21 Range/Units 08:14 WBC (4.8-10.8) K/uL RBC (4.7-6.1) M/uL Hgb (14.0-18.0) g/dL Hct (42-52) % MCV (80-100) fL MCH (25-34) pg MCHC (32-36) g/dL RDW Std Deviation (36.4-46.3) fL RDW Coeff of Sarah (11.5-14.5) % Plt Count (130-400) K/uL MPV (7.4-10.4) fL Immature Gran % (Auto) % Neut % (Auto) % Lymph % (Auto) % Parmer % (Auto) % Eos % (Auto) % Baso % (Auto) % Neut # (Auto) (1.4-6.5) K/uL Lymph # (Auto) (1.2-3.4) K/uL Parmer # (Auto) (0.11-0.59) K/uL Eos # (Auto) (0-0.5) K/uL Baso # (Auto) (0-0.2) K/uL Immature Gran # (Auto) (0.00-0.02) K/uL Anisocytosis Target Cells PT (9.0-12.0) Seconds INR (0.9-1.1) APTT (21.0-31.0) Seconds PTT Ratio Sodium (136-145) mmol/L Potassium (3.5-5.1) mmol/L Chloride (98-107) mmol/L Carbon Dioxide (21-32) mmol/L Anion Gap (3-11) BUN (6-23) mg/dl Creatinine (0.6-1.4) mg/dl Est Cr Clr Drug Dosing Est GFR ( Amer) ml/min Est GFR (Non-Af Amer) ml/min BUN/Creatinine Ratio (10-20) Glucose (70-99(Fasting)) mg/dl Calcium (8.5-10.1) mg/dl Magnesium (1.7-2.4) mg/dl Total Bilirubin (0.2-1.0) mg/dl AST (13-39) U/L ALT (7-52) U/L Alkaline Phosphatase (34-104) U/L Ammonia (18-72) umol/L Troponin I High Sens (0-20) pg/ml Total Protein (6.0-8.3) gm/dl Albumin (3.4-5.0) gm/dl Globulin (2.5-4.0) gm/dl Albumin/Globulin Ratio (0.9-2) TSH (0.300-4.500) uIu/ml Ethyl Alcohol mg/dL (<10.0) mg/dl SARS-CoV-2, RNA, NAAT NEGATIVE (NEGATIVE) Imaging Data Radiologist's Impression: Chest X-Ray 10/24/21 06:35 XR chest 1V portable CLINICAL HISTORY: ams TECHNIQUE: Single frontal radiograph of the chest was obtained. Comparison: Comparison is made to chest radiograph 10/11/2021 FINDINGS: A port catheter is seen. Calcified aortic knob is seen. The lungs are clear. No evidence of pleural effusion or pneumothorax. IMPRESSION: No acute chest disease. ACT 112: Negative or not required by law. Electronically signed by: Hussein Mancuso M.D. 10/24/2021 7:[address] 10/24/21 06:35 CT head/brain wo con CLINICAL HISTORY: ams COMPARISON STUDY: 10/30/2021 CT DOSE: 1228.53 mGy.cm TECHNIQUE: Standard CT of the Brain was performed without IV contrast. A dose lowering technique was utilized adhering to the principles of ALARA. FINDINGS: Extraaxial space: There is no evidence for subdural hematoma. There are no extra-axial fluid collections. Ventricles and cisterns: The ventricles are normal in size and configuration. There is no evidence for midline shift or mass effect. Parenchyma: There is no subarachnoid or intraparenchymal hemorrhage. There is no evidence for an acute infarct or cerebral edema. There is mild cerebral cortical atrophy and decreased attenuation in the periventricular white matter representing remote small vessel disease. There are no gross mass lesions. Osseous structures: There is no evidence for an acute fracture. The visualized paranasal sinuses are clear. The mastoid air cells are clear bilaterally. Soft tissues: There is no evidence for focal soft tissue swelling. IMPRESSION: 1. No acute intracerebral pathology. 2. Mild cerebral cortical atrophy and remote small vessel disease are again seen. ACT 112: Negative or not required by law. Electronically signed by: Rodrigo Simmons M.D. 10/24/2021 8:45 AM ECG Data Attestation: I personally reviewed and interpreted this ECG as follows: Additional Comments: Twelve-lead EKG: Per my interpretation shows a normal sinus rhythm at a rate of 73. No ST elevation. No PVCs. Normal QTC. Low voltage. MDM Narrative 89-year-old male with a history of cirrhosis, ascites and metastatic colon disease to the liver presents with some increased restlessness, change in mental status, per the . Exam reveals some jaundice and scleral icterus. Answers basic questions appropriately but seems restless. Moves all 4 extremities. Vital signs are normal. Twelve-lead EKG shows a normal sinus rhythm. Hemoglobin is 9.7. Ammonia level is elevated at 120. Alcohol was negative. Chest x-ray was negative for acute disease. Bilirubin is 9.8. Mild transaminitis. CT scan of the brain did not show acute process. The patient and were told the results. The patient was treated with IV fluids and p.o. lactulose. The patient will require further inpatient management for hyperammonemia and hepatic encephalopathy. Impression & Plan Encephalopathy, hepatic Discharge Plan Visit Data Chief Complaint: Altered Mental Status Stated Complaint: FATIGUE,DISORIENTED/CONFUSED ED Provider: Gregg Bliss ED Midlevel Provider: Paolo Aleman Discharge Problem: Encephalopathy, hepatic Patient Disposition: Being Evaluated by Hospitalist Forms Stand Alone Forms: My [facility], Virtual Emergency Department, Important Visit Information Prescriptions Prescriptions: No Action pantoprazole 40 mg tablet,delayed release (DR/EC) 40 mg PO DAILY Qty: 30 RF: 3 oxycodone 5 mg tablet 5 mg PO Q6H PRN (Reason: Pain) Qty: 30 RF: 0 multivitamin [Daily Multi-Vitamin] tablet 1 tab PO HS RF: 0 coenzyme Q10 [CoQ-10] 30 mg Capsule 30 mg PO HS RF: 0 ascorbic acid (vitamin C) [Vitamin C] 1,000 mg tablet 1,000 mg PO QDL RF: 0 cholecalciferol (vitamin D3) [Vitamin D3] 50 mcg (2,000 unit) tablet 3,000 unit PO QDL RF: 0 escitalopram oxalate [Lexapro] 10 mg tablet 10 mg PO QAM RF: 0 Probiotic 3 billion cell Capsule 3,000 mmu cells PO QAM RF: 0 polyethylene glycol 3350 [Miralax] 17 gram/dose Powder 17 g PO QAM RF: 0 spironolactone 25 mg tablet 25 mg PO QAM RF: 0 furosemide [Lasix] 20 mg tablet 20 mg PO QAM RF: 0 sennosides-docusate sodium [Senokot-S] 8.6-50 mg Tablet 1 tab-cap PO BID RF: 0 Referrals Referrals: Ian Mccartney DO [Primary Care Provider] -
[2021-10-24 07:23] LABS: Alanine Aminotransferase 28 U/L (7-52); Albumin Globulin Ratio 0.9 (0.9-2); Albumin Level 2.8 gm/dl (3.4-5.0); Alkaline Phosphatase 387 U/L (34-104); Anion Gap 10 (3-11); Aspartate Aminotransferase 55 U/L (13-39); BUN Creatinine Ratio 21.6 (10-20); Bilirubin,Total 9.8 mg/dl (0.2-1.0); Blood Urea Nitrogen 22 mg/dl (6-23); Calcium 8.1 mg/dl (8.5-10.1); Carbon Dioxide 19 mmol/L (21-32); Chloride 103 mmol/L (98-107); Est GFR (African American) 82.9 ml/min; Est GFR (Non-African American) 71.6 ml/min; Globulin 3.2 gm/dl (2.5-4.0); Glucose 100 mg/dl (70-99(Fasting)); Magnesium 1.9 mg/dl (1.7-2.4); Sodium 132 mmol/L (136-145)
[2021-10-24 07:25] LABS: Anisocytosis Present; Target Cells 1+
[2021-10-24 07:27] LABS: Troponin I High Sensitivity 8.8 pg/ml (0-20)
--- NOTE | 2021-10-24 07:37 | XRay Report ---
XR chest 1V portable CLINICAL HISTORY: ams TECHNIQUE: Single frontal radiograph of the chest was obtained. Comparison: Comparison is made to chest radiograph 10/11/2021 FINDINGS: A port catheter is seen. Calcified aortic knob is seen. The lungs are clear. No evidence of pleural e ffusion or pneumothorax. IMPRESSION: No acute chest disease. ACT 112: Negative or not required by law. Electronically signed by: Hussein Mancuso M.D. 10/24/2021 7:36 AM
[2021-10-24] MEDS ORDERED: LACTULOSE SYRUP 30 GM/45 ML UDP PO STA (08:32)
[2021-10-24] MEDS ORDERED: SODIUM CHLORIDE 0.9% 1000ML 1,000 ML IV ONE (08:34)
--- NOTE | 2021-10-24 08:48 | CT Scan Report ---
CT head/brain wo con CLINICAL HISTORY: ams COMPARISON STUDY: 10/30/2021 CT DOSE: 1228.53 mGy.cm TECHNIQUE: Standard CT of the Brain was performed without IV contrast. A dose lowering technique was utilized adhering to the principles of ALARA. FINDINGS: Extraaxial space: There is no evidence for subdural hematoma. There are no extra-axial fluid collecti ons. Ventricles and cisterns: The ventricles are normal in size and configuration. There is no evidence fo r midline shift or mass effect. Parenchyma: There is no subarachnoid or intraparenchymal hemorrhage. There is no evidence for an acut e infarct or cerebral edema. There is mild cerebral cortical atrophy and decreased attenuation in the periventricular white matter representing remote small vessel disease. There are no gross mass lesio ns. Osseous structures: There is no evidence for an acute fracture. The visualized paranasal sinuses are clear. The mastoid air cells are clear bilaterally. Soft tissues: There is no evidence for focal soft tissue swelling. IMPRESSION: 1. No acute intracerebral pathology. 2. Mild cerebral cortical atrophy and remote small vessel disease are again seen. ACT 112: Negative or not required by law. Electronically signed by: Rodrigo Simmons M.D. 10/24/2021 8:45 AM
[2021-10-24] MEDS ORDERED: LORazepam 2 MG/1 ML VIAL IV PRN (10:32)
[2021-10-24] MEDS ORDERED: LORazepam 2 MG/1 ML VIAL ONE (10:38)
--- NOTE | 2021-10-24 11:27 | XRay Report ---
XR KUB/Abdomen 1 view CLINICAL HISTORY: ng tube placement TECHNIQUE: 1 view of the abdomen was obtained. Comparison: Comparison is made to abdomen radiograph 09/06/2021 FINDINGS: A left abdominal drain is seen. There is interval placement of an enteric tube side-port and tip belo w the diaphragm. Partial visualization of a right port catheter is seen. The osseous structures are g rossly unremarkable. The bowel gas pattern is nonobstructive. IMPRESSION: Satisfactory position of enteric tube. ACT 112: Negative or not required by law. Electronically signed by: Hussein Mancuso M.D. 10/24/2021 11:26 AM
--- NOTE | 2021-10-24 13:55 | History & Physical Report ---
Date of Service October 24, 2021 Assessment & Plan (1) Encephalopathy, hepatic: Plan: First ever diagnosis. NH3+ was 120 in the ER with mental status consistent with hepatic encephlopathy. - NG tube placed for lactulose. The patient could not otherwise take it. - Continue lactulose NG BID -> Titrate for 3 soft BMs/day - GI consulted (2) Peristomal varices: Plan: Multiple episodes of GI bleed with plans to transfer for IR at one point. - No bleeding noted presently. - Hgb 9.7. (3) Esophageal varices with bleeding: Plan: Hx of. Large varices banded on EGD on 08/2021. - Monitor (4) Metastatic colorectal cancer: Plan: Follows with [facility] oncologist. With resultant cirrhosis due to mets. - Continue home Lasix/spironolactone as able - Limited u/s for ascites - Usually gets weekly paracentesis - Low concern for SBP, but makes sense to fully rule this out. - Continue oxycodone PRN for his chronic cancer pain (5) Depression: Plan: - Continue escitalopram as able (6) Hypertension: Plan: BP presently 100/65. Not sure if this is an ongoing issue with his cancer at this point. - Monitor (7) DVT prophylaxis: Plan: SCDs - Given recurrent GI bleed, will defer heparin at this time. Admission and Anticipated Discharge Date Admission Date: October 24, 2021 History of Present Illness Primary Care Provider: Ian Mccartney, DO 76yo M w/ hx of colon cx and liver mets with cirrhosis who presents with hepatic encephalopathy. Per , the patient was acting a bit funny yesterday, but woke up this morning and could not respond. On my interview, he smiles and laughs pleasantly, but does not answer any questions or follow commands. He has no hx of this, but has had multiple GI bleeds with prior variceal banding as recently as 08/2021. Allergies Allergy/AdvReac Type Severity Reaction Status Date / Time No Known Drug Allergies Allergy Verified 10/11/21 07:09 Home Medications Medication Instructions Recorded Confirmed Type coenzyme Q10 30 mg capsule (CoQ-10) 30 mg PO HS 01/31/18 10/24/21 History multivitamin (Daily Multi-Vitamin) 1 tab PO HS 10/17/18 10/24/21 History escitalopram oxalate 10 mg tablet 10 mg PO QAM 10/26/19 10/24/21 History (Lexapro) lactobacillus combination no.4 3 3,000 mmu cells PO QAM 10/26/19 10/24/21 History billion cell capsule (Probiotic) polyethylene glycol 3350 17 17 g PO QAM 12/21/20 10/24/21 History gram/dose oral powder (Miralax) furosemide 20 mg tablet (Lasix) 20 mg PO QAM 08/11/21 10/24/21 History spironolactone 25 mg tablet 25 mg PO QAM 08/11/21 10/24/21 History ascorbic acid (vitamin C) 1,000 mg 1,000 mg PO QDL tab 08/23/21 10/24/21 History tablet (Vitamin C) cholecalciferol (vitamin D3) 50 3,000 unit PO QDL tab 08/23/21 10/24/21 History mcg (2,000 unit) tablet (Vitamin D3) sennosides 8.6 mg-docusate sodium 1 tab-cap PO BID 09/21/21 10/24/21 History 50 mg tablet (Senokot-S) oxycodone 5 mg tablet 5 mg PO Q6H PRN #30 tab 09/28/21 10/24/21 Rx pantoprazole 40 mg tablet,delayed 40 mg PO DAILY #30 tab 10/10/21 10/24/21 Rx release Past Med/Surg History Medical History Chronic pain due to malignant neoplastic disease Chronic prostatitis Colostomy in place Depression Diverticulosis Enlarged prostate with lower urinary tract symptoms (LUTS) Essential hypertriglyceridemia Gallstone History of esophageal varices x2 and banded Inhibited sexual excitement Liver cirrhosis Nasal septal deviation Osteoarthritis Rectal adenocarcinoma (07/05/14) "Rectal pain and bleeding Status post colonoscopy and biopsy 07/05/2014 revealing adenocarcinoma the rectum moderately differentiated Staging workup revealed liver and lung metastasis Systemic chemotherapy 3 cycles of FOLFOX with addition of Avastin on the third cycle Resolution of lung metastasis and excellent response of liver lesions Plan for neoadjuvant radiation and chemotherapy Radiation therapy was completed 03/28/2015 received 5180 cGy. Chemotherapy comprised of Xeloda Status post AP resection as well as resection of liver metastasis wedge re section segment 3 06/02/2015 Final stage ypT3 ypN0 ypM1a Will complete 6 months of adjuvant chemotherapy with Xeloda and Avastin" On 04/22/15 10:54 Kerline Schultz wrote "Rectal pain and bleeding Status post colonoscopy and biopsy 07/05/2014 revealing adenocarcinoma the rectum moderately differentiated Staging workup revealed liver and lung metastasis Systemic chemotherapy 3 cycles of FOLFOX with addition of Avastin on the third cycle Resolution of lung metastasis and excellent response of liver lesions Plan for neoadjuvant radiation and chemotherapy Radiation therapy was completed 03/28/2015 received 5180 cGy. Chemotherapy comprised of Xeloda Will undergo bowel resection as well as liver resection" On 04/04/15 12:41 Kerline Schultz wrote "Rectal pain and bleeding Status post colonoscopy and biopsy 07/05/2014 revealing adenocarcinoma the rectum moderately differentiated Staging workup revealed liver and lung metastasis Systemic chemotherapy Resolution of lung metastasis and excellent response of liver lesions Plan for neoadjuvant radiation and chemotherapy Radiation therapy was completed 03/28/2015 received 5180 cGy. Chemotherapy comprised of Xeloda Will undergo bowel resection as well as liver resection" Recurrent epistaxis Seborrheic dermatitis Vitamin D deficiency Surgical History H/O colonoscopy History of bowel resection History of colostomy History of surgery closed treatment of fracture of tibial shaft 1975- bolt/natalie placement History of total knee replacement LEFT History of vascular access device present to right chest Hx of cataract surgery RIGHT/ LEFT Hx of resection of liver Family History Mother Hypertension Coronary heart disease Myocardial infarction Ischemic stroke Uncle Cancer Father Myocardial infarction Other No family history of adverse response to anesthesia No family history of bleeding disorder Denies family history of Ovarian cancer Prostate cancer Breast cancer Colorectal cancer Social History Smoking Status: Former smoker Tobacco Type: Cigarettes Second Hand Exposure: No; Hx Alcohol Use: Yes Alcohol type: hard liquor Hx Substance Use: No Preferred Language: Chilean Communication Ability: Effective Visual Impairment: No Limitations Hearing Ability: Normal Production Line Technician Required: No Beliefs That Will Affect Care: None marital status: Current Living Situation: Spouse current occupational status: retired How many Children do You have: 2 Feels Safe at Home: Yes Seatbelt Use: always Sunscreen Use: Yes Assistive Devices: None Review of Systems Review of Systems: Unobtainable due to cognitive status and Unobtainable due to reduced consciousness Physical Exam Constitutional: WD/WN, vitals as above + acute distress Eyes: EOM intact bilaterally; no conjunctival abnormality ENMT: external ear and nose normal, oropharynx normal Neck: trachea midline, no thyromegaly normal visual inspection Respiratory: normal respiratory effort, lungs clear to auscultation no respiratory distress Cardiovascular: RRR, no murmur, no edema Gastrointestinal (Abdomen): Inspection/Auscultation: abdomen normal to inspection; abdomen not distended Musculoskeletal: no cyanosis or clubbing, extremities motor strength 5/5 Skin: no rashes, warm and dry Neurologic: moves all extremities and awake Psychiatric: Orientation: + not alert, + not oriented to person and + uncooperative Results & Data Results & Data ([facility]) Vital Signs (Past 12 Hours) Vital Signs Temp Pulse Pulse Resp BP BP Pulse Ox 10/24/21 09:32 70 16 102/64 95 10/24/21 07:14 75 16 125/77 95 10/24/21 06:01 36.8 C 80 17 121/64 100 Code Status & VTE Plan VTE Prophylaxis Plan VTE Prophylaxis will be ordered: Yes PG Care Time/CCT Total # of Minutes Spent Total Time Spent with Patient: Total time spent is greater than 50% in coordination of care (as documented) at patient's floor/unit and/or counseling patient: Coding Level of Care Code 49890 Initial Inpt Care Lvl 3 Diagnoses Encephalopathy, hepatic K72.90 Peristomal varices Esophageal varices with bleeding I85.11 Esophageal varices type: secondary Metastatic colorectal cancer C19 DVT prophylaxis Z29.9 Depression F32.9 Hypertension I10 (1) Esophageal varices with bleeding Esophageal varices type: secondary Qualified Code(s): I85.11 - Secondary es ophageal varices with bleeding
[2021-10-24] MEDS ORDERED: LORAZEPAM IV PRN (17:20)
--- NOTE | 2021-10-24 19:09 | Electrocardiogram Report ---
Test Reason : Blood Pressure : / mmHG Vent. Rate : 073 BPM Atrial Rate : 073 BPM P-R Int : 166 ms QRS Dur : 080 ms QT Int : 438 ms P-R-T Axes : 061 020 035 degrees QTc Int : 482 ms Normal sinus rhythm Low voltage QRS Nonspecific ST and T wave abnormality Prolonged QT Abnormal ECG When compared with ECG of 11-OCT-2021 06:23, Nonspecific T wave abnormality now evident in Anterior leads Confirmed by Sen Lindsay ([id number]) on 10/24/2021 7:09:32 PM Referred By: REFERRED SELF Confirmed By:Salinas Lindsay
[2021-10-24] MEDS ORDERED: ACETAMINOPHEN 325 MG TAB PO PRN (19:51)
[2021-10-24] MEDS ORDERED: ONDANSETRON INJ 2 MG/ML 2 ML VIAL IV PRN (19:51)
[2021-10-24] MEDS ORDERED: oxyCODONE HCL IR 5 MG TAB (IMMEDIATE RELEASE) PO PRN (19:51)
[2021-10-24] MEDS: LACTULOSE SYRUP 30 GM/45 ML UDP PO SCH (21:38)
[2021-10-24] MEDS ORDERED: LORazepam 2 MG/1 ML VIAL IV STA (23:09)
[2021-10-24] MEDS ORDERED: LORazepam 0.25 MG in SYRINGE 0.125 ML IV STA (23:15)
[2021-10-24] MEDS ORDERED: LORazepam 0.25 MG in SYRINGE 0.125 ML IV PRN (23:16)
[2021-10-25] MEDS ORDERED: HEPARIN 100 UNIT/ML 5ML FLUSH FLUSH PRN (00:15)
[2021-10-25 03:44] LABS: Appearance Urine Clear (Clear); Bacteria Urine Automated Negative (Negative); Blood Urine 3+ (Negative); Color Urine Orange; Epithelial Cell Urine Auto 0-5 /lpf (0-5); Glucose Urine UA Negative (Negative); Ketones Urine Trace (Negative); Leukocyte Esterase Urine 1+ (Negative); Nitrite Urine Positive (Negative); Protein Urine Trace (Negative); Specific Gravity Urine 1.026 (1.000-1.030); Urobilinogen Urine Negative (Negative); WBC Urine Automated 0 /hpf (0-5); pH Urine 5.5 (4.5-7.5)
[2021-10-25 04:28] LABS: Bilirubin Urine 3+ (Negative)
[2021-10-25] MEDS: LACTULOSE SYRUP 30 GM/45 ML UDP PO SCH ×2 (08:13→20:23)
[2021-10-25] MEDS: ESCITALOPRAM OXALATE 10 MG TAB PO SCH (08:14)
[2021-10-25] MEDS: SPIRONOLACTONE 25 MG TAB PO SCH (08:14)
[2021-10-25] MEDS: PANTOprazole 40 MG TAB PO SCH (08:14)
[2021-10-25] MEDS: FUROSEMIDE 20 MG TAB PO SCH (08:14)
[2021-10-25 08:40] LABS: Hematocrit (blood only) 29.6 % (42-52); Hemoglobin 9.8 g/dL (14.0-18.0); Mean Corpuscular Hemoglobin 31.2 pg (25-34); Mean Corpuscular Hgb Conc 33.1 g/dL (32-36); Mean Corpuscular Volume 94.3 fL (80-100); Mean Platelet Volume 9.1 fL (7.4-10.4); Platelet Count 188 K/uL (130-400); RDW Coefficient of Variation 21.2 % (11.5-14.5); RDW Standard Deviation 72.7 fL (36.4-46.3); Red Blood Count 3.14 M/uL (4.7-6.1); White Blood Count 6.52 K/uL (4.8-10.8)
[2021-10-25 08:52] LABS: Est GFR (African American) 74.1 ml/min; Est GFR (Non-African American) 63.9 ml/min
[2021-10-25 08:53] LABS: Albumin Globulin Ratio 0.8 (0.9-2); Albumin Level 2.6 gm/dl (3.4-5.0); BUN Creatinine Ratio 24.1 (10-20); Bilirubin,Total 12.5 mg/dl (0.2-1.0); Calcium 8.6 mg/dl (8.5-10.1); Globulin 3.1 gm/dl (2.5-4.0); Total Protein 5.7 gm/dl (6.0-8.3)
--- NOTE | 2021-10-25 09:13 | Gastrointestinal Consultation ---
Date of Consultation October 25, 2021 Assessment & Plan (1) Metastatic colorectal cancer: -Liver mets causing intrahepatic biliary ductal dilatation without role for stenting -Repeat US is pending, however previous recent MRCP was performed and demonstrated liver mets causing ductal dilatation due to mass effect. (2) Peristomal varices: -IR deemed patient not a candidate for TIPS and suggested eval by a hepatobiliary surgeon to determine if he is a candidate for a shunt for treatment of parastomal varices; He reportedly was to have that appointment this week before a significant change in his status occurred. (3) Encephalopathy, hepatic: -In regards to patient's hepatic encephalopathy, he presently has an NG tube. Would advise continuation of Lactulose 30 gm BID-TID--would titrate to a goal of 4 bowel movements daily. -When tolerating po, can add Xifaxan 550 mg BID (4) Esophageal varices with bleeding: -Not actively bleeding -S/p banding in August 2021 (5) Liver failure: -Patient is demonstrating significantly decompensating disease/liver failure due to hepatic mass and cirrhosis. In the setting of metastatic colon cancer, frequent hospital admissions, and deteriorating condition, it would be imperative to re-evaluate palliative care discussions with patient's family as his clinical condition will continue to worsen. History of Present Illness Reason for Consultation: Hepatic Encephalopathy Attending Physician: Philip Cifuentes MD History of Present Illness Patient is a 76 yo male with a PMH of colon cancer s/p ostomy with liver mets and cirrhosis with portal hypertension requiring banding x 2 for esophageal varices most recently in August. GI has been consulted during this admission for evaluation of hepatic encephalopathy. Patient reportedly was brought to the ED due to unusual behavior and inability to follow commands. Ammonia was noted to be 120. Patient jaundiced. Bilirubin 9.8 on admission but is now 12.5. In early October 2021, bilirubin was 1.8. Abdominal US imaging is pending, but last MRCP performed indicated intrahepatic biliary ductal dilatation due to large central hepatic mass--no role for stenting. NG tube was placed to deliver his Lactulose. INR 1.5, which is also worse than previous. MELD score today is 22. He has had frequent hospital admissions 6+ times in the past year. He is under going cancer therapy at [facility] in [place]. Previous discussions with palliative care in January 2021 occurred at a time when his clinical situation was not as poor. While he has a history of ascites and esophageal varices with bleeding, he has not exhibited hepatic encephalopathy in the past. He has recently been deemed by IR as not a candidate for TIPS. IR did suggest the other possibility of seeing hepatobiliary surgeon for considering of a shut for treatment of peristomal varices and patient was to see this specialist this week. Allergies Allergy/AdvReac Type Severity Reaction Status Date / Time No Known Drug Allergies Allergy Verified 10/11/21 07:09 Home Medications Medication Instructions Recorded Confirmed Type coenzyme Q10 30 mg capsule (CoQ-10) 30 mg PO HS 01/31/18 10/24/21 History multivitamin (Daily Multi-Vitamin) 1 tab PO HS 10/17/18 10/24/21 History escitalopram oxalate 10 mg tablet 10 mg PO QAM 10/26/19 10/24/21 History (Lexapro) lactobacillus combination no.4 3 3,000 mmu cells PO QAM 10/26/19 10/24/21 History billion cell capsule (Probiotic) polyethylene glycol 3350 17 17 g PO QAM 12/21/20 10/24/21 History gram/dose oral powder (Miralax) furosemide 20 mg tablet (Lasix) 20 mg PO QAM 08/11/21 10/24/21 History spironolactone 25 mg tablet 25 mg PO QAM 08/11/21 10/24/21 History ascorbic acid (vitamin C) 1,000 mg 1,000 mg PO QDL tab 08/23/21 10/24/21 History tablet (Vitamin C) cholecalciferol (vitamin D3) 50 3,000 unit PO QDL tab 08/23/21 10/24/21 History mcg (2,000 unit) tablet (Vitamin D3) sennosides 8.6 mg-docusate sodium 1 tab-cap PO BID 09/21/21 10/24/21 History 50 mg tablet (Senokot-S) oxycodone 5 mg tablet 5 mg PO Q6H PRN #30 tab 09/28/21 10/24/21 Rx pantoprazole 40 mg tablet,delayed 40 mg PO DAILY #30 tab 10/10/21 10/24/21 Rx release Patient History Medical History Chronic pain due to malignant neoplastic disease Chronic prostatitis Colostomy in place Depression Diverticulosis Enlarged prostate with lower urinary tract symptoms (LUTS) Essential hypertriglyceridemia Gallstone History of esophageal varices x2 and banded Inhibited sexual excitement Liver cirrhosis Nasal septal deviation Osteoarthritis Rectal adenocarcinoma (07/05/14) "Rectal pain and bleeding Status post colonoscopy and biopsy 07/05/2014 revealing adenocarcinoma the rectum moderately differentiated Staging workup revealed liver and lung metastasis Systemic chemotherapy 3 cycles of FOLFOX with addition of Avastin on the third cycle Resolution of lung metastasis and excellent response of liver lesions Plan for neoadjuvant radiation and chemotherapy Radiation therapy was completed 03/28/2015 received 5180 cGy. Chemotherapy comprised of Xeloda Status post AP resection as well as resection of liver metastasis wedge resection segment 3 06/02/2015 Final stage ypT3 ypN0 ypM1a Will complete 6 months of adjuvant chemotherapy with Xeloda and Avastin" On 04/22/15 10:54 Kerline Schultz wrote "Rectal pain and bleeding Status post colonoscopy and biopsy 07/05/2014 revealing adenocarcinoma the rectum moderately differentiated Staging workup revealed liver and lung metastasis Systemic chemotherapy 3 cycles of FOLFOX with addition of Avastin on the third cycle Resolution of lung metastasis and excellent response of liver lesions Plan for neoadjuvant radiation and chemotherapy Radiation therapy was completed 03/28/2015 received 5180 cGy. Chemotherapy comprised of Xeloda Will undergo bowel resection as well as liver resection" On 04/04/15 12:41 Kerline Schultz wrote "Rectal pain and bleeding Status post colonoscopy and biopsy 07/05/2014 revealing adenocarcinoma the rectum moderately differentiated Staging workup revealed liver and lung metastasis Systemic chemotherapy Resolution of lung metastasis and excellent response of liver lesions Plan for neoadjuvant radiation and chemotherapy Radiation therapy was completed 03/28/2015 received 5180 cGy. Chemotherapy comprised of Xeloda Will undergo bowel resection as well as liver resection" Recurrent epistaxis Seborrheic dermatitis Vitamin D deficiency Surgical History H/O colonoscopy History of bowel resection History of colostomy History of surgery closed treatment of fracture of tibial shaft 1974- bolt/natalie placement History of total knee replacement LEFT History of vascular access device present to right chest Hx of cataract surgery RIGHT/ LEFT Hx of resection of liver Family History Mother Hypertension Coronary heart disease Myocardial infarction Ischemic stroke Uncle Cancer Father Myocardial infarction Other No family history of adverse response to anesthesia No family history of bleeding disorder Denies family history of Ovarian cancer Prostate cancer Breast cancer Colorectal cancer Social History Smoking Status: Unknown if ever smoked Tobacco Type: Cigarettes Second Hand Exposure: No; Hx Alcohol Use: Yes Alcohol type: hard liquor Hx Substance Use: No Preferred Language: Cameroonian Communication Ability: Impaired Visual Impairment: No Limitations Hearing Ability: Normal Stitching Department Supervisor Required: No Beliefs That Will Affect Care: None marital status: Current Living Situation: Spouse Current Living Situation Comment: home with current occupational status: retired How many Children do You have: 2 Feels Safe at Home: Yes Seatbelt Use: always Sunscreen Use: Yes Assistive Devices: None Review of Systems Review of Systems: Unobtainable due to cognitive status Physical Exam Constitutional: + ill appearing Respiratory: normal respiratory effort Cardiovascular: Rate/Rhythm: regular rate Gastrointestinal (Abdomen): Percussion/Palpation: abdomen soft; abdomen nontender Musculoskeletal: Head/Neck/Chest: normocephalic Skin: + jaundice Psychiatric: Orientation: + not alert and + not oriented x 3 Results & Data ([facility]) Vital Signs (Past 12 Hours) Vital Signs Temp Pulse Pulse Resp BP Pulse Ox 10/25/21 07:16 92 H 10/25/21 06:55 36.9 C 87 17 135/75 100 10/24/21 23:00 82 10/24/21 21:58 36.4 C L 90 18 102/60 93 PG Care Time/CCT Total # of Minutes Spent Total Time Spent with Patient: Total time spent is greater than 50% in coordination of care (as documented) at patient's floor/unit and/or counseling patient: Coding Level of Care Code 84678 Initial Inpt Care Lvl 3 Diagnoses Metastatic colorectal cancer C19 Peristomal varices Encephalopathy, hepatic K72.90 Esophageal varices with bleeding I85.11 Esophageal varices type: secondary Liver failure K72.90 (1) Esophageal varices with bleeding Esophageal varices type: secondary Qualified Code(s): I85.11 - Secondary esophageal varices with bleeding
[2021-10-25 11:02] LABS: Basophils, Fluid 0 %; Eosinophils, Fluid 0 %
--- NOTE | 2021-10-25 11:33 | Ultrasound Report ---
US abdomen ltd ascites CLINICAL HISTORY: Ascites check TECHNIQUE: Real-time grayscale sonographic images of the 4 quadrants of the abdomen were obtained. Comparison: Abdominal ultrasound from 09/08/2021 FINDINGS: Compared to previous examination, significant increased fluid is present in all 4 quadrants representing worsening ascites. IMPRESSION: Worsening ascites which is at least moderate in degree. ACT 112: Negative or not required by law. Electronically signed by: Rodrigo Simmons M.D. 10/25/2021 11:31 AM
--- NOTE | 2021-10-25 11:50 | Hospitalist Progress Note ---
Date of Service October 25, 2021 Assessment & Plan (1) Encephalopathy, hepatic: Plan: First ever diagnosis. NH3+ was 120 in the ER with mental status consistent with hepatic encephalopathy. - NG tube placed for lactulose. The patient could not otherwise take it on 10/24. Now he is taking it by mouth after pulling his NG tube out overnight. - Continue lactulose PO BID -> Titrate for 3 soft BMs/day - Added a third dose today as ostomy output was only about 100 mL overnight. - GI consulted - Appreciate recs. (2) Metastatic colorectal cancer: Plan: Follows with [facility] oncologist. With resultant cirrhosis due to mets. - Continue home Lasix/spironolactone as able - Continue oxycodone PRN for his chronic cancer pain - Limited u/s for ascites on 10/24 showed moderate ascites. Ordered cell count, Gram stain, and culture on ascites fluid. He has a Pleur-X style peritoneal drain, and I asked RN to get sterile sample to r/o SBP. (3) CKD (chronic kidney disease) stage 2, GFR 60-89 ml/min: Plan: Baseline Cr ~1.0. Presently at baseline. - Monitor Cr while admitted. - Avoid nephrotoxic medications as able. (4) Peristomal varices: Plan: Multiple episodes of GI bleed with plans to transfer for IR at one point. - No bleeding noted presently. - Hgb 9.8. Stable. (5) Esophageal varices with bleeding: Plan: Hx of. Large varices banded on EGD on 08/2021. - Monitor (6) Depression: Plan: - Continue escitalopram as able (7) Hypertension: Plan: BP presently 120/65. Not sure if this is an ongoing issue with his cancer at this point. - Monitor (8) DVT prophylaxis: Plan: SCDs - Given recurrent GI bleed, will defer heparin at this time. Admission and Anticipated Discharge Date Admission Date: October 24, 2021 Subjective Some better today. Wakes up and interacts more today compared to yesterday. Has somewhat more sensible verbal responses but still not answering full questions. Overnight, he pulled out his NG tube and IV despite his soft mitts on. Presently with a 1:1 sitter who feels he is still pretty restless. Review of Systems Review of Systems: Unobtainable due to cognitive status Physical Exam Constitutional: WD/WN, vitals as above + acute distress Eyes: EOM intact bilaterally; no conjunctival abnormality ENMT: external ear and nose normal, oropharynx normal Neck: trachea midline, no thyromegaly normal visual inspection Respiratory: normal respiratory effort, lungs clear to auscultation no respiratory distress Cardiovascular: RRR, no murmur, no edema Gastrointestinal (Abdomen): Inspection/Auscultation: abdomen normal to inspection; abdomen not distended Musculoskeletal: no cyanosis or clubbing, extremities motor strength 5/5 Skin: no rashes, warm and dry Neurologic: moves all extremities and awake Psychiatric: Orientation: + not alert, + not oriented to person and + uncooperative Results & Data Results & Data ([facility]) Vital Signs (Past 12 Hours) Vital Signs Temp Pulse Pulse Resp BP Pulse Ox 10/25/21 11:15 36.5 C 78 18 121/65 100 10/25/21 07:16 92 H 10/25/21 06:55 36.9 C 87 17 135/75 100 PG Care Time/CCT Total # of Minutes Spent Total Time Spent with Patient: Total time spent is greater than 50% in coordination of care (as documented) at patient's floor/unit and/or counseling patient: Coding Level of Care Code 82654 Subseq Hosp Care Lvl 3 Diagnoses Encephalopathy, hepatic K72.90 Peristomal varices Esophageal varices with bleeding I85.11 Esophageal varices type: secondary Metastatic colorectal cancer C19 Depression F32.9 Hypertension I10 DVT prophylaxis Z29.9 CKD (chronic kidney disease) stage 2, GFR 60-89 ml/min N18.2 (1) Esophageal varices with bleeding Esophageal varices type: secondary Qualified Code(s): I85.11 - Secondary esophageal varices with bleeding
[2021-10-25] MEDS ORDERED: LACTULOSE SYRUP 30 GM/45 ML UDP PO ONE (12:00)
[2021-10-25 14:34] LABS: Lymphocytes, Fluid 38 %; Mono,Macrophage,Mesothelial 40 %; Neutrophils, Fluid 22 %; RBC Peritoneal Fluid (A) < 3000 /uL; WBC Peritoneal Fluid (A) 127 /ul (0-300)
[2021-10-25 14:45] LABS: Appearance Peritoneal Fluid Clear; Color Peritoneal Fluid Pale Yellow
[2021-10-25] MEDS ORDERED: MAGNESIUM SULFATE / D5W 1 GM/100 ML BAG IV ONE (18:47)
[2021-10-26 06:43] LABS: Hematocrit (blood only) 28.5 % (42-52); Hemoglobin 9.5 g/dL (14.0-18.0); Mean Corpuscular Hgb Conc 33.3 g/dL (32-36); Mean Corpuscular Volume 93.1 fL (80-100); Mean Platelet Volume 9.5 fL (7.4-10.4); Platelet Count 201 K/uL (130-400); RDW Coefficient of Variation 20.9 % (11.5-14.5); RDW Standard Deviation 70.8 fL (36.4-46.3); Red Blood Count 3.06 M/uL (4.7-6.1); White Blood Count 7.58 K/uL (4.8-10.8)
[2021-10-26 06:59] LABS: Albumin Globulin Ratio 0.9 (0.9-2); Albumin Level 2.7 gm/dl (3.4-5.0); BUN Creatinine Ratio 23.7 (10-20); Bilirubin,Total 12.4 mg/dl (0.2-1.0); Creatinine Clr Calc Pharmacy 54.1 ml/min; Est GFR (African American) 69.5 ml/min; Globulin 3.1 gm/dl (2.5-4.0); Magnesium 2.2 mg/dl (1.7-2.4); Potassium 3.9 mmol/L (3.5-5.1); Total Protein 5.8 gm/dl (6.0-8.3)
[2021-10-26] MEDS: FUROSEMIDE 20 MG TAB PO SCH (07:48)
[2021-10-26] MEDS: LACTULOSE SYRUP 30 GM/45 ML UDP PO SCH ×2 (07:48→21:33)
[2021-10-26] MEDS: ESCITALOPRAM OXALATE 10 MG TAB PO SCH (07:49)
[2021-10-26] MEDS: SPIRONOLACTONE 25 MG TAB PO SCH (07:49)
[2021-10-26] MEDS: PANTOprazole 40 MG TAB PO SCH (07:49)
--- NOTE | 2021-10-26 17:10 | Hospitalist Progress Note ---
Date of Service October 26, 2021 Assessment & Plan (1) Encephalopathy, hepatic: Plan: First ever diagnosis. NH3+ was 120 in the ER with mental status consistent with hepatic encephalopathy. - Continue lactulose PO BID -> Titrate for 3 soft BMs/day - Added a third dose on 10/25 as ostomy output was only about 100 mL overnight. - GI consulted - Appreciate recs. (2) Metastatic colorectal cancer: Plan: Follows with [facility] oncologist. With resultant cirrhosis due to mets. - Continue home Lasix/spironolactone as able - Continue oxycodone PRN for his chronic cancer pain - Limited u/s for ascites on 10/24 showed moderate ascites. Peritoneal sample on 10/25 without signs of SBP. - Tbili has been consistently higher this admission than priors and is rising. I have asked [facility] on further thoughts, but they do not feel further intervention is possible given the nature of obstruction. - Spoke with the patient's on 10/26 - Would prefer to move toward comfort and home hospice as we really don't have other therapeutic options at this point. (3) CKD (chronic kidney disease) stage 2, GFR 60-89 ml/min: Plan: Baseline Cr ~1.0. Presently at baseline. - Monitor Cr while admitted. - Avoid nephrotoxic medications as able. (4) Peristomal varices: Plan: Multiple episodes of GI bleed with plans to transfer for IR at one point. - No bleeding noted presently. - Hgb 9.5. Stable. (5) Esophageal varices with bleeding: Plan: Hx of. Large varices banded on EGD on 08/2021. - Monitor (6) Depression: Plan: - Continue escitalopram as able (7) Hypertension: Plan: BP presently 100/50. Not sure if this is an ongoing issue with his cancer at thi s point. - Monitor (8) DVT prophylaxis: Plan: SCDs - Given recurrent GI bleed, will defer heparin at this time. Admission and Anticipated Discharge Date Admission Date: October 24, 2021 Subjective Slightly more alert today in the morning, but in the afternoon, he is back to being quite tired. Some abdominal pain. Reports no fevers/chills, chest pain, shortness of breath, nausea, or vomiting. Physical Exam Constitutional: WD/WN, vitals as above + acute distress Eyes: EOM intact bilaterally; no conjunctival abnormality ENMT: external ear and nose normal, oropharynx normal Neck: trachea midline, no thyromegaly normal visual inspection Respiratory: normal respiratory effort, lungs clear to auscultation no respiratory distress Cardiovascular: RRR, no murmur, no edema Gastrointestinal (Abdomen): Inspection/Auscultation: abdomen normal to inspection; abdomen not distended Musculoskeletal: no cyanosis or clubbing, extremities motor strength 5/5 Skin: no rashes, warm and dry + jaundice Neurologic: moves all extremities and awake Psychiatric: Orientation: alert, oriented to person and cooperative Results & Data Results & Data ([facility]) Vital Signs (Past 12 Hours) Vital Signs Temp Pulse Resp BP Pulse Ox 10/26/21 16:04 36.8 C 68 18 100/50 L 100 10/26/21 11:56 36.9 C 82 18 115/75 98 10/26/21 07:21 36.8 C 79 20 111/69 100 PG Care Time/CCT Total # of Minutes Spent Total Time Spent with Patient: Total time spent is greater than 50% in coordination of care (as documented) at patient's floor/unit and/or counseling patient: Coding Level of Care Code 56165 Subseq Hosp Care Lvl 3 Diagnoses Encephalopathy, hepatic K72.90 Metastatic colorectal cancer C19 CKD (chronic kidney disease) stage 2, GFR 60-89 ml/min N18.2 Peristomal varices Esophageal varices with bleeding I85.11 Esophageal varices type: secondary Depression F32.9 Hypertension I10 DVT prophylaxis Z29.9 (1) Esophageal varices with bleeding Esophageal varices type: secondary Qualified Code(s): I85.11 - Secondary esophageal varices with bleeding
[2021-10-26 17:42] LABS: INR 1.7 (0.9-1.1); Partial Thromboplastin Time 27.9 Seconds (21.0-31.0); Prothrombin Time 17.5 Seconds (9.0-12.0)
[2021-10-26] MEDS: rifAXIMin 550 MG TABLET PO SCH (21:33)
[2021-10-27] MEDS ORDERED: OPTIRAY 320 100ml IV ONE (05:55)
--- NOTE | 2021-10-27 07:04 | CT Scan Report ---
CT OF THE ABDOMEN AND PELVIS WITH CONTRAST CLINICAL HISTORY: Liver metastases. Colorectal cancer. Abdominal pain. COMPARISON STUDY: CT of the abdomen and pelvis June 14, 2021. CTA of the abdomen and pelvis August 15, 2021. MRCP September 24, 2021. TECHNIQUE: Following IV administration of 93 mL of Optiray, axial images of the abdomen and pelvis we re obtained from the lung bases to the proximal femurs. Images were reviewed in the axial, sagittal, and coronal planes. IV contrast was administered without complication. Automated exposure control wa s utilized for the study. A dose lowering technique was utilized adhering to the principles of ALARA . CT DOSE: 472.63 mGy.cm FINDINGS: Pathologic right cardiophrenic angle lymph node is similar to prior exam. Multiple nodules within the lower lungs have minimally increased in size since CT of August 15, 2021. Index right lower lobe nodule on image 35 of 481 measures 1.3 cm. No pneumatosis, free air or portal venous gas is pres ent. Distal esophageal wall thickening with paraesophageal varices are again noted. The liver is cirr hotic. Central hepatic mass measuring approximately 7 cm is again noted. This is similar to prior MRC P. Associated biliary ductal dilatation is similar to prior MRCP but increased since CTA of August 15, 2021. Moderate abdominal ascites has increased since prior MRCP. Peritoneal catheter is in place. The re is a descending colostomy without evidence for a bowel obstruction. Parastomal hernia which contai ns fluid is noted. Adjacent varices are present. 3 cm infrarenal abdominal aortic aneurysm is noted. No evidence for rupture. No abdominal or pelvic lymphadenopathy is present. No suspicious lesions are identified within visualized skeletal structures. IMPRESSION: 1. Moderate ascites, increased since MRCP of September 22, 2021. Peritoneal catheter in place. 2. Left lower quadrant descending colostomy. No bowel obstruction. 3. Central hepatic mass, measuring approximately 7 cm, consistent with metastatic disease. This resul ts in moderate biliary ductal dilatation which is similar to MRCP of September 22, [address] of August 15, 2021. 4. Cirrhosis. Mild hepatomegaly and varices consistent with portal hypertension. ACT 112: Negative or not required by law. Electronically signed by: Bob Vidal M.D. 10/27/2021 7:01 AM
[2021-10-27] MEDS: FUROSEMIDE 20 MG TAB PO SCH (08:22)
[2021-10-27] MEDS: LACTULOSE SYRUP 30 GM/45 ML UDP PO SCH (08:22)
[2021-10-27] MEDS: ESCITALOPRAM OXALATE 10 MG TAB PO SCH (08:22)
[2021-10-27] MEDS: PANTOprazole 40 MG TAB PO SCH (08:22)
[2021-10-27] MEDS: SPIRONOLACTONE 25 MG TAB PO SCH (08:22)
[2021-10-27] MEDS: rifAXIMin 550 MG TABLET PO SCH (08:23)
[2021-10-27 09:07] LABS: Hematocrit (blood only) 27.2 % (42-52); Hemoglobin 9.2 g/dL (14.0-18.0); Mean Corpuscular Hemoglobin 31.7 pg (25-34); Mean Corpuscular Hgb Conc 33.8 g/dL (32-36); Mean Corpuscular Volume 93.8 fL (80-100); Mean Platelet Volume 9.1 fL (7.4-10.4); Platelet Count 164 K/uL (130-400); RDW Coefficient of Variation 20.7 % (11.5-14.5); RDW Standard Deviation 70.1 fL (36.4-46.3); White Blood Count 6.67 K/uL (4.8-10.8)
[2021-10-27 09:23] LABS: Est GFR (African American) 67.5 ml/min; Est GFR (Non-African American) 58.2 ml/min
[2021-10-27 09:24] LABS: Albumin Globulin Ratio 0.8 (0.9-2); Albumin Level 2.5 gm/dl (3.4-5.0); BUN Creatinine Ratio 19.8 (10-20); Bilirubin,Total 13.1 mg/dl (0.2-1.0); Creatinine Clr Calc Pharmacy 52.7 ml/min; Globulin 3.1 gm/dl (2.5-4.0); Magnesium 2.1 mg/dl (1.7-2.4); Total Protein 5.6 gm/dl (6.0-8.3)
[2021-10-27 09:33] LABS: INR 1.7 (0.9-1.1); Partial Thromboplastin Ratio 1.2; Partial Thromboplastin Time 32.1 Seconds (21.0-31.0); Prothrombin Time 17.4 Seconds (9.0-12.0)
--- NOTE | 2021-10-27 11:04 | Communication Note ---
Date of Service: October 27, 2021 This morning, I spoke with the patient about undergoing ERCP, then also spoke with his . Both were interested in pursuing this. I explained that if th ere were any clumping of bile in the common bile duct that this would clear that out and possibly help jaundice and nausea. However explained that if the elevated LFTs, jaundice, were caused by the burden of tumor in the liver, then ERCP would not change his symptoms. I also explained that this is not a curative procedure. After further review, it was noticed that the patient had some interest in hospice late yesterday. For that reason the usefulness of ERCP was discussed again and we then recommended against it. This was discussed with Dr. Glez the primary hospitalist who will further discuss goals of care with the family. Reviewed the patient's imaging study. Most of his symptoms seem to be related to diffuse metastatic disease and ascites. An ERCP is unlikely to provide any benefit for this patient on fortunately. I would hold on ERCP at this time due to limited value.
--- NOTE | 2021-10-27 12:40 | Palliative Care Consultation ---
Date of Consultation October 27, 2021 Assessment & Plan (1) Hepatic encephalopathy: Improved with lactulose (2) Abdominal pain: Has been controlled with oxycodone prn. Continue same. (3) Palliative care encounter: I spoke with Mr. Ash about his understanding of where he is at with his illness. He is aware that he is NPO for a potential procedure this morning but not entirely clear on prognosis, which is unfortunately poor. I asked him if time were short, would he want to know and he told me that he would have to think about that. I also asked him what his expectation was for the procedure and he told me that if it would make him feel better, he would want to do it. I also spoke to his on the phone. She had consented to procedure with the hope that he would be more energetic and thinking more clearly. She understands that his prognosis is poor and he has not had cancer treatment for several weeks. Her greatest hope would be that [place] and enjoy time with his family. We discussed concerns that he was at risk for complications with the procedure as well as the concern about culture positive ascitic fluid. Ultimately it does not appear that he would have significant benefit from ERCP or stenting and procedure was cancelled. We discussed options for hospice versus continued care with home care, including, using lactulose at home to help keep him as clear as we can cognitively, treating with antibiotic for positive culture. They would like to treat infection to maximize his function and comfort and are very anxious for him to be at home. They are not comfortable with hospice transition at this time but agreeable to transition with [facility] when ready. Discussed with Dr. Glez and notified case management. (4) Liver failure: (5) Metastatic colorectal cancer: History of Present Illness Reason for Consultation: goals of care Requesting Physician: Dr. Glez Attending Physician: Pauly Glez MD History of Present Illness 76 yo gentleman with history of colon cancer metastatic to liver with cirrhosis. He has been seen by palliative care on previous hospitalization and as an outpatient. He presented with hepatic encephalopathy and ammonia level of 120. Initially he received lactulose via NG but has had some improvement and is able to converse with me today. Per his , he is near baseline. He is jaundiced with a total bilirubin of 13.1, which has been increasing over the last two months. He has chronic pain and has been on oxycodone for months. He denies dyspnea and nausea currently and is hungry, asking to eat. He has chronic ascites with tunneled peritoneal catheter for drainage. He tells me that it was last drained on Saturday. Culture was positive for Staph. He is afebrile, denies abdominal pain or discomfort. Allergies Allergy/AdvReac Type Severity Reaction Status Date / Time No Known Drug Allergies Allergy Verified 10/11/21 07:09 Home Medications Medication Instructions Recorded Confirmed Type coenzyme Q10 30 mg capsule (CoQ-10) 30 mg PO HS 01/31/18 10/24/21 History multivitamin (Daily Multi-Vitamin) 1 tab PO HS 10/17/18 10/24/21 History escitalopram oxalate 10 mg tablet 10 mg PO QAM 10/26/19 10/24/21 History (Lexapro) lactobacillus combination no.4 3 3,000 mmu cells PO QAM 10/26/19 10/24/21 History billion cell capsule (Probiotic) polyethylene glycol 3350 17 17 g PO QAM 12/21/20 10/24/21 History gram/dose oral powder (Miralax) furosemide 20 mg tablet (Lasix) 20 mg PO QAM 08/11/21 10/24/21 History spironolactone 25 mg tablet 25 mg PO QAM 08/11/21 10/24/21 History ascorbic acid (vitamin C) 1,000 mg 1,000 mg PO QDL tab 08/23/21 10/24/21 History tablet (Vitamin C) cholecalciferol (vitamin D3) 50 3,000 unit PO QDL tab 08/23/21 10/24/21 History mcg (2,000 unit) tablet (Vitamin D3) sennosides 8.6 mg-docusate sodium 1 tab-cap PO BID 09/21/21 10/24/21 History 50 mg tablet (Senokot-S) oxycodone 5 mg tablet 5 mg PO Q6H PRN #30 tab 09/28/21 10/24/21 Rx pantoprazole 40 mg tablet,delayed 40 mg PO DAILY #30 tab 10/10/21 10/24/21 Rx release Patient History Medical History Chronic pain due to malignant neoplastic disease Chronic prostatitis CKD (chronic kidney disease) stage 2, GFR 60-89 ml/min Colostomy in place Depression Diverticulosis Enlarged prostate with lower urinary tract symptoms (LUTS) Essential hypertriglyceridemia Gallstone History of esophageal varices x2 and banded Inhibited sexual excitement Liver cirrhosis Nasal septal deviation Osteoarthritis Rectal adenocarcinoma (07/05/14) "Rectal pain and bleeding Status post colonoscopy and biopsy 07/05/2014 revealing adenocarcinoma the rectum moderately differentiated Staging workup revealed liver and lung metastasis Systemic chemotherapy 3 cycles of FOLFOX with addition of Avastin on the third cycle Resolution of lung metastasis and excellent response of liver lesions Plan for neoadjuvant radiation and chemotherapy Radiation therapy was completed 03/28/2015 received 5180 cGy. Chemotherapy comprised of Xeloda Status post AP resection as well as resection of liver metastasis wedge resection segment 3 06/02/2015 Final stage ypT3 ypN0 ypM1a Will complete 6 months of adjuvant chemotherapy with Xeloda and Avastin" On 04/22/15 10:54 Kerline Schultz wrote "Rectal pain and bleeding Status post colonoscopy and biopsy 07/05/2014 revealing adenocarcinoma the rectum moderately differentiated Staging workup revealed liver and lung metastasis Systemic chemotherapy 3 cycles of FOLFOX with addition of Avastin on the third cycle Resolution of lung metastasis and excellent response of liver lesions Plan for neoadjuvant radiation and chemotherapy Radiation therapy was completed 03/28/2015 received 5180 cGy. Chemotherapy comprised of Xeloda Will undergo bowel resection as well as liver resection" On 04/04/15 12:41 Kerline Schultz wrote "Rectal pain and bleeding Status post colonoscopy and biopsy 07/05/2014 revealing adenocarcinoma the rectum moderately differentiated Staging workup revealed liver and lung metastasis Systemic chemotherapy Resolution of lung metastasis and excellent response of liver lesions Plan for neoadjuvant radiation and chemotherapy Radiation therapy was completed 03/28/2015 received 5180 cGy. Chemotherapy comprised of Xeloda Will undergo bowel resection as well as liver resection" Recurrent epistaxis Seborrheic dermatitis Vitamin D deficiency Surgical History H/O colonoscopy History of bowel resection History of colostomy History of surgery closed treatment of fracture of tibial shaft 1974- bolt/natalie placement History of total knee replacement LEFT History of vascular access device present to right chest Hx of cataract surgery RIGHT/ LEFT Hx of resection of liver Family History Mother Hypertension Coronary heart disease Myocardial infarction Ischemic stroke Uncle Cancer Father Myocardial infarction Other No family history of adverse response to anesthesia No family history of bleeding disorder Denies family history of Ovarian cancer Prostate cancer Breast cancer Colorectal cancer Social History Smoking Status: Unknown if ever smoked Tobacco Type: Cigarettes Second Hand Exposure: No; Hx Alcohol Use: Yes Alcohol type: hard liquor Hx Substance Use: No Preferred Language: Albanian Communication Ability: Effective Visual Impairment: No Limitations Hearing Ability: Normal Linen Tech Required: No Beliefs That Will Affect Care: None marital status: Current Living Situation: Spouse Current Living Situation Comment: home with current occupational status: retired How many Children do You have: 2 Feels Safe at Home: Yes Seatbelt Use: always Sunscreen Use: Yes Assistive Devices: None Review of Systems Review of Systems: ESAS Pain 0/3 Dyspnea 0/3 Anxiety 1/3 Fatigue 2/3 Drowsiness 0/3 PPS 40% Physical Exam 2 Constitutional: + ill appearing; no acute distress Eyes: scleral icterus ENMT: Mouth: + dry oral mucous membranes Respiratory: normal respiratory effort; no labored breathing Cardiovascular: Rate/Rhythm: regular rate and regular rhythm Gastrointestinal (Abdomen): colostomy, peritoneal catheter dressing intact Musculoskeletal: Extremities: + muscle atrophy Skin: + jaundice Results & Data ([facility]) Vital Signs (Past 12 Hours) Vital Signs Temp Pulse Resp BP BP Pulse Ox 10/27/21 11:53 97.5 F L 66 16 108/67 100 10/27/21 07:55 97.9 F 70 16 104/61 97 10/27/21 02:02 98.6 F 76 18 90/51 L 99 PG Care Time/CCT Total # of Minutes Spent Total Time Spent: 95 Total Time Spent with Patient: Total time spent is greater than 50% in coordination of care (as documented) at patient's floor/unit and/or counseling patient: goals of care, symptom management, prognosis, hospice, coordination of care Coding Level of Care Code 29880 Initial Inpt Care Lvl 3 Diagnoses Hepatic encephalopathy K72.90 Liver failure K72.90 Abdominal pain R10.9 Palliative care encounter Z51.5 Metastatic colorectal cancer C19
[2021-10-27] MEDS ORDERED: DOXYCYCLINE HYCLATE 100 MG CAP PO SCH (14:00)
--- NOTE | 2021-10-27 14:35 | Discharge Summary ---
Date of Service October 27, 2021 Admission HPI Per Admitting Provider 76yo M w/ hx of colon cx and liver mets with cirrhosis who presents with hepatic encephalopathy. Per , the patient was acting a bit funny yesterday, but woke up this morning and could not respond. On my interview, he smiles and laughs pleasantly, but does not answer any questions or follow commands. He has no hx of this, but has had multiple GI bleeds with prior variceal banding as recently as 08/2021. Principal Diagnosis Hepatic encephalopathy, metastatic colon CA, liver failure Discharge Exam Constitutional WD/WN, vitals as above Eyes + scleral abnormality (icterus) ENMT external ear and nose normal, oropharynx normal Neck trachea midline, no thyromegaly Respiratory normal respiratory effort, lungs clear to auscultation Cardiovascular RRR, no murmur, no edema Chest (Breasts) Chest: normal inspection of chest Gastrointestinal (Abdomen) normal bowel sounds, soft, nontender, no hepatosplenomegaly (with mild distension,peritoneal drin in place) Musculoskeletal Extremities: extremities normal to inspection; no cyanosis and no clubbing Skin no rashes, warm and dry + jaundice Neurologic moves all extremities and awake; no focal motor deficits Psychiatric Orientation: alert, oriented to person, oriented to place and cooperative Discharge Data Allergies Allergy/AdvReac Type Severity Reaction Status Date / Time No Known Drug Allergies Allergy Verified 10/11/21 07:09 Consultations 10/24/21 08:36 ED Decision to Admit Stat 10/24/21 19:51 Consult Gastroenterology Routine 10/27/21 10:02 Consult Palliative Care Routine Procedures Performed Operation Date: 10/27/21 10:10 <No data on this case meets the specified criteria> Ordered Studies 10/24/21 06:35 CT head/brain wo con Stat 10/24/21 19:51 US abdomen ltd ascites Routine 10/26/21 19:56 CT abd pelvis IV con only Urgent Hospital Course (1) Encephalopathy, hepatic: First ever diagnosis. NH3+ was 120 in the ER with mental status consistent with hepatic encephalopathy. - Continue lactulose PO BID -> Titrate for 3 soft BMs/day - Added a third dose on 10/25 as ostomy output was only about 100 mL overnight. - GI consulted - Appreciate recs. Improved somewhat with mentation prior to discharge continue lactulose and Rifaximin on discharge would discontinue oxycodone as can worsen confusion-he has not needed any since admission Growing STaph species in peritoneal fluid but no fevers, no leukocytosis, no abd pain or tenderness, doubt SBP. Nonetheless, will treat with po doxycycline x 7 day course on discharge Nothing further to do given liver failure from metastatic disease (2) Metastatic colorectal cancer: Follows with [facility] oncologist. With resultant liver failure due to mets. - Continue home Lasix/spironolactone as able - Limited u/s for ascites on 10/24 showed moderate ascites. Peritoneal sample on 10/25 without signs of SBP but did grow Staph species as above-likely skin contaminant from peritoneal drain but treat with 7 days po doxy - Tbili has been consistently higher this admission than priors and is rising. Hyponatremia also worsening due to volume overload from liver failure Discussed with GI Dr. Aguilera on 10/27 and after reviewing the case and CT abd/pel, no role for ERCP as this would not benefit him either by improving QOL or extend his life and may even hasten his if there is a resulting complication given his high risk for procedure. Discussed with and all in agreement to not proceed with ERCP Dc to home on Palliative home care with eventual transition to hospice when he worsens again as per my d/w and Palliative Medicine on day of discharge (3) CKD (chronic kidney disease) stage 2, GFR 60-89 ml/min: Baseline Cr ~1.0. Presently at baseline. - Monitor Cr while admitted. - Avoid nephrotoxic medications as able. 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 - No bleeding noted presently. - Hgb 9.2. Stable. (5) Esophageal varices with bleeding: Hx of. Large varices banded on EGD on 08/2021. - Monitor (6) Depression: - Continue escitalopram as able (7) Hypertension: BP low normal - Monitor and is on diuretics (8) DVT prophylaxis: SCDs - Given recurrent GI bleed, will defer heparin at this time. Dispo-stable for dc to home with likely transition to home hospice in near future Prognosis likely weeks to live as per my d/w GI Total Time Total Time Spent Total Time Spent (In Minutes): 45 min Total Time Includes: Examination of the Patient, Discharge Planning, Medication Reconciliation and Communication With Other Providers (Palliative Med, GI) Discharge Plan Discharge Items Patient Disposition: Home - Home Health Services Reason For Visit: FATIGUE,DISORIENTED/CONFUSED Discharge Diagnosis: Hepatic encephalopathy, metastatic colon cancer to the liver, liver failure Condition on Discharge: Fair Activity: As commented below Bathing: No limitations Exercise/Sports: As tolerated Non-emergency contact: Primary Care Provider Call non-emergency contact if: you have any medication questions, your symptoms worsen, your pain is not controlled, your pain is worsening and you have a fever Follow-up/Referrals: Ian Mccartney, [Primary Care Provider] - (Follow up as needed) Diet: Regular Addtl Attending Provider Instructions: Please finish out a 7 day course of doxycycline for the Staphylococcus bacteria growing from your peritoneal fluid. This may just be a contamination from the skin and not a true infection. Please continue to take the lactulose to keep your ammonia and confusion levels down. Rifaximin is another medication to help with keeping ammonia levels down but is often extremely expensive. If it is not cost affordable, it's ok to not pick that drug up at the pharmacy and just keep taking the lactulose by itself. As discussed, please continue your care at home and discuss a transition to comfort care at home when you feel the time is appropriate. It was a pleasure taking care of you, Pauly Glez M.D. Pending Studies at Discharge: Yes (Final sensitivities of Staphylococcus from peritoneal fluid) Stand-Alone Forms: My [facility], Smoking Cessation Medications and DC Order Prescriptions: New doxycycline hyclate 100 mg Capsule 100 mg PO BID Qty: 13 RF: 0 Xifaxan 550 mg Tablet 550 mg PO BID Qty: 60 RF: 0 lactulose 20 gram/30 mL Solution 20 g PO BID 30 Days Qty: 1800 RF: 0 Continued pantoprazole 40 mg tablet,delayed release (DR/EC) 40 mg PO DAILY Qty: 30 RF: 3 multivitamin [Daily Multi-Vitamin] tablet 1 tab PO HS RF: 0 coenzyme Q10 [CoQ-10] 30 mg Capsule 30 mg PO HS RF: 0 ascorbic acid (vitamin C) [Vitamin C] 1,000 mg tablet 1,000 mg PO QDL RF: 0 cholecalciferol (vitamin D3) [Vitamin D3] 50 mcg (2,000 unit) tablet 3,000 unit PO QDL RF: 0 escitalopram oxalate [Lexapro] 10 mg tablet 10 mg PO QAM RF: 0 Probiotic 3 billion cell Capsule 3,000 mmu cells PO QAM RF: 0 polyethylene glycol 3350 [Miralax] 17 gram/dose Powder 17 g PO QAM RF: 0 spironolactone 25 mg tablet 25 mg PO QAM RF: 0 furosemide [Lasix] 20 mg tablet 20 mg PO QAM RF: 0 sennosides-docusate sodium [Senokot-S] 8.6-50 mg Tablet 1 tab-cap PO BID RF: 0 Discontinued oxycodone 5 mg tablet 5 mg PO Q6H PRN (Reason: Pain) Qty: 30 RF: 0 Discharge Orders: Discharge Order (Routine); Ordered 10/27/21 Ordered By: Pauly Glez Admission Data Admit Date/Time: 10/24/21 10:03 Attending Provider: Pauly Glez Admit Provider: Philip Cifuentes Primary Care Provider: Ian Mccartney Other Providers: Pauly Glez ; Philip Cifuentes ; Nathan Lin ; Ayla Polk Other Interventions: Discharge Summary Assessment (RN) Last Done: 10/27/21 14:33 Coding Level of Care Code D/C DAY MANAGEMENT >30 MINS Diagnoses Encephalopathy, hepatic K72.90 Metastatic colorectal cancer C19 CKD (chronic kidney disease) stage 2, GFR 60-89 ml/min N18.2 Peristomal varices Esophageal varices with bleeding I85.11 Esophageal varices type: secondary Depression F32.9 Hypertension I10 DVT prophylaxis Z29.9
== END 2021-10-27 15:41 | disposition home health service (06) | DRG 442 ==
LOC: ED 05:57 → SUATTDRO 10:03 → EDINP 10:03 → 2W 19:33